=== PATIENT | male | born 1945 | race American Indian/Alaskan Native ===

== ENCOUNTER 2018-12-23 10:00 | Emergency (ER) | payer MEDICARE, OTHER ==
[2018-12-23] MEDS ORDERED: ATROVENT IH ONE (10:09)
[2018-12-23] MEDS ORDERED: PROVENTIL IH ONE (10:10)
[2018-12-23 10:31] LABS: Hemoglobin 12.3 gm/dl (11.8-15.2); Mean Corpuscular HGB Conc 33 % (32-34); Mean Corpuscular Volume 91 fl (84-94); Platelet Count 115 K/mm3 (140-440); Red Blood Count 4.08 M/mm3 (3.65-5.03); Red Cell Distribution Width 21.9 % (13.2-15.2)
--- NOTE | 2018-12-23 10:45 | XRay Report ---
AP CHEST: HISTORY: Shortness of breath Mild cardiomegaly and pulmonary venous congestion are identified. No obvious infiltrate, pleural fluid or pneumothorax. The bony thorax is grossly intact. IMPRESSION: Cardiomegaly and pulmonary venous congestion.
[2018-12-23 10:59] LABS: Alanine Aminotransferase 11 units/L (7-56); Albumin 3.7 g/dL (3.9-5); BUN/Creatinine Ratio 15; Blood Urea Nitrogen 17 mg/dL (9-20); Hemolysis Index 4
--- NOTE | 2018-12-23 12:50 | Emergency Department Report ---
ED General Adult HPI - General Chief complaint: Dyspnea/Respdistress Stated complaint: OMAR Time Seen by Provider: 12/23/18 10:08 Source: patient, family, EMS Mode of arrival: Stretcher Limitations: No Limitations - History of Present Illness Initial comments: Patient arrives to the ED via EMS for a chief complaint of shortness of breath. The patient arrives on CPAP and has a history of interstitial lung disease. Per EMS the patient's O2 sats were in the low 70s upon their arrival. Prior to patient's states he wears 2-3 L of O2 nasal cannula at home. Patient denies any chest pain, or abdominal pain. Patient received 125 mg of Solu-Medrol, albuterol breathing treatment, and 2 g of magnesium prior to arrival by EMS -: Sudden Severity scale (0 -10): 0 Consistency: constant Improves with: other (CPAP) Worsens with: movement Associated Symptoms: denies other symptoms Treatments Prior to Arrival: none - Related Data Allergies Allergy/AdvReac Type Severity Reaction Status Date / Time No Known Allergies Allergy Verified 12/23/18 10:17 ED Review of Systems ROS: Stated complaint: OMAR Other details as noted in HPI Constitutional: denies: chills, fever Eyes: denies: eye pain, eye discharge, vision change ENT: denies: ear pain, throat pain Respiratory: shortness of breath. denies: cough, wheezing Cardiovascular: denies: chest pain, palpitations Endocrine: no symptoms reported Gastrointestinal: denies: abdominal pain, nausea, diarrhea Genitourinary: denies: urgency, dysuria Musculoskeletal: denies: back pain, joint swelling, arthralgia Skin: denies: rash, lesions Neurological: denies: headache, weakness, paresthesias Psychiatric: denies: anxiety, depression Hematological/Lymphatic: denies: easy bleeding, easy bruising ED Past Medical Hx - Past Medical History Previous Medical History?: Yes Hx Hypertension: Yes Hx Diabetes: Yes Hx of Cancer: Yes (prostate) Additional medical history: interstitial lung disease - Surgical History Past Surgical History?: Yes Hx Coronary Stent: Yes Additional Surgical History: neck surgery - Social History Smoking Status: Unknown if ever smoked Substance Use Type: None ED Physical Exam - General Limitations: No Limitations General appearance: alert, in no apparent distress - Head Head exam: Present: atraumatic, normocephalic - Eye Eye exam: Present: normal appearance, PERRL, EOMI - ENT ENT exam: Present: mucous membranes moist - Neck Neck exam: Present: normal inspection - Respiratory Respiratory exam: Present: respiratory distress, wheezes, accessory muscle use, other (patient using accessory muscles for respiration) - Cardiovascular Cardiovascular Exam: Present: regular rate, normal rhythm. Absent: systolic murmur, diastolic murmur, rubs, gallop - GI/Abdominal GI/Abdominal exam: Present: soft, distended, normal bowel sounds. Absent: tenderness - Rectal Rectal exam: Present: deferred - Extremities Exam Extremities exam: Present: normal inspection - Back Exam Back exam: Present: normal inspection - Neurological Exam Neurological exam: Present: alert, oriented X3, CN II-XII intact. Absent: motor sensory deficit - Psychiatric Psychiatric exam: Present: normal affect, normal mood - Skin Skin exam: Present: warm, dry, intact, normal color. Absent: rash ED Course Vital Signs 12/23/18 12/23/18 12/23/18 10:00 10:04 10:23 Temperature 97.9 F Pulse Rate 86 103 H Pulse Rate [ Posterior Bilateral Throughout] Respiratory 34 H 30 H Rate Respiratory Rate [Posterior Bilateral Throughout] Blood Pressure Blood Pressure 151/77 [Right] O2 Sat by Pulse 92 93 93 Oximetry 12/23/18 12/23/18 12/23/18 10:30 10:39 10:46 Temperature Pulse Rate 99 H Pulse Rate [ Posterior Bilateral Throughout] Respiratory 23 24 Rate Respiratory Rate [Posterior Bilateral Throughout] Blood Pressure 138/65 151/77 Blood Pressure [Right] O2 Sat by Pulse 93 92 Oximetry 12/23/18 12/23/18 12/23/18 10:58 11:00 11:16 Temperature Pulse Rate Pulse Rate [ 94 H Posterior Bilateral Throughout] Respiratory Rate Respiratory 22 Rate [Posterior Bilateral Throughout] Blood Pressure 138/65 135/73 Blood Pressure [Right] O2 Sat by Pulse 92 93 Oximetry 12/23/18 12/23/18 12/23/18 11:30 11:46 12:00 Temperature Pulse Rate Pulse Rate [ Posterior Bilateral Throughout] Respiratory Rate Respiratory Rate [Posterior Bilateral Throughout] Blood Pressure 132/77 132/77 145/76 Blood Pressure [Right] O2 Sat by Pulse 93 94 92 Oximetry 12/23/18 12/23/18 12/23/18 12:16 12:30 12:46 Temperature Pulse Rate Pulse Rate [ Posterior Bilateral Throughout] Respiratory Rate Respiratory Rate [Posterior Bilateral Throughout] Blood Pressure 145/76 145/76 137/62 Blood Pressure [Right] O2 Sat by Pulse 92 94 94 Oximetry ED Medical Decision Making - Lab Data Result diagrams: 12/23/18 10:22 12/23/18 10:22 Lab Results 12/23/18 12/23/18 12/23/18 Range/Units 10:22 10:22 10:22 WBC 10.7 (4.5-11.0) K/mm3 RBC 4.08 (3.65-5.03) M/mm3 Hgb 12.3 (11.8-15.2) gm/dl Hct 37.0 (35.5-45.6) % MCV 91 (84-94) fl MCH 30 (28-32) pg MCHC 33 (32-34) % RDW 21.9 H (13.2-15.2) % Plt Count 115 L (140-440) K/mm3 Add Manual Diff Complete Total Counted 100 Seg Neuts % (Manual) 92.0 H (40.0-70.0) % Band Neutrophils % 0 % Lymphocytes % (Manual) 5.0 L (13.4-35.0) % Reactive Lymphs % (Man) 0 % Monocytes % (Manual) 3.0 (0.0-7.3) % Eosinophils % (Manual) 0 (0.0-4.3) % Basophils % (Manual) 0 (0.0-1.8) % Metamyelocytes % 0 % Myelocytes % 0 % Promyelocytes % 0 % Blast Cells % 0 % Nucleated RBC % Not Reportable Seg Neutrophils # Man 9.8 H (1.8-7.7) K/mm3 Band Neutrophils # 0.0 K/mm3 Lymphocytes # (Manual) 0.5 L (1.2-5.4) K/mm3 Abs React Lymphs (Man) 0.0 K/mm3 Monocytes # (Manual) 0.3 (0.0-0.8) K/mm3 Eosinophils # (Manual) 0.0 (0.0-0.4) K/mm3 Basophils # (Manual) 0.0 (0.0-0.1) K/mm3 Metamyelocytes # 0.0 K/mm3 Myelocytes # 0.0 K/mm3 Promyelocytes # 0.0 K/mm3 Blast Cells # 0.0 K/mm3 WBC Morphology Not Reportable Hypersegmented Neuts Not Reportable Hyposegmented Neuts Not Reportable Hypogranular Neuts Not Reportable Smudge Cells Not Reportable Toxic Granulation Not Reportable Toxic Vacuolation Not Reportable Dohle Bodies Not Reportable Pelger-Huet Anomaly Not Reportable Kimberly Rods Not Reportable Platelet Estimate Consistent w auto Clumped Platelets Not Reportable Plt Clumps, EDTA Not Reportable Large Platelets Not Reportable Giant Platelets Not Reportable Platelet Satelliting Not Reportable Plt Morphology Comment Not Reportable RBC Morphology Not Reportable Dimorphic RBCs Not Reportable Polychromasia Not Reportable Hypochromasia Not Reportable Poikilocytosis 1+ Anisocytosis 1+ Microcytosis Not Reportable Macrocytosis Not Reportable Spherocytes Not Reportable Pappenheimer Bodies Not Reportable Sickle Cells Not Reportable Target Cells Not Reportable Tear Drop Cells Few Ovalocytes Few Helmet Cells Not Reportable [place] Bodies Not Reportable [place] Rings Not Reportable [place] Cells Not Reportable Bite Cells Not Reportable Crenated Cell Not Reportable Elliptocytes Not Reportable Acanthocytes (Spur) Not Reportable Rouleaux Not Reportable Hemoglobin C Crystals Not Reportable Schistocytes Not Reportable Malaria parasites Not Reportable Carlin Bodies Not Reportable Hem Pathologist Commnt No Sodium 139 (137-145) mmol/L Potassium 4.8 (3.6-5.0) mmol/L Chloride 105.1 (98-107) mmol/L Carbon Dioxide 20 L (22-30) mmol/L Anion Gap 19 mmol/L BUN 17 (9-20) mg/dL Creatinine 1.1 (0.8-1.5) mg/dL Estimated GFR > 60 ml/min BUN/Creatinine Ratio 15 % Glucose 142 H (75-100) mg/dL Calcium 9.0 (8.4-10.2) mg/dL Total Bilirubin 2.00 H (0.1-1.2) mg/dL AST 18 (5-40) units/L ALT 11 (7-56) units/L Alkaline Phosphatase 72 (35-129) units/L Troponin T < 0.010 (0.00-0.029) ng/mL NT-Pro-B Natriuret Pep 604.4 (0-900) pg/mL Total Protein 7.6 (6.3-8.2) g/dL Albumin 3.7 L (3.9-5) g/dL Albumin/Globulin Ratio 0.9 % 12/23/18 Range/Units 12:03 WBC (4.5-11.0) K/mm3 RBC (3.65-5.03) M/mm3 Hgb (11.8-15.2) gm/dl Hct (35.5-45.6) % MCV (84-94) fl MCH (28-32) pg MCHC (32-34) % RDW (13.2-15.2) % Plt Count (140-440) K/mm3 Add Manual Diff Total Counted Seg Neuts % (Manual) (40.0-70.0) % Band Neutrophils % % Lymphocytes % (Manual) (13.4-35.0) % Reactive Lymphs % (Man) % Monocytes % (Manual) (0.0-7.3) % Eosinophils % (Manual) (0.0-4.3) % Basophils % (Manual) (0.0-1.8) % Metamyelocytes % % Myelocytes % % Promyelocytes % % Blast Cells % % Nucleated RBC % Seg Neutrophils # Man (1.8-7.7) K/mm3 Band Neutrophils # K/mm3 Lymphocytes # (Manual) (1.2-5.4) K/mm3 Abs React Lymphs (Man) K/mm3 Monocytes # (Manual) (0.0-0.8) K/mm3 Eosinophils # (Manual) (0.0-0.4) K/mm3 Basophils # (Manual) (0.0-0.1) K/mm3 Metamyelocytes # K/mm3 Myelocytes # K/mm3 Promyelocytes # K/mm3 Blast Cells # K/mm3 WBC Morphology Hypersegmented Neuts Hyposegmented Neuts Hypogranular Neuts Smudge Cells Toxic Granulation Toxic Vacuolation Dohle Bodies Pelger-Huet Anomaly Kimberly Rods Platelet Estimate Clumped Platelets Plt Clumps, EDTA Large Platelets Giant Platelets Platelet Satelliting Plt Morphology Comment RBC Morphology Dimorphic RBCs Polychromasia Hypochromasia Poikilocytosis Anisocytosis Microcytosis Macrocytosis Spherocytes Pappenheimer Bodies Sickle Cells Target Cells Tear Drop Cells Ovalocytes Helmet Cells [place] Bodies [place] Rings [place] Cells Bite Cells Crenated Cell Elliptocytes Acanthocytes (Spur) Rouleaux Hemoglobin C Crystals Schistocytes Malaria parasites Carlin Bodies Hem Pathologist Commnt Sodium (137-145) mmol/L Potassium (3.6-5.0) mmol/L Chloride (98-107) mmol/L Carbon Dioxide (22-30) mmol/L Anion Gap mmol/L BUN (9-20) mg/dL Creatinine (0.8-1.5) mg/dL Estimated GFR ml/min BUN/Creatinine Ratio % Glucose (75-100) mg/dL Calcium (8.4-10.2) mg/dL Total Bilirubin (0.1-1.2) mg/dL AST (5-40) units/L ALT (7-56) units/L Alkaline Phosphatase (35-129) units/L Troponin T < 0.010 (0.00-0.029) ng/mL NT-Pro-B Natriuret Pep (0-900) pg/mL Total Protein (6.3-8.2) g/dL Albumin (3.9-5) g/dL Albumin/Globulin Ratio % - EKG Data -: EKG Interpreted by [facility] EKG shows normal: sinus rhythm Rate: normal - EKG Data Interpretation: other (RBBB) - Radiology Data Radiology results: report reviewed - Medical Decision Making Patient improved after receiving 3 L nasal cannula and 1 hour continuous breathing treatment Discussed patient with Dr. Taylor at [facility] and the patient will be transferred to him at [facility] for further evaluation and treatment Critical care time in (mins) excluding proc time.: 35 Critical care attestation.: If time is entered above; I have spent that time in minutes in the direct care of this critically ill patient, excluding procedure time. ED Disposition Clinical Impression: Respiratory distress Disposition: [id number]/TX-70 ANOTHER TYPE HLTHCARE Is pt being admited?: No Does the pt Need Aspirin: No Condition: Stable Referrals: HELEN CRUZ [Other] - 3-5 Days
[2018-12-23 12:54] LABS: Anisocytosis 1+; Basophils % (Manual) 0 % (0.0-1.8); Eosinophils % (Manual) 0 % (0.0-4.3); Poikilocytosis 1+; Total Cells Counted 100
[2018-12-23 12:55] LABS: Ovalocytes Few; Platelet Estimate Consistent w Auto; Tear Drop Cells Few
[2018-12-23 13:13] VITALS: BP 118/71
== END 2018-12-23 14:26 | disposition other institution (70) ==
LOC: ED 10:00
DX: R06.03 Acute respiratory distress (principal)
CPT/HCPCS: 36415; 71045; 80053; 82803; 83880; 84484; 85007; 85025; 93005; 93010; 94640

== ENCOUNTER 2019-01-09 06:19 | Inpatient (IN) | payer MEDICARE, OTHER ==
[2019-01-09] MEDS ORDERED: MAGNESIUM SULFATE 2GM/50ML 2 GM/50 ML BAG IV ONE (06:26)
[2019-01-09] MEDS ORDERED: PROVENTIL IH ONE (06:26)
[2019-01-09] MEDS ORDERED: SOLU-Medrol IV ONE (06:26)
[2019-01-09] MEDS ORDERED: ATROVENT IH ONE (06:26)
--- NOTE | 2019-01-09 06:30 | Emergency Department Report ---
ED Shortness of Breath HPI - General Stated Complaint: OMAR Time Seen by Provider: 01/09/19 06:24 Source: patient, old records reviewed (patient was seen here on December 23 and was subsequently transferred to a [facility] hospital for admission) Mode of arrival: Stretcher Limitations: No Limitations - History of Present Illness Initial Comments: 73-year-old male with a past medical history interstitial lung disease, hypertension, diabetes, and prostate cancer presents with possible complaints of shortness of breath worsening this a.m. EMS reports a saturation of 60% on oxygen. Patient does use 2L nasal cannula oxygen at home and has chronic hypoxia secondary to interstitial lung disease. Patient denies pain. No reports of fever. Patient presents with respiratory distress on nonrebreather. PMD: [place] Medical records received from [place] admission as d/c summary before (see records for more details) He was admitted December 30 of December 27 for acute on chronic respiratory failure and interstitial lung disease. Patient was started sildenafil during this adm ission along with prednisone taper. pt had a vq scan done that was neg for PE. cardiac cath done 07/2017 shows a stable PDA lesion. EF 55-60% (see echo from 12/24 on chart). hx of stroke in 12/2017 with slight weak left upper and lower extremities and left homonymous hemianopsia. KELLY on CPAP - Related Data Allergies Allergy/AdvReac Type Severity Reaction Status Date / Time No Known Allergies Allergy Verified 12/23/18 10:17 ED Review of Systems ROS: Stated complaint: OMAR Other details as noted in HPI Comment: All other systems reviewed and negative ED Past Medical Hx - Past Medical History Hx Hypertension: Yes Hx Diabetes: Yes Additional medical history: interstitial lung disease, severe pulmonary hypertension, Obstructive sleep apnea - Surgical History Hx Coronary Stent: Yes Additional Surgical History: neck surgery - Social History Smoking Status: Unknown if ever smoked Substance Use Type: None ED Physical Exam - Other Other exam information: General: Respiratory distress Head exam: Atraumatic, normocephalic Eyes exam: Normal appearance ENT: Moist mucous membrane, normal oropharynx Neck exam: Normal inspection, full range of motion, no meningismus nontender Respiratory exam: Tachypnea, accessory muscle use, bilateral wheezes and crackles Cardiovascular: Tachycardic regular rhythm Abdomen: Soft, nondistended, and nontender, with normal bowel sounds, no rebound, or guarding Extremity: Full range of motion normal inspection no deformity, no calf tender ness or edema Back: Normal Inspection, full range of motion, no tenderness Neurologic: Alert, oriented x3, cranial nerves intact, 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 Psychiatric: normal affect, normal mood Skin: Warm, dry, intact ED Course Vital Signs 01/09/19 01/09/19 01/09/19 06:26 06:38 06:42 Pulse Rate 114 H 88 Pulse Rate [ 88 Anterior Bilateral Throughout] Respiratory 18 38 H Rate Respiratory 38 H Rate [Anterior Bilateral Throughout] Blood Pressure 183/55 183/85 O2 Sat by Pulse 77 L 90 Oximetry 01/09/19 01/09/19 01/09/19 07:55 07:57 09:25 Pulse Rate 98 H Pulse Rate [ 98 H Anterior Bilateral Throughout] Respiratory 36 H 32 H Rate Respiratory 32 H Rate [Anterior Bilateral Throughout] Blood Pressure 105/60 O2 Sat by Pulse 100 98 Oximetry - Consultations Consultation #1: 01/09/19 09:06 case d/w Dr Loomis with [facility] admission here due to bipap dependence. She will fax over most recent d/c summary. 01/09/19 09:21 recent d/c summary placed on chart ED Medical Decision Making - Lab Data Result diagrams: 01/09/19 06:33 01/09/19 06:33 Lab Results 01/09/19 01/09/19 01/09/19 Range/Units 06:33 06:33 07:57 WBC 14.0 H (4.5-11.0) K/mm3 RBC 4.01 (3.65-5.03) M/mm3 Hgb 11.9 (11.8-15.2) gm/dl Hct 36.7 (35.5-45.6) % MCV 92 (84-94) fl MCH 30 (28-32) pg MCHC 32 (32-34) % RDW 21.7 H (13.2-15.2) % Plt Count 129 L (140-440) K/mm3 POC ABG pH 7.401 (7.35-7.45) POC ABG pCO2 32.4 L (35-45) POC ABG pO2 125 H (80-105) POC ABG HCO3 20.1 (22-26 mml/L) POC ABG Total CO2 21 (23-27mmol/L) POC ABG O2 Sat 99 POC ABG Base Excess -5 ((-2) - (+3)mmol/L) FiO2 100 % Sodium 138 (137-145) mmol/L Potassium 4.9 (3.6-5.0) mmol/L Chloride 102.4 (98-107) mmol/L Carbon Dioxide 19 L (22-30) mmol/L Anion Gap 22 mmol/L BUN 17 (9-20) mg/dL Creatinine 1.2 (0.8-1.5) mg/dL Estimated GFR > 60 ml/min BUN/Creatinine Ratio 14 % Glucose 248 H (75-100) mg/dL Calcium 8.6 (8.4-10.2) mg/dL Total Bilirubin 1.30 H (0.1-1.2) mg/dL AST 15 (5-40) units/L ALT 10 (7-56) units/L Alkaline Phosphatase 72 (35-129) units/L Troponin T 0.015 (0.00-0.029) ng/mL Total Protein 7.3 (6.3-8.2) g/dL Albumin 3.5 L (3.9-5) g/dL Albumin/Globulin Ratio 0.9 % - EKG Data -: EKG Interpreted by Me (RBBB) EKG shows normal: sinus rhythm, axis (qrs 47), QRS complexes (qrsd 152), ST-T waves (no stemi) Rate: tachycardia - EKG Data When compared to previous EKG there are: no significant change - Radiology Data Radiology results: report reviewed PORTABLE CHEST INDICATION: Shortness of breath. COMPARISON: 12/23/2018 CXR and February 2016 CT findings. FINDINGS: Portable, frontal chest radiograph again demonstrates exaggerated cardiomediastinal silhouette and increased bilateral interstitial markings/densities, more so centrally and towards the bases, in keeping with interstitial lung disease/IPF described on prior CT, though progressed since 01/18/2013 CXR available at this institution. No pleural effusions or CHF. Mild aortic knob calcifications. Stable bones, including multilevel cervical fusion hardware. CONCLUSION: Interstitial lung disease again noted without definite acute radiographic abnormality, as described. Please correlate. - Medical Decision Making abg on bipap with 100%, fio2 decreased after abg result no infiltrate or c02 retention pt will be admitted here as per [place] approval awaiting fax of recent d/c summary from [place] - Differential Diagnosis pneumonia, pulmonary embolus, COPD, interstitial lung disease Critical Care Time: No Critical care attestation.: If time is entered above; I have spent that time in minutes in the direct care of this critically ill patient, excluding procedure time. ED Disposition Clinical Impression: Interstitial lung disease, Respiratory distress, Oxygen dependent, Thrombocytopenia Disposition: OP ADMIT IP TO THIS HOSP Is pt being admited?: Yes Does the pt Need Aspirin: No Condition: Stable Time of Disposition: 09:13 (DR Fair/Malina/hosp)
[2019-01-09 06:44] LABS: Hematocrit 36.7 % (35.5-45.6); Hemoglobin 11.9 gm/dl (11.8-15.2); Mean Corpuscular HGB Conc 32 % (32-34); Mean Corpuscular Volume 92 fl (84-94); Platelet Count 129 K/mm3 (140-440); Red Blood Count 4.01 M/mm3 (3.65-5.03)
[2019-01-09 07:00] LABS: Alanine Aminotransferase 10 units/L (7-56); Albumin 3.5 g/dL (3.9-5); BUN/Creatinine Ratio 14; Blood Urea Nitrogen 17 mg/dL (9-20); Calcium 8.6 mg/dL (8.4-10.2); Hemolysis Index 4
[2019-01-09 07:15] LABS: Red Cell Distribution Width 21.7 % (13.2-15.2)
--- NOTE | 2019-01-09 07:49 | XRay Report ---
PORTABLE CHEST INDICATION: Shortness of breath. COMPARISON: 12/23/2018 CXR and February 2016 CT findings. FINDINGS: Portable, frontal chest radiograph again demonstrates exaggerated cardiomediastinal silhouette and increased bilateral interstitial markings/densities, more so centrally and towards the bases, in keeping with interstitial lung disease/IPF described on prior CT, though progressed since 01/18/2013 CXR available at this institution. No pleural effusions or CHF. Mild aortic knob calcifications. Stable bones, including multilevel cervical fusion hardware. CONCLUSION: Interstitial lung disease again noted without definite acute radiographic abnormality, as described. Please correlate. Thank you for the opportunity to participate in this patient's care.
[2019-01-09] MEDS ORDERED: TYLENOL PO PRN ×2 (10:57→11:00)
[2019-01-09] MEDS ORDERED: ALUM-MAG HYDROX-SIMETH 200-200-20MG/5ML PO PRN (11:00)
[2019-01-09] MEDS ORDERED: D50W (25GM) Syringe IV PRN (11:00)
[2019-01-09] MEDS ORDERED: SODIUM CHLORIDE FLUSH SYRINGE 10 ML IV PRN (11:00)
[2019-01-09] MEDS ORDERED: ZOFRAN IV PRN (11:00)
[2019-01-09] MEDS ORDERED: PROVENTIL IH PRN (12:00)
[2019-01-09] MEDS ORDERED: DUONEB *Not for PRN Use IH ONE (13:38)
[2019-01-09] MEDS: DUONEB *Not for PRN Use IH SCH ×2 (13:38→19:59)
--- NOTE | 2019-01-09 14:24 | History and Physical Report ---
History of Present Illness Date of examination: 01/09/19 Date of admission: 01/09/19 09:14 Chief complaint: I couldn't breath since this morning History of present illness: 73-year-old male with past medical history significant for interstitial disease, hypertension, prostate cancer presented to the emergency department with complaints of I couldn't breath. Shortness appears started earlier this morning. Patient subsequently didn't cough which is productive of greenish sputum but denied fever, loss of appetite. She and admitted for chills and nausea but denied vomiting. Patient was admitted to some problems 2 weeks ago in discharged with sildenafil and steroid joseph. Patient is on home oxygen despite that his oxygen saturation was 60%. In the ED patient was put on BiPAP aand admitted to the floor. patient had ischemic work up in the previous admis sions and was negative. REVIEW OF SYSTEMS: GENERAL: no weight change, no fatigue, no fever HEAD: no head ache EYES: no blurry vision, no acute visual loss EARS: no hearing loss, no discharge, no earache NOSE: no stuffiness, no sneezing, no discharge MOUTH, THROAT AND NECK: no bleeding gums, no sore throat, no swollen neck CARDIAC: no palpitations, no orthopnea, no PND, no edema, no chest pain RESPIRATORY: As stated in HPI. GI: no decreased appetite, no nausea, no vomiting, no dysphagia, no diarrhea, no constipation, no abdominal pain URINARY: no change in frequency, no urgency, no polyuria, no hematuria, no incontinence MUSCULOSKELETAL: no muscle weakness, no pain, no joint stiffness NEUROLOGIC: no loss of sensation/numbness, no tingling, no tremors, no weakness/paralysis HEMATOLOGIC: no anemia, no easy bruising SKIN: no rashes ENDOCRINE: no heat/cold intolerance, no polyuria, no polydipsia, no thyroid problems, no diabetes PSYCHIATRIC: no anxiety, no depression, no suicidal ideations Past History Past Medical History: cancer (prostate cancer), hypertension Past Surgical History: Other (neck surgery) Social history: full code. denies: smoking, alcohol abuse, prescription drug abuse, IV drug use Family history: no significant family history Medications and Allergies Allergies Allergy/AdvReac Type Severity Reaction Status Date / Time No Known Allergies Allergy Verified 12/23/18 10:17 Home Medications Medication Instructions Recorded Confirmed Last Taken Type Acetaminophen [Tylenol] 500 mg PO Q6HR PRN 01/09/19 01/09/19 Unknown History AtorvaSTATin [Lipitor] 40 mg PO DAILY 01/09/19 01/09/19 Unknown History Carvedilol [Coreg] 12.5 mg PO BID 01/09/19 01/09/19 Unknown History Cetirizine HCl [Allergy Relief] 10 mg PO DAILY 01/09/19 01/09/19 Unknown History Cholecalciferol (Vitamin D3) 1,000 unit PO QDAY 01/09/19 01/09/19 Unknown Hi story [Children's Vitamin D3 1,000 unit CHEW] Clopidogrel [Plavix] 75 mg PO QDAY 01/09/19 01/09/19 Unknown History Fluticasone [Flonase] 1 spray NS QDAY 01/09/19 01/09/19 Unknown History Glimepiride [Amaryl] 2 mg PO QDAY 01/09/19 01/09/19 Unknown History Insulin Glargine,Hum.rec.anlog 40 units SUB-Q HS 01/09/19 01/09/19 Unknown History [Lantus] Losartan [Cozaar] 100 mg PO QDAY 01/09/19 01/09/19 Unknown History Sertraline [Zoloft] 150 mg PO QDAY 01/09/19 01/09/19 Unknown History Sildenafil [Revatio] 20 mg PO TID 01/09/19 01/09/19 Unknown History amLODIPine [Norvasc] 10 mg PO DAILY 01/09/19 01/09/19 Unknown History Active Meds: Active Medications Acetaminophen (Tylenol) 650 mg PO Q4H PRN PRN Reason: Pain MILD(1-3)/Fever >100.5/QUILES Al Hydrox/Mg Hydrox/Simethicone (Alum-Mag Hydrox-Simeth 193-370-71lu/5ml) 30 ml PO Q4H PRN PRN Reason: Indigestion Albuterol (Proventil) 2.5 mg IH Q4HRT PRN PRN Reason: Shortness Of Breath Albuterol/Ipratropium (Duoneb *Not For Prn Use*) 1 ampul IH Q6HRT [facility] Last Admin: 01/09/19 13:38 Dose: 1 ampul Documented by: Amlodipine Besylate (Norvasc) 10 mg PO DAILY [facility] Atorvastatin Calcium (Lipitor) 40 mg PO DAILY [facility] Budesonide (Pulmicort) 0.5 mg IH Q12HRT [facility] Carvedilol (Coreg) 12.5 mg PO BID [facility] Clopidogrel Bisulfate (Plavix) 75 mg PO QDAY [facility] Dextrose (D50w (25gm) Syringe) 50 ml IV PRN PRN PRN Reason: Hypoglycemia Docusate Sodium (Colace) 100 mg PO BID [facility] Famotidine (Pepcid) 10 mg PO BID [facility] Fluticasone Propionate (Flonase) 50 mcg NS QDAY [facility] Glimepiride (Amaryl) 2 mg PO QAMDIAB [facility] Insulin Glargine (Lantus) 40 units SUB-Q HS [facility] Loratadine (Claritin) 10 mg PO DAILY [facility] Losartan Potassium (Cozaar) 100 mg PO QDAY [facility] Methylprednisolone Sodium Succinate (Solu-Medrol) 80 mg IV Q8HR [facility] Ondansetron HCl (Zofran) 4 mg IV Q8H PRN PRN Reason: Nausea And Vomiting Sertraline HCl (Zoloft) 150 mg PO QDAY [facility] Sildenafil Citrate (Revatio) 20 mg PO TID [facility] Sodium Chloride (Sodium Chloride Flush Syringe 10 Ml) 10 ml IV BID [facility] Sodium Chloride (Sodium Chloride Flush Syringe 10 Ml) 10 ml IV PRN PRN PRN Reason: LINE FLUSH Exam - Physical Exam Narrative exam: Not in cardiopulmonary distress. The patient appeared well nourished and normally developed. Vital signs as documented. Head exam is unremarkable. No scleral icterus . Neck is without jugular venous distension, thyromegaly, or carotid bruits. Lungs decrease air entry. Cardiac exam reveals regular rate and Rhythm. Abdominal exam reveals normal bowel sounds. Extremities are nonedematous. 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 No focal weakness. - Constitutional Vitals: Temp Pulse Resp BP Pulse Ox 79 24 123/70 95 01/09/19 13:46 01/09/19 13:46 01/09/19 13:24 01/09/19 13:24 Results - Labs CBC & Chem 7: 01/09/19 06:33 01/09/19 06:33 Labs: Laboratory Last Values WBC 14.0 K/mm3 (4.5-11.0) H 01/09/19 06:33 RBC 4.01 M/mm3 (3.65-5.03) 01/09/19 06:33 Hgb 11.9 gm/dl (11.8-15.2) 01/09/19 06:33 Hct 36.7 % (35.5-45.6) 01/09/19 06:33 MCV 92 fl (84-94) 01/09/19 06:33 MCH 30 pg (28-32) 01/09/19 06:33 MCHC 32 % (32-34) 01/09/19 06:33 RDW 21.7 % (13.2-15.2) H 01/09/19 06:33 Plt Count 129 K/mm3 (140-440) L 01/09/19 06:33 POC ABG pH 7.401 (7.35-7.45) 01/09/19 07:57 POC ABG pCO2 32.4 (35-45) L 01/09/19 07:57 POC ABG pO2 125 (80-105) H 01/09/19 07:57 POC ABG HCO3 20.1 (22-26 mml/L) 01/09/19 07:57 POC ABG Total CO2 21 (23-27mmol/L) 01/09/19 07:57 POC ABG O2 Sat 99 01/09/19 07:57 POC ABG Base Excess -5 ((-2) - (+3)mmol/L) 01/09/19 07:57 100 % 01/09/19 07:57 Sodium 138 mmol/L (137-145) 01/09/19 06:33 Potassium 4.9 mmol/L (3.6-5.0) 01/09/19 06:33 Chloride 102.4 mmol/L (98-107) 01/09/19 06:33 Carbon Dioxide 19 mmol/L (22-30) L 01/09/19 06:33 22 mmol/L 01/09/19 06:33 BUN 17 mg/dL (9-20) 01/09/19 06:33 1.2 mg/dL (0.8-1.5) 01/09/19 06:33 Estimated GFR > 60 ml/min 01/09/19 06:33 14 % 01/09/19 06:33 Glucose 248 mg/dL (75-100) H 01/09/19 06:33 10.8 % (4-6) H 01/09/19 06:33 Calcium 8.6 mg/dL (8.4-10.2) 01/09/19 06:33 1.30 mg/dL (0.1-1.2) H 01/09/19 06:33 AST 15 units/L (5-40) 01/09/19 06:33 ALT 10 units/L (7-56) 01/09/19 06:33 72 units/L (35-129) 01/09/19 06:33 0.015 ng/mL (0.00-0.029) 01/09/19 06:33 7.3 g/dL (6.3-8.2) 01/09/19 06:33 3.5 g/dL (3.9-5) L 01/09/19 06:33 0.9 % 01/09/19 06:33 Assessment and Plan Assessment and plan: Acute on chronic hypoxic respiratory failure Interstitial lung disease - Patient started on Solu-Medrol, continue sildenafil, breathing treatment - Home BiPAP, pulmonary consult requested Hypertension - Continue home medications DVT prophylaxis - Heparin Disposition - Admit to [facility] Advance Directives: Yes VTE prophylaxis?: Chemical Plan of care discussed with patient/family: Yes
[2019-01-09] MEDS ORDERED: SOLU-Medrol ONE (14:31)
[2019-01-09 14:34] LABS: Band Neutrophils # (Manual) 0.3 K/mm3; Basophils % (Manual) 0 % (0.0-1.8); Total Cells Counted 100
[2019-01-09 14:35] LABS: Anisocytosis 1+; Macrocytosis Few; Platelet Estimate Consistent w Auto
[2019-01-09] MEDS: SOLU-Medrol IV SCH ×2 (14:42→23:21)
[2019-01-09] MEDS: ZOLOFT PO SCH (14:42)
[2019-01-09] MEDS: FLONASE NS SCH (14:42)
[2019-01-09] MEDS: PULMICORT IH SCH (19:59)
[2019-01-09] MEDS: PEPCID PO SCH (23:21)
[2019-01-09] MEDS: REVATIO PO SCH (23:21)
[2019-01-09] MEDS: LANTUS SUB-Q SCH (23:22)
[2019-01-09] MEDS: COLACE PO SCH (23:22)
[2019-01-09] MEDS: HEPARIN SUB-Q SCH (23:22)
[2019-01-09] MEDS: SODIUM CHLORIDE FLUSH SYRINGE 10 ML IV SCH (23:23)
[2019-01-09] MEDS: COREG PO SCH (23:32)
[2019-01-10 05:46] LABS: Hematocrit 34.6 % (35.5-45.6); Hemoglobin 11.2 gm/dl (11.8-15.2); Mean Corpuscular HGB Conc 32 % (32-34); Mean Corpuscular Volume 91 fl (84-94); Platelet Count 110 K/mm3 (140-440); Red Blood Count 3.82 M/mm3 (3.65-5.03)
[2019-01-10] MEDS: DUONEB *Not for PRN Use IH SCH ×4 (05:51→19:51)
[2019-01-10 05:55] LABS: Red Cell Distribution Width 21.6 % (13.2-15.2)
[2019-01-10 06:03] LABS: BUN/Creatinine Ratio 23; Blood Urea Nitrogen 27 mg/dL (9-20); Hemolysis Index 5
[2019-01-10] MEDS: SOLU-Medrol IV SCH ×3 (06:41→22:04)
[2019-01-10] MEDS: HEPARIN SUB-Q SCH ×3 (06:41→22:05)
[2019-01-10 06:58] LABS: Band Neutrophils # (Manual) 0.5 K/mm3; Basophils % (Manual) 0 % (0.0-1.8); Eosinophils % (Manual) 0 % (0.0-4.3); Total Cells Counted 100
[2019-01-10 06:59] LABS: Anisocytosis 1+; Macrocytosis Few; Platelet Estimate Consistent w Auto
[2019-01-10] MEDS: PULMICORT IH SCH ×2 (08:48→19:51)
[2019-01-10] MEDS ORDERED: LANTUS SUB-Q ONE (09:00)
[2019-01-10] MEDS ORDERED: NON-FORMULARY (Cetirizine Hcl [Allergy Relief] 10 MG) PO SCH (10:00)
--- NOTE | 2019-01-10 10:29 | Consultation ---
History of Present Illness Consult date: 01/10/19 Requesting physician: FELY COX Reason for consult: other (Acute on Chronic Hypoxemic Resp Failure; Diffuse Proliferative Lung Disease) [facility] (Full dictation # [id number]) Please see dictated notes for full details Past History Past Medical History: cancer (prostate cancer), hypertension Past Surgical History: Other (neck surgery) Social history: full code. denies: smoking, alcohol abuse, prescription drug abuse, IV drug use Family history: no significant family history Medications and Allergies Allergies Allergy/AdvReac Type Severity Reaction Status Date / Time No Known Allergies Allergy Verified 12/23/18 10:17 Home Medications Medication Instructions Recorded Confirmed Last Taken Type Acetaminophen [Tylenol] 500 mg PO Q6HR PRN 01/09/19 01/09/19 Unknown History AtorvaSTATin [Lipitor] 40 mg PO DAILY 01/09/19 01/09/19 Unknown History Carvedilol [Coreg] 12.5 mg PO BID 01/09/19 01/09/19 Unknown History Cetirizine HCl [Allergy Relief] 10 mg PO DAILY 01/09/19 01/09/19 Unknown History Cholecalciferol (Vitamin D3) 1,000 unit PO QDAY 01/09/19 01/09/19 Unknown History [Children's Vitamin D3 1,000 unit CHEW] Clopidogrel [Plavix] 75 mg PO QDAY 01/09/19 01/09/19 Unknown History Fluticasone [Flonase] 1 spray NS QDAY 01/09/19 01/09/19 Unknown History Glimepiride [Amaryl] 2 mg PO QDAY 01/09/19 01/09/19 Unknown History Insulin Glargine,Hum.rec.anlog 40 units SUB-Q HS 01/09/19 01/09/19 Unknown History [Lantus] Losartan [Cozaar] 100 mg PO QDAY 01/09/19 01/09/19 Unknown History Sertraline [Zoloft] 150 mg PO QDAY 01/09/19 01/09/19 Unknown History Sildenafil [Revatio] 20 mg PO TID 01/09/19 01/09/19 Unknown History amLODIPine [Norvasc] 10 mg PO DAILY 01/09/19 01/09/19 Unknown History Active Meds: Active Medications Acetaminophen (Tylenol) 650 mg PO Q4H PRN PRN Reason: Pain MILD(1-3)/Fever >100.5/QUILES Al Hydrox/Mg Hydrox/Simethicone (Alum-Mag Hydrox-Simeth 155-331-56ys/5ml) 30 ml PO Q4H PRN PRN Reason: Indigestion Albuterol (Proventil) 2.5 mg IH Q4HRT PRN PRN Reason: Shortness Of Breath Albuterol/Ipratropium (Duoneb *Not For Prn Use*) 1 ampul IH Q6HRT [facility] Last Admin: 01/10/19 08:48 Dose: 1 ampul Documented by: Amlodipine Besylate (Norvasc) 10 mg PO DAILY [facility] Atorvastatin Calcium (Lipitor) 40 mg PO DAILY [facility] Budesonide (Pulmicort) 0.5 mg IH Q12HRT [facility] Last Admin: 01/10/19 08:48 Dose: 0.5 mg Documented by: Carvedilol (Coreg) 12.5 mg PO BID [facility] Last Admin: 01/09/19 23:32 Dose: Not Given Documented by: Clopidogrel Bisulfate (Plavix) 75 mg PO QDAY [facility] Dextrose (D50w (25gm) Syringe) 50 ml IV PRN PRN PRN Reason: Hypoglycemia Docusate Sodium (Colace) 100 mg PO BID [facility] Last Admin: 01/09/19 23:22 Dose: Not Given Documented by: Famotidine (Pepcid) 10 mg PO BID [facility] Last Admin: 01/09/19 23:21 Dose: 10 mg Documented by: Fluticasone Propionate (Flonase) 50 mcg NS QDAY [facility] Last Admin: 01/09/19 14:42 Dose: 50 mcg Documented by: Glimepiride (Amaryl) 2 mg PO QAMDIAB [facility] Heparin Sodium (Porcine) (Heparin) 5,000 unit SUB-Q Q8HR [facility] Last Admin: 01/10/19 06:41 Dose: 5,000 unit Documented by: Insulin Glargine (Lantus) 40 units SUB-Q HS [facility] Last Admin: 01/09/19 23:22 Dose: 40 units Documented by: Loratadine (Claritin) 10 mg PO DAILY [facility] Losartan Potassium (Cozaar) 100 mg PO QDAY [facility] Methylprednisolone Sodium Succinate (Solu-Medrol) 80 mg IV Q8HR [facility] Last Admin: 01/10/19 06:41 Dose: 80 mg Documented by: Ondansetron HCl (Zofran) 4 mg IV Q8H PRN PRN Reason: Nausea And Vomiting Sertraline HCl (Zoloft) 150 mg PO QDAY [facility] Last Admin: 01/09/19 14:42 Dose: 150 mg Documented by: Sildenafil Citrate (Revatio) 20 mg PO TID [facility] Last Admin: 01/09/19 23:21 Dose: 20 mg Documented by: Sodium Chloride (Sodium Chloride Flush Syringe 10 Ml) 10 ml IV BID [facility] Last Admin: 01/09/19 23:23 Dose: 10 ml Documented by: Sodium Chloride (Sodium Chloride Flush Syringe 10 Ml) 10 ml IV PRN PRN PRN Reason: LINE FLUSH Physical Examination Vital signs: Vital Signs Pulse Resp BP Pulse Ox 114 H 18 183/55 77 L 01/09/19 06:26 01/09/19 06:26 01/09/19 06:26 01/09/19 06:26 Results - Laboratory Findings CBC and BMP: 01/11/19 04:49 01/11/19 04:49 ABG POC ABG pH 7.401 (7.35-7.45) 01/09/19 07:57 POC ABG pCO2 32.4 (35-45) L 01/09/19 07:57 POC ABG pO2 125 (80-105) H 01/09/19 07:57 POC ABG HCO3 20.1 (22-26 mml/L) 01/09/19 07:57 POC ABG Total CO2 21 (23-27mmol/L) 01/09/19 07:57 POC ABG O2 Sat 99 01/09/19 07:57 Abnormal lab findings: Abnormal Labs 01/09/19 01/09/19 01/09/19 06:33 06:33 06:33 WBC 14.0 H Hgb Hct RDW 21.7 H Plt Count 129 L Seg Neuts % (Manual) 82.0 H Lymphocytes % (Manual) Nucleated RBC % 1.0 H Seg Neutrophils # Man 11.5 H Lymphocytes # (Manual) POC ABG pCO2 POC ABG pO2 Sodium Potassium Carbon Dioxide 19 L BUN Glucose 248 H POC Glucose Hemoglobin A1c 10.8 H Total Bilirubin 1.30 H Albumin 3.5 L 01/09/19 01/09/1919 07:57 14:37 22:07 WBC Hgb Hct RDW Plt Count Seg Neuts % (Manual) Lymphocytes % (Manual) Nucleated RBC % Seg Neutrophils # Man Lymphocytes # (Manual) POC ABG pCO2 32.4 L POC ABG pO2 125 H Sodium Potassium Carbon Dioxide BUN Glucose POC Glucose 248 H 355 H Hemoglobin A1c Total Bilirubin Albumin 01/10/19 01/10/19 01/10/19 05:02 05:02 08:34 WBC Hgb 11.2 L Hct 34.6 L RDW 21.6 H Plt Count 110 L Seg Neuts % (Manual) 83.0 H Lymphocytes % (Manual) 4.0 L Nucleated RBC % Seg Neutrophils # Man Lymphocytes # (Manual) 0.2 L POC ABG pCO2 POC ABG pO2 Sodium 136 L Potassium 5.4 H Carbon Dioxide BUN 27 H Glucose 376 H POC Glucose 378 H Hemoglobin A1c Total Bilirubin Albumin
[2019-01-10] MEDS: AMARYL PO SCH (10:37)
[2019-01-10] MEDS: REVATIO PO SCH ×3 (10:38→22:06)
[2019-01-10] MEDS: CLARITIN PO SCH (10:39)
[2019-01-10] MEDS: COLACE PO SCH ×2 (10:39→22:06)
[2019-01-10] MEDS: COREG PO SCH ×2 (10:39→22:06)
[2019-01-10] MEDS: COZAAR PO SCH (10:40)
[2019-01-10] MEDS: FLONASE NS SCH (10:40)
[2019-01-10] MEDS: NORVASC PO SCH (10:41)
[2019-01-10] MEDS: PLAVIX PO SCH (10:41)
[2019-01-10] MEDS: PEPCID PO SCH ×2 (10:41→22:08)
[2019-01-10] MEDS: ZOLOFT PO SCH (10:42)
[2019-01-10] MEDS: SODIUM CHLORIDE FLUSH SYRINGE 10 ML IV SCH ×2 (10:45→22:07)
--- NOTE | 2019-01-10 12:30 | Progress Note ---
Assessment and Plan Assessment and plan: Acute on chronic hypoxic respiratory failure Interstitial lung disease - Patient started on Solu-Medrol, continue sildenafil, breathing treatment - Patient is currently on 50% Ventimask - Continue inpatient care, follow pulmonary consult - Patient to be discharged once his oxygen saturation is going down. Diabetes mellitus his hyperglycemia - Continue home insulin coverage and sliding scale insulin Hypertension - Continue home medications DVT prophylaxis - Heparin Disposition -Continue IMCU Discussed management with patient and his and both in agreement with the plan. Plan discussed with [place] physician and agreed to keep the patient here. History Interval history: Patient was seen and evaluated this morning, patient didn't have any complaints. No nursing issues overnight. Hospitalist Physical - Physical exam Narrative exam: Condition tests on 50% Ventimask The patient appeared well nourished and normally developed. Vital signs as documented. Head exam is unremarkable. No scleral icterus . Neck is without jugular venous distension, thyromegaly, or carotid bruits. Lungs decrease air entry on bibasilar area. Cardiac exam reveals regular rate and Rhythm. Abdominal exam reveals normal bowel sounds. Extremities are nonedematous. 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 - Constitutional Vitals: Temp Pulse Resp BP Pulse Ox 97.4 F L 80 20 110/56 90 01/10/19 12:00 01/10/19 10:41 01/10/19 08:48 01/10/19 10:41 01/10/19 08:50 Results - Labs CBC & Chem 7: 01/10/19 05:02 01/10/19 05:02 Labs: Laboratory Last Values WBC 6.1 K/mm3 (4.5-11.0) 01/10/19 05:02 RBC 3.82 M/mm3 (3.65-5.03) 01/10/19 05:02 Hgb 11.2 gm/dl (11.8-15.2) L 01/10/19 05:02 Hct 34.6 % (35.5-45.6) L 01/10/19 05:02 MCV 91 fl (84-94) 01/10/19 05:02 MCH 29 pg (28-32) 01/10/19 05:02 MCHC 32 % (32-34) 01/10/19 05:02 RDW 21.6 % (13.2-15.2) H 01/10/19 05:02 Plt Count 110 K/mm3 (140-440) L 01/10/19 05:02 Add Manual Diff Complete 01/10/19 05:02 Total Counted 100 01/10/19 05:02 Seg Neutrophils % Unit Controller 01/10/19 05:02 Seg Neuts % (Manual) 83.0 % (40.0-70.0) H 01/10/19 05:02 8.0 % 01/10/19 05:02 4.0 % (13.4-35.0) L 01/10/19 05:02 Reactive Lymphs % (Man) 0 % 01/10/19 05:02 2.0 % (0.0-7.3) 01/10/19 05:02 0 % (0.0-4.3) 01/10/19 05:02 0 % (0.0-1.8) 01/10/19 05:02 3.0 % 01/10/19 05:02 0 % 01/10/19 05:02 0 % 01/10/19 05:02 0 % 01/10/19 05:02 Nucleated RBC % Not Reportable 01/10/19 05:02 Seg Neutrophils # Man 5.1 K/mm3 (1.8-7.7) 01/10/19 05:02 Band Neutrophils # 0.5 K/mm3 01/10/19 05:02 0.2 K/mm3 (1.2-5.4) L 01/10/19 05:02 Abs React Lymphs (Man) 0.0 K/mm3 01/10/19 05:02 0.1 K/mm3 (0.0-0.8) 01/10/19 05:02 0.0 K/mm3 (0.0-0.4) 01/10/19 05:02 0.0 K/mm3 (0.0-0.1) 01/10/19 05:02 0.2 K/mm3 01/10/19 05:02 0.0 K/mm3 01/10/19 05:02 0.0 K/mm3 01/10/19 05:02 Blast Cells # 0.0 K/mm3 01/10/19 05:02 WBC Morphology Not Reportable 01/10/19 05:02 Hypersegmented Neuts Not Reportable 01/10/19 05:02 Hyposegmented Neuts Not Reportable 01/10/19 05:02 Hypogranular Neuts Not Reportable 01/10/19 05:02 Not Reportable 01/10/19 05:02 Not Reportable 01/10/19 05:02 Not Reportable 01/10/19 05:02 Not Reportable 01/10/19 05:02 Not Reportable 01/10/19 05:02 Not Reportable 01/10/19 05:02 Consistent w auto 01/10/19 05:02 Not Reportable 01/10/19 05:02 Plt Clumps, EDTA Not Reportable 01/10/19 05:02 Not Reportable 01/10/19 05:02 Not Reportable 01/10/19 05:02 Not Reportable 01/10/19 05:02 Plt Morphology Comment Not Reportable 01/10/19 05:02 RBC Morphology Not Reportable 01/10/19 05:02 Dimorphic RBCs Not Reportable 01/10/19 05:02 Not Reportable 01/10/19 05:02 Not Reportable 01/10/19 05:02 Not Reportable 01/10/19 05:02 1+ 01/10/19 05:02 Not Reportable 01/10/19 05:02 Few 01/10/19 05:02 Not Reportable 01/10/19 05:02 Not Reportable 01/10/19 05:02 Not Reportable 01/10/19 05:02 Not Reportable 01/10/19 05:02 Not Reportable 01/10/19 05:02 Not Reportable 01/10/19 05:02 Not Reportable 01/10/19 05:02 Not Reportable 01/10/19 05:02 Not Reportable 01/10/19 05:02 Not Reportable 01/10/19 05:02 Not Reportable 01/10/19 05:02 Not Reportable 01/10/19 05:02 Not Reportable 01/10/19 05:02 Acanthocytes (Spur) Not Reportable 01/10/19 05:02 Rouleaux Not Reportable 01/10/19 05:02 Not Reportable 01/10/19 05:02 Not Reportable 01/10/19 05:02 Not Reportable 01/10/19 05:02 Not Reportable 01/10/19 05:02 Hem Pathologist Commnt No 01/10/19 05:02 POC ABG pH 7.401 (7.35-7.45) 01/09/19 07:57 POC ABG pCO2 32.4 (35-45) L 01/09/19 07:57 POC ABG pO2 125 (80-105) H 01/09/19 07:57 POC ABG HCO3 20.1 (22-26 mml/L) 01/09/19 07:57 POC ABG Total CO2 21 (23-27mmol/L) 01/09/19 07:57 POC ABG O2 Sat 99 01/09/19 07:57 POC ABG Base Excess -5 ((-2) - (+3)mmol/L) 01/09/19 07:57 100 % 01/09/19 07:57 Sodium 136 mmol/L (137-145) L 01/10/19 05:02 Potassium 5.4 mmol/L (3.6-5.0) H 01/10/19 05:02 Chloride 102.5 mmol/L (98-107) 01/10/19 05:02 Carbon Dioxide 23 mmol/L (22-30) 01/10/19 05:02 16 mmol/L 01/10/19 05:02 BUN 27 mg/dL (9-20) H 01/10/19 05:02 1.2 mg/dL (0.8-1.5) 01/10/19 05:02 Estimated GFR > 60 ml/min 01/10/19 05:02 23 % 01/10/19 05:02 Glucose 376 mg/dL (75-100) H 01/10/19 05:02 POC Glucose 450 (70-105) H 01/10/19 12:08 10.8 % (4-6) H 01/09/19 06:33 Calcium 9.0 mg/dL (8.4-10.2) 01/10/19 05:02 1.30 mg/dL (0.1-1.2) H 01/09/19 06:33 AST 15 units/L (5-40) 01/09/19 06:33 ALT 10 units/L (7-56) 01/09/19 06:33 72 units/L (35-129) 01/09/19 06:33 0.015 ng/mL (0.00-0.029) 01/09/19 06:33 7.3 g/dL (6.3-8.2) 01/09/19 06:33 3.5 g/dL (3.9-5) L 01/09/19 06:33 0.9 % 01/09/19 06:33 Active Medications - Current Medications Current Medications: Generic Name Dose Route Start Last Admin Trade Name Freq PRN Reason Stop Dose Admin Acetaminophen 650 mg 01/09/19 11:00 Tylenol PO Q4H PRN Pain MILD(1-3)/Fever >100.5/QUILES Al Hydrox/Mg Hydrox/Simethicone 30 ml 01/09/19 11:00 Alum-Mag Hydrox-Simeth 194-505-25cd/5ml PO Q4H PRN Indigestion Albuterol 2.5 mg 01/09/19 12:00 Proventil IH Q4HRT PRN Shortness Of Breath Albuterol/Ipratropium 1 ampul 01/09/19 14:00 01/10/19 08:48 Duoneb *Not For Prn Use* IH 1 ampul Q6HRT [facility] Administration Amlodipine Besylate 10 mg 01/10/19 10:00 01/10/19 10:41 Norvasc PO 10 mg DAILY [facility] Administration Atorvastatin Calcium 40 mg 01/10/19 10:00 01/10/19 10:41 Lipitor PO 40 mg DAILY [facility] Administration Budesonide 0.5 mg 01/09/19 20:00 01/10/19 08:48 Pulmicort IH 0.5 mg Q12HRT [facility] Administration Carvedilol 12.5 mg 01/09/19 22:00 01/10/19 10:39 Coreg PO 12.5 mg BID [facility] Administration Clopidogrel Bisulfate 75 mg 01/10/19 10:00 01/10/19 10:41 Plavix PO 75 mg QDAY [facility] Administration Dextrose 50 ml 01/09/19 11:00 D50w (25gm) Syringe IV PRN PRN Hypoglycemia Docusate Sodium 100 mg 01/09/19 22:00 01/10/19 10:39 Colace PO Not Given BID [facility] Famotidine 10 mg 01/09/19 22:00 01/10/19 10:41 Pepcid PO 10 mg BID [facility] Administration Fluticasone Propionate 50 mcg 01/09/19 11:00 01/10/19 10:40 Flonase NS 50 mcg QDAY [facility] Administration Glimepiride 2 mg 01/10/19 08:00 01/10/19 10:37 Amaryl PO 2 mg QAMDIAB [facility] Administration Heparin Sodium (Porcine) 5,000 unit 01/09/19 22:00 01/10/19 06:41 Heparin SUB-Q 5,000 unit Q8HR [facility] Administration Insulin Glargine 40 units 01/09/19 22:00 01/09/19 23:22 Lantus SUB-Q 40 units HS [facility] Administration Loratadine 10 mg 01/10/19 10:00 01/10/19 10:39 Claritin PO 10 mg DAILY [facility] Administration Losartan Potassium 100 mg 01/10/19 10:00 01/10/19 10:40 Cozaar PO 100 mg QDAY [facility] Administration Methylprednisolone Sodium Succinate 80 mg 01/09/19 14:00 01/10/19 06:41 Solu-Medrol IV 80 mg Q8HR [facility] Administration Ondansetron HCl 4 mg 01/09/19 11:00 Zofran IV Q8H PRN Nausea And Vomiting Sertraline HCl 150 mg 01/09/19 11:00 01/10/19 10:42 Zoloft PO 150 mg QDAY [facility] Administration Sildenafil Citrate 20 mg 01/09/19 14:00 01/10/19 10:38 Revatio PO 20 mg TID [facility] Administration Sodium Chloride 10 ml 01/09/19 22:00 01/10/19 10:45 Sodium Chloride Flush Syringe 10 Ml IV 10 ml BID [facility] Administration Sodium Chloride 10 ml 01/09/19 11:00 Sodium Chloride Flush Syringe 10 Ml IV PRN PRN LINE FLUSH
[2019-01-10] MEDS: HumaLOG SUB-Q SCH ×3 (13:15→22:03)
[2019-01-10] MEDS: LANTUS SUB-Q SCH (22:01)
[2019-01-11] MEDS: DUONEB *Not for PRN Use IH SCH ×4 (01:22→20:08)
[2019-01-11 05:28] LABS: Hematocrit 32.4 % (35.5-45.6); Hemoglobin 10.7 gm/dl (11.8-15.2); Mean Corpuscular HGB Conc 33 % (32-34); Mean Corpuscular Volume 91 fl (84-94); Platelet Count 124 K/mm3 (140-440); Red Blood Count 3.58 M/mm3 (3.65-5.03); Red Cell Distribution Width 21.4 % (13.2-15.2)
[2019-01-11 05:51] LABS: BUN/Creatinine Ratio 30; Blood Urea Nitrogen 30 mg/dL (9-20); Calcium 8.7 mg/dL (8.4-10.2); Hemolysis Index 6
[2019-01-11 06:23] LABS: Anisocytosis 1+; Basophils % (Manual) 0 % (0.0-1.8); Eosinophils % (Manual) 0 % (0.0-4.3); Large Platelets 1+; Total Cells Counted 100
[2019-01-11 06:24] LABS: Ovalocytes 1+; Platelet Estimate Consistent w Auto
[2019-01-11] MEDS: SOLU-Medrol IV SCH ×3 (06:34→22:28)
[2019-01-11] MEDS: HEPARIN SUB-Q SCH ×3 (06:34→22:23)
[2019-01-11] MEDS: REVATIO PO SCH ×3 (07:35→22:21)
[2019-01-11] MEDS: AMARYL PO SCH (07:35)
[2019-01-11] MEDS: HumaLOG SUB-Q SCH ×4 (07:35→22:25)
[2019-01-11] MEDS: PULMICORT IH SCH ×2 (08:34→20:08)
--- NOTE | 2019-01-11 09:15 | Progress Note ---
Assessment and Plan Assessment and plan: 73m who pw sob, and productive cough Acute on chronic hypoxic respiratory failure Interstitial lung disease - Patient started on Solu-Medrol, continue sildenafil, breathing treatment - Patient is currently on 50% Ventimask - Continue inpatient care, follow pulmonary consult Diabetes mellitus with persistent hyperglycemia - Continue home insulin coverage and sliding scale insulin Hypertension - Continue home medications DVT prophylaxis - Heparin Disposition -Continue IMCU Discussed management with patient and his and both in agreement with the plan. History Interval history: Review of systems Constitutional: No fevers, no malaise, no joint pains CVS: No chest pain, no orthopnea, no pedal edema GI: No abdominal pain, no diarrhea, no vomiting, no constipation Respiratory: sob is improved , still having ALVAREZ even with eating or sitting up Hospitalist Physical - Physical exam Narrative exam: General.: Appears well, no distress, nontoxic HEENT: Moist mucous membranes, extraocular muscles intact, no lymphadenopathy Neck: supple Cardiac: S1-S2 heard Lungs: Decreased air entry, wheezing Abdomen: soft , nontender, nondistended, bowel sounds positive Extremities: no edema clubbing or cyanosis Skin: no rash or lesions Neurologic: no gross focal deficits Psych: calm, and cooperative - Constitutional Vitals: Temp Pulse Resp BP Pulse Ox 97.6 F 64 21 113/50 93 01/11/19 08:21 01/11/19 08:51 01/11/19 08:51 01/11/19 08:51 01/11/19 08:51 Results - Labs CBC & Chem 7: 01/11/19 04:49 01/11/19 04:49 Labs: Laboratory Last Values WBC 7.3 K/mm3 (4.5-11.0) 01/11/19 04:49 RBC 3.58 M/mm3 (3.65-5.03) L 01/11/19 04:49 Hgb 10.7 gm/dl (11.8-15.2) L 01/11/19 04:49 Hct 32.4 % (35.5-45.6) L 01/11/19 04:49 MCV 91 fl (84-94) 01/11/19 04:49 MCH 30 pg (28-32) 01/11/19 04:49 MCHC 33 % (32-34) 01/11/19 04:49 RDW 21.4 % (13.2-15.2) H 01/11/19 04:49 Plt Count 124 K/mm3 (140-440) L 01/11/19 04:49 Add Manual Diff Complete 01/11/19 04:49 Total Counted 100 01/11/19 04:49 Seg Neutrophils % Photovoltaic Technician 01/11/19 04:49 Seg Neuts % (Manual) 92.0 % (40.0-70.0) H 01/11/19 04:49 0 % 01/11/19 04:49 5.0 % (13.4-35.0) L 01/11/19 04:49 Reactive Lymphs % (Man) 0 % 01/11/19 04:49 3.0 % (0.0-7.3) 01/11/19 04:49 0 % (0.0-4.3) 01/11/19 04:49 0 % (0.0-1.8) 01/11/19 04:49 0 % 01/11/19 04:49 0 % 01/11/19 04:49 0 % 01/11/19 04:49 0 % 01/11/19 04:49 Nucleated RBC % Not Reportable 01/11/19 04:49 Seg Neutrophils # Man 6.7 K/mm3 (1.8-7.7) 01/11/19 04:49 Band Neutrophils # 0.0 K/mm3 01/11/19 04:49 0.4 K/mm3 (1.2-5.4) L 01/11/19 04:49 Abs React Lymphs (Man) 0.0 K/mm3 01/11/19 04:49 0.2 K/mm3 (0.0-0.8) 01/11/19 04:49 0.0 K/mm3 (0.0-0.4) 01/11/19 04:49 0.0 K/mm3 (0.0-0.1) 01/11/19 04:49 0.0 K/mm3 01/11/19 04:49 0.0 K/mm3 01/11/19 04:49 0.0 K/mm3 01/11/19 04:49 Blast Cells # 0.0 K/mm3 01/11/19 04:49 WBC Morphology Not Reportable 01/11/19 04:49 WBC Morphology TNR 01/11/19 04:49 Hypersegmented Neuts Not Reportable 01/11/19 04:49 Hyposegmented Neuts Not Reportable 01/11/19 04:49 Hypogranular Neuts Not Reportable 01/11/19 04:49 Not Reportable 01/11/19 04:49 Not Reportable 01/11/19 04:49 Not Reportable 01/11/19 04:49 Not Reportable 01/11/19 04:49 Not Reportable 01/11/19 04:49 Not Reportable 01/11/19 04:49 Consistent w auto 01/11/19 04:49 Not Reportable 01/11/19 04:49 Plt Clumps, EDTA Not Reportable 01/11/19 04:49 1+ 01/11/19 04:49 Not Reportable 01/11/19 04:49 Not Reportable 01/11/19 04:49 Plt Morphology Comment Not Reportable 01/11/19 04:49 RBC Morphology Not Reportable 01/11/19 04:49 Dimorphic RBCs Not Reportable 01/11/19 04:49 Not Reportable 01/11/19 04:49 Not Reportable 01/11/19 04:49 Not Reportable 01/11/19 04:49 1+ 01/11/19 04:49 Not Reportable 01/11/19 04:49 Not Reportable 01/11/19 04:49 Not Reportable 01/11/19 04:49 Not Reportable 01/11/19 04:49 Not Reportable 01/11/19 04:49 Not Reportable 01/11/19 04:49 Not Reportable 01/11/19 04:49 1+ 01/11/19 04:49 Not Reportable 01/11/19 04:49 Not Reportable 01/11/19 04:49 Not Reportable 01/11/19 04:49 Not Reportable 01/11/19 04:49 Not Reportable 01/11/19 04:49 Not Reportable 01/11/19 04:49 1+ 01/11/19 04:49 Acanthocytes (Spur) Not Reportable 01/11/19 04:49 Rouleaux Not Reportable 01/11/19 04:49 Not Reportable 01/11/19 04:49 Not Reportable 01/11/19 04:49 Not Reportable 01/11/19 04:49 Not Reportable 01/11/19 04:49 Hem Pathologist Commnt No 01/11/19 04:49 POC ABG pH 7.401 (7.35-7.45) 01/09/19 07:57 POC ABG pCO2 32.4 (35-45) L 01/09/19 07:57 POC ABG pO2 125 (80-105) H 01/09/19 07:57 POC ABG HCO3 20.1 (22-26 mml/L) 01/09/19 07:57 POC ABG Total CO2 21 (23-27mmol/L) 01/09/19 07:57 POC ABG O2 Sat 99 01/09/19 07:57 POC ABG Base Excess -5 ((-2) - (+3)mmol/L) 01/09/19 07:57 100 % 01/09/19 07:57 Sodium 137 mmol/L (137-145) 01/11/19 04:49 Potassium 4.9 mmol/L (3.6-5.0) 01/11/19 04:49 Chloride 104.8 mmol/L (98-107) 01/11/19 04:49 Carbon Dioxide 18 mmol/L (22-30) L 01/11/19 04:49 19 mmol/L 01/11/19 04:49 BUN 30 mg/dL (9-20) H 01/11/19 04:49 1.0 mg/dL (0.8-1.5) 01/11/19 04:49 Estimated GFR > 60 ml/min 01/11/19 04:49 30 % 01/11/19 04:49 Glucose 174 mg/dL (75-100) H 01/11/19 04:49 POC Glucose 199 (70-105) H 01/11/19 07:30 10.8 % (4-6) H 01/09/19 06:33 Calcium 8.7 mg/dL (8.4-10.2) 01/11/19 04:49 1.30 mg/dL (0.1-1.2) H 01/09/19 06:33 AST 15 units/L (5-40) 01/09/19 06:33 ALT 10 units/L (7-56) 01/09/19 06:33 72 units/L (35-129) 01/09/19 06:33 0.015 ng/mL (0.00-0.029) 01/09/19 06:33 7.3 g/dL (6.3-8.2) 01/09/19 06:33 3.5 g/dL (3.9-5) L 01/09/19 06:33 0.9 % 01/09/19 06:33 Active Medications - Current Medications Current Medications: Generic Name Dose Route Start Last Admin Trade Name Freq PRN Reason Stop Dose Admin Acetaminophen 650 mg 01/09/19 11:00 Tylenol PO Q4H PRN Pain MILD(1-3)/Fever >100.5/QUILES Al Hydrox/Mg Hydrox/Simethicone 30 ml 01/09/19 11:00 Alum-Mag Hydrox-Simeth 135-699-10kx/5ml PO Q4H PRN Indigestion Albuterol 2.5 mg 01/09/19 12:00 Proventil IH Q4HRT PRN Shortness Of Breath Albuterol/Ipratropium 1 ampul 01/09/19 14:00 01/11/19 08:34 Duoneb *Not For Prn Use* IH 1 ampul Q6HRT LAM Administration Amlodipine Besylate 10 mg 01/10/19 10:00 01/10/19 10:41 Norvasc PO 10 mg DAILY LAM Administration Atorvastatin Calcium 40 mg 01/10/19 10:00 01/10/19 10:41 Lipitor PO 40 mg DAILY LAM Administration Budesonide 0.5 mg 01/09/19 20:00 01/11/19 08:34 Pulmicort IH 0.5 mg Q12HRT LAM Administration Carvedilol 12.5 mg 01/09/19 22:00 01/10/19 22:06 Coreg PO 12.5 mg BID LAM Administration Clopidogrel Bisulfate 75 mg 01/10/19 10:00 01/10/19 10:41 Plavix PO 75 mg QDAY LAM Administration Dextrose 50 ml 01/09/19 11:00 D50w (25gm) Syringe IV PRN PRN Hypoglycemia Docusate Sodium 100 mg 01/09/19 22:00 01/10/19 22:06 Colace PO 100 mg BID LAM Administration Famotidine 10 mg 01/09/19 22:00 01/10/19 22:08 Pepcid PO 10 mg BID LAM Administration Fluticasone Propionate 50 mcg 01/09/19 11:00 01/10/19 10:40 Flonase NS 50 mcg QDAY LAM Administration Glimepiride 2 mg 01/10/19 08:00 01/11/19 07:35 Amaryl PO 2 mg QAMDIAB LAM Administration Heparin Sodium (Porcine) 5,000 unit 01/09/19 22:00 01/11/19 06:34 Heparin SUB-Q 5,000 unit Q8HR LAM Administration Insulin Glargine 40 units 01/09/19 22:00 01/10/19 22:01 Lantus SUB-Q 40 units HS LAM Administration Insulin Human Lispro 0 unit 01/10/19 12:40 01/11/19 07:35 Humalog SUB-Q 3 unit ACHS LAM Administration Protocol Loratadine 10 mg 01/10/19 10:00 01/10/19 10:39 Claritin PO 10 mg DAILY LAM Administration Losartan Potassium 100 mg 01/10/19 10:00 01/10/19 10:40 Cozaar PO 100 mg QDAY LAM Administration Methylprednisolone Sodium Succinate 80 mg 01/09/19 14:00 01/11/19 06:34 Solu-Medrol IV 80 mg Q8HR LAM Administration Ondansetron HCl 4 mg 01/09/19 11:00 Zofran IV Q8H PRN Nausea And Vomiting Sertraline HCl 150 mg 01/09/19 11:00 01/10/19 10:42 Zoloft PO 150 mg QDAY LAM Administration Sildenafil Citrate 20 mg 01/09/19 14:00 01/11/19 07:35 Revatio PO 20 mg TID LAM Administration Sodium Chloride 10 ml 01/09/19 22:00 01/10/19 22:07 Sodium Chloride Flush Syringe 10 Ml IV 10 ml BID LAM Administration Sodium Chloride 10 ml 01/09/19 11:00 01/11/19 06:35 Sodium Chloride Flush Syringe 10 Ml IV 10 ml PRN PRN Administration LINE FLUSH
[2019-01-11] MEDS: FLONASE NS SCH (09:22)
[2019-01-11] MEDS: PEPCID PO SCH ×2 (09:25→22:19)
[2019-01-11] MEDS: COREG PO SCH ×2 (09:26→22:22)
[2019-01-11] MEDS: ZOLOFT PO SCH (09:26)
[2019-01-11] MEDS: NORVASC PO SCH (09:27)
[2019-01-11] MEDS: SODIUM CHLORIDE FLUSH SYRINGE 10 ML IV SCH ×2 (09:28→22:27)
[2019-01-11] MEDS: COLACE PO SCH ×2 (09:30→22:18)
[2019-01-11] MEDS: CLARITIN PO SCH (09:30)
[2019-01-11] MEDS: PLAVIX PO SCH (09:31)
[2019-01-11] MEDS: COZAAR PO SCH (09:32)
[2019-01-11] MEDS ORDERED: LASIX IV NR (12:31)
--- NOTE | 2019-01-11 12:35 | Progress Note ---
Assessment and Plan Acute on chronic hypoxemic respiratory failure with increased oxygen requirements. Acute exacerbation of his interstitial lung disease. Possible occult pneumonia. Possible pulmonary edema. Diabetes type 2, poorly controlled. Obesity. Likely obstructive sleep apnea. History of hypertension. History of severe pulmonary hypertension. - continue supplemental oxygen and wean to keep O2 sats >/= 90% - continue bronchodilators (GUILLERMINA & LABA) with pulmonary hygiene per RT - continue systemic steroids with slow taper - continue empiric Levaquin monotherapy - CRP level equivocal; will de-escalate AB's quickly based on clinical and microbiologic data - continue bilevel positive airway pressure ventilation therapy scheduled at bedtime with p.r.n. daytime use. I - continue GI & DVT prophylaxis - continue Glycemic with SSI targeted to blood sugars less than 180 mg/dL - continue other care per attenind ... re-evaluate in am & prn Subjective Date of service: 01/11/19 Principal diagnosis: Ac on ch hypoxemic Resp failure; ILDx; Possible PNA; DM II; Obesity; HTN Interval history: Patient seen today for: Acute on chronic hypoxemic respiratory failure; Acute exacerbation of his interstitial lung disease; Possible occult pneumonia; Possible pulmonary edema; Diabetes type 2, poorly controlled; Obesity; HTN Seen and examined at bedside; 24 hour events reviewed; nursing and respiratory care staff consulted; no adverse overnight events reported to me; resting pea cefully in bed; remains on supplemental oxygen therapy; denies acute chest pains or palpitations; still SOB; No N/V/F/C Objective Vital Signs - 12hr 01/11/19 01/11/19 01/11/19 00:41 00:51 01:01 Temperature Pulse Rate 59 L 62 66 Pulse Rate [ Anterior Bilateral Throughout] Respiratory 18 19 18 Rate Respiratory Rate [Anterior Bilateral Throughout] Blood Pressure 100/60 100/60 101/65 O2 Sat by Pulse 96 97 89 Oximetry 01/11/19 01/11/19 01/11/19 01:11 01:21 01:24 Temperature Pulse Rate 60 63 Pulse Rate [ 71 Anterior Bilateral Throughout] Respiratory 18 18 Rate Respiratory 18 Rate [Anterior Bilateral Throughout] Blood Pressure 100/60 100/60 O2 Sat by Pulse 96 94 Oximetry 01/11/19 01/11/19 01/11/19 01:31 01:41 01:51 Temperature Pulse Rate 61 67 60 Pulse Rate [ Anterior Bilateral Throughout] Respiratory 20 19 18 Rate Respiratory Rate [Anterior Bilateral Throughout] Blood Pressure 100/60 101/65 101/65 O2 Sat by Pulse 93 96 94 Oximetry 01/11/19 01/11/19 01/11/19 02:00 02:11 02:21 Temperature Pulse Rate 61 63 59 L Pulse Rate [ Anterior Bilateral Throughout] Respiratory 18 19 18 Rate Respiratory Rate [Anterior Bilateral Throughout] Blood Pressure 97/57 97/57 97/57 O2 Sat by Pulse 92 94 95 Oximetry 01/11/19 01/11/19 01/11/19 02:31 02:41 02:51 Temperature Pulse Rate 58 L 61 59 L Pulse Rate [ Anterior Bilateral Throughout] Respiratory 19 18 19 Rate Respiratory Rate [Anterior Bilateral Throughout] Blood Pressure 97/57 97/57 97/57 O2 Sat by Pulse 95 96 95 Oximetry 01/11/19 01/11/19 01/11/19 03:01 03:11 03:21 Temperature Pulse Rate 62 60 60 Pulse Rate [ Anterior Bilateral Throughout] Respiratory 13 12 16 Rate Respiratory Rate [Anterior Bilateral Throughout] Blood Pressure 103/59 103/59 103/59 O2 Sat by Pulse 95 98 98 Oximetry 01/11/19 01/11/19 01/11/19 03:28 03:31 03:41 Temperature 98.4 F Pulse Rate 61 59 L Pulse Rate [ Anterior Bilateral Throughout] Respiratory 19 17 Rate Respiratory Rate [Anterior Bilateral Throughout] Blood Pressure 103/59 103/59 O2 Sat by Pulse 97 97 Oximetry 01/11/19 01/11/19 01/11/19 03:51 04:00 04:11 Temperature Pulse Rate 61 58 L 58 L Pulse Rate [ Anterior Bilateral Throughout] Respiratory 19 17 21 Rate Respiratory Rate [Anterior Bilateral Throughout] Blood Pressure 103/59 111/67 111/67 O2 Sat by Pulse 97 93 95 Oximetry 01/11/19 01/11/19 01/11/19 04:21 04:31 04:41 Temperature Pulse Rate 58 L 58 L 57 L Pulse Rate [ Anterior Bilateral Throughout] Respiratory 18 19 19 Rate Respiratory Rate [Anterior Bilateral Throughout] Blood Pressure 111/67 111/67 111/67 O2 Sat by Pulse 94 95 94 Oximetry 01/11/19 01/11/19 01/11/19 04:51 05:01 05:11 Temperature Pulse Rate 63 72 66 Pulse Rate [ Anterior Bilateral Throughout] Respiratory 22 26 H 19 Rate Respiratory Rate [Anterior Bilateral Throughout] Blood Pressure 111/67 123/60 123/60 O2 Sat by Pulse 94 93 94 Oximetry 01/11/19 01/11/19 01/11/19 05:21 05:31 05:41 Temperature Pulse Rate 65 64 63 Pulse Rate [ Anterior Bilateral Throughout] Respiratory 14 22 20 Rate Respiratory Rate [Anterior Bilateral Throughout] Blood Pressure 123/60 123/60 123/60 O2 Sat by Pulse 95 96 94 Oximetry 01/11/19 01/11/19 01/11/19 05:51 06:01 06:11 Temperature Pulse Rate 63 62 63 Pulse Rate [ Anterior Bilateral Throughout] Respiratory 24 22 17 Rate Respiratory Rate [Anterior Bilateral Throughout] Blood Pressure 123/60 114/69 114/69 O2 Sat by Pulse 95 94 97 Oximetry 01/11/19 01/11/19 01/11/19 06:21 06:30 06:41 Temperature Pulse Rate 68 61 64 Pulse Rate [ Anterior Bilateral Throughout] Respiratory 28 H 17 14 Rate Respiratory Rate [Anterior Bilateral Throughout] Blood Pressure 114/69 123/60 114/69 O2 Sat by Pulse 95 99 96 Oximetry 01/11/19 01/11/19 01/11/19 06:51 07:01 07:11 Temperature Pulse Rate 62 66 63 Pulse Rate [ Anterior Bilateral Throughout] Respiratory 15 19 21 Rate Respiratory Rate [Anterior Bilateral Throughout] Blood Pressure 114/69 117/46 117/46 O2 Sat by Pulse 97 97 97 Oximetry 01/11/19 01/11/19 01/11/19 07:21 07:31 07:41 Temperature Pulse Rate 61 60 60 Pulse Rate [ Anterior Bilateral Throughout] Respiratory 19 18 18 Rate Respiratory Rate [Anterior Bilateral Throughout] Blood Pressure 117/46 117/46 117/46 O2 Sat by Pulse 93 94 98 Oximetry 01/11/19 01/11/19 01/11/19 07:51 08:00 08:11 Temperature Pulse Rate 60 62 62 Pulse Rate [ Anterior Bilateral Throughout] Respiratory 20 22 21 Rate Respiratory Rate [Anterior Bilateral Throughout] Blood Pressure 117/46 113/50 113/50 O2 Sat by Pulse 94 93 95 Oximetry 01/11/19 01/11/19 01/11/19 08:21 08:31 08:36 Temperature 97.6 F Pulse Rate 60 59 L Pulse Rate [ 56 L Anterior Bilateral Throughout] Respiratory 19 18 Rate Respiratory 17 Rate [Anterior Bilateral Throughout] Blood Pressure 113/50 113/50 O2 Sat by Pulse 96 95 96 Oximetry 01/11/19 01/11/19 01/11/19 08:41 08:50 08:51 Temperature Pulse Rate 61 64 Pulse Rate [ 70 Anterior Bilateral Throughout] Respiratory 21 21 Rate Respiratory 27 H Rate [Anterior Bilateral Throughout] Blood Pressure 113/50 113/50 O2 Sat by Pulse 92 93 Oximetry 01/11/19 01/11/19 01/11/19 09:01 09:11 09:21 Temperature Pulse Rate 69 75 72 Pulse Rate [ Anterior Bilateral Throughout] Respiratory 23 25 H 23 Rate Respiratory Rate [Anterior Bilateral Throughout] Blood Pressure 118/49 118/49 118/49 O2 Sat by Pulse 93 74 L 80 L Oximetry 01/11/19 01/11/19 01/11/19 09:26 09:27 09:31 Temperature Pulse Rate 76 76 81 Pulse Rate [ Anterior Bilateral Throughout] Respiratory 26 H Rate Respiratory Rate [Anterior Bilateral Throughout] Blood Pressure 118/49 118/49 118/49 O2 Sat by Pulse 83 L Oximetry 01/11/19 01/11/19 01/11/19 09:32 09:41 09:51 Temperature Pulse Rate 76 83 86 Pulse Rate [ Anterior Bilateral Throughout] Respiratory 24 27 H Rate Respiratory Rate [Anterior Bilateral Throughout] Blood Pressure 118/49 118/49 118/49 O2 Sat by Pulse 86 89 Oximetry 01/11/19 01/11/19 01/11/19 10:00 10:01 10:11 Temperature Pulse Rate 76 82 Pulse Rate [ Anterior Bilateral Throughout] Respiratory 17 Rate Respiratory Rate [Anterior Bilateral Throughout] Blood Pressure 118/49 148/45 O2 Sat by Pulse 72 L 95 Oximetry 01/11/19 01/11/19 01/11/19 10:21 10:31 10:41 Temperature Pulse Rate 81 79 Pulse Rate [ Anterior Bilateral Throughout] Respiratory 21 23 Rate Respiratory Rate [Anterior Bilateral Throughout] Blood Pressure 148/45 118/49 118/49 O2 Sat by Pulse 88 90 91 Oximetry 01/11/19 01/11/19 01/11/19 10:51 11:01 11:11 Temperature Pulse Rate 76 77 78 Pulse Rate [ Anterior Bilateral Throughout] Respiratory 20 20 20 Rate Respiratory Rate [Anterior Bilateral Throughout] Blood Pressure 118/49 105/48 105/48 O2 Sat by Pulse 95 91 92 Oximetry 01/11/19 01/11/19 01/11/19 11:21 11:31 11:41 Temperature Pulse Rate 76 76 77 Pulse Rate [ Anterior Bilateral Throughout] Respiratory 19 21 24 Rate Respiratory Rate [Anterior Bilateral Throughout] Blood Pressure 105/48 105/48 105/48 O2 Sat by Pulse 96 95 96 Oximetry 01/11/19 01/11/19 01/11/19 11:51 12:00 12:01 Temperature 97.7 F Pulse Rate 75 Pulse Rate [ Anterior Bilateral Throughout] Respiratory 19 22 Rate Respiratory Rate [Anterior Bilateral Throughout] Blood Pressure 105/48 105/50 O2 Sat by Pulse 93 96 95 Oximetry 01/11/19 01/11/19 12:11 12:21 Temperature Pulse Rate Pulse Rate [ Anterior Bilateral Throughout] Respiratory Rate Respiratory Rate [Anterior Bilateral Throughout] Blood Pressure 105/50 105/50 O2 Sat by Pulse 95 95 Oximetry Constitutional: appears uncomfortable, other (elderly CM with mildly increased resp efort at rest) Eyes: non-icteric ENT: oropharynx moist Neck: supple, no lymphadenopathy, no JVD Ascultation: Bilateral: diminished breath sounds, rhonchi Percussion: Bilateral: not dull Cardiovascular: regular rate and rhythm Gastrointestinal: normoactive bowel sounds, soft, non-tender, non-distended Integumentary: normal Extremities: no cyanosis, no edema, pink and warm, pulses normal, no ischemia or petechiae Neurologic: normal mental status, pupils equal and round, CN II-XII normal Psychiatric: mood appropriate, affect normal CBC and BMP: 01/11/19 04:49 01/11/19 04:49 ABG, PT/INR, D-dimer: ABG POC ABG pH 7.401 (7.35-7.45) 01/09/19 07:57 POC ABG pCO2 32.4 (35-45) L 01/09/19 07:57 POC ABG pO2 125 (80-105) H 01/09/19 07:57 POC ABG HCO3 20.1 (22-26 mml/L) 01/09/19 07:57 POC ABG Total CO2 21 (23-27mmol/L) 01/09/19 07:57 POC ABG O2 Sat 99 01/09/19 07:57 Abnormal lab findings: Abnormal Labs 01/09/19 01/09/19 01/09/19 06:33 06:33 06:33 WBC 14.0 H RBC Hgb Hct RDW 21.7 H Plt Count 129 L Seg Neuts % (Manual) 82.0 H Lymphocytes % (Manual) Nucleated RBC % 1.0 H Seg Neutrophils # Man 11.5 H Lymphocytes # (Manual) POC ABG pCO2 POC ABG pO2 Sodium Potassium Carbon Dioxide 19 L BUN Glucose 248 H POC Glucose Hemoglobin A1c 10.8 H Total Bilirubin 1.30 H Albumin 3.5 L 01/09/19 01/09/19 01/09/19 07:57 14:37 22:07 WBC RBC Hgb Hct RDW Plt Count Seg Neuts % (Manual) Lymphocytes % (Manual) Nucleated RBC % Seg Neutrophils # Man Lymphocytes # (Manual) POC ABG pCO2 32.4 L POC ABG pO2 125 H Sodium Potassium Carbon Dioxide BUN Glucose POC Glucose 248 H 355 H Hemoglobin A1c Total Bilirubin Albumin 01/10/19 01/10/19 01/10/19 05:02 05:02 08:34 WBC RBC Hgb 11.2 L Hct 34.6 L RDW 21.6 H Plt Count 110 L Seg Neuts % (Manual) 83.0 H Lymphocytes % (Manual) 4.0 L Nucleated RBC % Seg Neutrophils # Man Lymphocytes # (Manual) 0.2 L POC ABG pCO2 POC ABG pO2 Sodium 136 L Potassium 5.4 H Carbon Dioxide BUN 27 H Glucose 376 H POC Glucose 378 H Hemoglobin A1c Total Bilirubin Albumin 01/10/19 01/10/19 01/10/19 12:08 16:54 21:21 WBC RBC Hgb Hct RDW Plt Count Seg Neuts % (Manual) Lymphocytes % (Manual) Nucleated RBC % Seg Neutrophils # Man Lymphocytes # (Manual) POC ABG pCO2 POC ABG pO2 Sodium Potassium Carbon Dioxide BUN Glucose POC Glucose 450 H 414 H 227 H Hemoglobin A1c Total Bilirubin Albumin 01/11/19 01/11/19 01/11/19 04:49 04:49 07:30 WBC RBC 3.58 L Hgb 10.7 L Hct 32.4 L RDW 21.4 H Plt Count 124 L Seg Neuts % (Manual) 92.0 H Lymphocytes % (Manual) 5.0 L Nucleated RBC % Seg Neutrophils # Man Lymphocytes # (Manual) 0.4 L POC ABG pCO2 POC ABG pO2 Sodium Potassium Carbon Dioxide 18 L BUN 30 H Glucose 174 H POC Glucose 199 H Hemoglobin A1c Total Bilirubin Albumin 01/11/19 11:01 WBC RBC Hgb Hct RDW Plt Count Seg Neuts % (Manual) Lymphocytes % (Manual) Nucleated RBC % Seg Neutrophils # Man Lymphocytes # (Manual) POC ABG pCO2 POC ABG pO2 Sodium Potassium Carbon Dioxide BUN Glucose POC Glucose 257 H Hemoglobin A1c Total Bilirubin Albumin Chest x-ray: image reviewed Allied health notes reviewed: nursing
[2019-01-11] MEDS: LEVAQUIN PO SCH (13:59)
[2019-01-11] MEDS: BROVANA NEBU IH SCH ×2 (14:30→20:12)
--- NOTE | 2019-01-11 15:40 | Cat Scan Report ---
PROCEDURE: CT CHEST WO CON TECHNIQUE: Axial images obtained of the chest without intravenous contrast. Sagittal and coronal rec onstructions also obtained. HISTORY: ILDx; Pneumonia va Pulm Edema; emphysema COMPARISONS: February 2016 FINDINGS: Prominent increase in interstitial coarsening in the lungs bilaterally. Emphysematous changes with sc attered bulla and scattered groundglass airspace disease in the upper lobes, lower lobes bilaterally. Subpleural reticular interstitial changes in the left upper lobe, more prominent than before. Bronchi ectasis in the lower lobes bilaterally right greater than left, also present on the prior examination . No lobar consolidation or pleural effusions. Partially visualized cervical fusion. Nonspecific mediastinal nodes, which may be reactive, essentially unchanged. Coronary atherosclerotic calcifications. Mild aneurysmal dilatation of the ascending segment of the thoracic aorta which measures approximatel y 4.4 cm in AP dimension, unchanged. No evidence of pericardial effusion. Mild cardiomegaly. Degenerative changes of the thoracic spine with no compression deformity.. IMPRESSION: More extensive interstitial lung disease with scattered areas of groundglass airspace disease bilater ally which may reflect underlying pneumonitis. Bronchiectasis in the lower lobes bilaterally right greater than left, essentially unchanged. 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 Mild cardiomegaly. . This document is electronically signed by Rodríguez Tejada MD., Jan 11 2019 03:38:44 PM ET
[2019-01-11] MEDS ORDERED: LANTUS SUB-Q SCH (22:00)
--- NOTE | 2019-01-12 00:15 | Consultation ---
PULMONARY CONSULTATION CONSULTING PHYSICIAN: Dr. Radford. REASON FOR CONSULTATION: [id number] hypoxemic respiratory failure. CHIEF COMPLAINT AND HISTORY OF PRESENT ILLNESS: The patient is a 73-year-old -[place] male with past medical history apparently significant for a diagnosis of interstitial lung disease as well as prostate cancer, who came into the Emergency Room complaining of shortness of breath that had decompensated on the morning of presentation. EMS reports his O2 sats was 60% at presentation. He mentions that he is on home oxygen and there is a history of interstitial lung disease. He denied pain. He denied fevers. He denied chills. He was placed initially on a nonrebreather mask. When I stopped by to see him, he was resting in bed. He remained on supplemental oxygen. I believe he was on a 50% Ventimask. He was feeling better. He denied any cough or expectoration. He denied any new onset leg pain or swelling either unilaterally or bilaterally. He denied any history of tobacco abuse at this time and apparently I think denied prior tobacco use history to me. We are asked to assist with management. As far as he knows, he does not have a diagnosis of obstructive sleep apnea and is not on any noninvasive ventilation machine at home. He denied any sick contacts. He stated he had been compliant with his medications. He denied running out of his home oxygen therapy. This really is as much of the history of presentation as I have. PAST MEDICAL HISTORY: History of interstitial lung disease, history of hypertension, history of prostate cancer, history of pulmonary hypertension and in the Emergency Room, he mentioned a history of obstructive sleep apnea, although he denied back to me, PAST SURGICAL HISTORY: He has had surgery to his neck and has had a coronary stent in place. MEDICATIONS: He was on at the time I stopped by to see him were reviewed. Pertinent medications included the following: He was on Tylenol 650 mg p.o. q. 4 hours p.r.n. mild pain or fevers, p.r.n. simethicone. Albuterol and Atrovent treatments nebulized q.6 hours. Amlodipine 10 mg p.o. daily, Lipitor 40 mg p.o. daily, Pulmicort 0.5 mg nebulized q.12 hours, carvedilol 12.5 mg p.o. b.i.d., Plavix 75 mg p.o. daily. Colace 100 mg p.o. b.i.d., Pepcid 10 mg p.o. b.i.d., Flonase 50 mcg each nostril once daily, Amaryl 2 mg p.o. q.a.m., heparin 5000 units subQ q.8 hours, Lantus insulin 40 units subQ at bedtime, Claritin 10 mg p.o. daily, Cozaar 100 mg p.o. daily, Solu-Medrol 80 mg IV q.8 hours, Zofran 4 mg IV q.8 hours p.r.n. nausea and vomiting, Zoloft 160 mg p.o. daily, Revatio 20 mg p.o. t.i.d. ALLERGIES: No known drug allergies. DIET: Obese gentleman. Denied acute weight loss or gain in the preceding few weeks to months. FAMILY AND SOCIAL HISTORY: Lives in the community. Denies alcohol, tobacco, or illicit drug use or abuse. Family history is otherwise noncontributory. REVIEW OF SYSTEMS: Denies any loss of consciousness. No new onset seizures. No new onset focal weakness. He denies any headaches. He denies any blurred vision or visual loss. He denies any tinnitus. He denies any neck pain, stiffness, or swelling. He denies palpitations. He denies orthopnea. He denies paroxysmal nocturnal dyspnea. He denies gross hematochezia or melena. He denies heat or cold intolerance. He denies polydipsia or polyuria to me. Denied dysuria or hematuria. Denied any easy bruising. Complete 13-system review of systems is obtained. Pertinent positives and/or negatives as in the body of history above, otherwise they are noncontributory. PHYSICAL EXAMINATION: VITAL SIGNS: At presentation in the Emergency Room, temperature was 98.4 degrees Fahrenheit, pulse was 114, respiratory rate was 38 at rest, blood pressure was 183/55, O2 sats initially 77%, inspired oxygen concentration at that time was not recorded. When I stopped by to see him, his O2 sats were about 90% and that was on 50% Venturi mask. GENERAL: He is an elderly looking -[place] male. Normocephalic, atraumatic, talking to me in occasionally interrupted sentences with mildly increased respiratory effort at rest. HEAD, EYES, EARS, NOSE, AND THROAT: He is anicteric. No conjunctival erythema. Oropharynx was moist. There was Mallampati 3 oropharynx. He had mild whitish exudate over his tongue, but denied odynophagia. NECK: No gross jugular venous distention, no thyromegaly. Grossly, there were no palpable lymph nodes in the supraclavicular or submandibular lymph node chains. LUNGS: Auscultation of both lung narvaez revealed inspiratory crackles and rales in the bases. No wheezing. CARDIOVASCULAR: Heart sounds 1 and 2 were heard at the time of my evaluation, regular in rate and rhythm without rubs or murmurs. ABDOMEN: Soft, protuberant, but bowel sounds are positive, nontender. No palpable hepatosplenomegaly. EXTREMITIES: Without overt digital clubbing or cyanosis. No pedal edema. Pedal pulses were palpable and strong bilaterally. NEUROLOGIC: Pupils were equal, round, about 4 mm, reactive to light. Extraocular muscle movements were intact. He was alert and oriented x 3. Moved all 4 extremities spontaneously. The skin was of normal turgor without overt cellulitis or rash. His mood was normal and his affect was appropriate. LABORATORY DATA: From my review are as follows: Admission white cell count 14,000, hemoglobin 11.9, hematocrit 36.7, platelet count was 129. No significant band forms were reported. Arterial blood gas showed a pH of 7.40, pCO2 of 32 and a pO2 of 125 that was on 100% nonrebreather mask at that time apparently. Serum sodium was 138, potassium 4.9, chloride 102, bicarbonate 19, BUN was 17, creatinine 1.2, glucose 248. Total bilirubin slightly elevated at 1.3. Hemoglobin A1c was elevated at 10.8. Liver function tests essentially otherwise within normal limits. No blood cultures were drawn. A chest x-ray was done. I have reviewed the chest x-ray as well as the radiologist's interpretation. It shows borderline cardiomegaly, it is slightly rotated to the right, increased alveolar and interstitial type markings predominantly in the bases, left lower lobe in particular, do appear chronic, but perhaps mild element of interstitial edema, actually better than the last x-ray that I see from 12/23/2018. No gross pneumothorax. No gross bony fracture. He had a CT of his chest done in 2016. No significant mediastinal adenopathy. Lung windows do show interstitial lung disease predominantly affecting the bases, but also some upper lobe bullous emphysematous changes, the beginnings of honeycombing predominantly in the right lower lobe. ASSESSMENT: 1. Acute on chronic hypoxemic respiratory failure with increased oxygen requirements. 2. Acute exacerbation of his interstitial lung disease. 3. Possible occult pneumonia. 4. Possible pulmonary edema. 5. Diabetes type 2, poorly controlled. 6. Obesity. 7. Likely obstructive sleep apnea. 8. History of hypertension. 9. History of severe pulmonary hypertension. PLAN: The plan will be to continue supplemental oxygen and wean to keep O2 sats greater than or equal to about 90%. Bronchodilators will be continued as ordered. I will add long acting bronchodilators in light of the radiographic appearance of a significant element of chronic obstructive lung disease also. We will continue systemic steroids at the current dose, especially in light of the leukocytosis. I will go ahead and start him on empiric Levaquin monotherapy by which I mean the leukocytosis at presentation. I will get a CRP level to help guide clinical decision making. We will continue bilevel positive airway pressure ventilation therapy scheduled at bedtime with p.r.n. daytime use. I will give a single dose of Lasix 20 mg IV x 1 and making further decisions thereafter depending on his response both clinically and depending on his BUN and creatinine level. He is appropriately on GI prophylaxis as well as DVT prophylaxis. Glycemic control will be targeted to blood sugars less than 180 mg/dL. Flu and pneumonia vaccination will be addressed per protocol. Thank you very much for the consult Dr. Radford. We will follow along. We will make further recommendations as picture progresses/becomes clearer. We will continue to observe him in the step-down unit for now. JOB# [id number] JESSICA/RAÚL MEDRANO
[2019-01-12] MEDS: DUONEB *Not for PRN Use IH SCH ×4 (02:20→21:24)
[2019-01-12] MEDS: SOLU-Medrol IV SCH ×2 (05:54→14:46)
[2019-01-12] MEDS: HEPARIN SUB-Q SCH ×2 (05:56→14:47)
[2019-01-12] MEDS ORDERED: HumaLOG SUB-Q SCH ×2 (07:30→12:41)
[2019-01-12] MEDS: HumaLOG SUB-Q SCH ×3 (08:30→17:10)
[2019-01-12] MEDS: PULMICORT IH SCH ×2 (09:12→21:24)
[2019-01-12] MEDS: BROVANA NEBU IH SCH ×2 (09:12→21:24)
--- NOTE | 2019-01-12 09:35 | Vascular Lab Report ---
PROCEDURE: VL VENOUS DUPLEX LE BILAT TECHNIQUE: Grayscale, color flow and spectral waveform images were obtained of bilateral lower extre mities. HISTORY: LE edema COMPARISON: None FINDINGS: There is no deep venous thrombosis seen in the left or right lower extremity. Flow is demonstrated by color flow and spectral waveform imaging. There is appropriate wall compression and augmentation. There is also no superficial venous thrombus seen. IMPRESSION: There is no evidence for DVT in either right or left lower extremity. This document is electronically signed by Ama Smyth MD., Jan 12 2019 09:32:39 AM ET
[2019-01-12] MEDS ORDERED: LANTUS SUB-Q SCH (10:00)
[2019-01-12] MEDS: REVATIO PO SCH ×3 (10:40→20:17)
[2019-01-12] MEDS: AMARYL PO SCH (10:41)
[2019-01-12] MEDS: CLARITIN PO SCH (10:41)
[2019-01-12] MEDS: COREG PO SCH (10:42)
[2019-01-12] MEDS: COLACE PO SCH (10:42)
[2019-01-12] MEDS: COZAAR PO SCH (10:46)
[2019-01-12] MEDS: FLONASE NS SCH (10:46)
[2019-01-12] MEDS: LEVAQUIN PO SCH (10:47)
[2019-01-12] MEDS: PEPCID PO SCH (10:48)
[2019-01-12] MEDS: PLAVIX PO SCH (10:48)
[2019-01-12] MEDS: NORVASC PO SCH (10:48)
[2019-01-12] MEDS: SODIUM CHLORIDE FLUSH SYRINGE 10 ML IV SCH (10:49)
[2019-01-12] MEDS: ZOLOFT PO SCH (10:49)
--- NOTE | 2019-01-12 12:29 | XRay Report ---
AP CHEST: HISTORY: Short of breath Borderline heart size. Mild chronic interstitial changes in both lungs appear stable since 01/09/19. No large consolidation, pleural effusion or pneumothorax is developed. IMPRESSION: No acute process.
--- NOTE | 2019-01-12 12:41 | Progress Note ---
Assessment and Plan Assessment and plan: 73m who pw sob, and productive cough Acute on chronic hypoxic respiratory failure Interstitial lung disease - Patient started on Solu-Medrol, continue sildenafil, breathing treatment - Patient is currently on 50% Ventimask - Continue inpatient care, follow pulmonary consult Diabetes mellitus with persistent hyperglycemia - Continue home insulin coverage and sliding scale insulin Hypertension - Continue home medications DVT prophylaxis - Heparin Disposition -Continue IMCU Discussed management with patient and his and both in agreement with the plan. History Interval history: General.: Appears well, no distress, nontoxic HEENT: Moist mucous membranes, extraocular muscles intact, no lymphadenopathy Neck: supple Cardiac: S1-S2 heard Lungs: clear to auscultation bilaterally Abdomen: soft , nontender, nondistended, bowel sounds positive Extremities: no edema clubbing or cyanosis Skin: no rash or lesions Neurologic: no gross focal deficits Psych: calm, and cooperative Hospitalist Physical - Physical exam Narrative exam: General.: Appears well, no distress, nontoxic HEENT: Moist mucous membranes, extraocular muscles intact, no lymphadenopathy Neck: supple Cardiac: S1-S2 heard Lungs: Decreased air entry, wheezing Abdomen: soft , nontender, nondistended, bowel sounds positive Extremities: no edema clubbing or cyanosis Skin: no rash or lesions Neurologic: no gross focal deficits Psych: calm, and cooperative - Constitutional Vitals: Temp Pulse Resp BP Pulse Ox 98.1 F 80 20 110/51 95 01/12/19 08:00 01/12/19 10:48 01/12/19 09:33 01/12/19 10:48 01/12/19 09:34 Results - Labs CBC & Chem 7: 01/11/19 04:49 01/11/19 04:49 Labs: Laboratory Last Values WBC 7.3 K/mm3 (4.5-11.0) 01/11/19 04:49 RBC 3.58 M/mm3 (3.65-5.03) L 01/11/19 04:49 Hgb 10.7 gm/dl (11.8-15.2) L 01/11/19 04:49 Hct 32.4 % (35.5-45.6) L 01/11/19 04:49 MCV 91 fl (84-94) 01/11/19 04:49 MCH 30 pg (28-32) 01/11/19 04:49 MCHC 33 % (32-34) 01/11/19 04:49 RDW 21.4 % (13.2-15.2) H 01/11/19 04:49 Plt Count 124 K/mm3 (140-440) L 01/11/19 04:49 Add Manual Diff Complete 01/11/19 04:49 Total Counted 100 01/11/19 04:49 Seg Neutrophils % Tissue Technician 01/11/19 04:49 Seg Neuts % (Manual) 92.0 % (40.0-70.0) H 01/11/19 04:49 0 % 01/11/19 04:49 5.0 % (13.4-35.0) L 01/11/19 04:49 Reactive Lymphs % (Man) 0 % 01/11/19 04:49 3.0 % (0.0-7.3) 01/11/19 04:49 0 % (0.0-4.3) 01/11/19 04:49 0 % (0.0-1.8) 01/11/19 04:49 0 % 01/11/19 04:49 0 % 01/11/19 04:49 0 % 01/11/19 04:49 0 % 01/11/19 04:49 Nucleated RBC % Not Reportable 01/11/19 04:49 Seg Neutrophils # Man 6.7 K/mm3 (1.8-7.7) 01/11/19 04:49 Band Neutrophils # 0.0 K/mm3 01/11/19 04:49 0.4 K/mm3 (1.2-5.4) L 01/11/19 04:49 Abs React Lymphs (Man) 0.0 K/mm3 01/11/19 04:49 0.2 K/mm3 (0.0-0.8) 01/11/19 04:49 0.0 K/mm3 (0.0-0.4) 01/11/19 04:49 0.0 K/mm3 (0.0-0.1) 01/11/19 04:49 0.0 K/mm3 01/11/19 04:49 0.0 K/mm3 01/11/19 04:49 0.0 K/mm3 01/11/19 04:49 Blast Cells # 0.0 K/mm3 01/11/19 04:49 WBC Morphology Not Reportable 01/11/19 04:49 WBC Morphology TNR 01/11/19 04:49 Hypersegmented Neuts Not Reportable 01/11/19 04:49 Hyposegmented Neuts Not Reportable 01/11/19 04:49 Hypogranular Neuts Not Reportable 01/11/19 04:49 Not Reportable 01/11/19 04:49 Not Reportable 01/11/19 04:49 Not Reportable 01/11/19 04:49 Not Reportable 01/11/19 04:49 Not Reportable 01/11/19 04:49 Not Reportable 01/11/19 04:49 Consistent w auto 01/11/19 04:49 Not Reportable 01/11/19 04:49 Plt Clumps, EDTA Not Reportable 01/11/19 04:49 1+ 01/11/19 04:49 Not Reportable 01/11/19 04:49 Not Reportable 01/11/19 04:49 Plt Morphology Comment Not Reportable 01/11/19 04:49 RBC Morphology Not Reportable 01/11/19 04:49 Dimorphic RBCs Not Reportable 01/11/19 04:49 Not Reportable 01/11/19 04:49 Not Reportable 01/11/19 04:49 Not Reportable 01/11/19 04:49 1+ 01/11/19 04:49 Not Reportable 01/11/19 04:49 Not Reportable 01/11/19 04:49 Not Reportable 01/11/19 04:49 Not Reportable 01/11/19 04:49 Not Reportable 01/11/19 04:49 Not Reportable 01/11/19 04:49 Not Reportable 01/11/19 04:49 1+ 01/11/19 04:49 Not Reportable 01/11/19 04:49 Not Reportable 01/11/19 04:49 Not Reportable 01/11/19 04:49 Not Reportable 01/11/19 04:49 Not Reportable 01/11/19 04:49 Not Reportable 01/11/19 04:49 1+ 01/11/19 04:49 Acanthocytes (Spur) Not Reportable 01/11/19 04:49 Rouleaux Not Reportable 01/11/19 04:49 Not Reportable 01/11/19 04:49 Not Reportable 01/11/19 04:49 Not Reportable 01/11/19 04:49 Not Reportable 01/11/19 04:49 Hem Pathologist Commnt No 01/11/19 04:49 423.49 ng/mlDDU (0-234) H 01/11/19 12:49 POC ABG pH 7.401 (7.35-7.45) 01/09/19 07:57 POC ABG pCO2 32.4 (35-45) L 01/09/19 07:57 POC ABG pO2 125 (80-105) H 01/09/19 07:57 POC ABG HCO3 20.1 (22-26 mml/L) 01/09/19 07:57 POC ABG Total CO2 21 (23-27mmol/L) 01/09/19 07:57 POC ABG O2 Sat 99 01/09/19 07:57 POC ABG Base Excess -5 ((-2) - (+3)mmol/L) 01/09/19 07:57 100 % 01/09/19 07:57 Sodium 137 mmol/L (137-145) 01/11/19 04:49 Potassium 4.9 mmol/L (3.6-5.0) 01/11/19 04:49 Chloride 104.8 mmol/L (98-107) 01/11/19 04:49 Carbon Dioxide 18 mmol/L (22-30) L 01/11/19 04:49 19 mmol/L 01/11/19 04:49 BUN 30 mg/dL (9-20) H 01/11/19 04:49 1.0 mg/dL (0.8-1.5) 01/11/19 04:49 Estimated GFR > 60 ml/min 01/11/19 04:49 30 % 01/11/19 04:49 Glucose 174 mg/dL (75-100) H 01/11/19 04:49 POC Glucose 323 (70-105) H 01/12/19 12:28 10.8 % (4-6) H 01/09/19 06:33 Calcium 8.7 mg/dL (8.4-10.2) 01/11/19 04:49 1.30 mg/dL (0.1-1.2) H 01/09/19 06:33 AST 15 units/L (5-40) 01/09/19 06:33 ALT 10 units/L (7-56) 01/09/19 06:33 72 units/L (35-129) 01/09/19 06:33 0.015 ng/mL (0.00-0.029) 01/09/19 06:33 4.50 mg/dL (0.00-1.30) H 01/11/19 12:49 7.3 g/dL (6.3-8.2) 01/09/19 06:33 3.5 g/dL (3.9-5) L 01/09/19 06:33 0.9 % 01/09/19 06:33 Active Medications - Current Medications Current Medications: Generic Name Dose Route Start Last Admin Trade Name Freq PRN Reason Stop Dose Admin Acetaminophen 650 mg 01/09/19 11:00 Tylenol PO Q4H PRN Pain MILD(1-3)/Fever >100.5/QUILES Al Hydrox/Mg Hydrox/Simethicone 30 ml 01/09/19 11:00 Alum-Mag Hydrox-Simeth 373-002-04ps/5ml PO Q4H PRN Indigestion Albuterol 2.5 mg 01/09/19 12:00 Proventil IH Q4HRT PRN Shortness Of Breath Albuterol/Ipratropium 1 ampul 01/09/19 14:00 01/12/19 09:12 Duoneb *Not For Prn Use* IH 1 ampul Q6HRT LAM Administration Amlodipine Besylate 10 mg 01/10/19 10:00 01/12/19 10:48 Norvasc PO 10 mg DAILY LAM Administration Arformoterol Tartrate 15 mcg 01/11/19 12:45 01/12/19 09:12 Brovana Nebu IH 15 mcg Q12HRT LAM Administration Atorvastatin Calcium 40 mg 01/10/19 10:00 01/12/19 10:47 Lipitor PO 40 mg DAILY LAM Administration Budesonide 0.5 mg 01/09/19 20:00 01/12/19 09:12 Pulmicort IH 0.5 mg Q12HRT LAM Administration Carvedilol 12.5 mg 01/09/19 22:00 01/12/19 10:42 Coreg PO 12.5 mg BID LAM Administration Clopidogrel Bisulfate 75 mg 01/10/19 10:00 01/12/19 10:48 Plavix PO 75 mg QDAY LAM Administration Dextrose 50 ml 01/09/19 11:00 D50w (25gm) Syringe IV PRN PRN Hypoglycemia Docusate Sodium 100 mg 01/09/19 22:00 01/12/19 10:42 Colace PO 100 mg BID LAM Administration Famotidine 10 mg 01/09/19 22:00 01/12/19 10:48 Pepcid PO 10 mg BID LAM Administration Fluticasone Propionate 50 mcg 01/09/19 11:00 01/12/19 10:46 Flonase NS 50 mcg QDAY LAM Administration Glimepiride 2 mg 01/10/19 08:00 01/12/19 10:41 Amaryl PO 2 mg QAMDIAB LAM Administration Heparin Sodium (Porcine) 5,000 unit 01/09/19 22:00 01/12/19 05:56 Heparin SUB-Q 5,000 unit Q8HR LAM Administration Insulin Glargine 25 units 01/12/19 10:00 01/12/19 10:38 Lantus SUB-Q 25 units BID LAM Administration Insulin Human Lispro 0 unit 01/10/19 12:40 01/12/19 08:30 Humalog SUB-Q 4 unit ACHS LAM Administration Protocol Insulin Human Lispro 5 unit 01/12/19 12:41 Humalog SUB-Q AC [facility] Levofloxacin 500 mg 01/11/19 13:00 01/12/19 10:47 Levaquin PO 01/15/19 10:01 500 mg Q24HR LAM Administration Loratadine 10 mg 01/10/19 10:00 01/12/19 10:41 Claritin PO 10 mg DAILY LAM Administration Losartan Potassium 100 mg 01/10/19 10:00 01/12/19 10:46 Cozaar PO 100 mg QDAY LAM Administration Methylprednisolone Sodium Succinate 80 mg 01/09/19 14:00 01/12/19 05:54 Solu-Medrol IV 80 mg Q8HR LAM Administration Ondansetron HCl 4 mg 01/09/19 11:00 Zofran IV Q8H PRN Nausea And Vomiting Sertraline HCl 150 mg 01/09/19 11:00 01/12/19 10:49 Zoloft PO 150 mg QDAY LAM Administration Sildenafil Citrate 20 mg 01/09/19 14:00 01/12/19 10:40 Revatio PO 20 mg TID LAM Administration Sodium Chloride 10 ml 01/09/19 22:00 01/12/19 10:49 Sodium Chloride Flush Syringe 10 Ml IV 10 ml BID LAM Administration Sodium Chloride 10 ml 01/09/19 11:00 01/11/19 06:35 Sodium Chloride Flush Syringe 10 Ml IV 10 ml PRN PRN Administration LINE FLUSH
--- NOTE | 2019-01-12 13:52 | Progress Note ---
Assessment and Plan Patient awake. Resting on Venturi mask, FIO2 50%. O2 saturation 98%. No acute respiratory distress at rest. V/Q scan reported No PE.Venous doppler studies reported no DVT. - Patient Problems (1) Interstitial lung disease Current Visit: Yes Status: Acute Plan to address problem: O2 supplementation Venturi mask 50% FIO2. Albuterol/atrovent aerosol treatments q 6 hours. Continue solumedrol Continue Levaquin. Continue S/C Heparin Continue famotidine. SHERIF,rheumatoid factor, ANDREW level, CANCA. (2) Acute respiratory failure with hypoxia Current Visit: Yes Status: Acute Plan to address problem: Oxygen supplementation, Venturi mask FIO2 50%. ABGs on room air (3) Thrombocytopenia Current Visit: Yes Status: Acute Plan to address problem: To days platelet level 129. Continue Monitor platelets. Subjective Date of service: 01/12/19 Interval history: Patient awake. Resting on Venturi mask, FIO2 50%. O2 saturation 98%. No acute respiratory distress at rest. V/Q scan reported No PE.Venous doppler studies reported no DVT. Objective Vital Signs - 12hr 01/12/19 01/12/19 01/12/19 01:51 02:00 02:01 Temperature Pulse Rate 66 62 Pulse Rate [ 71 Anterior Bilateral Throughout] Pulse Rate [ Right Radial] Respiratory 17 16 Rate Respiratory 20 Rate [Anterior Bilateral Throughout] Blood Pressure 109/56 100/50 O2 Sat by Pulse 98 100 Oximetry 01/12/19 01/12/19 01/12/19 02:11 02:25 02:31 Temperature Pulse Rate 60 61 59 L Pulse Rate [ Anterior Bilateral Throughout] Pulse Rate [ Right Radial] Respiratory 18 18 18 Rate Respiratory Rate [Anterior Bilateral Throughout] Blood Pressure 100/50 O2 Sat by Pulse 100 98 94 Oximetry 01/12/19 01/12/19 01/12/19 02:35 02:41 02:50 Temperature Pulse Rate 60 62 Pulse Rate [ 75 Anterior Bilateral Throughout] Pulse Rate [ Right Radial] Respiratory 17 15 Rate Respiratory 20 Rate [Anterior Bilateral Throughout] Blood Pressure 100/50 100/50 O2 Sat by Pulse 97 98 Oximetry 01/12/19 01/12/19 01/12/19 03:01 03:11 03:21 Temperature Pulse Rate 71 65 61 Pulse Rate [ Anterior Bilateral Throughout] Pulse Rate [ Right Radial] Respiratory 15 17 20 Rate Respiratory Rate [Anterior Bilateral Throughout] Blood Pressure 100/50 100/50 100/50 O2 Sat by Pulse 90 99 100 Oximetry 01/12/19 01/12/19 01/12/19 03:31 03:41 03:51 Temperature Pulse Rate 59 L 63 60 Pulse Rate [ Anterior Bilateral Throughout] Pulse Rate [ Right Radial] Respiratory 17 18 19 Rate Respiratory Rate [Anterior Bilateral Throughout] Blood Pressure 100/50 100/50 100/50 O2 Sat by Pulse 98 99 98 Oximetry 01/12/19 01/12/19 01/12/19 04:00 04:01 04:11 Temperature 98.4 F Pulse Rate 57 L 57 L Pulse Rate [ Anterior Bilateral Throughout] Pulse Rate [ 57 L Right Radial] Respiratory 18 17 17 Rate Respiratory Rate [Anterior Bilateral Throughout] Blood Pressure 100/50 100/50 O2 Sat by Pulse 97 95 95 Oximetry 01/12/19 01/12/19 01/12/19 04:21 04:30 04:40 Temperature Pulse Rate 57 L 58 L 59 L Pulse Rate [ Anterior Bilateral Throughout] Pulse Rate [ Right Radial] Respiratory 17 18 17 Rate Respiratory Rate [Anterior Bilateral Throughout] Blood Pressure 100/50 100/50 100/50 O2 Sat by Pulse 95 96 96 Oximetry 01/12/19 01/12/19 01/12/19 04:50 05:01 05:11 Temperature Pulse Rate 60 63 62 Pulse Rate [ Anterior Bilateral Throughout] Pulse Rate [ Right Radial] Respiratory 14 19 16 Rate Respiratory Rate [Anterior Bilateral Throughout] Blood Pressure 100/50 100/50 100/50 O2 Sat by Pulse 97 96 99 Oximetry 01/12/19 01/12/19 01/12/19 05:21 05:31 05:41 Temperature Pulse Rate 60 59 L 58 L Pulse Rate [ Anterior Bilateral Throughout] Pulse Rate [ Right Radial] Respiratory 18 17 20 Rate Respiratory Rate [Anterior Bilateral Throughout] Blood Pressure 100/50 100/50 100/50 O2 Sat by Pulse 99 100 100 Oximetry 01/12/19 01/12/19 01/12/19 05:51 06:01 06:11 Temperature Pulse Rate 76 64 63 Pulse Rate [ Anterior Bilateral Throughout] Pulse Rate [ Right Radial] Respiratory 22 24 13 Rate Respiratory Rate [Anterior Bilateral Throughout] Blood Pressure 100/50 100/50 100/50 O2 Sat by Pulse 92 96 100 Oximetry 01/12/19 01/12/19 01/12/19 08:00 09:12 09:33 Temperature 98.1 F Pulse Rate Pulse Rate [ 62 63 Anterior Bilateral Throughout] Pulse Rate [ 74 Right Radial] Respiratory 20 Rate Respiratory 20 20 Rate [Anterior Bilateral Throughout] Blood Pressure O2 Sat by Pulse 98 Oximetry 01/12/19 01/12/19 01/12/19 09:34 10:00 10:42 Temperature Pulse Rate 77 81 Pulse Rate [ Anterior Bilateral Throughout] Pulse Rate [ Right Radial] Respiratory Rate Respiratory Rate [Anterior Bilateral Throughout] Blood Pressure 110/51 O2 Sat by Pulse 95 Oximetry 01/12/19 01/12/19 10:46 10:48 Temperature Pulse Rate 83 80 Pulse Rate [ Anterior Bilateral Throughout] Pulse Rate [ Right Radial] Respiratory Rate Respiratory Rate [Anterior Bilateral Throughout] Blood Pressure 110/51 110/51 O2 Sat by Pulse Oximetry Constitutional: no acute distress, alert Eyes: non-icteric Neck: supple, no lymphadenopathy Ascultation: Bilateral: rales Cardiovascular: regular rate and rhythm Gastrointestinal: normoactive bowel sounds, soft, non-tender Integumentary: normal Extremities: no cyanosis, no edema Neurologic: normal mental status, non-focal exam, pupils equal and round, CN II- XII normal Psychiatric: mood appropriate CBC and BMP: 01/11/19 04:49 01/11/19 04:49 ABG, PT/INR, D-dimer: ABG POC ABG pH 7.401 (7.35-7.45) 01/09/19 07:57 POC ABG pCO2 32.4 (35-45) L 01/09/19 07:57 POC ABG pO2 125 (80-105) H 01/09/19 07:57 POC ABG HCO3 20.1 (22-26 mml/L) 01/09/19 07:57 POC ABG Total CO2 21 (23-27mmol/L) 01/09/19 07:57 POC ABG O2 Sat 99 01/09/19 07:57 PT/INR, D-dimer 423.49 ng/mlDDU (0-234) H 01/11/19 12:49 Abnormal lab findings: Abnormal Labs 01/09/19 01/09/19 01/09/19 06:33 06:33 06:33 WBC 14.0 H RBC Hgb Hct RDW 21.7 H Plt Count 129 L Seg Neuts % (Manual) 82.0 H Lymphocytes % (Manual) Nucleated RBC % 1.0 H Seg Neutrophils # Man 11.5 H Lymphocytes # (Manual) D-Dimer POC ABG pCO2 POC ABG pO2 Sodium Potassium Carbon Dioxide 19 L BUN Glucose 248 H POC Glucose Hemoglobin A1c 10.8 H Total Bilirubin 1.30 H C-Reactive Protein Albumin 3.5 L 01/09/19 01/09/19 01/09/19 07:57 14:37 22:07 WBC RBC Hgb Hct RDW Plt Count Seg Neuts % (Manual) Lymphocytes % (Manual) Nucleated RBC % Seg Neutrophils # Man Lymphocytes # (Manual) D-Dimer POC ABG pCO2 32.4 L POC ABG pO2 125 H Sodium Potassium Carbon Dioxide BUN Glucose POC Glucose 248 H 355 H Hemoglobin A1c Total Bilirubin C-Reactive Protein Albumin 01/10/19 01/10/19 01/10/19 05:02 05:02 08:34 WBC RBC Hgb 11.2 L Hct 34.6 L RDW 21.6 H Plt Count 110 L Seg Neuts % (Manual) 83.0 H Lymphocytes % (Manual) 4.0 L Nucleated RBC % Seg Neutrophils # Man Lymphocytes # (Manual) 0.2 L D-Dimer POC ABG pCO2 POC ABG pO2 Sodium 136 L Potassium 5.4 H Carbon Dioxide BUN 27 H Glucose 376 H POC Glucose 378 H Hemoglobin A1c Total Bilirubin C-Reactive Protein Albumin 01/10/19 01/10/19 01/10/19 12:08 16:54 21:21 WBC RBC Hgb Hct RDW Plt Count Seg Neuts % (Manual) Lymphocytes % (Manual) Nucleated RBC % Seg Neutrophils # Man Lymphocytes # (Manual) D-Dimer POC ABG pCO2 POC ABG pO2 Sodium Potassium Carbon Dioxide BUN Glucose POC Glucose 450 H 414 H 227 H Hemoglobin A1c Total Bilirubin C-Reactive Protein Albumin 01/11/19 01/11/19 01/11/19 04:49 04:49 07:30 WBC RBC 3.58 L Hgb 10.7 L Hct 32.4 L RDW 21.4 H Plt Count 124 L Seg Neuts % (Manual) 92.0 H Lymphocytes % (Manual) 5.0 L Nucleated RBC % Seg Neutrophils # Man Lymphocytes # (Manual) 0.4 L D-Dimer POC ABG pCO2 POC ABG pO2 Sodium Potassium Carbon Dioxide 18 L BUN 30 H Glucose 174 H POC Glucose 199 H Hemoglobin A1c Total Bilirubin C-Reactive Protein Albumin 01/11/19 01/11/19 01/11/19 11:01 12:49 12:49 WBC RBC Hgb Hct RDW Plt Count Seg Neuts % (Manual) Lymphocytes % (Manual) Nucleated RBC % Seg Neutrophils # Man Lymphocytes # (Manual) D-Dimer 423.49 H POC ABG pCO2 POC ABG pO2 Sodium Potassium Carbon Dioxide BUN Glucose POC Glucose 257 H Hemoglobin A1c Total Bilirubin C-Reactive Protein 4.50 H Albumin 01/11/19 01/11/19 01/12/19 16:14 21:19 08:00 WBC RBC Hgb Hct RDW Plt Count Seg Neuts % (Manual) Lymphocytes % (Manual) Nucleated RBC % Seg Neutrophils # Man Lymphocytes # (Manual) D-Dimer POC ABG pCO2 POC ABG pO2 Sodium Potassium Carbon Dioxide BUN Glucose POC Glucose 247 H 325 H 248 H Hemoglobin A1c Total Bilirubin C-Reactive Protein Albumin 01/12/19 12:28 WBC RBC Hgb Hct RDW Plt Count Seg Neuts % (Manual) Lymphocytes % (Manual) Nucleated RBC % Seg Neutrophils # Man Lymphocytes # (Manual) D-Dimer POC ABG pCO2 POC ABG pO2 Sodium Potassium Carbon Dioxide BUN Glucose POC Glucose 323 H Hemoglobin A1c Total Bilirubin C-Reactive Protein Albumin Chest x-ray: report reviewed (Reported interstitial lung disease.), image reviewed CT scan - chest: report reviewed, image reviewed Additional Studies: CAT scan of chest 01/11/19 IMPRESSION: More extensive interstitial lung disease with scattered areas of groundglass airspace disease bilaterally which may reflect underlying pneumonitis. Bronchiectasis in the lower lobes bilaterally right greater than left, essentially unchanged. 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 Mild cardiomegaly. V/Q scan done 01/12/19 reported No PE. Venous doppler studies done on 01/11/19 reported no DVT
--- NOTE | 2019-01-12 14:01 | Nuclear Medicine Report ---
PERFUSION LUNG SCAN: History: Elevated D. dimer, shortness of breath. Comparison: AP chest performed 01/12/19 at 1213 hrs. Comment: This exam is just presented for dictation due to technical factors at the hospital. After injection of Technetium 99m macroaggregated albumin gamma camera imaging of the lungs in multiple projections demonstrates normal pulmonary contours with a relatively homogeneous distribution of activity. No focal areas of perfusion deficiency are identified. IMPRESSION: No evidence for pulmonary embolus.
[2019-01-12 21:47] VITALS: BP 108/58
--- NOTE | 2019-01-13 00:23 | Discharge Summary ---
Providers - Providers Date of Admission: 01/09/19 09:14 Attending physician: NERI COREY MD 01/09/19 10:56 Consult to Physician [CONS] Routine Comment: Consulting Provider: BRENT RIZZO Physician Instructions: Reason For Exam: acute on chronic respiratory failure Primary care physician: RAYNE REDDY MD Hospitalization Condition: Stable Hospital course: 73m who pw sob, and productive cough Acute on chronic hypoxic respiratory failure Interstitial lung disease - Patient rx with Solu-Medrol, continue sildenafil, and nebs - Patient is currently on 50% Ventimask when eating and 35% when at rest aida joshua MD, who then transfered him to [facility] for continuity of care with [facility] team Diabetes mellitus with persistent hyperglycemia - Continued home insulin coverage and sliding scale insulin Hypertension - Continued home medications DVT prophylaxis - Heparin Disposition: [id number]-TRM GEN HOSP IP Time spent for discharge: 33 mins Core Measure Documentation - Palliative Care Palliative Care/ Comfort Measures: Not Applicable - Core Measures Any of the following diagnoses?: none Exam - Physical Exam Narrative exam: General.: Appears well, no distress, nontoxic HEENT: Moist mucous membranes, extraocular muscles intact, no lymphadenopathy Neck: supple Cardiac: S1-S2 heard Lungs: Decreased air entry, wheezing Abdomen: soft , nontender, nondistended, bowel sounds positive Extremities: no edema clubbing or cyanosis Skin: no rash or lesions Neurologic: no gross focal deficits Psych: calm, and cooperative - Constitutional Vitals: Temp Pulse Resp BP Pulse Ox 97.7 F 58 L 16 108/58 98 01/12/19 20:00 01/12/19 21:00 01/12/19 21:00 01/12/19 21:00 01/12/19 21:00 Plan Follow up with: RAYNE REDDY MD [Primary Care Provider] - 3-5 Days
== END 2019-01-12 21:30 | disposition short-term general hospital (02) | DRG 196 ==
LOC: ED 06:19 → IMCU 09:14
PROVIDERS: ADMIT Internal Medicine; ATTEND Internal Medicine
PROC: 4A033R1 Measurement of Arterial Saturation, Peripheral, Percutaneous Approach (ICD-10-PCS; principal; 2019-01-09)
PROC: 5A09357 Assistance with Respiratory Ventilation, Less than 24 Consecutive Hours, Continuous Positive Airway Pressure (ICD-10-PCS; 2019-01-09)
DX: J84.9 Interstitial pulmonary disease, unspecified (principal); J96.21 Acute and chronic respiratory failure with hypoxia; Z99.81 Dependence on supplemental oxygen; E11.65 Type 2 diabetes mellitus with hyperglycemia; I10 Essential (primary) hypertension; I27.20 Pulmonary hypertension, unspecified; G47.33 Obstructive sleep apnea (adult) (pediatric); E66.9 Obesity, unspecified; D69.6 Thrombocytopenia, unspecified; Z79.4 Long term (current) use of insulin; Z85.46 Personal history of malignant neoplasm of prostate; Z68.34 Body mass index [BMI] 34.0-34.9, adult
CPT/HCPCS: 36415; 71045; 71250; 78580; 80048; 80053; 82803; 82962; 83036; 84484; 85007; 85025; 85379; 86140; 93005; 93010; 93970; 94640; 94644; 94760; G0378; A9270-GY; A9540; J1644; J1815; J1940; J2920; J2930; J3475

== ENCOUNTER 2019-01-29 06:36 | Inpatient (IN) | payer MEDICARE ==
--- NOTE | 2019-01-29 06:50 | Emergency Department Report ---
ED Shortness of Breath HPI - General Stated Complaint: RESPIRATORY DISTRESS Time Seen by Provider: 01/29/19 06:36 Source: patient, EMS Mode of arrival: Stretcher Limitations: No Limitations - History of Present Illness Initial Comments: Patient is a 73-year-old male that presents to emergency room for shortness of breath and cough. Patient states she is having difficulty breathing as well. Patient has a history of interstitial lung disease and right-sided heart failure secondary to his lung condition. Patient was brought in by EMS. The patient's sat low at home. Patient states his symptoms started last night and have worsened. Patient denies chest pain. Patient denies fever chills. Patient denies anypatient states his symptoms are better with rest and worse with exertion. Report received from EMS. Patient transported via EMS with a nonrebreather. Patient's initial set 50s on initial check by EMS. EMS gave same Medrol, magnesium 2 g and albuterol 5 mg. MD Complaint: shortness of breath -: Sudden Consistency: constant Improves With: oxygen, rest Worsens With: exertion, coughing Known History Of: other (interstitial lung disease) - Related Data Home Medications Medication Instructions Recorded Confirmed Last Taken Acetaminophen [Tylenol] 500 mg PO Q6HR PRN 01/09/19 01/09/19 Unknown AtorvaSTATin [Lipitor] 40 mg PO DAILY 01/09/19 01/09/19 Unknown Carvedilol [Coreg] 12.5 mg PO BID 01/09/19 01/09/19 Unknown Cetirizine HCl [Allergy Relief] 10 mg PO DAILY 01/09/19 01/09/19 Unknown Cholecalciferol (Vitamin D3) 1,000 unit PO QDAY 01/09/19 01/09/19 Unknown [Children's Vitamin D3 1,000 unit CHEW] Clopidogrel [Plavix] 75 mg PO QDAY 01/09/19 01/09/19 Unknown Fluticasone [Flonase] 1 spray NS QDAY 01/09/19 01/09/19 Unknown Glimepiride [Amaryl] 2 mg PO QDAY 01/09/19 01/09/19 Unknown Insulin Glargine,Hum.rec.anlog 40 units SUB-Q HS 01/09/19 01/09/19 Unknown [Lantus] Losartan [Cozaar] 100 mg PO QDAY 01/09/19 01/09/19 Unknown Sertraline [Zoloft] 150 mg PO QDAY 01/09/19 01/09/19 Unknown Sildenafil [Revatio] 20 mg PO TID 01/09/19 01/09/19 Unknown amLODIPine [Norvasc] 10 mg PO DAILY 01/09/19 01/09/19 Unknown Allergies Allergy/AdvReac Type Severity Reaction Status Date / Time No Known Allergies Allergy Verified 12/23/18 10:17 ED Review of Systems ROS: Stated complaint: RESPIRATORY DISTRESS Other details as noted in HPI Constitutional: denies: chills, fever Eyes: denies: eye pain, eye discharge, vision change ENT: denies: ear pain, throat pain Respiratory: cough, shortness of breath. denies: wheezing Cardiovascular: denies: chest pain, palpitations Endocrine: no symptoms reported Gastrointestinal: denies: abdominal pain, nausea, diarrhea Genitourinary: denies: urgency, dysuria Musculoskeletal: denies: back pain, joint swelling, arthralgia Skin: denies: rash, lesions Neurological: denies: headache, weakness, paresthesias Psychiatric: denies: anxiety, depression Hematological/Lymphatic: denies: easy bleeding, easy bruising ED Past Medical Hx - Past Medical History Previous Medical History?: Yes Hx Hypertension: Yes Hx Congestive Heart Failure: Yes Hx Diabetes: Yes Hx of Cancer: Yes (prostate cancer s/p chemoradiation) Additional medical history: interstitial lung disease, severe pulmonary hypertension, Obstructive sleep apnea - Surgical History Past Surgical History?: Yes Hx Coronary Stent: Yes Additional Surgical History: neck surgery - Family History Family history: no significant - Social History Smoking Status: Never Smoker Substance Use Type: None - Medications Home Medications: Home Medications Medication Instructions Recorded Confirmed Last Taken Type Acetaminophen [Tylenol] 500 mg PO Q6HR PRN 01/09/19 01/09/19 Unknown History AtorvaSTATin [Lipitor] 40 mg PO DAILY 01/09/19 01/09/19 Unknown History Carvedilol [Coreg] 12.5 mg PO BID 01/09/19 01/09/19 Unknown History Cetirizine HCl [Allergy Relief] 10 mg PO DAILY 01/09/19 01/09/19 Unknown History Cholecalciferol (Vitamin D3) 1,000 unit PO QDAY 01/09/19 01/09/19 Unknown History [Children's Vitamin D3 1,000 unit CHEW] Clopidogrel [Plavix] 75 mg PO QDAY 01/09/19 01/09/19 Unknown History Fluticasone [Flonase] 1 spray NS QDAY 01/09/19 01/09/19 Unknown History Glimepiride [Amaryl] 2 mg PO QDAY 01/09/19 01/09/19 Unknown History Insulin Glargine,Hum.rec.anlog 40 units SUB-Q HS 01/09/19 01/09/19 Unknown History [Lantus] Losartan [Cozaar] 100 mg PO QDAY 01/09/19 01/09/19 Unknown History Sertraline [Zoloft] 150 mg PO QDAY 01/09/19 01/09/19 Unknown History Sildenafil [Revatio] 20 mg PO TID 01/09/19 01/09/19 Unknown History amLODIPine [Norvasc] 10 mg PO DAILY 01/09/19 01/09/19 Unknown History ED Physical Exam - General Limitations: No Limitations General appearance: alert, in distress - Head Head exam: Present: atraumatic, normocephalic - Eye Eye exam: Present: normal appearance, PERRL Pupils: Present: normal accommodation - ENT ENT exam: Present: mucous membranes moist - Neck Neck exam: Present: normal inspection - Respiratory Respiratory exam: Present: normal lung sounds bilaterally, respiratory distress, accessory muscle use, decreased breath sounds. Absent: wheezes, rales, rhonchi - Cardiovascular Cardiovascular Exam: Present: regular rate, normal rhythm. Absent: systolic murmur, diastolic murmur, rubs, gallop - GI/Abdominal GI/Abdominal exam: Present: soft, normal bowel sounds. Absent: distended, tenderness, guarding - Rectal Rectal exam: Present: deferred - Extremities Exam Extremities exam: Present: normal inspection - Back Exam Back exam: Present: normal inspection - Neurological Exam Neurological exam: Present: alert, oriented X3 - Psychiatric Psychiatric exam: Present: normal affect, normal mood - Skin Skin exam: Present: warm, dry, intact, normal color. Absent: rash ED Course Vital Signs 01/29/19 01/29/19 01/29/19 06:42 06:46 06:48 Temperature 98.2 F Pulse Rate 93 H 99 H Respiratory 26 H 27 H 29 H Rate Blood Pressure 120/73 Blood Pressure 120/73 [Right] O2 Sat by Pulse 56 L 66 L 61 L Oximetry 01/29/19 01/29/19 01/29/19 06:55 07:01 07:15 Temperature Pulse Rate 90 92 H 91 H Respiratory 26 H 37 H 35 H Rate Blood Pressure 157/99 107/74 Blood Pressure [Right] O2 Sat by Pulse 98 86 97 Oximetry 01/29/19 01/29/19 01/29/19 07:30 07:45 08:01 Temperature Pulse Rate 93 H 95 H 91 H Respiratory 33 H 31 H 28 H Rate Blood Pressure 116/77 124/76 126/77 Blood Pressure [Right] O2 Sat by Pulse 95 98 96 Oximetry 01/29/19 01/29/19 01/29/19 08:15 08:30 08:45 Temperature Pulse Rate 91 H 91 H 89 Respiratory 30 H 31 H 33 H Rate Blood Pressure 127/79 118/79 123/72 Blood Pressure [Right] O2 Sat by Pulse 95 96 95 Oximetry 01/29/19 01/29/19 09:00 09:15 Temperature Pulse Rate 92 H Respiratory 30 H 20 Rate Blood Pressure 133/76 Blood Pressure [Right] O2 Sat by Pulse 96 100 Oximetry - Reevaluation(s) Reevaluation #1: Evaluation done. Patient significantly hypoxic. ABG was done and patient placed on BiPAP. 01/29/19 06:36 Patient's work of breathing is improved with BiPAP. Patient's oxygen saturation is improved. 01/29/19 06:55 Patient resting comfortably. Patient's vital signs and oxygenation improved. 01/29/19 07:14 Discussed all results with patient. Patient will be admitted to the hospitalist service. Patient agrees to plan of care. 01/29/19 08:15 - Consultations Consultation #1: [place] physician millinery salesperson paged 01/29/19 08:14 Discussed case with at [place]. Dr. Alcaraz recommends admission here. 01/29/19 08:27 Consultation #2: Hospitalist consulted for admission. Hospitalist to admit patient. Hospitalist to assume care patient. Bridge orders placed 01/29/19 08:28 ED Medical Decision Making - Lab Data Result diagrams: 01/29/19 07:01 01/29/19 07:01 - EKG Data -: EKG Interpreted by Nd EKG shows normal: sinus rhythm, axis, intervals, ST-T waves Rate: normal - EKG Data Interpretation: other (right bundle-branch block) - Radiology Data Radiology results: report reviewed, image reviewed PROCEDURE: XR CHEST 1V AP TECHNIQUE: Chest radiograph single view. HISTORY: Dyspnea COMPARISONS: None . FINDINGS: Heart: The heart is enlarged.. Mediastinum/Vessels: Normal. Lungs/Pleural space: There is suboptimal inspiration. There are bilateral perihilar pulmonary infiltrates versus pulmonary edema. There is no pleural effusion or pneumothorax.. Bony thorax: No acute osseous abnormality. Life support devices: None. IMPRESSION: The heart is enlarged.. There is suboptimal inspiration. There are bilateral perihilar pulmonary infiltrates versus pulmonary edema. There is no pleural effusion or pneumothorax... - Medical Decision Making Condition is a 73-year-old male presents to [facility] with difficulties breathing, respiratory distress and shortness of breath and cough. Patient placed on BiPAP immediately upon arrival. Patient's clinical situation and saturation a work to breathe all improved. Patient's labs unremarkable except for lactic acidosis and elevated BNP. - Differential Diagnosis CHF exacerbation. Shortness of breath. Difficulty breathing. Hypoxia. Critical Care Time: Yes Critical care attestation.: If time is entered above; I have spent that time in minutes in the direct care of this critically ill patient, excluding procedure time. Critical Care Time: 45 minutes ED Disposition Clinical Impression: Respiratory distress, Acute respiratory failure with hypoxia, SOB (shortness of breath), Lactic acid acidosis CHF exacerbation Qualifiers: Heart failure type: unspecified Qualified Code(s): I50.9 - Heart failure, unspecified Disposition: OP ADMIT IP TO THIS HOSP Is pt being admited?: Yes Does the pt Need Aspirin: No Condition: Critical Time of Disposition: 08:28
--- NOTE | 2019-01-29 07:21 | XRay Report ---
PROCEDURE: XR CHEST 1V AP TECHNIQUE: Chest radiograph single view. HISTORY: Dyspnea COMPARISONS: None . FINDINGS: Heart: The heart is enlarged.. Mediastinum/Vessels: Normal. Lungs/Pleural space: There is suboptimal inspiration. There are bilateral perihilar pulmonary infilt rates versus pulmonary edema. There is no pleural effusion or pneumothorax.. Bony thorax: No acute osseous abnormality. Life support devices: None. IMPRESSION: The heart is enlarged.. There is suboptimal inspiration. There are bilateral perihilar pulmonary infiltrates versus pulmonary edema. There is no pleural effusion or pneumothorax... This document is electronically signed by Ben Hernandez MD., Jan 29 2019 07:19:41 AM ET
[2019-01-29 07:34] LABS: Creatine Kinase MB 3.4 ng/mL (0.0-4.0)
[2019-01-29 07:36] LABS: Alanine Aminotransferase 11 units/L (7-56); Albumin 3.3 g/dL (3.9-5); BUN/Creatinine Ratio 13; Blood Urea Nitrogen 16 mg/dL (9-20); Calcium 8.8 mg/dL (8.4-10.2); Hemolysis Index 4
[2019-01-29 07:43] LABS: Basophils % (Auto) 0.3 % (0.0-1.8); Eosinophils # (Auto) 0.1 K/mm3 (0.0-0.4); Eosinophils % (Auto) 1.3 % (0.0-4.3); Hematocrit 37.6 % (35.5-45.6); Hemoglobin 12.1 gm/dl (11.8-15.2); Lymphocytes % (Auto) 11.5 % (13.4-35.0); Mean Corpuscular HGB Conc 32 % (32-34); Mean Corpuscular Volume 92 fl (84-94); Monocytes # (Auto) 0.3 K/mm3 (0.0-0.8); Monocytes % (Auto) 3.8 % (0.0-7.3); Red Blood Count 4.11 M/mm3 (3.65-5.03)
[2019-01-29 07:48] LABS: Platelet Count 97 K/mm3 (140-440); Red Cell Distribution Width 21.4 % (13.2-15.2)
[2019-01-29] MEDS ORDERED: LASIX IV ONE (08:11)
--- NOTE | 2019-01-29 10:03 | History and Physical Report ---
History of Present Illness Date of examination: 01/29/19 Date of admission: 01/29/19 08:28 Chief complaint: Increase in shortness of breath for 1 day History of present illness: A 73-year-old -[place] male with history of COPD, hypertension, insulin-dependent diabetes and interstitial lung disease comes by EMS with increasing shortness of breath and wheezing. Cough for 2 of mucoid sputum. Patient's oxygen saturations were in the mid 50s. EMS gave Solu-Medrol magnesium and albuterol treatments. No improvement. Patient continued to be very short of breath and was put on BiPAP in the emergency room. No fever or chills. No recent travel. Patient has similar episodes in the past Past Medical History Previous Medical History?: Yes Hypertension: Yes Congestive Heart Failure: Yes Diabetes: Yes prostate cancer s/p chemoradiation) Additional medical history: interstitial lung disease, severe pulmonary hype rtension, Obstructive sleep apnea Surgical History Past Surgical History?: Yes Hx Coronary Stent: Yes Additional Surgical History: neck surgery Family History Family history: no significant Social History Smoking Status: Never Smoker Substance Use Type: None Medications Home Medications: Home Medications Medication Instructions Recorded Confirmed Last Taken Type Acetaminophen [Tylenol] 500 mg PO Q6HR PRN 01/09/19 01/09/19 Unknown History AtorvaSTATin [Lipitor] 40 mg PO DAILY 01/09/19 01/09/19 Unknown History Carvedilol [Coreg] 12.5 mg PO BID 01/09/19 01/09/19 Unknown History Cetirizine HCl [Allergy Relief] 10 mg PO DAILY 01/09/19 01/09/19 Unknown History Cholecalciferol (Vitamin D3) 1,000 unit PO QDAY 01/09/19 01/09/19 Unknown History [Children's Vitamin D3 1,000 unit CHEW] Clopidogrel [Plavix] 75 mg PO QDAY 01/09/19 01/09/19 Unknown History Fluticasone [Flonase] 1 spray NS QDAY 01/09/19 01/09/19 Unknown History Glimepiride [Amaryl] 2 mg PO QDAY 01/09/19 01/09/19 Unknown History Insulin Glargine,Hum.rec.anlog 40 units SUB-Q HS 01/09/19 01/09/19 Unknown History [Lantus] Losartan [Cozaar] 100 mg PO QDAY 01/09/19 01/09/19 Unknown History Sertraline [Zoloft] 150 mg PO QDAY 01/09/19 01/09/19 Unknown History Sildenafil [Revatio] 20 mg PO TID 01/09/19 01/09/19 Unknown History amLODIPine [Norvasc] 10 mg PO DAILY 01/09/19 01/09/19 Unknown History Review of Systems ROS: Stated complaint: RESPIRATORY DISTRESS Other details as noted in HPI Constitutional: denies: chills, fever Eyes: denies: eye pain, eye discharge, vision change ENT: denies: ear pain, throat pain Respiratory: cough, shortness of breath. denies: wheezing Cardiovascular: denies: chest pain, palpitations Endocrine: no symptoms reported Gastrointestinal: denies: abdominal pain, nausea, diarrhea Genitourinary: denies: urgency, dysuria Musculoskeletal: denies: back pain, joint swelling, arthralgia Skin: denies: rash, lesions Neurological: denies: headache, weakness, paresthesias Psychiatric: denies: anxiety, depression Hematological/Lymphatic: denies: easy bleeding, easy bruising Medications and Allergies Allergies Allergy/AdvReac Type Severity Reaction Status Date / Time No Known Allergies Allergy Verified 12/23/18 10:17 Home Medications Medication Instructions Recorded Confirmed Last Taken Type Acetaminophen [Tylenol] 500 mg PO Q6HR PRN 01/09/19 01/29/19 Unknown History AtorvaSTATin [Lipitor] 40 mg PO DAILY 01/09/19 01/29/19 Unknown History Carvedilol [Coreg] 12.5 mg PO BID 01/09/19 01/29/19 Unknown History Cetirizine HCl [Allergy Relief] 10 mg PO DAILY 01/09/19 01/29/19 Unknown History Cholecalciferol (Vitamin D3) 1,000 unit PO QDAY 01/09/19 01/29/19 Unknown History [Children's Vitamin D3 1,000 unit CHEW] Clopidogrel [Plavix] 75 mg PO QDAY 01/09/19 01/29/19 Unknown History Fluticasone [Flonase] 1 spray NS QDAY 01/09/19 01/29/19 Unknown History Glimepiride [Amaryl] 2 mg PO QDAY 01/09/19 01/29/19 Unknown History Insulin Glargine,Hum.rec.anlog 40 units SUB-Q HS 01/09/19 01/29/19 Unknown History [Lantus] Losartan [Cozaar] 100 mg PO QDAY 01/09/19 01/29/19 Unknown History Sertraline [Zoloft] 150 mg PO QDAY 01/09/19 01/29/19 Unknown History Sildenafil [Revatio] 20 mg PO TID 01/09/19 01/29/19 Unknown History amLODIPine [Norvasc] 10 mg PO DAILY 01/09/19 01/29/19 Unknown History Exam - Physical Exam Narrative exam: Lying in bed in some distress - Constitutional Vitals: Temp Pulse Resp BP Pulse Ox 98.2 F 92 H 20 133/76 100 01/29/19 06:48 01/29/19 09:00 01/29/19 09:15 01/29/19 09:00 01/29/19 09:15 General appearance: Present: severe distress, well-nourished - EENT Eyes: Present: PERRL ENT: hearing intact, clear oral mucosa - Neck Neck: Present: supple, normal ROM - Respiratory Respiratory effort: normal Respiratory: bilateral: diminished, rhonchi (extensive wheezing and rhonchi), wheezing - Cardiovascular Heart rate: 98 Rhythm: regular Heart Sounds: Present: S1 & S2. Absent: rub, click - Extremities Extremities: no ischemia, pulses intact, pulses symmetrical, No edema Peripheral Pulses: within normal limits - Abdominal General gastrointestinal: Present: soft, non-tender, non-distended, normal bowel sounds Male genitourinary: Present: normal - Rectal Rectal Exam: deferred - Integumentary Integumentary: Present: clear, warm, dry - Musculoskeletal Musculoskeletal: gait normal, strength equal bilaterally - Psychiatric Psychiatric: appropriate mood/affect, intact judgment & insight - Neurologic Neurologic: CNII-XII intact, moves all extremities - Allied Health Allied health notes reviewed: nursing, case management Results - Labs CBC & Chem 7: 01/30/19 04:35 01/30/19 04:35 Labs: Laboratory Last Values WBC 8.5 K/mm3 (4.5-11.0) 01/29/19 07:01 RBC 4.11 M/mm3 (3.65-5.03) 01/29/19 07:01 Hgb 12.1 gm/dl (11.8-15.2) 01/29/19 07:01 Hct 37.6 % (35.5-45.6) 01/29/19 07:01 MCV 92 fl (84-94) 01/29/19 07:01 MCH 29 pg (28-32) 01/29/19 07:01 MCHC 32 % (32-34) 01/29/19 07:01 RDW 21.4 % (13.2-15.2) H 01/29/19 07:01 Plt Count 97 K/mm3 (140-440) L 01/29/19 07:01 Lymph % (Auto) 11.5 % (13.4-35.0) L 01/29/19 07:01 [place] % (Auto) 3.8 % (0.0-7.3) 01/29/19 07:01 Eos % (Auto) 1.3 % (0.0-4.3) 01/29/19 07:01 Baso % (Auto) 0.3 % (0.0-1.8) 01/29/19 07:01 Lymph # 1.0 K/mm3 (1.2-5.4) L 01/29/19 07:01 [place] # 0.3 K/mm3 (0.0-0.8) 01/29/19 07:01 Eos # 0.1 K/mm3 (0.0-0.4) 01/29/19 07:01 Baso # 0.0 K/mm3 (0.0-0.1) 01/29/19 07:01 Seg Neutrophils % 83.1 % (40.0-70.0) H 01/29/19 07:01 Seg Neutrophils # 7.1 K/mm3 (1.8-7.7) 01/29/19 07:01 Sodium 136 mmol/L (137-145) L 01/29/19 07:01 Potassium 4.8 mmol/L (3.6-5.0) 01/29/19 07:01 Chloride 100.5 mmol/L (98-107) 01/29/19 07:01 Carbon Dioxide 21 mmol/L (22-30) L 01/29/19 07:01 19 mmol/L 01/29/19 07:01 BUN 16 mg/dL (9-20) 01/29/19 07:01 1.2 mg/dL (0.8-1.5) 01/29/19 07:01 Estimated GFR > 60 ml/min 01/29/19 07:01 13 % 01/29/19 07:01 Glucose 322 mg/dL (75-100) H 01/29/19 07:01 Lactic Acid 1.40 mmol/L (0.7-2.0) 01/29/19 08:12 Calcium 8.8 mg/dL (8.4-10.2) 01/29/19 07:01 1.40 mg/dL (0.1-1.2) H 01/29/19 07:01 AST 13 units/L (5-40) 01/29/19 07:01 ALT 11 units/L (7-56) 01/29/19 07:01 79 units/L (35-129) 01/29/19 07:01 32 units/L (55-170) L 01/29/19 07:01 CK-MB (CK-2) 3.4 ng/mL (0.0-4.0) 01/29/19 07:01 CK-MB (CK-2) Rel Index 10.6 (0-4) H 01/29/19 07:01 < 0.010 ng/mL (0.00-0.029) 01/29/19 07:01 NT-Pro-B Natriuret Pep 1364 pg/mL (0-900) H 01/29/19 07:01 7.1 g/dL (6.3-8.2) 01/29/19 07:01 3.3 g/dL (3.9-5) L 01/29/19 07:01 0.9 % 01/29/19 07:01 - Imaging and Cardiology EKG: report reviewed (right bundle branch block, heart rate of 91/m) Imaging and Cardiology: Chest x-ray IMPRESSION: The heart is enlarged.. There is suboptimal inspiration. There are bilateral perihilar pulmonary infiltrates versus pulmonary edema. There is no pleural effusion or pneumothorax... This document is electronically signed by Ben Hernandez MD., Jan 29 2019 07:19:41 AM ET Assessment and Plan Advance Directives: Yes (full code ) VTE prophylaxis?: Chemical Plan of care discussed with patient/family: Yes - Patient Problems (1) Acute respiratory failure with hypoxia Current Visit: Yes Status: Acute Plan to address problem: Patient's oxygen saturations were in mid 50s Even with 50% FiO2--oxygen was 79 Patient is on BiPAP We will intubate if necessary IV Solu-Medrol at 125 mg every 6 hours IV Levaquin and nebulizer treatments every 3 when necessary every 6 hours [id number] started Pulmonary was consulted (2) COPD with acute exacerbation Current Visit: Yes Status: Acute Plan to address problem: Patient's oxygen saturations were in mid 50s Even with 50% FiO2--oxygen was 79 Patient is on BiPAP We will intubate if necessary IV Solu-Medrol at 125 mg every 6 hours IV Levaquin and nebulizer treatments every 3 when necessary every 6 hours [id number] started Pulmonary was consulted (3) Hypertension Current Visit: Yes Status: Chronic Qualifiers: Hypertension type: essential hypertension Qualified Code(s): I10 - Ljcherelle gavirial (primary) hypertension Plan to address problem: Continue antihypertensive (4) Insulin dependent diabetes mellitus Current Visit: Yes Status: Chronic Plan to address problem: Continue home insulin and coverage (5) Hyperlipidemia Current Visit: Yes Status: Chronic Qualifiers: Hyperlipidemia type: mixed hyperlipidemia Qualified Code(s): E78.2 - Mixed hyperlipidemia Plan to address problem: Continue statins (6) Pulmonary hypertension Current Visit: Yes Status: Chronic Plan to address problem: Patient on sildenafil 20 mg 3 times a day. Continue the same (7) Coronary artery disease Current Visit: Yes Status: Chronic Qualifiers: Coronary Disease-Associated Artery/Lesion type: [place] artery Associated a ngina: without angina Plan to address problem: Continue Plavix (8) Lactic acid acidosis Current Visit: Yes Status: Acute Plan to address problem: Probably nonspecific. We will trend the lactic acid (9) Prostate cancer Current Visit: Yes Status: Chronic Plan to address problem: Supportive care (10) DVT prophylaxis Current Visit: Yes Status: Acute Plan to address problem: On Lovenox and GI prophylaxis
[2019-01-29] MEDS ORDERED: TYLENOL PO PRN ×2 (14:23→14:26)
[2019-01-29] MEDS ORDERED: DILAUDID IV PRN (14:26)
[2019-01-29] MEDS ORDERED: PERCOCET 5/325 PO PRN (14:26)
[2019-01-29] MEDS ORDERED: ZOFRAN IV PRN (14:26)
[2019-01-29] MEDS ORDERED: SODIUM CHLORIDE FLUSH SYRINGE 10 ML IV PRN (14:26)
[2019-01-29] MEDS ORDERED: NON-FORMULARY (Cetirizine Hcl [Allergy Relief] 10 MG) PO SCH (14:30)
[2019-01-29] MEDS ORDERED: NON-FORMULARY (Losartan [Cozaar] 100 MG) PO SCH (14:30)
[2019-01-29] MEDS ORDERED: PROVENTIL IH PRN (14:30)
[2019-01-29] MEDS: COREG PO SCH ×2 (15:30→21:03)
[2019-01-29] MEDS: SODIUM CHLORIDE FLUSH SYRINGE 10 ML IV SCH ×2 (15:30→21:04)
[2019-01-29] MEDS: NORVASC PO SCH (15:32)
[2019-01-29] MEDS: SOLU-Medrol IV SCH (15:32)
[2019-01-29] MEDS: ZOLOFT PO SCH (15:32)
[2019-01-29] MEDS: LEVAQUIN 750MG/150ML 750 MG/150 ML BAG IV SCH (15:32)
[2019-01-29] MEDS: PLAVIX PO SCH (15:32)
[2019-01-29] MEDS: PEPCID PO SCH ×2 (15:32→21:03)
[2019-01-29] MEDS: DUONEB *Not for PRN Use IH SCH ×2 (17:18→21:05)
[2019-01-29] MEDS: AMARYL PO SCH (19:30)
[2019-01-29] MEDS: FLONASE NS SCH (19:31)
[2019-01-29] MEDS: HumaLOG SUB-Q SCH ×2 (19:31→21:30)
[2019-01-29] MEDS: REVATIO PO SCH (21:03)
[2019-01-29] MEDS: PULMICORT IH SCH (21:06)
[2019-01-29] MEDS: LANTUS SUB-Q SCH (21:31)
[2019-01-29] MEDS ORDERED: D50W (25GM) Syringe IV PRN (23:17)
[2019-01-30] MEDS: SOLU-Medrol IV SCH ×3 (01:19→16:31)
[2019-01-30 05:27] LABS: Basophils % (Auto) 0.3 % (0.0-1.8); Hematocrit 34.1 % (35.5-45.6); Hemoglobin 11.3 gm/dl (11.8-15.2); Lymphocytes # (Auto) 0.4 K/mm3 (1.2-5.4); Lymphocytes % (Auto) 9.3 % (13.4-35.0); Mean Corpuscular HGB Conc 33 % (32-34); Mean Corpuscular Volume 90 fl (84-94); Monocytes # (Auto) 0.2 K/mm3 (0.0-0.8); Monocytes % (Auto) 3.8 % (0.0-7.3); Red Blood Count 3.81 M/mm3 (3.65-5.03)
[2019-01-30 05:49] LABS: Platelet Count 98 K/mm3 (140-440); Red Cell Distribution Width 21.1 % (13.2-15.2)
[2019-01-30 05:57] LABS: Alanine Aminotransferase 10 units/L (7-56); Albumin 3.4 g/dL (3.9-5); BUN/Creatinine Ratio 22; Blood Urea Nitrogen 28 mg/dL (9-20); Calcium 8.5 mg/dL (8.4-10.2); Hemolysis Index 0
[2019-01-30] MEDS: REVATIO PO SCH ×3 (08:40→21:40)
[2019-01-30] MEDS: DUONEB *Not for PRN Use IH SCH ×4 (08:41→21:20)
[2019-01-30] MEDS: PULMICORT IH SCH ×2 (08:41→21:20)
[2019-01-30] MEDS: HumaLOG SUB-Q SCH ×4 (08:42→21:34)
[2019-01-30] MEDS: AMARYL PO SCH (10:37)
[2019-01-30] MEDS: COREG PO SCH ×2 (10:38→21:37)
[2019-01-30] MEDS: SODIUM CHLORIDE FLUSH SYRINGE 10 ML IV SCH ×2 (10:38→21:36)
[2019-01-30] MEDS: FLONASE NS SCH (10:39)
[2019-01-30] MEDS: COZAAR PO SCH (10:39)
[2019-01-30] MEDS: PLAVIX PO SCH (10:40)
[2019-01-30] MEDS: ZOLOFT PO SCH (10:40)
[2019-01-30] MEDS: VITAMIN D3 PO SCH (10:40)
[2019-01-30] MEDS: NORVASC PO SCH (10:40)
[2019-01-30] MEDS: PEPCID PO SCH ×2 (10:40→21:36)
--- NOTE | 2019-01-30 13:13 | Consultation ---
History of Present Illness Consult date: 01/30/19 Requesting physician: ROSETTE MCKEON Reason for consult: COPD, other (Acute Hypoxemic Respiratory Failure) History of present illness: PCCM CONSULT NOTE (Full dictation # [id number]) Please see dictated notes for full details Medications and Allergies Allergies Allergy/AdvReac Type Severity Reaction Status Date / Time No Known Allergies Allergy Verified 12/23/18 10:17 Home Medications Medication Instructions Recorded Confirmed Last Taken Type Acetaminophen [Tylenol] 500 mg PO Q6HR PRN 01/09/19 01/29/19 Unknown History AtorvaSTATin [Lipitor] 40 mg PO DAILY 01/09/19 01/29/19 Unknown History Carvedilol [Coreg] 12.5 mg PO BID 01/09/19 01/29/19 Unknown History Cetirizine HCl [Allergy Relief] 10 mg PO DAILY 01/09/19 01/29/19 Unknown History Cholecalciferol (Vitamin D3) 1,000 unit PO QDAY 01/09/19 01/29/19 Unknown History [Children's Vitamin D3 1,000 unit CHEW] Clopidogrel [Plavix] 75 mg PO QDAY 01/09/19 01/29/19 Unknown History Fluticasone [Flonase] 1 spray NS QDAY 01/09/19 01/29/19 Unknown History Glimepiride [Amaryl] 2 mg PO QDAY 01/09/19 01/29/19 Unknown History Insulin Glargine,Hum.rec.anlog 40 units SUB-Q HS 01/09/19 01/29/19 Unknown History [Lantus] Losartan [Cozaar] 100 mg PO QDAY 01/09/19 01/29/19 Unknown History Sertraline [Zoloft] 150 mg PO QDAY 01/09/19 01/29/19 Unknown History Sildenafil [Revatio] 20 mg PO TID 01/09/19 01/29/19 Unknown History amLODIPine [Norvasc] 10 mg PO DAILY 01/09/19 01/29/19 Unknown History Active Meds: Active Medications Acetaminophen (Tylenol) 650 mg PO Q4H PRN PRN Reason: Pain MILD(1-3)/Fever >100.5/QUILES Last Admin: 01/29/19 21:03 Dose: 650 mg Documented by: Albuterol (Proventil) 2.5 mg IH Q4HRT PRN PRN Reason: Shortness Of Breath Albuterol/Ipratropium (Duoneb *Not For Prn Use*) 1 ampul IH QIDRT [facility] Last Admin: 01/30/19 11:49 Dose: 1 ampul Documented by: Amlodipine Besylate (Norvasc) 10 mg PO DAILY [facility] Last Admin: 01/30/19 10:40 Dose: 10 mg Documented by: Atorvastatin Calcium (Lipitor) 40 mg PO HS [facility] Last Admin: 01/29/19 21:02 Dose: 40 mg Documented by: Budesonide (Pulmicort) 0.5 mg IH Q12HRT [facility] Last Admin: 01/30/19 08:41 Dose: 0.5 mg Documented by: Carvedilol (Coreg) 12.5 mg PO BID [facility] Last Admin: 01/30/19 10:38 Dose: 12.5 mg Documented by: Cholecalciferol (Vitamin D3) 1,000 unit PO QDAY [facility] Last Admin: 01/30/19 10:40 Dose: 1,000 unit Documented by: Clopidogrel Bisulfate (Plavix) 75 mg PO QDAY [facility] Last Admin: 01/30/19 10:40 Dose: 75 mg Documented by: Dextrose (D50w (25gm) Syringe) 50 ml IV PRN PRN PRN Reason: Hypoglycemia Famotidine (Pepcid) 20 mg PO BID [facility] Last Admin: 01/30/19 10:40 Dose: 20 mg Documented by: Fluticasone Propionate (Flonase) 50 mcg NS QDAY [facility] Last Admin: 01/30/19 10:39 Dose: 50 mcg Documented by: Glimepiride (Amaryl) 2 mg PO QDAY [facility] Last Admin: 01/30/19 10:37 Dose: 2 mg Documented by: Hydromorphone HCl (Dilaudid) 0.25 mg IV Q3H PRN PRN Reason: Pain, Moderate (4-6) Levofloxacin/Dextrose (Levaquin 750mg/150ml) 750 mg in 150 mls @ 100 mls/hr IV Q24H [facility]; Protocol Last Admin: 01/29/19 15:32 Dose: 100 mls/hr Documented by: Insulin Glargine (Lantus) 40 units SUB-Q [facility] Last Admin: 01/29/19 21:31 Dose: 40 units Documented by: Insulin Human Lispro (Humalog) 0 unit SUB-Q ACHS [facility]; Protocol Last Admin: 01/30/19 08:42 Dose: 8 unit Documented by: Loratadine (Claritin) 10 mg PO DAILY [facility] Losartan Potassium (Cozaar) 100 mg PO QDAY [facility] Last Admin: 01/30/19 10:39 Dose: 100 mg Documented by: Methylprednisolone Sodium Succinate (Solu-Medrol) 125 mg IV Q8H [facility] Last Admin: 01/30/19 08:40 Dose: 125 mg Documented by: Ondansetron HCl (Zofran) 4 mg IV Q8H PRN PRN Reason: Nausea And Vomiting Oxycodone/Acetaminophen (Percocet 5/325) 1 tab PO Q6H PRN PRN Reason: Pain, Moderate (4-6) Sertraline HCl (Zoloft) 150 mg PO QDAY [facility] Last Admin: 01/30/19 10:40 Dose: 150 mg Documented by: Sildenafil Citrate (Revatio) 20 mg PO TID [facility] Last Admin: 01/30/19 08:40 Dose: 20 mg Documented by: Sodium Chloride (Sodium Chloride Flush Syringe 10 Ml) 10 ml IV BID [facility] Last Admin: 01/30/19 10:38 Dose: 10 ml Documented by: Sodium Chloride (Sodium Chloride Flush Syringe 10 Ml) 10 ml IV PRN PRN PRN Reason: LINE FLUSH Physical Examination Vital signs: Vital Signs Resp Pulse Ox 26 H 56 L 01/29/19 06:42 01/29/19 06:42 Results - Laboratory Findings CBC and BMP: 01/30/19 04:35 01/30/19 04:35 ABG POC ABG pH 7.390 (7.35-7.45) 01/29/19 09:56 POC ABG pCO2 37.5 (35-45) 01/29/19 09:56 POC ABG pO2 79 (80-105) L 01/29/19 09:56 POC ABG HCO3 22.7 (22-26 mml/L) 01/29/19 09:56 POC ABG Total CO2 24 (23-27mmol/L) 01/29/19 09:56 POC ABG O2 Sat 96 01/29/19 09:56 Abnormal lab findings: Abnormal Labs 01/29/19 01/29/19 01/29/19 07:01 07:01 07:01 WBC Hgb Hct RDW 21.4 H Plt Count 97 L Lymph % (Auto) 11.5 L Lymph # 1.0 L Seg Neutrophils % 83.1 H POC ABG pO2 Sodium 136 L Carbon Dioxide 21 L BUN Glucose 322 H POC Glucose Hemoglobin A1c Lactic Acid 2.40 H* Total Bilirubin 1.40 H Total Creatine Kinase 32 L CK-MB (CK-2) Rel Index 10.6 H NT-Pro-B Natriuret Pep Albumin 3.3 L 01/29/19 01/29/19 01/29/19 07:01 09:56 10:23 WBC Hgb Hct RDW Plt Count Lymph % (Auto) Lymph # Seg Neutrophils % POC ABG pO2 79 L Sodium Carbon Dioxide BUN Glucose POC Glucose 321 H Hemoglobin A1c Lactic Acid Total Bilirubin Total Creatine Kinase CK-MB (CK-2) Rel Index NT-Pro-B Natriuret Pep 1364 H Albumin 01/29/19 01/29/19 01/29/19 16:36 16:59 21:10 WBC Hgb Hct RDW Plt Count Lymph % (Auto) Lymph # Seg Neutrophils % POC ABG pO2 Sodium Carbon Dioxide BUN Glucose POC Glucose 386 H 402 H Hemoglobin A1c 10.7 H Lactic Acid Total Bilirubin Total Creatine Kinase CK-MB (CK-2) Rel Index NT-Pro-B Natriuret Pep Albumin 01/29/19 01/30/19 01/30/19 22:32 02:11 04:35 WBC 4.3 L Hgb 11.3 L Hct 34.1 L RDW 21.1 H Plt Count 98 L Lymph % (Auto) 9.3 L Lymph # 0.4 L Seg Neutrophils % 86.6 H POC ABG pO2 Sodium Carbon Dioxide BUN Glucose POC Glucose 369 H 279 H Hemoglobin A1c Lactic Acid Total Bilirubin Total Creatine Kinase CK-MB (CK-2) Rel Index NT-Pro-B Natriuret Pep Albumin 01/30/19 01/30/19 01/30/19 04:35 08:25 11:47 WBC Hgb Hct RDW Plt Count Lymph % (Auto) Lymph # Seg Neutrophils % POC ABG pO2 Sodium Carbon Dioxide BUN 28 H Glucose 277 H POC Glucose 333 H 380 H Hemoglobin A1c Lactic Acid Total Bilirubin Total Creatine Kinase CK-MB (CK-2) Rel Index NT-Pro-B Natriuret Pep Albumin 3.4 L
[2019-01-30] MEDS: CLARITIN PO SCH (13:55)
[2019-01-30] MEDS: LEVAQUIN 750MG/150ML 750 MG/150 ML BAG IV SCH (16:31)
[2019-01-30] MEDS: LANTUS SUB-Q SCH (21:35)
[2019-01-31] MEDS: SOLU-Medrol IV SCH ×3 (00:02→19:09)
--- NOTE | 2019-01-31 05:51 | Consultation ---
PULMONARY CONSULTATION NOTE CONSULTING PHYSICIAN: Kristin Gustafson MD REASON FOR CONSULTATION: Acute hypoxemic respiratory failure. CHIEF COMPLAINT AND HISTORY OF PRESENT ILLNESS: As follows: The patient is a pleasant 73-year-old -[place] male known to me from prior admissions with past medical history significant amongst other things for a diagnosis of congestive heart failure, but also interstitial lung disease with severe pulmonary hypertension and obstructive sleep apnea, came into the Emergency Room complaining of shortness of breath and cough. According to his caregiver in the room, he does well at rest, but when he started walking around and moving around, he went into a coughing fit that he could not get over. His oxygen sats when EMS got to the house were reported as being low and he was evaluated in the Emergency Room, admitted to the Intermediate Care Unit where I stopped by to see him. When I stopped by to see him, he was on a 50% Ventimask. He was feeling better, still a little bit labored breathing. He denied chest pains. He denied palpitations. He denied any sick contacts. He denied medication noncompliance. He denies being on any diuretics at home. He; however, admits to not using his continuous positive air pressure ventilation machine are as directed; according to his caregiver, he rarely uses it. This really is as much of the history of presentation as I have. PAST MEDICAL HISTORY: Again, significant for history of interstitial lung disease, chronic hypoxemic respiratory failure, on home oxygen, hypertension, prostate cancer, obstructive sleep apnea, history of pulmonary hypertension also. PAST SURGICAL HISTORY: He has had neck surgery and has coronary artery stent in place. MEDICATIONS: He was on at the time I stopped by to see him, according to the medication administration record included the following: Tylenol 650 mg p.o. q. 4 hours p.r.n. mild pain or fevers, Albuterol nebulizer treatments nebulized q. 4 hours p.r.n. shortness of breath 2.5 mg. He is also on scheduled DuoNeb 1 ampule nebulized q.i.d., he is on Norvasc 10 mg p.o. daily, Lipitor 40 mg p.o. at bedtime, Pulmicort 0.5 mg nebulized q. 12 hours, Coreg 12.5 mg p.o. b.i.d., vitamin D3 1000 units p.o. daily, Plavix 75 mg p.o. daily, Pepcid 20 mg p.o. b.i.d., Flonase 50 mcg each nostril daily, Amaryl 2 mg p.o. daily, Dilaudid 0.25 mg IV q. 3 hours p.r.n. moderate pain, Lantus insulin 40 units subcutaneous at bedtime as well as insulin via sliding scale. He is also on Levaquin 750 mg IV daily, Claritin 10 mg p.o. daily, losartan 100 mg p.o. daily, Solu-Medrol 125 mg IV q. 8 hours, Percocet 1 tablet p.o. q. 6 hours p.r.n. moderate pain, Zofran 4 mg IV q. 8 hours p.r.n. nausea and vomiting, Zoloft 150 mg p.o. daily, Revatio to 20 mg p.o. t.i.d. ALLERGIES: No known drug allergies. DIET: Obese gentleman, no significant weight loss or gain since I have last seen him. FAMILY AND SOCIAL HISTORY: Lives in the community. Denies alcohol, tobacco, or illicit drug use or abuse. Family history, otherwise noncontributory. REVIEW OF SYSTEMS: No loss of consciousness. No new onset seizures. No new onset focal weakness. He denies any headaches. He denies any blurry vision or visual loss. He denies any tinnitus. He denies any new neck pain, stiffness or swelling. He denies chest pains or palpitations. He denies any orthopnea. He denies paroxysmal nocturnal dyspnea. He denied gross hematochezia or melena. Denies heat or cold intolerance. Denies polydipsia or polyuria. Complete 13-system review of systems is obtained. Pertinent positives and/or negatives as in body of history above, otherwise they are noncontributory. PHYSICAL EXAMINATION: VITAL SIGNS: At presentation in the Emergency Room, he was afebrile, temperature was 98.2 degrees Fahrenheit with a pulse of 93, respiratory rate of 26, blood pressure 120/73, O2 sats were initially 61%, inspired oxygen concentration was not recorded. When I stopped by to see him, his O2 sats were 97% and that was on 50% Venturi mask. GENERAL: He is an elderly looking -[place] male. Normocephalic, atraumatic, talking to me in slightly interrupted sentences with mildly increased respiratory effort at rest. HEAD, EYES, EARS, NOSE AND THROAT: He is anicteric. No conjunctival erythema. Oropharynx is moist, is a Mallampati #3 oropharynx. No exudates in his oropharynx, otherwise. NECK: No gross jugular venous distention, no thyromegaly. He does have a large left neck circumference. There were no palpable lymph nodes in the supraclavicular or submandibular lymph node chains. LUNGS: Auscultation of both lung narvaez revealed inspiratory bibasilar rales, no wheezing. HEART: Heart sounds 1 and 2 were heard. They were regular in rate and rhythm at time of my evaluation without rubs or murmurs. ABDOMEN: Soft, protuberant. Bowel sounds are positive, is nontender, no palpable hepatosplenomegaly. EXTREMITIES: Without overt digital clubbing or cyanosis. Trace pedal edema. Pedal pulses are strong bilaterally. NEUROLOGIC: Pupils are equal, round, about 3 mm, reactive to light. Extraocular muscle movements are intact. He appeared alert and oriented x 3. He moved all 4 extremities spontaneously. No fasciculations. No spasticity. His skin was of normal turgor without overt cellulitis or rash. PSYCHIATRIC: Mood was normal, affect was appropriate. LABORATORY DATA: From my review are as follows: Admission white cell count 8500 with a hemoglobin of 12.1, hematocrit of 37.6, platelet count of 97. No manual differential. ABG showed a pH of 7.39, pCO2 of 38, pO2 of 79 that was on 50% FiO2. Serum sodium was 136, potassium 4.8, chloride 101, bicarbonate 21, BUN 16, creatinine 1.2, glucose 322. Lactic acid level was 2.4, total bilirubin 1.4. Troponin within normal limits. Albumin low at 3.3. Otherwise, liver function tests within normal limits. Lactic acid level is now within normal limits. No microbiology studies. A chest x-ray was done. I have reviewed the chest x-ray. I have also reviewed the radiologist's interpretation and I have been able to compare it to a chest x-ray from his last admission. I do agree it was a suboptimal inspiration compared to the x-ray from about 2 weeks ago, slightly increase in interstitial markings over the prior baseline as well as with hypoventilation. I do think there is an element of interstitial edema, also at play here or superimposed over his chronic interstitial lung disease. ASSESSMENT: 1. Acute on chronic hypoxemic respiratory failure, increased oxygen requirements at presentation. 2. Acute exacerbation of his interstitial lung disease. 3. Possible occult pneumonia. 4. Acute pulmonary edema. 5. Diabetes type 2, poorly controlled. 6. Obstructive sleep apnea, noncompliant with therapy. 7. Hypertension. 8. Severe pulmonary hypertension. 9. Lactic acidosis. 10. Mild metabolic acidosis at presentation. 11. Hyperbilirubinemia. 12. History of coronary artery disease. 13. Obesity. PLAN: The plan will be obviously to optimize his various medical morbidities, optimize the management. From a respiratory standpoint, we will keep him on supplemental oxygen, targeting O2 sats greater than or equal to over 90%. We will continue bronchodilators, short and long-acting bronchodilators as well as inhaled corticosteroids. Pulmonary hygiene will be the respiratory therapies, systemic steroids will be continued. I will; however, taper the dose of the Solu-Medrol to 60 mg IV q. 8 hours. Sputum will be sent for Gram stain, cultures and sensitivity. We will continue empiric Levaquin monotherapy at this point. I will order a CRP level to help guide clinical decision making, especially in light of the lactic acidosis at presentation. I have counseled him strongly about the importance of wearing his CPAP machine at night is pointing out the fact that we will use a similar machine when he comes into the hospital to get his symptoms under control. Consideration will be given for diuresis in fact with his good blood pressures, so to say at this time, I will do a quick round of Lasix. I will do Lasix 20 mg IV q. 12 hours x 2 doses and keep a look at his urine output as well as his electrolytes in the morning and keep an eye on his vascular status. He may end up needing to be on low dose diuretic therapy. Glycemic control will be via sliding scale insulin. He will also be continued on his Lantus insulin. Mobility protocol will be deployed for pressure ulcer prophylaxis. His chronic home disease medications will be continued. He is appropriately on GI prophylaxis with Pepcid. He will be placed on DVT prophylaxis with SCDs in light of his thrombocytopenia. We will hold on heparin at this point. Flu and pneumonia vaccination will be addressed per protocol. Thank you very much for the consult. We will follow along. We will make further recommendations as the picture progresses/becomes clearer. JOB# [id number] JESSICA/RAÚL MEDRANO
[2019-01-31] MEDS: HumaLOG SUB-Q SCH ×4 (08:00→21:33)
[2019-01-31] MEDS: PULMICORT IH SCH ×2 (09:03→20:18)
[2019-01-31] MEDS: DUONEB *Not for PRN Use IH SCH ×4 (09:03→20:18)
[2019-01-31] MEDS: REVATIO PO SCH ×3 (09:29→21:31)
[2019-01-31] MEDS: FLONASE NS SCH (09:29)
[2019-01-31] MEDS: PLAVIX PO SCH (09:29)
[2019-01-31] MEDS: VITAMIN D3 PO SCH (09:30)
[2019-01-31] MEDS: ZOLOFT PO SCH (09:30)
[2019-01-31] MEDS: COZAAR PO SCH (09:30)
[2019-01-31] MEDS: CLARITIN PO SCH (09:31)
[2019-01-31] MEDS: PEPCID PO SCH ×2 (09:31→21:32)
[2019-01-31] MEDS: AMARYL PO SCH (09:31)
[2019-01-31] MEDS: LASIX IV SCH (09:31)
[2019-01-31] MEDS: COREG PO SCH ×2 (09:31→21:32)
[2019-01-31] MEDS: NORVASC PO SCH (09:31)
[2019-01-31] MEDS: SODIUM CHLORIDE FLUSH SYRINGE 10 ML IV SCH ×2 (09:32→21:33)
--- NOTE | 2019-01-31 11:32 | Progress Note ---
Assessment and Plan - Patient Problems (1) Acute respiratory failure with hypoxia Current Visit: Yes Status: Acute Plan to address problem: Patient's oxygen saturations were in mid 50s Even with 50% FiO2--oxygen was 79 Patient is on BiPAP We will intubate if necessary IV Solu-Medrol at 125 mg every 6 hours IV Levaquin and nebulizer treatments every 3 when necessary every 6 hours [id number] started Pulmonary was consulted Improving (2) COPD with acute exacerbation Current Visit: Yes Status: Acute Plan to address problem: Patient's oxygen saturations were in mid 50s Even with 50% FiO2--oxygen was 79 Patient is on BiPAP We will intubate if necessary IV Solu-Medrol at 125 mg every 6 hours IV Levaquin and nebulizer treatments every 3 when necessary every 6 hours [id number] started Pulmonary was consulted (3) Hypertension Current Visit: Yes Status: Chronic Qualifiers: Hypertension type: essential hypertension Qualified Code(s): I10 - Essential (primary) hypertension Plan to address problem: Continue antihypertensive (4) Insulin dependent diabetes mellitus Current Visit: Yes Status: Chronic Plan to address problem: Continue home insulin and coverage (5) Hyperlipidemia Current Visit: Yes Status: Chronic Qualifiers: Hyperlipidemia type: mixed hyperlipidemia Qualified Code(s): E78.2 - Mixed hyperlipidemia Plan to address problem: Continue statins (6) Pulmonary hypertension Current Visit: Yes Status: Chronic Plan to address problem: Patient on sildenafil 20 mg 3 times a day. Continue the same (7) Coronary artery disease Current Visit: Yes Status: Chronic Qualifiers: Coronary Disease-Associated Artery/Lesion type: [place] artery Associated angina: without angina Plan to address problem: Continue Plavix (8) Lactic acid acidosis Current Visit: Yes Status: Acute Plan to address problem: Probably nonspecific. We will trend the lactic acid (9) Prostate cancer Current Visit: Yes Status: Chronic Plan to address problem: Supportive care (10) DVT prophylaxis Current Visit: Yes Status: Acute Plan to address problem: On Lovenox and GI prophylaxis Subjective Date of service: 01/30/19 Principal diagnosis: acute respiratory failure and COPD exacerbation Interval history: Patient is off BiPAP and on 35% Ventimask. Good improvement. Patient is very cheerful. No overnight events. Objective - Exam Narrative Exam: Lying in bed in some distress - Constitutional Vitals: Vital Signs - 12hr 0601/31/19 01/31/19 00:00 01:00 02:00 Temperature Pulse Rate 70 66 69 Pulse Rate [ Anterior Bilateral Throughout] Pulse Rate [ From Monitor] Respiratory 20 21 11 L Rate Respiratory Rate [Anterior Bilateral Throughout] Blood Pressure 92/58 97/57 81/54 O2 Sat by Pulse 93 96 96 Oximetry 01/31/19 01/31/19 01/31/19 03:00 03:22 04:00 Temperature 98.9 F Pulse Rate 64 64 Pulse Rate [ Anterior Bilateral Throughout] Pulse Rate [ 73 From Monitor] Respiratory 19 18 Rate Respiratory Rate [Anterior Bilateral Throughout] Blood Pressure 88/55 97/61 O2 Sat by Pulse 97 98 Oximetry 01/31/19 01/31/19 01/31/19 05:00 06:00 07:00 Temperature Pulse Rate 66 62 64 Pulse Rate [ Anterior Bilateral Throughout] Pulse Rate [ From Monitor] Respiratory 16 16 9 L Rate Respiratory Rate [Anterior Bilateral Throughout] Blood Pressure 105/55 104/53 105/61 O2 Sat by Pulse 99 97 99 Oximetry 01/31/19 01/31/19 01/31/19 08:00 09:00 09:03 Temperature 97.6 F Pulse Rate 68 63 Pulse Rate [ 62 Anterior Bilateral Throughout] Pulse Rate [ 73 From Monitor] Respiratory 24 20 Rate Respiratory 22 Rate [Anterior Bilateral Throughout] Blood Pressure 105/66 108/61 O2 Sat by Pulse 97 99 Oximetry 01/31/19 01/31/19 01/31/19 09:19 09:47 10:00 Temperature Pulse Rate 71 Pulse Rate [ 65 Anterior Bilateral Throughout] Pulse Rate [ From Monitor] Respiratory 16 Rate Respiratory 22 Rate [Anterior Bilateral Throughout] Blood Pressure 109/59 O2 Sat by Pulse 94 93 Oximetry General appearance: Present: no acute distress, well-nourished - EENT Eyes: PERRL, EOM intact ENT: hearing intact, clear oral mucosa Ears: bilateral: normal - Neck Neck: supple, normal ROM - Respiratory Respiratory effort: normal Respiratory: bilateral: diminished, rhonchi, wheezing - Breasts Breasts: normal - Cardiovascular Heart rate: 84 Rhythm: regular Heart Sounds: Present: S1 & S2. Absent: gallop, rub Extremities: no ischemia, pulses intact, pulses symmetrical, No edema, normal color, Full ROM - Gastrointestinal General gastrointestinal: Present: soft, non-tender, non-distended, normal bowel sounds - Genitourinary Male genitourinary: deferred, normal - Integumentary Integumentary: clear, warm, dry - Musculoskeletal Musculoskeletal: 1, strength equal bilaterally - Neurologic Neurologic: moves all extremities - Psychiatric Psychiatric: memory intact, appropriate mood/affect, intact judgment & insight - Allied health notes Allied health notes reviewed: nursing, case management - Labs CBC & Chem 7: 01/30/19 04:35 01/30/19 04:35 Labs: Abnormal lab results 01/30/19 01/30/19 01/30/19 Range/Units 11:47 16:13 17:37 POC Glucose 380 H 375 H (70-105) C-Reactive Protein 4.90 H (0.00-1.30) mg/dL 01/30/19 01/31/19 Range/Units 21:28 08:31 POC Glucose 318 H 312 H (70-105) C-Reactive Protein (0.00-1.30) mg/dL
--- NOTE | 2019-01-31 11:35 | Progress Note ---
Assessment and Plan - Patient Problems (1) Acute respiratory failure with hypoxia Current Visit: Yes Status: Acute Plan to address problem: Patient's oxygen saturations were in mid 50s Even with 50% FiO2--oxygen was 79 Patient is on BiPAP We will intubate if necessary IV Solu-Medrol at 125 mg every 6 hours IV Levaquin and nebulizer treatments every 3 when necessary every 6 hours [id number] started Pulmonary consult appreciated Improving (2) COPD with acute exacerbation Current Visit: Yes Status: Acute Plan to address problem: Patient's oxygen saturations were in mid 50s Even with 50% FiO2--oxygen was 79 Patient is on BiPAP We will intubate if necessary IV Solu-Medrol at 125 mg every 6 hours IV Levaquin and nebulizer treatments every 3 when necessary every 6 hours [id number] started Pulmonary was consulted (3) Hypertension Current Visit: Yes Status: Chronic Qualifiers: Hypertension type: essential hypertension Qualified Code(s): I10 - Essential (primary) hypertension Plan to address problem: Continue antihypertensive (4) Insulin dependent diabetes mellitus Current Visit: Yes Status: Chronic Plan to address problem: Continue home insulin and coverage Lantus increased from 40 units to 60 units at nighttime. Blood glucose levels are running high (5) Hyperlipidemia Current Visit: Yes Status: Chronic Qualifiers: Hyperlipidemia type: mixed hyperlipidemia Qualified Code(s): E78.2 - Mixed hyperlipidemia Plan to address problem: Continue statins (6) Pulmonary hypertension Current Visit: Yes Status: Chronic Plan to address problem: Patient on sildenafil 20 mg 3 times a day. Continue the same (7) Coronary artery disease Current Visit: Yes Status: Chronic Qualifiers: Coronary Disease-Associated Artery/Lesion type: [place] artery Associated angina: without angina Plan to address problem: Continue Plavix (8) Lactic acid acidosis Current Visit: Yes Status: Acute Plan to address problem: Probably nonspecific. We will trend the lactic acid (9) Prostate cancer Current Visit: Yes Status: Chronic Plan to address problem: Supportive care (10) DVT prophylaxis Current Visit: Yes Status: Acute Plan to address problem: On Lovenox and GI prophylaxis Subjective Date of service: 01/31/19 Principal diagnosis: acute respiratory failure and COPD exacerbation Interval history: Patient is off BiPAP and on 35% Ventimask. Good improvement. Patient is very cheerful. No overnight events. Objective - Exam Narrative Exam: Lying in bed in some distress - Constitutional Vitals: Vital Signs - 12hr 01/31/19 01/31/19 01/31/19 00:00 01:00 02:00 Temperature Pulse Rate 70 66 69 Pulse Rate [ Anterior Bilateral Throughout] Pulse Rate [ From Monitor] Respiratory 20 21 11 L Rate Respiratory Rate [Anterior Bilateral Throughout] Blood Pressure 92/58 97/57 81/54 O2 Sat by Pulse 93 96 96 Oximetry 01/31/19 01/31/19 01/31/19 03:00 03:22 04:00 Temperature 98.9 F Pulse Rate 64 64 Pulse Rate [ Anterior Bilateral Throughout] Pulse Rate [ 73 From Monitor] Respiratory 19 18 Rate Respiratory Rate [Anterior Bilateral Throughout] Blood Pressure 88/55 97/61 O2 Sat by Pulse 97 98 Oximetry 01/31/19 01/31/19 01/31/19 05:00 06:00 07:00 Temperature Pulse Rate 66 62 64 Pulse Rate [ Anterior Bilateral Throughout] Pulse Rate [ From Monitor] Respiratory 16 16 9 L Rate Respiratory Rate [Anterior Bilateral Throughout] Blood Pressure 105/55 104/53 105/61 O2 Sat by Pulse 99 97 99 Oximetry 01/31/19 01/31/19 01/31/19 08:00 09:00 09:03 Temperature 97.6 F Pulse Rate 68 63 Pulse Rate [ 62 Anterior Bilateral Throughout] Pulse Rate [ 73 From Monitor] Respiratory 24 20 Rate Respiratory 22 Rate [Anterior Bilateral Throughout] Blood Pressure 105/66 108/61 O2 Sat by Pulse 97 99 Oximetry 01/31/19 01/31/19 01/31/19 09:19 09:47 10:00 Temperature Pulse Rate 71 Pulse Rate [ 65 Anterior Bilateral Throughout] Pulse Rate [ From Monitor] Respiratory 16 Rate Respiratory 22 Rate [Anterior Bilateral Throughout] Blood Pressure 109/59 O2 Sat by Pulse 94 93 Oximetry General appearance: Present: no acute distress, well-nourished - EENT Eyes: PERRL, EOM intact ENT: hearing intact, clear oral mucosa Ears: bilateral: normal - Neck Neck: supple, normal ROM - Respiratory Respiratory effort: normal Respiratory: bilateral: CTA, rhonchi, wheezing - Breasts Breasts: normal - Cardiovascular Heart rate: 88 Rhythm: regular Heart Sounds: Present: S1 & S2. Absent: gallop, rub Extremities: pulses intact, No edema, normal color, Full ROM - Gastrointestinal General gastrointestinal: Present: soft, non-tender, non-distended, normal bowel sounds - Genitourinary Male genitourinary: normal - Integumentary Integumentary: clear, warm, dry - Musculoskeletal Musculoskeletal: 1, strength equal bilaterally - Neurologic Neurologic: moves all extremities - Psychiatric Psychiatric: memory intact, appropriate mood/affect, intact judgment & insight - Allied health notes Allied health notes reviewed: nursing, case management - Labs CBC & Chem 7: 01/30/19 04:35 01/30/19 04:35 Labs: Abnormal lab results 01/30/19 01/30/19 01/30/19 Range/Units 11:47 16:13 17:37 POC Glucose 380 H 375 H (70-105) C-Reactive Protein 4.90 H (0.00-1.30) mg/dL 01/30/19 01/31/19 Range/Units 21:28 08:31 POC Glucose 318 H 312 H (70-105) C-Reactive Protein (0.00-1.30) mg/dL
--- NOTE | 2019-01-31 14:49 | Progress Note ---
Assessment and Plan Acute on chronic hypoxemic respiratory failure, increased oxygen requirements at presentation. Acute exacerbation of his interstitial lung disease. Possible occult pneumonia. Acute pulmonary edema. Diabetes type 2, poorly controlled. Obstructive sleep apnea, noncompliant with therapy. Hypertension. Severe pulmonary hypertension. Lactic acidosis. Mild metabolic acidosis at presentation. Hyperbilirubinemia. coronary artery disease. Obesity. - continue supplemental oxygen and wean to keep O2 sats >/= 90% - continue bronchodilators (GUILLERMINA & LABA) with pulmonary hygiene per RT - continue systemic steroids with slow taper - continue empiric Levaquin monotherapy - CRP level equivocal; will de-escalate AB's quickly based on clinical and microbiologic data - continue bilevel positive airway pressure ventilation therapy scheduled at bedtime with p.r.n. daytime use. I - continue GI & DVT prophylaxis - continue Glycemic with SSI targeted to blood sugars less than 180 mg/dL - continue other care per attending ... re-evaluate in am & prn Subjective Date of service: 01/31/19 Principal diagnosis: Ac on ch hypoxemic resp failure; Acute exacerbation of ILDx; Possible PNA Interval history: Patient seen today for: Acute on chronic hypoxemic respiratory failure; Acute exacerbation of his interstitial lung disease; Possible occult pneumonia; Possible pulmonary edema; Diabetes type 2, poorly controlled; Obesity; HTN Seen and examined at bedside; 24 hour events reviewed; nursing and respiratory care staff consulted; no adverse overnight events reported to me; resting peacefully in bed; denies acute chest pains or palpitations; remains on supplemental oxygen; no emesis or overt aspiration Objective Vital Signs - 12hr 01/31/19 01/31/19 01/31/19 03:00 03:22 04:00 Temperature 98.9 F Pulse Rate 64 64 Pulse Rate [ Anterior Bilateral Throughout] Pulse Rate [ 73 From Monitor] Respiratory 19 18 Rate Respiratory Rate [Anterior Bilateral Throughout] Blood Pressure 88/55 97/61 O2 Sat by Pulse 97 98 Oximetry 01/31/19 01/31/19 01/31/19 05:00 06:00 07:00 Temperature Pulse Rate 66 62 64 Pulse Rate [ Anterior Bilateral Throughout] Pulse Rate [ From Monitor] Respiratory 16 16 9 L Rate Respiratory Rate [Anterior Bilateral Throughout] Blood Pressure 105/55 104/53 105/61 O2 Sat by Pulse 99 97 99 Oximetry 01/31/19 01/31/19 01/31/19 08:00 09:00 09:03 Temperature 97.6 F Pulse Rate 68 63 Pulse Rate [ 62 Anterior Bilateral Throughout] Pulse Rate [ 73 From Monitor] Respiratory 24 20 Rate Respiratory 22 Rate [Anterior Bilateral Throughout] Blood Pressure 105/66 108/61 O2 Sat by Pulse 97 99 Oximetry 01/31/19 01/31/19 01/31/19 09:19 09:47 10:00 Temperature Pulse Rate 71 Pulse Rate [ 65 Anterior Bilateral Throughout] Pulse Rate [ From Monitor] Respiratory 16 Rate Respiratory 22 Rate [Anterior Bilateral Throughout] Blood Pressure 109/59 O2 Sat by Pulse 94 93 Oximetry 01/31/19 01/31/19 01/31/19 11:00 12:00 13:00 Temperature 97.2 F L Pulse Rate 71 62 67 Pulse Rate [ Anterior Bilateral Throughout] Pulse Rate [ 73 From Monitor] Respiratory 21 20 21 Rate Respiratory Rate [Anterior Bilateral Throughout] Blood Pressure 102/55 94/59 94/53 O2 Sat by Pulse 89 93 94 Oximetry 01/31/19 01/31/19 13:20 13:23 Temperature Pulse Rate Pulse Rate [ 66 68 Anterior Bilateral Throughout] Pulse Rate [ From Monitor] Respiratory Rate Respiratory 20 20 Rate [Anterior Bilateral Throughout] Blood Pressure O2 Sat by Pulse Oximetry Constitutional: alert, appears uncomfortable, other (elderly looking AAM, normocephalic and atraumatic but with mildly increased resp effort) Eyes: non-icteric ENT: oropharynx moist, other (Mallampati 3) Neck: supple, no lymphadenopathy, no JVD, other (large neck circumference) Effort: mildly labored Ascultation: Bilateral: diminished breath sounds, rales (inspiratory) Percussion: Bilateral: not dull Cardiovascular: regular rate and rhythm, murmur noted (systolic) Gastrointestinal: normoactive bowel sounds, soft, non-tender, non-distended, other (protuberant) Integumentary: normal Extremities: no cyanosis, pink and warm, pulses normal, no ischemia or petechiae, edema (trace) Neurologic: normal mental status, pupils equal and round, CN II-XII normal Psychiatric: mood appropriate, affect normal CBC and BMP: 02/01/19 05:05 02/01/19 05:05 ABG, PT/INR, D-dimer: ABG POC ABG pH 7.390 (7.35-7.45) 01/29/19 09:56 POC ABG pCO2 37.5 (35-45) 01/29/19 09:56 POC ABG pO2 79 (80-105) L 01/29/19 09:56 POC ABG HCO3 22.7 (22-26 mml/L) 01/29/19 09:56 POC ABG Total CO2 24 (23-27mmol/L) 01/29/19 09:56 POC ABG O2 Sat 96 01/29/19 09:56 Abnormal lab findings: Abnormal Labs 01/29/19 01/29/19 01/29/19 07:01 07:01 07:01 WBC Hgb Hct RDW 21.4 H Plt Count 97 L Lymph % (Auto) 11.5 L Lymph # 1.0 L Seg Neutrophils % 83.1 H POC ABG pO2 Sodium 136 L Carbon Dioxide 21 L BUN Glucose 322 H POC Glucose Hemoglobin A1c Lactic Acid 2.40 H* Total Bilirubin 1.40 H Total Creatine Kinase 32 L CK-MB (CK-2) Rel Index 10.6 H C-Reactive Protein NT-Pro-B Natriuret Pep Albumin 3.3 L 01/29/19 01/29/19 01/29/19 07:01 09:56 10:23 WBC Hgb Hct RDW Plt Count Lymph % (Auto) Lymph # Seg Neutrophils % POC ABG pO2 79 L Sodium Carbon Dioxide BUN Glucose POC Glucose 321 H Hemoglobin A1c Lactic Acid Total Bilirubin Total Creatine Kinase CK-MB (CK-2) Rel Index C-Reactive Protein NT-Pro-B Natriuret Pep 1364 H Albumin 01/29/19 01/29/19 01/29/19 16:36 16:59 21:10 WBC Hgb Hct RDW Plt Count Lymph % (Auto) Lymph # Seg Neutrophils % POC ABG pO2 Sodium Carbon Dioxide BUN Glucose POC Glucose 386 H 402 H Hemoglobin A1c 10.7 H Lactic Acid Total Bilirubin Total Creatine Kinase CK-MB (CK-2) Rel Index C-Reactive Protein NT-Pro-B Natriuret Pep Albumin 01/29/19 01/30/19 01/30/19 22:32 02:11 04:35 WBC 4.3 L Hgb 11.3 L Hct 34.1 L RDW 21.1 H Plt Count 98 L Lymph % (Auto) 9.3 L Lymph # 0.4 L Seg Neutrophils % 86.6 H POC ABG pO2 Sodium Carbon Dioxide BUN Glucose POC Glucose 369 H 279 H Hemoglobin A1c Lactic Acid Total Bilirubin Total Creatine Kinase CK-MB (CK-2) Rel Index C-Reactive Protein NT-Pro-B Natriuret Pep Albumin 01/30/19 01/30/19 01/30/19 04:35 08:25 11:47 WBC Hgb Hct RDW Plt Count Lymph % (Auto) Lymph # Seg Neutrophils % POC ABG pO2 Sodium Carbon Dioxide BUN 28 H Glucose 277 H POC Glucose 333 H 380 H Hemoglobin A1c Lactic Acid Total Bilirubin Total Creatine Kinase CK-MB (CK-2) Rel Index C-Reactive Protein NT-Pro-B Natriuret Pep Albumin 3.4 L 01/30/19 01/30/19 01/30/19 16:13 17:37 21:28 WBC Hgb Hct RDW Plt Count Lymph % (Auto) Lymph # Seg Neutrophils % POC ABG pO2 Sodium Carbon Dioxide BUN Glucose POC Glucose 375 H 318 H Hemoglobin A1c Lactic Acid Total Bilirubin Total Creatine Kinase CK-MB (CK-2) Rel Index C-Reactive Protein 4.90 H NT-Pro-B Natriuret Pep Albumin 01/31/19 01/31/19 08:31 11:41 WBC Hgb Hct RDW Plt Count Lymph % (Auto) Lymph # Seg Neutrophils % POC ABG pO2 Sodium Carbon Dioxide BUN Glucose POC Glucose 312 H 352 H Hemoglobin A1c Lactic Acid Total Bilirubin Total Creatine Kinase CK-MB (CK-2) Rel Index C-Reactive Protein NT-Pro-B Natriuret Pep Albumin Chest x-ray: image reviewed
[2019-01-31 15:59] LABS: BUN/Creatinine Ratio 28; Blood Urea Nitrogen 37 mg/dL (9-20); Calcium 8.5 mg/dL (8.4-10.2); Hemolysis Index 2
[2019-01-31] MEDS: LEVAQUIN 750MG/150ML 750 MG/150 ML BAG IV SCH (16:47)
[2019-01-31] MEDS: LANTUS SUB-Q SCH (21:32)
[2019-02-01] MEDS: SOLU-Medrol IV SCH ×4 (02:24→18:09)
[2019-02-01 05:34] LABS: Hematocrit 32.6 % (35.5-45.6); Hemoglobin 10.8 gm/dl (11.8-15.2); Mean Corpuscular HGB Conc 33 % (32-34); Mean Corpuscular Volume 89 fl (84-94); Platelet Count 108 K/mm3 (140-440); Red Blood Count 3.64 M/mm3 (3.65-5.03)
[2019-02-01 06:09] LABS: Alanine Aminotransferase 10 units/L (7-56); Albumin 3.1 g/dL (3.9-5); BUN/Creatinine Ratio 35; Blood Urea Nitrogen 38 mg/dL (9-20); Calcium 8.6 mg/dL (8.4-10.2); Hemolysis Index 35
[2019-02-01] MEDS: HumaLOG SUB-Q SCH ×4 (08:00→21:32)
[2019-02-01 08:16] LABS: Band Neutrophils # (Manual) 0.8 K/mm3; Basophils % (Manual) 0 % (0.0-1.8); Eosinophils % (Manual) 0 % (0.0-4.3); Total Cells Counted 100
[2019-02-01 08:17] LABS: Anisocytosis 1+; Platelet Estimate Consistent w Auto
[2019-02-01] MEDS: DUONEB *Not for PRN Use IH SCH ×4 (08:38→19:21)
[2019-02-01] MEDS: PULMICORT IH SCH ×2 (08:38→19:21)
[2019-02-01] MEDS: VITAMIN D3 PO SCH (09:38)
[2019-02-01] MEDS: ZOLOFT PO SCH (09:38)
[2019-02-01] MEDS: CLARITIN PO SCH (09:38)
[2019-02-01] MEDS: LASIX IV SCH (09:38)
[2019-02-01] MEDS: PLAVIX PO SCH (09:39)
[2019-02-01] MEDS: FLONASE NS SCH (09:39)
[2019-02-01] MEDS: PEPCID PO SCH ×2 (09:39→21:31)
[2019-02-01] MEDS: SODIUM CHLORIDE FLUSH SYRINGE 10 ML IV SCH ×2 (09:49→21:31)
[2019-02-01] MEDS: NORVASC PO SCH (09:54)
[2019-02-01] MEDS: COZAAR PO SCH (09:54)
[2019-02-01] MEDS: AMARYL PO SCH (09:55)
[2019-02-01] MEDS: COREG PO SCH ×2 (09:55→21:38)
[2019-02-01] MEDS: REVATIO PO SCH ×3 (09:55→21:32)
[2019-02-01] MEDS: LEVAQUIN 750MG/150ML 750 MG/150 ML BAG IV SCH (16:00)
--- NOTE | 2019-02-01 16:53 | Progress Note ---
Assessment and Plan Acute on chronic hypoxemic respiratory failure, increased oxygen requirements at presentation. Acute exacerbation of his interstitial lung disease. Possible occult pneumonia. Acute pulmonary edema. Diabetes type 2, poorly controlled. Obstructive sleep apnea, noncompliant with therapy. Hypertension. Severe pulmonary hypertension. Lactic acidosis. Mild metabolic acidosis at presentation. Hyperbilirubinemia. coronary artery disease. Obesity. - continue supplemental oxygen and wean to keep O2 sats >/= 90% - continue bronchodilators (GUILLERMINA & LABA) with pulmonary hygiene per RT - continue systemic steroids with slow taper - continue empiric Levaquin monotherapy - CRP level equivocal; will de-escalate AB's quickly based on clinical and microbiologic data - continue bilevel positive airway pressure ventilation therapy scheduled at bedtime with p.r.n. daytime use. I - continue GI & DVT prophylaxis - continue Glycemic with SSI targeted to blood sugars less than 180 mg/dL - continue other care per attending ... re-evaluate in am & prn Subjective Date of service: 02/01/19 Principal diagnosis: Ac on ch hypoxemic resp failure; Acute exacerbation of ILDx; Possible PNA Interval history: Patient seen today for: Acute on chronic hypoxemic respiratory failure; Acute exacerbation of his interstitial lung disease; Possible occult pneumonia; Possible pulmonary edema; Diabetes type 2, poorly controlled; Obesity; HTN Seen and examined at bedside; 24 hour events reviewed; nursing and respiratory care staff consulted; no adverse overnight events reported to me; resting peacef ully in bed; remains on supplemental oxygen therapy Objective Vital Signs - 12hr 02/01/19 02/01/19 02/01/19 05:00 05:30 06:00 Temperature Pulse Rate 55 L 56 L 63 Pulse Rate [ Anterior Bilateral Throughout] Respiratory 16 17 16 Rate Respiratory Rate [Anterior Bilateral Throughout] Blood Pressure 97/54 90/53 85/52 O2 Sat by Pulse 95 99 97 Oximetry 02/01/19 02/01/19 02/01/19 06:30 07:00 07:30 Temperature Pulse Rate 55 L 58 L 63 Pulse Rate [ Anterior Bilateral Throughout] Respiratory 15 18 17 Rate Respiratory Rate [Anterior Bilateral Throughout] Blood Pressure 92/53 102/55 103/56 O2 Sat by Pulse 97 97 97 Oximetry 02/01/19 02/01/19 02/01/19 08:00 08:31 08:38 Temperature 98.2 F Pulse Rate 60 75 Pulse Rate [ 62 Anterior Bilateral Throughout] Respiratory 17 30 H Rate Respiratory 20 Rate [Anterior Bilateral Throughout] Blood Pressure 90/53 123/69 O2 Sat by Pulse 95 84 Oximetry 02/01/19 02/01/19 02/01/19 08:54 09:00 09:30 Temperature Pulse Rate 78 70 Pulse Rate [ 72 Anterior Bilateral Throughout] Respiratory 22 21 Rate Respiratory 24 Rate [Anterior Bilateral Throughout] Blood Pressure 124/73 96/50 O2 Sat by Pulse 96 91 99 Oximetry 02/01/19 02/01/19 02/01/19 09:54 09:55 10:00 Temperature Pulse Rate 69 Pulse Rate [ Anterior Bilateral Throughout] Respiratory 16 Rate Respiratory Rate [Anterior Bilateral Throughout] Blood Pressure 96/50 96/50 91/53 O2 Sat by Pulse 86 Oximetry 02/01/19 02/01/19 02/01/19 10:30 11:00 11:30 Temperature Pulse Rate 64 65 67 Pulse Rate [ Anterior Bilateral Throughout] Respiratory 19 18 17 Rate Respiratory Rate [Anterior Bilateral Throughout] Blood Pressure 96/50 88/51 101/57 O2 Sat by Pulse 97 96 97 Oximetry 02/01/19 02/01/19 02/01/19 12:00 12:30 13:00 Temperature 98.2 F Pulse Rate 66 71 66 Pulse Rate [ Anterior Bilateral Throughout] Respiratory 18 15 17 Rate Respiratory Rate [Anterior Bilateral Throughout] Blood Pressure 104/58 112/56 92/52 O2 Sat by Pulse 100 87 97 Oximetry 02/01/19 02/01/19 02/01/19 13:30 13:40 14:00 Temperature Pulse Rate 67 63 Pulse Rate [ 70 Anterior Bilateral Throughout] Respiratory 18 18 Rate Respiratory 18 Rate [Anterior Bilateral Throughout] Blood Pressure 98/56 98/56 O2 Sat by Pulse 95 98 Oximetry 02/01/19 02/01/19 02/01/19 14:30 15:00 15:30 Temperature Pulse Rate 65 69 74 Pulse Rate [ Anterior Bilateral Throughout] Respiratory 16 20 18 Rate Respiratory Rate [Anterior Bilateral Throughout] Blood Pressure 108/54 100/59 100/53 O2 Sat by Pulse 100 97 95 Oximetry Constitutional: alert, appears uncomfortable, other (elderly looking AAM, normocephalic and atraumatic but with mildly increased resp effort) Eyes: non-icteric ENT: oropharynx moist, other (Mallampati 3) Neck: supple, no lymphadenopathy, no JVD, other (large neck circumference) Effort: mildly labored Ascultation: Bilateral: diminished breath sounds, rales (inspiratory) Percussion: Bilateral: not dull Cardiovascular: regular rate and rhythm, murmur noted (systolic) Gastrointestinal: normoactive bowel sounds, soft, non-tender, non-distended, other (protuberant) Integumentary: normal Extremities: no cyanosis, pink and warm, pulses normal, no ischemia or petechiae, edema (trace) Neurologic: normal mental status, pupils equal and round, CN II-XII normal Psychiatric: mood appropriate, affect normal CBC and BMP: 02/03/19 07:18 02/03/19 07:18 ABG, PT/INR, D-dimer: ABG POC ABG pH 7.390 (7.35-7.45) 01/29/19 09:56 POC ABG pCO2 37.5 (35-45) 01/29/19 09:56 POC ABG pO2 79 (80-105) L 01/29/19 09:56 POC ABG HCO3 22.7 (22-26 mml/L) 01/29/19 09:56 POC ABG Total CO2 24 (23-27mmol/L) 01/29/19 09:56 POC ABG O2 Sat 96 01/29/19 09:56 Abnormal lab findings: Abnormal Labs 01/29/19 01/29/19 01/29/19 07:01 07:01 07:01 WBC RBC Hgb Hct RDW 21.4 H Plt Count 97 L Lymph % (Auto) 11.5 L Lymph # 1.0 L Seg Neutrophils % 83.1 H Seg Neuts % (Manual) Lymphocytes % (Manual) Lymphocytes # (Manual) POC ABG pO2 Sodium 136 L Carbon Dioxide 21 L BUN Glucose 322 H POC Glucose Hemoglobin A1c Lactic Acid 2.40 H* Total Bilirubin 1.40 H Total Creatine Kinase 32 L CK-MB (CK-2) Rel Index 10.6 H C-Reactive Protein NT-Pro-B Natriuret Pep Albumin 3.3 L 01/29/19 01/29/19 01/29/19 07:01 09:56 10:23 WBC RBC Hgb Hct RDW Plt Count Lymph % (Auto) Lymph # Seg Neutrophils % Seg Neuts % (Manual) Lymphocytes % (Manual) Lymphocytes # (Manual) POC ABG pO2 79 L Sodium Carbon Dioxide BUN Glucose POC Glucose 321 H Hemoglobin A1c Lactic Acid Total Bilirubin Total Creatine Kinase CK-MB (CK-2) Rel Index C-Reactive Protein NT-Pro-B Natriuret Pep 1364 H Albumin 01/29/19 01/29/19 01/29/19 16:36 16:59 21:10 WBC RBC Hgb Hct RDW Plt Count Lymph % (Auto) Lymph # Seg Neutrophils % Seg Neuts % (Manual) Lymphocytes % (Manual) Lymphocytes # (Manual) POC ABG pO2 Sodium Carbon Dioxide BUN Glucose POC Glucose 386 H 402 H Hemoglobin A1c 10.7 H Lactic Acid Total Bilirubin Total Creatine Kinase CK-MB (CK-2) Rel Index C-Reactive Protein NT-Pro-B Natriuret Pep Albumin 01/29/19 01/30/19 01/30/19 22:32 02:11 04:35 WBC 4.3 L RBC Hgb 11.3 L Hct 34.1 L RDW 21.1 H Plt Count 98 L Lymph % (Auto) 9.3 L Lymph # 0.4 L Seg Neutrophils % 86.6 H Seg Neuts % (Manual) Lymphocytes % (Manual) Lymphocytes # (Manual) POC ABG pO2 Sodium Carbon Dioxide BUN Glucose POC Glucose 369 H 279 H Hemoglobin A1c Lactic Acid Total Bilirubin Total Creatine Kinase CK-MB (CK-2) Rel Index C-Reactive Protein NT-Pro-B Natriuret Pep Albumin 01/30/19 01/30/19 01/30/19 04:35 08:25 11:47 WBC RBC Hgb Hct RDW Plt Count Lymph % (Auto) Lymph # Seg Neutrophils % Seg Neuts % (Manual) Lymphocytes % (Manual) Lymphocytes # (Manual) POC ABG pO2 Sodium Carbon Dioxide BUN 28 H Glucose 277 H POC Glucose 333 H 380 H Hemoglobin A1c Lactic Acid Total Bilirubin Total Creatine Kinase CK-MB (CK-2) Rel Index C-Reactive Protein NT-Pro-B Natriuret Pep Albumin 3.4 L 01/30/19 01/30/19 01/30/19 16:13 17:37 21:28 WBC RBC Hgb Hct RDW Plt Count Lymph % (Auto) Lymph # Seg Neutrophils % Seg Neuts % (Manual) Lymphocytes % (Manual) Lymphocytes # (Manual) POC ABG pO2 Sodium Carbon Dioxide BUN Glucose POC Glucose 375 H 318 H Hemoglobin A1c Lactic Acid Total Bilirubin Total Creatine Kinase CK-MB (CK-2) Rel Index C-Reactive Protein 4.90 H NT-Pro-B Natriuret Pep Albumin 01/31/19 01/31/19 01/31/19 08:31 11:41 15:11 WBC RBC Hgb Hct RDW Plt Count Lymph % (Auto) Lymph # Seg Neutrophils % Seg Neuts % (Manual) Lymphocytes % (Manual) Lymphocytes # (Manual) POC ABG pO2 Sodium Carbon Dioxide BUN 37 H Glucose 303 H POC Glucose 312 H 352 H Hemoglobin A1c Lactic Acid Total Bilirubin Total Creatine Kinase CK-MB (CK-2) Rel Index C-Reactive Protein NT-Pro-B Natriuret Pep Albumin 01/31/19 01/31/19 02/01/19 16:19 21:28 05:05 WBC RBC 3.64 L Hgb 10.8 L Hct 32.6 L RDW 21.0 H Plt Count 108 L Lymph % (Auto) Lymph # Seg Neutrophils % Seg Neuts % (Manual) 86.0 H Lymphocytes % (Manual) 4.0 L Lymphocytes # (Manual) 0.3 L POC ABG pO2 Sodium Carbon Dioxide BUN Glucose POC Glucose 308 H 298 H Hemoglobin A1c Lactic Acid Total Bilirubin Total Creatine Kinase CK-MB (CK-2) Rel Index C-Reactive Protein NT-Pro-B Natriuret Pep Albumin 02/01/19 02/01/19 02/01/19 05:05 08:18 11:35 WBC RBC Hgb Hct RDW Plt Count Lymph % (Auto) Lymph # Seg Neutrophils % Seg Neuts % (Manual) Lymphocytes % (Manual) Lymphocytes # (Manual) POC ABG pO2 Sodium Carbon Dioxide 21 L BUN 38 H Glucose 218 H POC Glucose 211 H 284 H Hemoglobin A1c Lactic Acid Total Bilirubin Total Creatine Kinase CK-MB (CK-2) Rel Index C-Reactive Protein NT-Pro-B Natriuret Pep Albumin 3.1 L
[2019-02-01] MEDS: LANTUS SUB-Q SCH (21:32)
[2019-02-02] MEDS: SOLU-Medrol IV SCH ×3 (00:09→16:31)
[2019-02-02] MEDS: PULMICORT IH SCH ×2 (07:52→19:48)
[2019-02-02] MEDS: DUONEB *Not for PRN Use IH SCH ×4 (07:52→19:48)
[2019-02-02] MEDS: REVATIO PO SCH ×2 (08:50→15:57)
[2019-02-02] MEDS: HumaLOG SUB-Q SCH ×4 (08:50→22:56)
[2019-02-02] MEDS: LASIX IV SCH (10:16)
[2019-02-02] MEDS: AMARYL PO SCH (10:16)
[2019-02-02] MEDS: COREG PO SCH ×2 (10:17→22:47)
[2019-02-02] MEDS: CLARITIN PO SCH (10:17)
[2019-02-02] MEDS: COZAAR PO SCH (10:20)
[2019-02-02] MEDS: PLAVIX PO SCH (10:21)
[2019-02-02] MEDS: PEPCID PO SCH ×2 (10:21→22:48)
[2019-02-02] MEDS: NORVASC PO SCH (10:21)
[2019-02-02] MEDS: FLONASE NS SCH (10:21)
[2019-02-02] MEDS: SODIUM CHLORIDE FLUSH SYRINGE 10 ML IV SCH ×2 (10:21→22:50)
[2019-02-02] MEDS: VITAMIN D3 PO SCH (10:22)
[2019-02-02] MEDS: ZOLOFT PO SCH (10:22)
--- NOTE | 2019-02-02 14:21 | Progress Note ---
Assessment and Plan Patient awake. Resting on nasal canula. O2 saturation 93% on 4 litres O2. No acute respiratory distress. - Patient Problems (1) Acute respiratory failure with hypoxia Current Visit: Yes Status: Acute Plan to address problem: O2 4 litres via nasal canula. Albuterol/atrovent aerosol treatments q 6 hours, Continue I/V solumedrol. Continue famotidine. SCDs. (2) COPD with acute exacerbation Current Visit: Yes Status: Acute Plan to address problem: O2 4 litres via nasal canula. Albuterol/atrovent aerosol treatments q 6 hours, Continue I/V solumedrol. Continue famotidine. SCDs. (3) CHF exacerbation Current Visit: Yes Status: Acute Qualifiers: Heart failure type: unspecified Qualified Code(s): I50.9 - Heart failure, unspecified Plan to address problem: Management as per cardiology. (4) Interstitial lung disease Current Visit: No Status: Acute Plan to address problem: Continue i/V solumedrol. Get SHERIF, Rheumatoid factor, CANCA, ANDREW level. (5) Pulmonary hypertension Current Visit: Yes Status: Chronic Plan to address problem: Contine O2 4 litres via nasal canula. (6) Oxygen dependent Current Visit: No Status: Acute Plan to address problem: O2 4 litres via nasal canula. (7) Thrombocytopenia Current Visit: No Status: Acute Plan to address problem: Yesterdays platelet count 108,000. Improving. Subjective Date of service: 02/02/19 Principal diagnosis: Ac on ch hypoxemic resp failure; Acute exacerbation of ILDx; Possible PNA Interval history: Patient awake. Resting on nasal canula. O2 saturation 93% on 4 litres O2. No acute respiratory distress. Objective Vital Signs - 12hr 02/02/19 02/02/19 02/02/19 02:30 03:00 03:30 Temperature Pulse Rate 77 74 71 Pulse Rate [ Anterior Bilateral Throughout] Pulse Rate [ From Monitor] Respiratory 18 16 18 Rate Respiratory Rate [Anterior Bilateral Throughout] Blood Pressure 104/68 96/54 103/60 O2 Sat by Pulse 99 99 98 Oximetry 02/02/19 02/02/19 02/02/19 04:00 04:01 04:30 Temperature 99.1 F Pulse Rate 71 71 69 Pulse Rate [ Anterior Bilateral Throughout] Pulse Rate [ From Monitor] Respiratory 14 16 Rate Respiratory Rate [Anterior Bilateral Throughout] Blood Pressure 103/58 102/58 O2 Sat by Pulse 99 98 Oximetry 02/02/19 02/02/19 02/02/19 05:00 05:30 06:00 Temperature Pulse Rate 72 67 65 Pulse Rate [ Anterior Bilateral Throughout] Pulse Rate [ From Monitor] Respiratory 16 18 16 Rate Respiratory Rate [Anterior Bilateral Throughout] Blood Pressure 117/67 116/66 111/63 O2 Sat by Pulse 100 100 100 Oximetry 02/02/19 02/02/19 02/02/19 07:00 07:53 07:54 Temperature Pulse Rate 82 Pulse Rate [ 67 Anterior Bilateral Throughout] Pulse Rate [ From Monitor] Respiratory 18 Rate Respiratory 19 Rate [Anterior Bilateral Throughout] Blood Pressure 114/73 O2 Sat by Pulse 100 97 Oximetry 02/02/19 02/02/19 02/02/19 08:00 09:00 10:01 Temperature 97.7 F Pulse Rate 69 84 76 Pulse Rate [ Anterior Bilateral Throughout] Pulse Rate [ 77 From Monitor] Respiratory 20 29 H 17 Rate Respiratory Rate [Anterior Bilateral Throughout] Blood Pressure 116/62 114/65 114/65 O2 Sat by Pulse 97 96 95 Oximetry 02/02/19 02/02/19 02/02/19 10:17 10:20 10:21 Temperature Pulse Rate 76 73 77 Pulse Rate [ Anterior Bilateral Throughout] Pulse Rate [ From Monitor] Respiratory Rate Respiratory Rate [Anterior Bilateral Throughout] Blood Pressure 117/60 117/60 117/60 O2 Sat by Pulse Oximetry 02/02/19 02/02/19 11:00 11:54 Temperature 97.9 F Pulse Rate 74 Pulse Rate [ Anterior Bilateral Throughout] Pulse Rate [ From Monitor] Respiratory 20 Rate Respiratory Rate [Anterior Bilateral Throughout] Blood Pressure 124/72 O2 Sat by Pulse 97 Oximetry Constitutional: no acute distress, alert, other (elderly looking AAM, normocephalic and atraumatic but with mildly increased resp effort) Eyes: non-icteric ENT: oropharynx moist, other (Mallampati 3) Neck: supple, no lymphadenopathy, no JVD, other (large neck circumference) Effort: mildly labored Ascultation: Bilateral: diminished breath sounds, rales (inspiratory) Percussion: Bilateral: not dull Cardiovascular: regular rate and rhythm, murmur noted (systolic) Gastrointestinal: normoactive bowel sounds, soft, non-tender, non-distended, other (protuberant) Integumentary: normal Extremities: no cyanosis, pink and warm, pulses normal, no ischemia or petechiae, edema (trace) Neurologic: normal mental status, pupils equal and round, CN II-XII normal Psychiatric: mood appropriate, affect normal CBC and BMP: 02/01/19 05:05 02/01/19 05:05 ABG, PT/INR, D-dimer: ABG POC ABG pH 7.390 (7.35-7.45) 01/29/19 09:56 POC ABG pCO2 37.5 (35-45) 01/29/19 09:56 POC ABG pO2 79 (80-105) L 01/29/19 09:56 POC ABG HCO3 22.7 (22-26 mml/L) 01/29/19 09:56 POC ABG Total CO2 24 (23-27mmol/L) 01/29/19 09:56 POC ABG O2 Sat 96 01/29/19 09:56 Abnormal lab findings: Abnormal Labs 01/29/19 01/29/19 01/29/19 07:01 07:01 07:01 WBC RBC Hgb Hct RDW 21.4 H Plt Count 97 L Lymph % (Auto) 11.5 L Lymph # 1.0 L Seg Neutrophils % 83.1 H Seg Neuts % (Manual) Lymphocytes % (Manual) Lymphocytes # (Manual) POC ABG pO2 Sodium 136 L Carbon Dioxide 21 L BUN Glucose 322 H POC Glucose Hemoglobin A1c Lactic Acid 2.40 H* Total Bilirubin 1.40 H Total Creatine Kinase 32 L CK-MB (CK-2) Rel Index 10.6 H C-Reactive Protein NT-Pro-B Natriuret Pep Albumin 3.3 L 01/29/19 01/29/19 01/29/19 07:01 09:56 10:23 WBC RBC Hgb Hct RDW Plt Count Lymph % (Auto) Lymph # Seg Neutrophils % Seg Neuts % (Manual) Lymphocytes % (Manual) Lymphocytes # (Manual) POC ABG pO2 79 L Sodium Carbon Dioxide BUN Glucose POC Glucose 321 H Hemoglobin A1c Lactic Acid Total Bilirubin Total Creatine Kinase CK-MB (CK-2) Rel Index C-Reactive Protein NT-Pro-B Natriuret Pep 1364 H Albumin 01/29/19 01/29/19 01/29/19 16:36 16:59 21:10 WBC RBC Hgb Hct RDW Plt Count Lymph % (Auto) Lymph # Seg Neutrophils % Seg Neuts % (Manual) Lymphocytes % (Manual) Lymphocytes # (Manual) POC ABG pO2 Sodium Carbon Dioxide BUN Glucose POC Glucose 386 H 402 H Hemoglobin A1c 10.7 H Lactic Acid Total Bilirubin Total Creatine Kinase CK-MB (CK-2) Rel Index C-Reactive Protein NT-Pro-B Natriuret Pep Albumin 01/29/19 01/30/19 01/30/19 22:32 02:11 04:35 WBC 4.3 L RBC Hgb 11.3 L Hct 34.1 L RDW 21.1 H Plt Count 98 L Lymph % (Auto) 9.3 L Lymph # 0.4 L Seg Neutrophils % 86.6 H Seg Neuts % (Manual) Lymphocytes % (Manual) Lymphocytes # (Manual) POC ABG pO2 Sodium Carbon Dioxide BUN Glucose POC Glucose 369 H 279 H Hemoglobin A1c Lactic Acid Total Bilirubin Total Creatine Kinase CK-MB (CK-2) Rel Index C-Reactive Protein NT-Pro-B Natriuret Pep Albumin 01/30/19 01/30/19 01/30/19 04:35 08:25 11:47 WBC RBC Hgb Hct RDW Plt Count Lymph % (Auto) Lymph # Seg Neutrophils % Seg Neuts % (Manual) Lymphocytes % (Manual) Lymphocytes # (Manual) POC ABG pO2 Sodium Carbon Dioxide BUN 28 H Glucose 277 H POC Glucose 333 H 380 H Hemoglobin A1c Lactic Acid Total Bilirubin Total Creatine Kinase CK-MB (CK-2) Rel Index C-Reactive Protein NT-Pro-B Natriuret Pep Albumin 3.4 L 01/30/19 01/30/19 01/30/19 16:13 17:37 21:28 WBC RBC Hgb Hct RDW Plt Count Lymph % (Auto) Lymph # Seg Neutrophils % Seg Neuts % (Manual) Lymphocytes % (Manual) Lymphocytes # (Manual) POC ABG pO2 Sodium Carbon Dioxide BUN Glucose POC Glucose 375 H 318 H Hemoglobin A1c Lactic Acid Total Bilirubin Total Creatine Kinase CK-MB (CK-2) Rel Index C-Reactive Protein 4.90 H NT-Pro-B Natriuret Pep Albumin 01/31/19 01/31/19 01/31/19 08:31 11:41 15:11 WBC RBC Hgb Hct RDW Plt Count Lymph % (Auto) Lymph # Seg Neutrophils % Seg Neuts % (Manual) Lymphocytes % (Manual) Lymphocytes # (Manual) POC ABG pO2 Sodium Carbon Dioxide BUN 37 H Glucose 303 H POC Glucose 312 H 352 H Hemoglobin A1c Lactic Acid Total Bilirubin Total Creatine Kinase CK-MB (CK-2) Rel Index C-Reactive Protein NT-Pro-B Natriuret Pep Albumin 01/31/19 01/31/19 02/01/19 16:19 21:28 05:05 WBC RBC 3.64 L Hgb 10.8 L Hct 32.6 L RDW 21.0 H Plt Count 108 L Lymph % (Auto) Lymph # Seg Neutrophils % Seg Neuts % (Manual) 86.0 H Lymphocytes % (Manual) 4.0 L Lymphocytes # (Manual) 0.3 L POC ABG pO2 Sodium Carbon Dioxide BUN Glucose POC Glucose 308 H 298 H Hemoglobin A1c Lactic Acid Total Bilirubin Total Creatine Kinase CK-MB (CK-2) Rel Index C-Reactive Protein NT-Pro-B Natriuret Pep Albumin 02/01/19 02/01/19 02/01/19 05:05 08:18 11:35 WBC RBC Hgb Hct RDW Plt Count Lymph % (Auto) Lymph # Seg Neutrophils % Seg Neuts % (Manual) Lymphocytes % (Manual) Lymphocytes # (Manual) POC ABG pO2 Sodium Carbon Dioxide 21 L BUN 38 H Glucose 218 H POC Glucose 211 H 284 H Hemoglobin A1c Lactic Acid Total Bilirubin Total Creatine Kinase CK-MB (CK-2) Rel Index C-Reactive Protein NT-Pro-B Natriuret Pep Albumin 3.1 L 02/01/19 02/01/19 02/02/19 16:16 21:31 08:01 WBC RBC Hgb Hct RDW Plt Count Lymph % (Auto) Lymph # Seg Neutrophils % Seg Neuts % (Manual) Lymphocytes % (Manual) Lymphocytes # (Manual) POC ABG pO2 Sodium Carbon Dioxide BUN Glucose POC Glucose 292 H 445 H 270 H Hemoglobin A1c Lactic Acid Total Bilirubin Total Creatine Kinase CK-MB (CK-2) Rel Index C-Reactive Protein NT-Pro-B Natriuret Pep Albumin 02/02/19 11:46 WBC RBC Hgb Hct RDW Plt Count Lymph % (Auto) Lymph # Seg Neutrophils % Seg Neuts % (Manual) Lymphocytes % (Manual) Lymphocytes # (Manual) POC ABG pO2 Sodium Carbon Dioxide BUN Glucose POC Glucose 241 H Hemoglobin A1c Lactic Acid Total Bilirubin Total Creatine Kinase CK-MB (CK-2) Rel Index C-Reactive Protein NT-Pro-B Natriuret Pep Albumin Chest x-ray: report reviewed (Cardiomegaly, bilateral perihilar infiltrates pneumonia vs pulmonary edema.), image reviewed
[2019-02-02] MEDS ORDERED: NACL 0.9% 500 ML 500 ML IV ONE (15:54)
[2019-02-02] MEDS: LEVAQUIN 750MG/150ML 750 MG/150 ML BAG IV SCH (16:30)
--- NOTE | 2019-02-02 17:16 | Progress Note ---
Assessment and Plan - Patient Problems (1) Acute respiratory failure with hypoxia Current Visit: Yes Status: Acute Plan to address problem: Patient's oxygen saturations were in mid 50s Even with 50% FiO2--oxygen was 79 Patient is on BiPAP We will intubate if necessary IV Solu-Medrol at 125 mg every 6 hours IV Levaquin and nebulizer treatments every 3 when necessary every 6 hours [id number] started Pulmonary consult appreciated Improving (2) COPD with acute exacerbation Current Visit: Yes Status: Acute Plan to address problem: Patient's oxygen saturations were in mid 50s Even with 50% FiO2--oxygen was 79 Patient is on BiPAP We will intubate if necessary IV Solu-Medrol at 125 mg every 6 hours IV Levaquin and nebulizer treatments every 3 when necessary every 6 hours [id number] started Pulmonary was consulted (3) Hypertension Current Visit: Yes Status: Chronic Qualifiers: Hypertension type: essential hypertension Qualified Code(s): I10 - Essential (primary) hypertension Plan to address problem: Continue antihypertensive (4) Insulin dependent diabetes mellitus Current Visit: Yes Status: Chronic Plan to address problem: Continue home insulin and coverage Lantus increased from 40 units to 60 units at nighttime. Blood glucose levels are running high (5) Hyperlipidemia Current Visit: Yes Status: Chronic Qualifiers: Hyperlipidemia type: mixed hyperlipidemia Qualified Code(s): E78.2 - Mixed hyperlipidemia Plan to address problem: Continue statins (6) Pulmonary hypertension Current Visit: Yes Status: Chronic Plan to address problem: Patient on sildenafil 20 mg 3 times a day. Continue the same (7) Coronary artery disease Current Visit: Yes Status: Chronic Qualifiers: Coronary Disease-Associated Artery/Lesion type: [place] artery Associated angina: without angina Plan to address problem: Continue Plavix (8) Lactic acid acidosis Current Visit: Yes Status: Acute Plan to address problem: Probably nonspecific. We will trend the lactic acid (9) Prostate cancer Current Visit: Yes Status: Chronic Plan to address problem: Supportive care (10) DVT prophylaxis Current Visit: Yes Status: Acute Plan to address problem: On Lovenox and GI prophylaxis Subjective Date of service: 02/01/19 Principal diagnosis: Ac on ch hypoxemic resp failure; Acute exacerbation of ILDx; Possible PNA Interval history: Patient is off BiPAP and on 35% Ventimask. Good improvement. Patient is very cheerful. No overnight events. Objective - Exam Narrative Exam: Lying in bed in some distress - Constitutional Vitals: Vital Signs - 12hr 02/02/19 02/02/19 02/02/19 05:30 06:00 07:00 Temperature Pulse Rate 67 65 82 Pulse Rate [ Anterior Bilateral Throughout] Pulse Rate [ From Monitor] Respiratory 18 16 18 Rate Respiratory Rate [Anterior Bilateral Throughout] Blood Pressure 116/66 111/63 114/73 O2 Sat by Pulse 100 100 100 Oximetry 02/02/19 02/02/19 02/02/19 07:53 07:54 08:00 Temperature 97.7 F Pulse Rate 69 Pulse Rate [ 67 Anterior Bilateral Throughout] Pulse Rate [ 77 From Monitor] Respiratory 20 Rate Respiratory 19 Rate [Anterior Bilateral Throughout] Blood Pressure 116/62 O2 Sat by Pulse 97 97 Oximetry 02/02/19 02/02/19 02/02/19 09:00 10:01 10:17 Temperature Pulse Rate 84 76 76 Pulse Rate [ Anterior Bilateral Throughout] Pulse Rate [ From Monitor] Respiratory 29 H 17 Rate Respiratory Rate [Anterior Bilateral Throughout] Blood Pressure 114/65 114/65 117/60 O2 Sat by Pulse 96 95 Oximetry 02/02/19 02/02/19 02/02/19 10:20 10:21 11:00 Temperature Pulse Rate 73 77 74 Pulse Rate [ Anterior Bilateral Throughout] Pulse Rate [ From Monitor] Respiratory 20 Rate Respiratory Rate [Anterior Bilateral Throughout] Blood Pressure 117/60 117/60 124/72 O2 Sat by Pulse 97 Oximetry 02/02/19 02/02/19 02/02/19 11:54 12:32 14:42 Temperature 97.9 F 98.4 F 97.7 F Pulse Rate 64 70 Pulse Rate [ Anterior Bilateral Throughout] Pulse Rate [ From Monitor] Respiratory 20 20 Rate Respiratory Rate [Anterior Bilateral Throughout] Blood Pressure 107/58 88/51 O2 Sat by Pulse 95 94 Oximetry 02/02/19 02/02/19 02/02/19 15:12 15:40 15:53 Temperature Pulse Rate 69 Pulse Rate [ 68 70 Anterior Bilateral Throughout] Pulse Rate [ From Monitor] Respiratory Rate Respiratory 20 20 Rate [Anterior Bilateral Throughout] Blood Pressure 84/43 O2 Sat by Pulse 96 Oximetry General appearance: Present: no acute distress, well-nourished - EENT Eyes: PERRL, EOM intact ENT: hearing intact, clear oral mucosa Ears: bilateral: normal - Neck Neck: supple, normal ROM - Respiratory Respiratory effort: normal Respiratory: bilateral: CTA, rhonchi - Breasts Breasts: normal - Cardiovascular Rhythm: regular Heart Sounds: Present: S1 & S2. Absent: gallop, rub Extremities: no ischemia, pulses intact, No edema, normal color, Full ROM - Gastrointestinal General gastrointestinal: Present: soft, non-tender, non-distended, normal bowel sounds - Genitourinary Male genitourinary: normal - Integumentary Integumentary: clear, warm, dry - Musculoskeletal Musculoskeletal: 1, strength equal bilaterally - Neurologic Neurologic: moves all extremities - Psychiatric Psychiatric: memory intact, appropriate mood/affect, intact judgment & insight - Labs CBC & Chem 7: 02/01/19 05:05 02/01/19 05:05 Labs: Abnormal lab results 02/01/19 02/01/19 02/02/19 Range/Units 16:16 21:31 08:01 POC Glucose 292 H 445 H 270 H (70-105) 02/02/19 02/02/19 Range/Units 11:46 16:28 POC Glucose 241 H 272 H (70-105)
--- NOTE | 2019-02-02 17:20 | Progress Note ---
Assessment and Plan - Patient Problems (1) Acute respiratory failure with hypoxia Current Visit: Yes Status: Acute Plan to address problem: Patient's oxygen saturations were in mid 50s Even with 50% FiO2--oxygen was 79 Patient is on BiPAP We will intubate if necessary IV Solu-Medrol at 125 mg every 6 hours IV Levaquin and nebulizer treatments every 3 when necessary every 6 hours [id number] started Pulmonary consult appreciated Improving Will decrease IV SOlumedrol (2) COPD with acute exacerbation Current Visit: Yes Status: Acute Plan to address problem: Patient's oxygen saturations were in mid 50s Even with 50% FiO2--oxygen was 79 Patient is on BiPAP We will intubate if necessary IV Solu-Medrol at 125 mg every 6 hours IV Levaquin and nebulizer treatments every 3 when necessary every 6 hours [id number] started Pulmonary was consulted (3) Hypertension Current Visit: Yes Status: Chronic Qualifiers: Hypertension type: essential hypertension Qualified Code(s): I10 - Essential (primary) hypertension Plan to address problem: Continue antihypertensive (4) Insulin dependent diabetes mellitus Current Visit: Yes Status: Chronic Plan to address problem: Continue home insulin and coverage Lantus increased from 40 units to 60 units at nighttime. Blood glucose levels are running high (5) Hyperlipidemia Current Visit: Yes Status: Chronic Qualifiers: Hyperlipidemia type: mixed hyperlipidemia Qualified Code(s): E78.2 - Mixed hyperlipidemia Plan to address problem: Continue statins (6) Pulmonary hypertension Current Visit: Yes Status: Chronic Plan to address problem: Patient on sildenafil 20 mg 3 times a day. Continue the same (7) Coronary artery disease Current Visit: Yes Status: Chronic Qualifiers: Coronary Disease-Associated Artery/Lesion type: [place] artery Associated angina: without angina Plan to address problem: Continue Plavix (8) Lactic acid acidosis Current Visit: Yes Status: Acute Plan to address problem: Probably nonspecific. We will trend the lactic acid (9) Prostate cancer Current Visit: Yes Status: Chronic Plan to address problem: Supportive care (10) DVT prophylaxis Current Visit: Yes Status: Acute Plan to address problem: On Lovenox and GI prophylaxis (11) Discharge planning issues Current Visit: Yes Status: Acute Plan to address problem: patient being weaned off Solumedrol and O2 Near baseline Probable discharge in 24 to 48 hours [place] patient [facility] Date of service: 02/02/19 Principal diagnosis: Ac on ch hypoxemic resp failure; Acute exacerbation of ILDx; Possible PNA Interval history: Patient is off BiPAP and 4l NC O2. Good improvement. Patient is very cheerful. No overnight events. Objective - Exam Narrative Exam: Lying in bed comfortably - Constitutional Vitals: Vital Signs - 12hr 02/02/19 02/02/19 02/02/19 05:30 06:00 07:00 Temperature Pulse Rate 67 65 82 Pulse Rate [ Anterior Bilateral Throughout] Pulse Rate [ From Monitor] Respiratory 18 16 18 Rate Respiratory Rate [Anterior Bilateral Throughout] Blood Pressure 116/66 111/63 114/73 O2 Sat by Pulse 100 100 100 Oximetry 02/02/19 02/02/19 02/02/19 07:53 07:54 08:00 Temperature 97.7 F Pulse Rate 69 Pulse Rate [ 67 Anterior Bilateral Throughout] Pulse Rate [ 77 From Monitor] Respiratory 20 Rate Respiratory 19 Rate [Anterior Bilateral Throughout] Blood Pressure 116/62 O2 Sat by Pulse 97 97 Oximetry 02/02/19 02/02/19 02/02/19 09:00 10:01 10:17 Temperature Pulse Rate 84 76 76 Pulse Rate [ Anterior Bilateral Throughout] Pulse Rate [ From Monitor] Respiratory 29 H 17 Rate Respiratory Rate [Anterior Bilateral Throughout] Blood Pressure 114/65 114/65 117/60 O2 Sat by Pulse 96 95 Oximetry 02/02/19 02/02/19 02/02/19 10:20 10:21 11:00 Temperature Pulse Rate 73 77 74 Pulse Rate [ Anterior Bilateral Throughout] Pulse Rate [ From Monitor] Respiratory 20 Rate Respiratory Rate [Anterior Bilateral Throughout] Blood Pressure 117/60 117/60 124/72 O2 Sat by Pulse 97 Oximetry 02/02/19 02/02/19 02/02/19 11:54 12:32 14:42 Temperature 97.9 F 98.4 F 97.7 F Pulse Rate 64 70 Pulse Rate [ Anterior Bilateral Throughout] Pulse Rate [ From Monitor] Respiratory 20 20 Rate Respiratory Rate [Anterior Bilateral Throughout] Blood Pressure 107/58 88/51 O2 Sat by Pulse 95 94 Oximetry 02/02/19 02/02/19 02/02/19 15:12 15:40 15:53 Temperature Pulse Rate 69 Pulse Rate [ 68 70 Anterior Bilateral Throughout] Pulse Rate [ From Monitor] Respiratory Rate Respiratory 20 20 Rate [Anterior Bilateral Throughout] Blood Pressure 84/43 O2 Sat by Pulse 96 Oximetry General appearance: Present: no acute distress, well-nourished - EENT Eyes: PERRL, EOM intact ENT: hearing intact, clear oral mucosa Ears: bilateral: normal - Neck Neck: supple, normal ROM - Respiratory Respiratory effort: normal Respiratory: bilateral: CTA - Breasts Breasts: normal - Cardiovascular Heart rate: 78 Rhythm: regular Heart Sounds: Present: S1 & S2. Absent: gallop, rub Extremities: no ischemia, pulses intact, No edema, normal color, Full ROM - Gastrointestinal General gastrointestinal: Present: soft, non-tender, non-distended, normal bowel sounds - Genitourinary Male genitourinary: normal - Integumentary Integumentary: clear, warm, dry - Musculoskeletal Musculoskeletal: 1, strength equal bilaterally - Neurologic Neurologic: moves all extremities - Psychiatric Psychiatric: memory intact, appropriate mood/affect, intact judgment & insight - Labs CBC & Chem 7: 02/01/19 05:05 02/01/19 05:05 Labs: Abnormal lab results 02/01/19 02/01/19 02/02/19 Range/Units 16:16 21:31 08:01 POC Glucose 292 H 445 H 270 H (70-105) 02/02/19 02/02/19 Range/Units 11:46 16:28 POC Glucose 241 H 272 H (70-105)
[2019-02-02] MEDS: LANTUS SUB-Q SCH (22:48)
[2019-02-03] MEDS: SOLU-Medrol IV SCH ×3 (00:19→17:41)
[2019-02-03] MEDS: DUONEB *Not for PRN Use IH SCH ×3 (08:09→19:36)
[2019-02-03] MEDS: PULMICORT IH SCH ×2 (08:10→19:37)
[2019-02-03 08:17] LABS: Alanine Aminotransferase 11 units/L (7-56); Albumin 3.5 g/dL (3.9-5); BUN/Creatinine Ratio 28; Blood Urea Nitrogen 31 mg/dL (9-20); Calcium 8.8 mg/dL (8.4-10.2); Hemolysis Index 1
[2019-02-03] MEDS: HumaLOG SUB-Q SCH ×4 (08:21→22:53)
[2019-02-03 08:32] LABS: Hematocrit 33.6 % (35.5-45.6); Hemoglobin 11.3 gm/dl (11.8-15.2); Mean Corpuscular HGB Conc 33 % (32-34); Mean Corpuscular Volume 89 fl (84-94); Platelet Count 125 K/mm3 (140-440); Red Blood Count 3.78 M/mm3 (3.65-5.03); Red Cell Distribution Width 20.2 % (13.2-15.2)
[2019-02-03] MEDS: SODIUM CHLORIDE FLUSH SYRINGE 10 ML IV SCH ×2 (09:40→22:52)
[2019-02-03] MEDS: PEPCID PO SCH ×2 (09:42→22:51)
[2019-02-03] MEDS: ZOLOFT PO SCH (09:42)
[2019-02-03] MEDS: AMARYL PO SCH (09:42)
[2019-02-03] MEDS: VITAMIN D3 PO SCH (09:42)
[2019-02-03] MEDS: NORVASC PO SCH (09:43)
[2019-02-03] MEDS: FLONASE NS SCH (09:44)
[2019-02-03] MEDS: COZAAR PO SCH (09:49)
[2019-02-03] MEDS: PLAVIX PO SCH (09:49)
[2019-02-03] MEDS: CLARITIN PO SCH (09:50)
[2019-02-03] MEDS: COREG PO SCH ×2 (09:50→22:51)
[2019-02-03 10:42] LABS: Anisocytosis 1+; Basophils % (Manual) 0 % (0.0-1.8); Eosinophils % (Manual) 0 % (0.0-4.3); Total Cells Counted 100
[2019-02-03 10:43] LABS: Platelet Estimate Consistent w Auto
[2019-02-03] MEDS ORDERED: PROVENTIL IH PRN (13:41)
--- NOTE | 2019-02-03 14:20 | Progress Note ---
Assessment and Plan Patient awake. Resting on nasal canula 4 litres O2. O2 saturation 96% on 4 litres O2. No acute respiratory distress. - Patient Problems (1) Acute respiratory failure with hypoxia Current Visit: Yes Status: Acute Plan to address problem: O2 4 litres via nasal canula. Albuterol/atrovent aerosol treatments q 6 hours, Continue I/V solumedrol. Continue famotidine. SCDs. (2) COPD with acute exacerbation Current Visit: Yes Status: Acute Plan to address problem: O2 4 litres via nasal canula. Albuterol/atrovent aerosol treatments q 6 hours, Continue I/V solumedrol. Continue famotidine. SCDs. (3) CHF exacerbation Current Visit: Yes Status: Acute Qualifiers: Heart failure type: unspecified Qualified Code(s): I50.9 - Heart failure, unspecified Plan to address problem: Management as per cardiology. (4) Interstitial lung disease Current Visit: No Status: Acute Plan to address problem: Continue i/V solumedrol. Get SHERIF, Rheumatoid factor, CANCA, ANDREW level. (5) Pulmonary hypertension Current Visit: Yes Status: Chronic Plan to address problem: Contine O2 4 litres via nasal canula. (6) Oxygen dependent Current Visit: No Status: Acute Plan to address problem: O2 4 litres via nasal canula. (7) Thrombocytopenia Current Visit: No Status: Acute Plan to address problem: Yesterdays platelet count 108,000. Improving. Subjective Date of service: 02/03/19 Principal diagnosis: Ac on ch hypoxemic resp failure; Acute exacerbation of ILDx; Possible PNA Interval history: Patient awake. Resting on nasal canula 4 litres O2. O2 saturation 96% on 4 litres O2. No acute respiratory distress. Objective Vital Signs - 12hr 02/03/19 02/03/19 02/03/19 07:34 08:09 08:10 Temperature 97.8 F Pulse Rate 73 Pulse Rate [ 71 Anterior Bilateral Throughout] Respiratory 20 Rate Respiratory 20 Rate [Anterior Bilateral Throughout] Blood Pressure 131/77 O2 Sat by Pulse 96 97 Oximetry 02/03/19 02/03/19 02/03/19 08:22 09:19 13:35 Temperature Pulse Rate Pulse Rate [ 76 78 Anterior Bilateral Throughout] Respiratory 20 Rate Respiratory 18 20 Rate [Anterior Bilateral Throughout] Blood Pressure O2 Sat by Pulse 96 Oximetry 02/03/19 02/03/19 02/03/19 13:37 13:45 13:47 Temperature 98.7 F Pulse Rate 77 Pulse Rate [ 78 Anterior Bilateral Throughout] Respiratory 20 Rate Respiratory 20 Rate [Anterior Bilateral Throughout] Blood Pressure 111/57 O2 Sat by Pulse 96 89 Oximetry Constitutional: no acute distress, alert, other (elderly looking AAM, normoce phalic and atraumatic but with mildly increased resp effort) Eyes: non-icteric ENT: oropharynx moist, other (Mallampati 3) Neck: supple, no lymphadenopathy, no JVD, other (large neck circumference) Effort: mildly labored Ascultation: Bilateral: diminished breath sounds, rales (inspiratory) Percussion: Bilateral: not dull Cardiovascular: regular rate and rhythm, murmur noted (systolic) Gastrointestinal: normoactive bowel sounds, soft, non-tender, non-distended, other (protuberant) Integumentary: normal Extremities: no cyanosis, pink and warm, pulses normal, no ischemia or petechiae, edema (trace) Neurologic: normal mental status, pupils equal and round, CN II-XII normal Psychiatric: mood appropriate, affect normal CBC and BMP: 02/03/19 07:18 02/03/19 07:18 ABG, PT/INR, D-dimer: ABG POC ABG pH 7.390 (7.35-7.45) 01/29/19 09:56 POC ABG pCO2 37.5 (35-45) 01/29/19 09:56 POC ABG pO2 79 (80-105) L 01/29/19 09:56 POC ABG HCO3 22.7 (22-26 mml/L) 01/29/19 09:56 POC ABG Total CO2 24 (23-27mmol/L) 01/29/19 09:56 POC ABG O2 Sat 96 01/29/19 09:56 Abnormal lab findings: Abnormal Labs 01/29/19 01/29/19 01/29/19 07:01 07:01 07:01 WBC RBC Hgb Hct RDW 21.4 H Plt Count 97 L Lymph % (Auto) 11.5 L Lymph # 1.0 L Seg Neutrophils % 83.1 H Seg Neuts % (Manual) Lymphocytes % (Manual) Lymphocytes # (Manual) POC ABG pO2 Sodium 136 L Potassium Carbon Dioxide 21 L BUN Glucose 322 H POC Glucose Hemoglobin A1c Lactic Acid 2.40 H* Total Bilirubin 1.40 H Total Creatine Kinase 32 L CK-MB (CK-2) Rel Index 10.6 H C-Reactive Protein NT-Pro-B Natriuret Pep Albumin 3.3 L 01/29/19 01/29/19 01/29/19 07:01 09:56 10:23 WBC RBC Hgb Hct RDW Plt Count Lymph % (Auto) Lymph # Seg Neutrophils % Seg Neuts % (Manual) Lymphocytes % (Manual) Lymphocytes # (Manual) POC ABG pO2 79 L Sodium Potassium Carbon Dioxide BUN Glucose POC Glucose 321 H Hemoglobin A1c Lactic Acid Total Bilirubin Total Creatine Kinase CK-MB (CK-2) Rel Index C-Reactive Protein NT-Pro-B Natriuret Pep 1364 H Albumin 01/29/19 01/29/19 01/29/19 16:36 16:59 21:10 WBC RBC Hgb Hct RDW Plt Count Lymph % (Auto) Lymph # Seg Neutrophils % Seg Neuts % (Manual) Lymphocytes % (Manual) Lymphocytes # (Manual) POC ABG pO2 Sodium Potassium Carbon Dioxide BUN Glucose POC Glucose 386 H 402 H Hemoglobin A1c 10.7 H Lactic Acid Total Bilirubin Total Creatine Kinase CK-MB (CK-2) Rel Index C-Reactive Protein NT-Pro-B Natriuret Pep Albumin 01/29/19 01/30/19 01/30/19 22:32 02:11 04:35 WBC 4.3 L RBC Hgb 11.3 L Hct 34.1 L RDW 21.1 H Plt Count 98 L Lymph % (Auto) 9.3 L Lymph # 0.4 L Seg Neutrophils % 86.6 H Seg Neuts % (Manual) Lymphocytes % (Manual) Lymphocytes # (Manual) POC ABG pO2 Sodium Potassium Carbon Dioxide BUN Glucose POC Glucose 369 H 279 H Hemoglobin A1c Lactic Acid Total Bilirubin Total Creatine Kinase CK-MB (CK-2) Rel Index C-Reactive Protein NT-Pro-B Natriuret Pep Albumin 01/30/19 01/30/19 01/30/19 04:35 08:25 11:47 WBC RBC Hgb Hct RDW Plt Count Lymph % (Auto) Lymph # Seg Neutrophils % Seg Neuts % (Manual) Lymphocytes % (Manual) Lymphocytes # (Manual) POC ABG pO2 Sodium Potassium Carbon Dioxide BUN 28 H Glucose 277 H POC Glucose 333 H 380 H Hemoglobin A1c Lactic Acid Total Bilirubin Total Creatine Kinase CK-MB (CK-2) Rel Index C-Reactive Protein NT-Pro-B Natriuret Pep Albumin 3.4 L 01/30/19 01/30/19 01/30/19 16:13 17:37 21:28 WBC RBC Hgb Hct RDW Plt Count Lymph % (Auto) Lymph # Seg Neutrophils % Seg Neuts % (Manual) Lymphocytes % (Manual) Lymphocytes # (Manual) POC ABG pO2 Sodium Potassium Carbon Dioxide BUN Glucose POC Glucose 375 H 318 H Hemoglobin A1c Lactic Acid Total Bilirubin Total Creatine Kinase CK-MB (CK-2) Rel Index C-Reactive Protein 4.90 H NT-Pro-B Natriuret Pep Albumin 01/31/19 01/31/19 01/31/19 08:31 11:41 15:11 WBC RBC Hgb Hct RDW Plt Count Lymph % (Auto) Lymph # Seg Neutrophils % Seg Neuts % (Manual) Lymphocytes % (Manual) Lymphocytes # (Manual) POC ABG pO2 Sodium Potassium Carbon Dioxide BUN 37 H Glucose 303 H POC Glucose 312 H 352 H Hemoglobin A1c Lactic Acid Total Bilirubin Total Creatine Kinase CK-MB (CK-2) Rel Index C-Reactive Protein NT-Pro-B Natriuret Pep Albumin 01/31/19 01/31/19 02/01/19 16:19 21:28 05:05 WBC RBC 3.64 L Hgb 10.8 L Hct 32.6 L RDW 21.0 H Plt Count 108 L Lymph % (Auto) Lymph # Seg Neutrophils % Seg Neuts % (Manual) 86.0 H Lymphocytes % (Manual) 4.0 L Lymphocytes # (Manual) 0.3 L POC ABG pO2 Sodium Potassium Carbon Dioxide BUN Glucose POC Glucose 308 H 298 H Hemoglobin A1c Lactic Acid Total Bilirubin Total Creatine Kinase CK-MB (CK-2) Rel Index C-Reactive Protein NT-Pro-B Natriuret Pep Albumin 02/01/19 02/01/19 02/01/19 05:05 08:18 11:35 WBC RBC Hgb Hct RDW Plt Count Lymph % (Auto) Lymph # Seg Neutrophils % Seg Neuts % (Manual) Lymphocytes % (Manual) Lymphocytes # (Manual) POC ABG pO2 Sodium Potassium Carbon Dioxide 21 L BUN 38 H Glucose 218 H POC Glucose 211 H 284 H Hemoglobin A1c Lactic Acid Total Bilirubin Total Creatine Kinase CK-MB (CK-2) Rel Index C-Reactive Protein NT-Pro-B Natriuret Pep Albumin 3.1 L 02/01/19 02/01/19 02/02/19 16:16 21:31 08:01 WBC RBC Hgb Hct RDW Plt Count Lymph % (Auto) Lymph # Seg Neutrophils % Seg Neuts % (Manual) Lymphocytes % (Manual) Lymphocytes # (Manual) POC ABG pO2 Sodium Potassium Carbon Dioxide BUN Glucose POC Glucose 292 H 445 H 270 H Hemoglobin A1c Lactic Acid Total Bilirubin Total Creatine Kinase CK-MB (CK-2) Rel Index C-Reactive Protein NT-Pro-B Natriuret Pep Albumin 02/02/19 02/02/19 02/02/19 11:46 16:28 21:47 WBC RBC Hgb Hct RDW Plt Count Lymph % (Auto) Lymph # Seg Neutrophils % Seg Neuts % (Manual) Lymphocytes % (Manual) Lymphocytes # (Manual) POC ABG pO2 Sodium Potassium Carbon Dioxide BUN Glucose POC Glucose 241 H 272 H 339 H Hemoglobin A1c Lactic Acid Total Bilirubin Total Creatine Kinase CK-MB (CK-2) Rel Index C-Reactive Protein NT-Pro-B Natriuret Pep Albumin 02/03/19 02/03/19 02/03/19 07:18 07:18 07:40 WBC RBC Hgb 11.3 L Hct 33.6 L RDW 20.2 H Plt Count 125 L Lymph % (Auto) Lymph # Seg Neutrophils % Seg Neuts % (Manual) 96.0 H Lymphocytes % (Manual) 3.0 L Lymphocytes # (Manual) 0.2 L POC ABG pO2 Sodium Potassium 5.2 H Carbon Dioxide BUN 31 H Glucose 253 H POC Glucose 246 H Hemoglobin A1c Lactic Acid Total Bilirubin Total Creatine Kinase CK-MB (CK-2) Rel Index C-Reactive Protein NT-Pro-B Natriuret Pep Albumin 3.5 L 02/03/19 13:00 WBC RBC Hgb Hct RDW Plt Count Lymph % (Auto) Lymph # Seg Neutrophils % Seg Neuts % (Manual) Lymphocytes % (Manual) Lymphocytes # (Manual) POC ABG pO2 Sodium Potassium Carbon Dioxide BUN Glucose POC Glucose 226 H Hemoglobin A1c Lactic Acid Total Bilirubin Total Creatine Kinase CK-MB (CK-2) Rel Index C-Reactive Protein NT-Pro-B Natriuret Pep Albumin
--- NOTE | 2019-02-03 16:01 | Progress Note ---
Assessment and Plan Assessment and plan: Patient is a 73-year-old -[place] man who is a [facility] patient with a history of chronic hypoxic respiratory failure on home O2 due to end stage COPD, hypertension, insulin-dependent diabetes, interstitial lung disease and prostate cancer s/p radiation causing bladder and bowel stress incontinence with coughing, who presented to [facility] ED with increasing shortness of breath and wheezing. * pCXR Impression: The heart is enlarged, there is suboptimal inspiration, there are bilateral perihilar pulmonary infiltrates versus pulmonary edema. There is no pleural effusion or pneumonthorax (1) Acute on chronic respiratory failure with hypoxia, poa Current Visit: Yes Status: Acute Plan to address problem: Patient's oxygen saturations were in mid 50s Even with 50% FiO2--oxygen was 79, placed on bipap, now weaned off off BiPAP We will intubate if necessary IV Solu-Medrol at 125 mg every 6 hours IV Levaquin and nebulizer treatments every 3 when necessary every 6 hours [id number] started Pulmonary was consulted (2) COPD with acute exacerbation Current Visit: Yes Status: Acute Plan to address problem: Patient's oxygen saturations were in mid 50s Even with 50% FiO2--oxygen was 79 Patient is on BiPAP We will intubate if necessary IV Solu-Medrol at 125 mg every 6 hours IV Levaquin and nebulizer treatments every 3 when necessary every 6 hours [id number] started Pulmonary was consulted (3) Hypertension Current Visit: Yes Status: Chronic Qualifiers: Hypertension type: essential hypertension Qualified Code(s): I10 - Essential (primary) hypertension Plan to address problem: Continue antihypertensive (4) Insulin dependent diabetes mellitus Current Visit: Yes Status: Chronic Plan to address problem: Continue home insulin and coverage (5) Hyperlipidemia Current Visit: Yes Status: Chronic Qualifiers: Hyperlipidemia type: mixed hyperlipidemia Qualified Code(s): E78.2 - Mixed hyperlipidemia Plan to address problem: Continue statins (6) Pulmonary hypertension Current Visit: Yes Status: Chronic Plan to address problem: Patient on sildenafil 20 mg 3 times a day. Continue the same (7) Coronary artery disease Current Visit: Yes Status: Chronic Qualifiers: Coronary Disease-Associated Artery/Lesion type: [place] artery Associated angina: without angina Plan to address problem: Continue Plavix (8) Lactic acid acidosis Current Visit: Yes Status: Acute Plan to address problem: Probably nonspecific. We will trend the lactic acid (9) Prostate cancer Current Visit: Yes Status: Chronic Plan to address problem: Supportive care (10) DVT prophylaxis Current Visit: Yes Status: Acute Plan to address problem: On Lovenox and GI prophylaxis He was 88% on 4 liters during my exam, he says he is not at baseline, d/w [facility] physician, Dr. Joe, , ok to keep added Tesmason araujo Anticipate d/c tomorrow History Interval history: Patient was seen and examined. Follow-up on current diagnosis. No overnight events reported to me. Patient denies any chest pain, shortness breath, nausea/vomiting or severe headaches. Imaging, nursing note, chart, labs and old chart reviewed. Discussed with patient. Gen: WDWN, NAD, Awake, Alert, Orientated HEENT: NCAT, EOMI, PERRL, OP Clear Neck: supple, no adenopathy, no thyromegaly, no JVD CVS/Heart: RRR, normal S1S2, pulses present bilaterally Chest/Lungs: CTA B, Symmetrical chest exddfpansion, good air entry bilaterally GI/Abdomen: soft, NTND, good bowel sounds, no guarding or rebound /Bladder: no suprapubic tenderness, no CVA or paraspinal tenderness Extermity/Skin: no c/c/e, no obvious rash MSK: FROM x 4 Neuro: CN 2-12 grossly intact, no new focal deficits Psych: calm Hospitalist Physical - Constitutional Vitals: Temp Pulse Resp BP Pulse Ox 98.7 F 77 20 111/57 89 02/03/19 13:47 02/03/19 13:47 02/03/19 13:47 02/03/19 13:47 02/03/19 13:47 General appearance: Present: no acute distress, well-nourished Results - Labs CBC & Chem 7: 02/03/19 07:18 02/03/19 07:18 Labs: Laboratory Last Values WBC 7.5 K/mm3 (4.5-11.0) 02/03/19 07:18 RBC 3.78 M/mm3 (3.65-5.03) 02/03/19 07:18 Hgb 11.3 gm/dl (11.8-15.2) L 02/03/19 07:18 Hct 33.6 % (35.5-45.6) L 02/03/19 07:18 MCV 89 fl (84-94) 02/03/19 07:18 MCH 30 pg (28-32) 02/03/19 07:18 MCHC 33 % (32-34) 02/03/19 07:18 RDW 20.2 % (13.2-15.2) H 02/03/19 07:18 Plt Count 125 K/mm3 (140-440) L 02/03/19 07:18 Lymph % (Auto) 9.3 % (13.4-35.0) L 01/30/19 04:35 Wilkes % (Auto) 3.8 % (0.0-7.3) 01/30/19 04:35 Eos % (Auto) 0.0 % (0.0-4.3) 01/30/19 04:35 Baso % (Auto) 0.3 % (0.0-1.8) 01/30/19 04:35 Lymph # 0.4 K/mm3 (1.2-5.4) L 01/30/19 04:35 Wilkes # 0.2 K/mm3 (0.0-0.8) 01/30/19 04:35 Eos # 0.0 K/mm3 (0.0-0.4) 01/30/19 04:35 Baso # 0.0 K/mm3 (0.0-0.1) 01/30/19 04:35 Add Manual Diff Complete 02/03/19 07:18 Total Counted 100 02/03/19 07:18 Seg Neutrophils % [employer] 02/03/19 07:18 Seg Neuts % (Manual) 96.0 % (40.0-70.0) H 02/03/19 07:18 0 % 02/03/19 07:18 3.0 % (13.4-35.0) L 02/03/19 07:18 Reactive Lymphs % (Man) 0 % 02/03/19 07:18 1.0 % (0.0-7.3) 02/03/19 07:18 0 % (0.0-4.3) 02/03/19 07:18 0 % (0.0-1.8) 02/03/19 07:18 0 % 02/03/19 07:18 0 % 02/03/19 07:18 0 % 02/03/19 07:18 0 % 02/03/19 07:18 Nucleated RBC % Not Reportable 02/03/19 07:18 Seg Neutrophils # 3.8 K/mm3 (1.8-7.7) 01/30/19 04:35 Seg Neutrophils # Man 7.2 K/mm3 (1.8-7.7) 02/03/19 07:18 Band Neutrophils # 0.0 K/mm3 02/03/19 07:18 0.2 K/mm3 (1.2-5.4) L 02/03/19 07:18 Abs React Lymphs (Man) 0.0 K/mm3 02/03/19 07:18 0.1 K/mm3 (0.0-0.8) 02/03/19 07:18 0.0 K/mm3 (0.0-0.4) 02/03/19 07:18 0.0 K/mm3 (0.0-0.1) 02/03/19 07:18 0.0 K/mm3 02/03/19 07:18 0.0 K/mm3 02/03/19 07:18 0.0 K/mm3 02/03/19 07:18 Blast Cells # 0.0 K/mm3 02/03/19 07:18 WBC Morphology Not Reportable 02/03/19 07:18 Hypersegmented Neuts Not Reportable 02/03/19 07:18 Hyposegmented Neuts Not Reportable 02/03/19 07:18 Hypogranular Neuts Not Reportable 02/03/19 07:18 Not Reportable 02/03/19 07:18 Not Reportable 02/03/19 07:18 Not Reportable 02/03/19 07:18 Not Reportable 02/03/19 07:18 Not Reportable 02/03/19 07:18 Not Reportable 02/03/19 07:18 Consistent w auto 02/03/19 07:18 Not Reportable 02/03/19 07:18 Plt Clumps, EDTA Not Reportable 02/03/19 07:18 Not Reportable 02/03/19 07:18 Not Reportable 02/03/19 07:18 Not Reportable 02/03/19 07:18 Plt Morphology Comment Not Reportable 02/03/19 07:18 RBC Morphology Not Reportable 02/03/19 07:18 Dimorphic RBCs Not Reportable 02/03/19 07:18 Not Reportable 02/03/19 07:18 Not Reportable 02/03/19 07:18 Not Reportable 02/03/19 07:18 1+ 02/03/19 07:18 Not Reportable 02/03/19 07:18 Not Reportable 02/03/19 07:18 Not Reportable 02/03/19 07:18 Not Reportable 02/03/19 07:18 Not Reportable 02/03/19 07:18 Not Reportable 02/03/19 07:18 Not Reportable 02/03/19 07:18 Not Reportable 02/03/19 07:18 Not Reportable 02/03/19 07:18 Not Reportable 02/03/19 07:18 Not Reportable 02/03/19 07:18 Not Reportable 02/03/19 07:18 Not Reportable 02/03/19 07:18 Not Reportable 02/03/19 07:18 Few 02/03/19 07:18 Acanthocytes (Spur) Not Reportable 02/03/19 07:18 Rouleaux Not Reportable 02/03/19 07:18 Not Reportable 02/03/19 07:18 Not Reportable 02/03/19 07:18 Not Reportable 02/03/19 07:18 Not Reportable 02/03/19 07:18 Hem Pathologist Commnt No 02/03/19 07:18 POC ABG pH 7.390 (7.35-7.45) 01/29/19 09:56 POC ABG pCO2 37.5 (35-45) 01/29/19 09:56 POC ABG pO2 79 (80-105) L 01/29/19 09:56 POC ABG HCO3 22.7 (22-26 mml/L) 01/29/19 09:56 POC ABG Total CO2 24 (23-27mmol/L) 01/29/19 09:56 POC ABG O2 Sat 96 01/29/19 09:56 POC ABG Base Excess -2 ((-2) - (+3)mmol/L) 01/29/19 09:56 50 % 01/29/19 09:56 Sodium 139 mmol/L (137-145) 02/03/19 07:18 Potassium 5.2 mmol/L (3.6-5.0) H 02/03/19 07:18 Chloride 103.3 mmol/L (98-107) 02/03/19 07:18 Carbon Dioxide 26 mmol/L (22-30) 02/03/19 07:18 15 mmol/L 02/03/19 07:18 BUN 31 mg/dL (9-20) H 02/03/19 07:18 1.1 mg/dL (0.8-1.5) 02/03/19 07:18 Estimated GFR > 60 ml/min 02/03/19 07:18 28 % 02/03/19 07:18 Glucose 253 mg/dL (75-100) H 02/03/19 07:18 POC Glucose 226 (70-105) H 02/03/19 13:00 10.7 % (4-6) H 01/29/19 16:59 Lactic Acid 1.40 mmol/L (0.7-2.0) 01/29/19 08:12 Calcium 8.8 mg/dL (8.4-10.2) 02/03/19 07:18 0.80 mg/dL (0.1-1.2) 02/03/19 07:18 AST 7 units/L (5-40) 02/03/19 07:18 ALT 11 units/L (7-56) 02/03/19 07:18 75 units/L (35-129) 02/03/19 07:18 32 units/L (55-170) L 01/29/19 07:01 CK-MB (CK-2) 3.4 ng/mL (0.0-4.0) 01/29/19 07:01 CK-MB (CK-2) Rel Index 10.6 (0-4) H 01/29/19 07:01 < 0.010 ng/mL (0.00-0.029) 01/29/19 07:01 4.90 mg/dL (0.00-1.30) H 01/30/19 17:37 NT-Pro-B Natriuret Pep 1364 pg/mL (0-900) H 01/29/19 07:01 6.7 g/dL (6.3-8.2) 02/03/19 07:18 3.5 g/dL (3.9-5) L 02/03/19 07:18 1.1 % 02/03/19 07:18 13 IU/ml (0-13) 02/03/19 07:18 Active Medications - Current Medications Current Medications: Generic Name Dose Route Start Last Admin Trade Name Freq PRN Reason Stop Dose Admin Acetaminophen 650 mg 01/29/19 14:26 01/29/19 21:03 Tylenol PO 650 mg Q4H PRN Administration Pain MILD(1-3)/Fever >100.5/QUILES Albuterol 2.5 mg 02/03/19 13:41 Proventil IH Q4HRT PRN Shortness Of Breath Albuterol/Ipratropium 1 ampul 02/03/19 20:00 Duoneb *Not For Prn Use* IH Q6HRT LAM Amlodipine Besylate 10 mg 01/29/19 16:00 02/03/19 09:43 Norvasc PO 10 mg DAILY LAM Administration Arformoterol Tartrate 15 mcg 02/03/19 20:00 Brovana Nebu IH Q12HRT LAM Atorvastatin Calcium 40 mg 01/29/19 22:00 02/02/19 22:48 Lipitor PO 40 mg HS LAM Administration Benzonatate 100 mg 02/03/19 16:00 Tessalon Perles PO Q8HR LAM Budesonide 0.5 mg 02/03/19 20:00 Pulmicort IH Q12HRT LAM Carvedilol 12.5 mg 01/29/19 16:00 02/03/19 09:50 Coreg PO 12.5 mg BID LAM Administration Cholecalciferol 1,000 unit 01/30/19 10:00 02/03/19 09:42 Vitamin D3 PO 1,000 unit QDAY LAM Administration Clopidogrel Bisulfate 75 mg 01/29/19 16:00 02/03/19 09:49 Plavix PO 75 mg QDAY LAM Administration Dextrose 50 ml 01/29/19 23:17 D50w (25gm) Syringe IV PRN PRN Hypoglycemia Famotidine 20 mg 01/29/19 16:00 02/03/19 09:42 Pepcid PO 20 mg BID LAM Administration Fluticasone Propionate 50 mcg 01/29/19 16:00 02/03/19 09:44 Flonase NS 50 mcg QDAY LAM Administration Glimepiride 2 mg 01/29/19 16:00 02/03/19 09:42 Amaryl PO 2 mg QDAY LAM Administration Hydromorphone HCl 0.25 mg 01/29/19 14:26 Dilaudid IV Q3H PRN Pain, Moderate (4-6) Insulin Glargine 60 units 01/31/19 11:33 02/02/19 22:48 Lantus SUB-Q 60 units HS LAM Administration Insulin Human Lispro 0 unit 01/29/19 16:30 02/03/19 13:40 Humalog SUB-Q 4 unit ACHS LAM Administration Protocol Loratadine 10 mg 01/30/19 10:00 02/03/19 09:50 Claritin PO 10 mg DAILY LAM Administration Losartan Potassium 100 mg 01/30/19 10:00 02/03/19 09:49 Cozaar PO 100 mg QDAY LAM Administration Methylprednisolone Sodium Succinate 60 mg 01/30/19 16:35 02/03/19 09:39 Solu-Medrol IV 60 mg Q8H LAM Administration Ondansetron HCl 4 mg 01/29/19 14:26 Zofran IV Q8H PRN Nausea And Vomiting Oxycodone/Acetaminophen 1 tab 01/29/19 14:26 Percocet 5/325 PO Q6H PRN Pain, Moderate (4-6) Sertraline HCl 150 mg 01/29/19 16:00 02/03/19 09:42 Zoloft PO 150 mg QDAY LAM Administration Sildenafil Citrate 20 mg 01/29/19 20:00 02/02/19 15:57 Revatio PO Not Given TID LAM Sodium Chloride 10 ml 01/29/19 15:00 02/03/19 09:40 Sodium Chloride Flush Syringe 10 Ml IV 10 ml BID LAM Administration Sodium Chloride 10 ml 01/29/19 14:26 Sodium Chloride Flush Syringe 10 Ml IV PRN PRN LINE FLUSH Nutrition/Malnutrition Assess - Dietary Evaluation Nutrition/Malnutrition Findings: Nutrition Notes Start: 01/30/19 16: 26 Freq: Status: Active Protocol: Document 01/30/19 16:26 RM (Rec: 01/30/19 16:29 RM [id number]) Nutrition Notes Need for Assessment generated from: MD Order Initial or Follow up Brief Note Current Diet Consistent CHO Labs/Tests A1c 10.7 Pertinent Medications Solu-Medrol Height 6 ft 1 in Weight 102.6 kg [place] Body Weight (kg) 83.63 BMI 29.8 Subjective/Other Information Consulted for DM diet education. Screened for skin risk. Noel 17 points. Pt stated that his appetite is good and that he eats all of his meals. Stated that he is already familiar w/DM diet education and that his A1c is high d/t being on steroids. Burn Absent Trauma Absent Nutrition Intervention Revisit per MD consult or patient Sign Off request:
[2019-02-03] MEDS: TESSALON PERLES PO SCH ×2 (17:42→22:51)
[2019-02-03] MEDS: BROVANA NEBU IH SCH (19:36)
[2019-02-03] MEDS: LANTUS SUB-Q SCH (22:52)
[2019-02-04] MEDS: SOLU-Medrol IV SCH ×3 (00:32→17:05)
[2019-02-04] MEDS: DUONEB *Not for PRN Use IH SCH ×4 (03:25→14:53)
[2019-02-04] MEDS: TESSALON PERLES PO SCH ×2 (06:28→14:27)
[2019-02-04] MEDS: BROVANA NEBU IH SCH ×2 (06:49→08:46)
[2019-02-04] MEDS: PULMICORT IH SCH ×2 (06:49→08:47)
[2019-02-04] MEDS: HumaLOG SUB-Q SCH ×3 (08:16→17:05)
[2019-02-04] MEDS: ZOLOFT PO SCH (09:41)
[2019-02-04] MEDS: COZAAR PO SCH (09:41)
[2019-02-04] MEDS: PEPCID PO SCH (09:42)
[2019-02-04] MEDS: PLAVIX PO SCH (09:42)
[2019-02-04] MEDS: AMARYL PO SCH (09:42)
[2019-02-04] MEDS: VITAMIN D3 PO SCH (09:42)
[2019-02-04] MEDS: CLARITIN PO SCH (09:42)
[2019-02-04] MEDS: COREG PO SCH (09:42)
[2019-02-04] MEDS: NORVASC PO SCH (09:43)
[2019-02-04] MEDS: FLONASE NS SCH (09:43)
[2019-02-04 09:44] VITALS: BP 110/53
[2019-02-04] MEDS: SODIUM CHLORIDE FLUSH SYRINGE 10 ML IV SCH (09:44)
--- NOTE | 2019-02-04 11:34 | Progress Note ---
Assessment and Plan Patient awake. Resting on nasal canula 4 litres O2. O2 saturation 93% on 4 litres O2. No acute respiratory distress. - Patient Problems (1) Acute respiratory failure with hypoxia Status: Acute Plan to address problem: O2 4 litres via nasal canula. Albuterol/atrovent aerosol treatments q 6 hours, Continue I/V solumedrol. Continue famotidine. SCDs. (2) COPD with acute exacerbation Status: Acute Plan to address problem: O2 4 litres via nasal canula. Albuterol/atrovent aerosol treatments q 6 hours, Continue I/V solumedrol. Continue famotidine. SCDs. (3) CHF exacerbation Status: Acute Qualifiers: Heart failure type: unspecified Qualified Code(s): I50.9 - Heart failure, unspecified Plan to address problem: Management as per cardiology. (4) Interstitial lung disease Status: Acute Plan to address problem: Continue i/V solumedrol. Get SHERIF, Rheumatoid factor, CANCA, ANDREW level. (5) Pulmonary hypertension Status: Chronic Plan to address problem: Contine O2 4 litres via nasal canula. (6) Oxygen dependent Status: Acute Plan to address problem: O2 4 litres via nasal canula. (7) Thrombocytopenia Status: Acute Plan to address problem: Yesterdays platelet count 125,000. Improving. Subjective Date of service: 02/04/19 Principal diagnosis: Ac on ch hypoxemic resp failure; Acute exacerbation of ILDx; Possible PNA Interval history: Patient awake. Resting on nasal canula 4 litres O2. O2 saturation 93% on 4 litres O2. No acute respiratory distress. Objective Vital Signs - 12hr 02/04/19 02/04/19 02/04/19 02:00 06:45 07:16 Temperature 97.4 F L 97.7 F Pulse Rate 59 L 63 Pulse Rate [ 60 Anterior Bilateral Throughout] Respiratory 20 20 Rate Respiratory 20 Rate [Anterior Bilateral Throughout] Blood Pressure 108/60 Blood Pressure 125/60 [Right] O2 Sat by Pulse 93 97 Oximetry 02/04/19 02/04/19 02/04/19 09:40 09:41 09:42 Temperature Pulse Rate 67 67 Pulse Rate [ Anterior Bilateral Throughout] Respiratory Rate Respiratory Rate [Anterior Bilateral Throughout] Blood Pressure 110/53 110/53 110/53 Blood Pressure [Right] O2 Sat by Pulse Oximetry 02/04/19 02/04/19 09:43 10:00 Temperature Pulse Rate 67 Pulse Rate [ Anterior Bilateral Throughout] Respiratory 20 Rate Respiratory Rate [Anterior Bilateral Throughout] Blood Pressure 110/53 Blood Pressure [Right] O2 Sat by Pulse 97 Oximetry Constitutional: no acute distress, alert, other (elderly looking AAM, normocephalic and atraumatic but with mildly increased resp effort) Eyes: non-icteric ENT: oropharynx moist, other (Mallampati 3) Neck: supple, no lymphadenopathy, no JVD, other (large neck circumference) Effort: mildly labored Ascultation: Bilateral: diminished breath sounds, rales (inspiratory) Percussion: Bilateral: not dull Cardiovascular: regular rate and rhythm, murmur noted (systolic) Gastrointestinal: normoactive bowel sounds, soft, non-tender, non-distended, other (protuberant) Integumentary: normal Extremities: no cyanosis, pink and warm, pulses normal, no ischemia or petechiae , edema (trace) Neurologic: normal mental status, pupils equal and round, CN II-XII normal Psychiatric: mood appropriate, affect normal CBC and BMP: 02/03/19 07:18 02/03/19 07:18 ABG, PT/INR, D-dimer: ABG POC ABG pH 7.390 (7.35-7.45) 01/29/19 09:56 POC ABG pCO2 37.5 (35-45) 01/29/19 09:56 POC ABG pO2 79 (80-105) L 01/29/19 09:56 POC ABG HCO3 22.7 (22-26 mml/L) 01/29/19 09:56 POC ABG Total CO2 24 (23-27mmol/L) 01/29/19 09:56 POC ABG O2 Sat 96 01/29/19 09:56 Abnormal lab findings: Abnormal Labs 01/29/19 01/29/19 01/29/19 07:01 07:01 07:01 WBC RBC Hgb Hct RDW 21.4 H Plt Count 97 L Lymph % (Auto) 11.5 L Lymph # 1.0 L Seg Neutrophils % 83.1 H Seg Neuts % (Manual) Lymphocytes % (Manual) Lymphocytes # (Manual) POC ABG pO2 Sodium 136 L Potassium Carbon Dioxide 21 L BUN Glucose 322 H POC Glucose Hemoglobin A1c Lactic Acid 2.40 H* Total Bilirubin 1.40 H Total Creatine Kinase 32 L CK-MB (CK-2) Rel Index 10.6 H C-Reactive Protein NT-Pro-B Natriuret Pep Albumin 3.3 L 01/29/19 01/29/19 01/29/19 07:01 09:56 10:23 WBC RBC Hgb Hct RDW Plt Count Lymph % (Auto) Lymph # Seg Neutrophils % Seg Neuts % (Manual) Lymphocytes % (Manual) Lymphocytes # (Manual) POC ABG pO2 79 L Sodium Potassium Carbon Dioxide BUN Glucose POC Glucose 321 H Hemoglobin A1c Lactic Acid Total Bilirubin Total Creatine Kinase CK-MB (CK-2) Rel Index C-Reactive Protein NT-Pro-B Natriuret Pep 1364 H Albumin 01/29/19 01/29/19 01/29/19 16:36 16:59 21:10 WBC RBC Hgb Hct RDW Plt Count Lymph % (Auto) Lymph # Seg Neutrophils % Seg Neuts % (Manual) Lymphocytes % (Manual) Lymphocytes # (Manual) POC ABG pO2 Sodium Potassium Carbon Dioxide BUN Glucose POC Glucose 386 H 402 H Hemoglobin A1c 10.7 H Lactic Acid Total Bilirubin Total Creatine Kinase CK-MB (CK-2) Rel Index C-Reactive Protein NT-Pro-B Natriuret Pep Albumin 01/29/19 01/30/19 01/30/19 22:32 02:11 04:35 WBC 4.3 L RBC Hgb 11.3 L Hct 34.1 L RDW 21.1 H Plt Count 98 L Lymph % (Auto) 9.3 L Lymph # 0.4 L Seg Neutrophils % 86.6 H Seg Neuts % (Manual) Lymphocytes % (Manual) Lymphocytes # (Manual) POC ABG pO2 Sodium Potassium Carbon Dioxide BUN Glucose POC Glucose 369 H 279 H Hemoglobin A1c Lactic Acid Total Bilirubin Total Creatine Kinase CK-MB (CK-2) Rel Index C-Reactive Protein NT-Pro-B Natriuret Pep Albumin 01/30/19 01/30/19 01/30/19 04:35 08:25 11:47 WBC RBC Hgb Hct RDW Plt Count Lymph % (Auto) Lymph # Seg Neutrophils % Seg Neuts % (Manual) Lymphocytes % (Manual) Lymphocytes # (Manual) POC ABG pO2 Sodium Potassium Carbon Dioxide BUN 28 H Glucose 277 H POC Glucose 333 H 380 H Hemoglobin A1c Lactic Acid Total Bilirubin Total Creatine Kinase CK-MB (CK-2) Rel Index C-Reactive Protein NT-Pro-B Natriuret Pep Albumin 3.4 L 01/30/19 01/30/19 01/30/19 16:13 17:37 21:28 WBC RBC Hgb Hct RDW Plt Count Lymph % (Auto) Lymph # Seg Neutrophils % Seg Neuts % (Manual) Lymphocytes % (Manual) Lymphocytes # (Manual) POC ABG pO2 Sodium Potassium Carbon Dioxide BUN Glucose POC Glucose 375 H 318 H Hemoglobin A1c Lactic Acid Total Bilirubin Total Creatine Kinase CK-MB (CK-2) Rel Index C-Reactive Protein 4.90 H NT-Pro-B Natriuret Pep Albumin 01/31/19 01/31/19 01/31/19 08:31 11:41 15:11 WBC RBC Hgb Hct RDW Plt Count Lymph % (Auto) Lymph # Seg Neutrophils % Seg Neuts % (Manual) Lymphocytes % (Manual) Lymphocytes # (Manual) POC ABG pO2 Sodium Potassium Carbon Dioxide BUN 37 H Glucose 303 H POC Glucose 312 H 352 H Hemoglobin A1c Lactic Acid Total Bilirubin Total Creatine Kinase CK-MB (CK-2) Rel Index C-Reactive Protein NT-Pro-B Natriuret Pep Albumin 01/31/19 01/31/19 02/01/19 16:19 21:28 05:05 WBC RBC 3.64 L Hgb 10.8 L Hct 32.6 L RDW 21.0 H Plt Count 108 L Lymph % (Auto) Lymph # Seg Neutrophils % Seg Neuts % (Manual) 86.0 H Lymphocytes % (Manual) 4.0 L Lymphocytes # (Manual) 0.3 L POC ABG pO2 Sodium Potassium Carbon Dioxide BUN Glucose POC Glucose 308 H 298 H Hemoglobin A1c Lactic Acid Total Bilirubin Total Creatine Kinase CK-MB (CK-2) Rel Index C-Reactive Protein NT-Pro-B Natriuret Pep Albumin 02/01/19 02/01/19 02/01/19 05:05 08:18 11:35 WBC RBC Hgb Hct RDW Plt Count Lymph % (Auto) Lymph # Seg Neutrophils % Seg Neuts % (Manual) Lymphocytes % (Manual) Lymphocytes # (Manual) POC ABG pO2 Sodium Potassium Carbon Dioxide 21 L BUN 38 H Glucose 218 H POC Glucose 211 H 284 H Hemoglobin A1c Lactic Acid Total Bilirubin Total Creatine Kinase CK-MB (CK-2) Rel Index C-Reactive Protein NT-Pro-B Natriuret Pep Albumin 3.1 L 02/01/19 02/01/19 02/02/19 16:16 21:31 08:01 WBC RBC Hgb Hct RDW Plt Count Lymph % (Auto) Lymph # Seg Neutrophils % Seg Neuts % (Manual) Lymphocytes % (Manual) Lymphocytes # (Manual) POC ABG pO2 Sodium Potassium Carbon Dioxide BUN Glucose POC Glucose 292 H 445 H 270 H Hemoglobin A1c Lactic Acid Total Bilirubin Total Creatine Kinase CK-MB (CK-2) Rel Index C-Reactive Protein NT-Pro-B Natriuret Pep Albumin 02/02/19 02/02/19 02/02/19 11:46 16:28 21:47 WBC RBC Hgb Hct RDW Plt Count Lymph % (Auto) Lymph # Seg Neutrophils % Seg Neuts % (Manual) Lymphocytes % (Manual) Lymphocytes # (Manual) POC ABG pO2 Sodium Potassium Carbon Dioxide BUN Glucose POC Glucose 241 H 272 H 339 H Hemoglobin A1c Lactic Acid Total Bilirubin Total Creatine Kinase CK-MB (CK-2) Rel Index C-Reactive Protein NT-Pro-B Natriuret Pep Albumin 02/03/19 02/03/19 02/03/19 07:18 07:18 07:40 WBC RBC Hgb 11.3 L Hct 33.6 L RDW 20.2 H Plt Count 125 L Lymph % (Auto) Lymph # Seg Neutrophils % Seg Neuts % (Manual) 96.0 H Lymphocytes % (Manual) 3.0 L Lymphocytes # (Manual) 0.2 L POC ABG pO2 Sodium Potassium 5.2 H Carbon Dioxide BUN 31 H Glucose 253 H POC Glucose 246 H Hemoglobin A1c Lactic Acid Total Bilirubin Total Creatine Kinase CK-MB (CK-2) Rel Index C-Reactive Protein NT-Pro-B Natriuret Pep Albumin 3.5 L 02/03/19 02/03/19 02/03/19 13:00 16:50 21:44 WBC RBC Hgb Hct RDW Plt Count Lymph % (Auto) Lymph # Seg Neutrophils % Seg Neuts % (Manual) Lymphocytes % (Manual) Lymphocytes # (Manual) POC ABG pO2 Sodium Potassium Carbon Dioxide BUN Glucose POC Glucose 226 H 287 H 282 H Hemoglobin A1c Lactic Acid Total Bilirubin Total Creatine Kinase CK-MB (CK-2) Rel Index C-Reactive Protein NT-Pro-B Natriuret Pep Albumin 02/04/19 07:21 WBC RBC Hgb Hct RDW Plt Count Lymph % (Auto) Lymph # Seg Neutrophils % Seg Neuts % (Manual) Lymphocytes % (Manual) Lymphocytes # (Manual) POC ABG pO2 Sodium Potassium Carbon Dioxide BUN Glucose POC Glucose 196 H Hemoglobin A1c Lactic Acid Total Bilirubin Total Creatine Kinase CK-MB (CK-2) Rel Index C-Reactive Protein NT-Pro-B Natriuret Pep Albumin
--- NOTE | 2019-02-04 13:48 | Discharge Summary ---
Providers - Providers Date of Admission: 01/29/19 08:28 Date of discharge: 02/04/19 Attending physician: ADAN CUEVAS 01/29/19 14:26 Consult to Physician [CONS] Routine Comment: Consulting Provider: BRENT RIZZO Physician Instructions: Reason For Exam: acute resp failure 01/29/19 23:18 Consult to Dietitian/Nutrition [CONS] Routine Physician Instructions: Reason For Exam: Reason for Consult: Diet education Hospitalization Condition: Stable Hospital course: Patient is a 73-year-old -[place] man who is a [facility] patient with a history of chronic hypoxic respiratory failure on home O2 due to end stage COPD, hypertension, functional quadreplegic bed bound mostly, insulin-dependent diabetes, interstitial lung disease and prostate cancer s/p radiation causing bladder and bowel stress incontinence with coughing, who presented to [facility] ED with increasing shortness of breath and wheezing. * pCXR Impression: The heart is enlarged, there is suboptimal inspiration, there are bilateral perihilar pulmonary infiltrates versus pulmonary edema. There is no pleural effusion or pneumonthorax Discharge Diagnoses: Acute on chronic respiratory failure with hypoxia, poa, due to COPD with Cor pulmonale End stage COPD and ILD: patient has elected to go home with [facility], no more work up for heart failure Suspected Cor pulmonale with acute Diastolic heart failure from pulmonary hypertension, poa: treat with Diuretics, Cardiology referral Functional quadriplegia, poa, he doesn't walk per at bedside, so we spoke about Hospice and they thought about it and elected to go into hospice Hypertension Insulin dependent diabetes mellitus Hyperlipidemia Pulmonary hypertension Coronary artery disease Lactic acid acidosis, non infectious Prostate cancer by history DVT prophylaxis Added Monalisa araujo, which helped Disposition: Home with [facility] hospice Disposition: DC-50 TO HOSPICE (HOME) Time spent for discharge: 35 minutes Core Measure Documentation - Palliative Care Palliative Care/ Comfort Measures: Hospice Care - Core Measures Any of the following diagnoses?: heart failure - VTE Discharge Requirements Deep Vein Thrombosis/Pulmonary Embolism Present on Admission: No Has pt received <5 days of overlap therapy or INR<2.0: No Anticoagulant overlap therapy prescribed at discharge: No Contraindication No Overlap Therapy order at DC: Not Indicated - Heart Failure Discharge Requirements ANDREW/ARB for LVSD if EF <40%: No Reason for no ANDREW/ARB: Hypotension (borderline low bp) Beta francie at discharge: Yes Exam - Physical Exam Narrative exam: Gen: chronic ill appearing, disable, obese, NAD, Awake, Alert, Orientated HEENT: NCAT, EOMI, PERRL, OP Clear Neck: supple, no adenopathy, no thyromegaly, no JVD CVS/Heart: RRR, normal S1S2, pulses present bilaterally Chest/Lungs: inspiratory crackles and diminished bs bilateral, Symmetrical chest exddfpansion, good air entry bilaterally GI/Abdomen: soft, NTND, good bowel sounds, no guarding or rebound /Bladder: no suprapubic tenderness, no CVA or paraspinal tenderness Extermity/Skin: no c/c/e, no obvious rash MSK: FROM x 4 Neuro: CN 2-12 grossly intact, no new focal deficits Psych: calm - Constitutional Vitals: Temp Pulse Resp BP Pulse Ox 97.7 F 67 20 110/53 93 02/04/19 07:16 02/04/19 09:43 02/04/19 10:00 02/04/19 09:43 02/04/19 10:00 Plan Activity: other (no strenous activity) Diet: low salt, diabetic Special Instructions: record daily BP diary, record blood sugar diary Follow up with: TARAS MACEDO [Other] - 7 Days BRENT RIZZO MD [Staff Physician] - 7 Days KAITLIN SHEPHERD MD [Staff Physician] - 7 Days Prescriptions: Arformoterol Nebu [Brovana Nebu] 15 mcg IH Q12HRT #30 ml cefUROXime [Ceftin] 500 mg PO Q12H #8 tablet Losartan [Cozaar] 50 mg PO QDAY #30 tablet Ipratropium/Albuterol Sulfate [DUONEB *Not for PRN Use*] 1 ampul IH Q6HRT #30 ampul.neb Lispro Insulin [HumaLOG] 1 dose SUB-Q ACHS PRN #100 units PRN Reason: Hyperglycemia Furosemide [Lasix] 20 mg PO QDAY #30 tablet methylPREDNISolone [Medrol 4MG DOSEPAK (21 tabs)] 1 dose PO QDAY #1 tab.ds.pk oxyCODONE /ACETAMINOPHEN [Percocet 5/325 mg] 1 tab PO Q6H PRN #15 tablet PRN Reason: Pain , Severe (7-10) Budesonide [Pulmicort Respules] 0.5 mg IH Q12HRT #30 nebu Benzonatate [Tessalon Perles] 100 mg PO Q8HR PRN #15 capsule PRN Reason: Cough
[2019-02-09 20:52] LABS: ANA Screen, IFA Negative (Negative); Myeloperoxidase Antibody <1.0 AI (<1.0)
== END 2019-02-04 18:14 | disposition hospice, home (50) | DRG 291 ==
LOC: ED 06:36 → IMCU 08:28 → 2B-ACE 02-02 12:14
PROVIDERS: ADMIT Internal Medicine; ATTEND Internal Medicine
PROC: 5A09357 Assistance with Respiratory Ventilation, Less than 24 Consecutive Hours, Continuous Positive Airway Pressure (ICD-10-PCS; principal; 2019-01-29)
PROC: 4A033R1 Measurement of Arterial Saturation, Peripheral, Percutaneous Approach (ICD-10-PCS; 2019-01-29)
PROC: 5A09357 Assistance with Respiratory Ventilation, Less than 24 Consecutive Hours, Continuous Positive Airway Pressure (ICD-10-PCS; 2019-01-30)
PROC: 5A09357 Assistance with Respiratory Ventilation, Less than 24 Consecutive Hours, Continuous Positive Airway Pressure (ICD-10-PCS; 2019-01-31)
PROC: 5A09357 Assistance with Respiratory Ventilation, Less than 24 Consecutive Hours, Continuous Positive Airway Pressure (ICD-10-PCS; 2019-02-01)
PROC: 5A09357 Assistance with Respiratory Ventilation, Less than 24 Consecutive Hours, Continuous Positive Airway Pressure (ICD-10-PCS; 2019-02-02)
PROC: 5A09357 Assistance with Respiratory Ventilation, Less than 24 Consecutive Hours, Continuous Positive Airway Pressure (ICD-10-PCS; 2019-02-03)
DX: I11.0 Hypertensive heart disease with heart failure (principal); R53.2 Functional quadriplegia; J96.21 Acute and chronic respiratory failure with hypoxia; J44.1 Chronic obstructive pulmonary disease with (acute) exacerbation; E87.2 Acidosis; J84.9 Interstitial pulmonary disease, unspecified; I50.33 Acute on chronic diastolic (congestive) heart failure; E78.2 Mixed hyperlipidemia; I27.20 Pulmonary hypertension, unspecified; I25.10 Atherosclerotic heart disease of native coronary artery without angina pectoris; C61 Malignant neoplasm of prostate; E11.9 Type 2 diabetes mellitus without complications; Z51.5 Encounter for palliative care; D69.6 Thrombocytopenia, unspecified; G47.33 Obstructive sleep apnea (adult) (pediatric); Z92.21 Personal history of antineoplastic chemotherapy; Z79.4 Long term (current) use of insulin; Z99.81 Dependence on supplemental oxygen; Z68.29 Body mass index [BMI] 29.0-29.9, adult
CPT/HCPCS: 36415; 36600; 71045; 80048; 80053; 82140; 82164; 82550; 82553; 82803; 82962; 83036; 83880; 84484; 85007; 85025; 86021; 86038; 86140; 86618; 93005; 93010; 94640; 94660; 94760; 96372; 96374; 96375; G0378; A9270-GY; J1815; J1940; J1956; J2930; J7040

== ENCOUNTER 2019-02-05 17:53 | Inpatient (IN) | payer MEDICARE ==
[2019-02-05] MEDS ORDERED: ATROVENT IH ONE ×2 (18:00→18:26)
[2019-02-05] MEDS ORDERED: PROVENTIL IH ONE ×2 (18:00→18:26)
[2019-02-05] MEDS ORDERED: ATIVAN IV ONE (18:43)
[2019-02-05 18:52] LABS: Hematocrit 37.2 % (35.5-45.6); Hemoglobin 12.3 gm/dl (11.8-15.2); Mean Corpuscular HGB Conc 33 % (32-34); Mean Corpuscular Volume 89 fl (84-94); Platelet Count 171 K/mm3 (140-440)
[2019-02-05 18:53] LABS: Red Cell Distribution Width 20.9 % (13.2-15.2)
[2019-02-05 19:24] LABS: Total Cells Counted 100
[2019-02-05 19:25] LABS: BUN/Creatinine Ratio 34; Basophils % (Manual) 0 % (0.0-1.8); Blood Urea Nitrogen 37 mg/dL (9-20); Eosinophils % (Manual) 0 % (0.0-4.3); Hemolysis Index 123; Myelocytes # (Manual) 0.4 K/mm3
[2019-02-05 19:26] LABS: Anisocytosis 1+; Platelet Estimate Consistent w Auto
--- NOTE | 2019-02-05 19:54 | XRay Report ---
PROCEDURE: XR CHEST 1V AP TECHNIQUE: Chest radiograph single view. HISTORY: OMAR COMPARISONS: CXR 01/02/2019 . FINDINGS: Heart: Heart has a left ventricular configuration which is unchanged. Mediastinum/Vessels: The aorta is unfolded, stable. Lungs/Pleural space: Hazy infiltrates in the right hilum and in the left base are noted. Differentia l includes pneumonia versus congestion. Bony thorax: No acute osseous abnormality. Life support devices: None. IMPRESSION: Infiltrates in the right hilum and left base consistent with pneumonia versus congestion This document is electronically signed by Laura Vazquez MD., February 05 2019 07:53:00 PM ET
[2019-02-05] MEDS ORDERED: LASIX IV ONE (19:56)
[2019-02-05] MEDS ORDERED: KIONEX PO ONE (19:57)
--- NOTE | 2019-02-05 19:58 | Emergency Department Report ---
ED Shortness of Breath HPI - General Chief Complaint: Dyspnea/Respdistress Stated Complaint: OMAR Time Seen by Provider: 02/05/19 17:58 Source: family, EMS Mode of arrival: Stretcher Limitations: No Limitations - History of Present Illness Initial Comments: 73-year-old male with end-stage COPD presents to ED and respiratory distress. Patient was discharged from this hospital on yesterday following an admission for acute on chronic respiratory failure. Decision was made for patient to enter hospice. Today patient had first visit with hospice nurse, states he began having mild shortness of breath while she was there. The breathing treatment was administered, patient improved and the hospice nurse left. states shortly after the hospice nurse left, the patient again became short of breath, however much worse this time. EMS was called, patient was placed on CPAP and transported to the ED. Patient given magnesium, Solu-Medrol, albuterol nebs as well. Patient denies chest pain. MD Complaint: shortness of breath -: This afternoon Severity: severe Consistency: constant Improves With: nothing Worsens With: nothing Known History Of: COPD Context: recent illness Treatments Prior to Arrival: NIPPV - Related Data Home Oxygen Therapy: Yes Home Medications Medication Instructions Recorded Confirmed Last Taken Cetirizine HCl [Allergy Relief] 10 mg PO DAILY 01/09/19 02/05/19 02/05/19 Previous Rx's Medication Instructions Recorded Last Taken Type ALBUTEROL NEB's [Proventil 0.083% 2.5 mg IH Q4HRT PRN #15 nebu 02/04/19 02/05/19 Rx NEBS] Acetaminophen [Acetaminophen TAB] 500 mg PO Q6HR PRN #30 02/04/19 02/05/19 Rx Arformoterol Nebu [Brovana Nebu] 15 mcg IH Q12HRT #30 ml 02/04/19 02/05/19 Rx AtorvaSTATin [Lipitor] 40 mg PO QHS #30 02/04/19 02/05/19 Rx Benzonatate [Tessalon Perles] 100 mg PO Q8HR PRN #15 capsule 02/04/19 02/05/19 Rx Budesonide [Pulmicort Respules] 0.5 mg IH Q12HRT #30 nebu 02/04/19 02/05/19 Rx Carvedilol [Coreg] 12.5 mg PO BID #60 02/04/19 02/05/19 Rx Cholecalciferol (Vitamin D3) 1,000 unit PO QDAY #30 02/04/19 02/05/19 Rx [Children's Vitamin D3 1,000 unit CHEW] Clopidogrel [Plavix] 75 mg PO QDAY #30 02/04/19 02/05/19 Rx Famotidine [Pepcid] 20 mg PO BID #30 tablet 02/04/19 02/05/19 Rx Fluticasone [Flonase] 1 spray NS QDAY 5 Days #1 02/04/19 02/05/19 Rx Furosemide [Lasix] 20 mg PO QDAY #30 tablet 02/04/19 02/05/19 Rx Insulin Glargine [Lantus VIAL] 60 units SUB-Q HS #100 units 02/04/19 02/05/19 Rx Ipratropium/Albuterol Sulfate 1 ampul IH Q6HRT #30 ampul.neb 02/04/19 02/05/19 Rx [DUONEB *Not for PRN Use*] Lispro Insulin [HumaLOG] 1 dose SUB-Q ACHS PRN #100 units 02/04/19 02/05/19 Rx Losartan [Cozaar] 50 mg PO QDAY #30 tablet 02/04/19 02/05/19 Rx Sertraline [Zoloft] 150 mg PO QDAY #30 02/04/19 02/05/19 Rx Sildenafil [Revatio] 20 mg PO TID #90 02/04/19 02/05/19 Rx amLODIPine [Norvasc] 10 mg PO DAILY #30 02/04/19 02/05/19 Rx cefUROXime [Ceftin] 500 mg PO Q12H #8 tablet 02/04/19 02/05/19 Rx methylPREDNISolone [Medrol 4MG 1 dose PO QDAY #1 tab.ds.pk 02/04/19 02/05/19 Rx DOSEPAK (21 tabs)] oxyCODONE /ACETAMINOPHEN [Percocet 1 tab PO Q6H PRN #15 tablet 02/04/19 02/05/19 Rx 5/325 mg] Allergies Allergy/AdvReac Type Severity Reaction Status Date / Time No Known Allergies Allergy Verified 12/23/18 10:17 ED Review of Systems ROS: Stated complaint: OMAR Other details as noted in HPI Comment: All other systems reviewed and negative Constitutional: denies: chills, fever Respiratory: shortness of breath Cardiovascular: denies: chest pain ED Past Medical Hx - Past Medical History Hx Hypertension: Yes Hx Congestive Heart Failure: Yes Hx Diabetes: Yes Additional medical history: interstitial lung disease, severe pulmonary hypertension, Obstructive sleep apnea - Surgical History Hx Coronary Stent: Yes Additional Surgical History: neck surgery - Social History Smoking Status: Former Smoker Substance Use Type: None - Medications Home Medications: Home Medications Medication Instructions Recorded Confirmed Last Taken Type Cetirizine HCl [Allergy Relief] 10 mg PO DAILY 01/09/19 02/05/19 02/05/19 History ALBUTEROL NEB's [Proventil 0.083% 2.5 mg IH Q4HRT PRN #15 nebu 02/04/19 02/05/19 02/05/19 Rx NEBS] Acetaminophen [Acetaminophen TAB] 500 mg PO Q6HR PRN #30 02/04/19 02/05/19 02/05/19 Rx Arformoterol Nebu [Brovana Nebu] 15 mcg IH Q12HRT #30 ml 02/04/19 02/05/19 02/05/19 Rx AtorvaSTATin [Lipitor] 40 mg PO QHS #30 02/04/19 02/05/19 02/05/19 Rx Benzonatate [Tessalon Perles] 100 mg PO Q8HR PRN #15 capsule 02/04/19 02/05/19 02/05/19 Rx Budesonide [Pulmicort Respules] 0.5 mg IH Q12HRT #30 nebu 02/04/19 02/05/19 02/05/19 Rx Carvedilol [Coreg] 12.5 mg PO BID #60 02/04/19 02/05/19 02/05/19 Rx Cholecalciferol (Vitamin D3) 1,000 unit PO QDAY #30 02/04/19 02/05/19 02/05/19 Rx [Children's Vitamin D3 1,000 unit CHEW] Clopidogrel [Plavix] 75 mg PO QDAY #30 02/04/19 02/05/19 02/05/19 Rx Famotidine [Pepcid] 20 mg PO BID #30 tablet 02/04/19 02/05/19 02/05/19 Rx Fluticasone [Flonase] 1 spray NS QDAY 5 Days #1 02/04/19 02/05/19 02/05/19 Rx Furosemide [Lasix] 20 mg PO QDAY #30 tablet 02/04/19 02/05/19 02/05/19 Rx Insulin Glargine [Lantus VIAL] 60 units SUB-Q HS #100 units 02/04/19 02/05/19 02/05/19 Rx Ipratropium/Albuterol Sulfate 1 ampul IH Q6HRT #30 ampul.neb 02/04/19 02/05/19 02/05/19 Rx [DUONEB *Not for PRN Use*] Lispro Insulin [HumaLOG] 1 dose SUB-Q ACHS PRN #100 units 02/04/19 02/05/19 02/05/19 Rx Losartan [Cozaar] 50 mg PO QDAY #30 tablet 02/04/19 02/05/19 02/05/19 Rx Sertraline [Zoloft] 150 mg PO QDAY #30 02/04/19 02/05/19 02/05/19 Rx Sildenafil [Revatio] 20 mg PO TID #90 02/04/19 02/05/19 02/05/19 Rx amLODIPine [Norvasc] 10 mg PO DAILY #30 02/04/19 02/05/19 02/05/19 Rx cefUROXime [Ceftin] 500 mg PO Q12H #8 tablet 02/04/19 02/05/19 02/05/19 Rx methylPREDNISolone [Medrol 4MG 1 dose PO QDAY #1 tab.ds.pk 02/04/19 02/05/19 02/05/19 Rx DOSEPAK (21 tabs)] oxyCODONE /ACETAMINOPHEN [Percocet 1 tab PO Q6H PRN #15 tablet 02/04/19 02/05/19 02/05/19 Rx 5/325 mg] ED Physical Exam - General Limitations: No Limitations General appearance: alert, in distress - Head Head exam: Present: atraumatic, normocephalic - Eye Eye exam: Present: normal appearance - ENT ENT exam: Present: mucous membranes moist - Neck Neck exam: Present: normal inspection - Respiratory Respiratory exam: Present: respiratory distress, decreased breath sounds, other (tachypneic) - Cardiovascular Cardiovascular Exam: Present: normal rhythm, tachycardia - GI/Abdominal GI/Abdominal exam: Present: soft. Absent: distended, tenderness - Extremities Exam Extremities exam: Absent: pedal edema, calf tenderness - Neurological Exam Neurological exam: Present: alert, oriented X3 - Psychiatric Psychiatric exam: Present: normal affect, normal mood - Skin Skin exam: Present: warm, dry, intact, normal color ED Course Vital Signs 02/05/19 02/05/19 02/05/19 17:57 17:58 17:59 Pulse Rate 113 H 109 H Pulse Rate [ 118 H Bilateral] Respiratory 40 H 30 H Rate Respiratory 38 H Rate [Bilateral ] Blood Pressure 95/59 O2 Sat by Pulse 86 90 Oximetry 02/05/19 02/05/19 02/05/19 18:00 18:04 18:05 Pulse Rate 109 H 110 H 115 H Pulse Rate [ Bilateral] Respiratory 41 H 30 H 37 H Rate Respiratory Rate [Bilateral ] Blood Pressure 95/59 95/59 O2 Sat by Pulse 90 91 90 Oximetry 02/05/19 02/05/19 02/05/19 18:15 18:31 18:45 Pulse Rate 112 H 117 H 117 H Pulse Rate [ Bilateral] Respiratory 38 H 39 H 35 H Rate Respiratory Rate [Bilateral ] Blood Pressure 86/59 118/69 118/69 O2 Sat by Pulse 92 92 94 Oximetry 02/05/19 02/05/19 02/05/19 19:01 19:15 19:31 Pulse Rate 116 H 120 H 118 H Pulse Rate [ Bilateral] Respiratory 32 H 34 H 35 H Rate Respiratory Rate [Bilateral ] Blood Pressure 118/69 118/69 118/69 O2 Sat by Pulse 92 91 91 Oximetry 02/05/19 02/05/19 02/05/19 19:45 20:01 20:15 Pulse Rate 120 H 114 H 114 H Pulse Rate [ Bilateral] Respiratory 37 H 32 H 38 H Rate Respiratory Rate [Bilateral ] Blood Pressure 118/69 118/69 103/63 O2 Sat by Pulse 88 86 92 Oximetry 02/05/19 02/05/19 02/05/19 20:31 20:45 21:00 Pulse Rate 107 H 109 H 105 H Pulse Rate [ Bilateral] Respiratory 38 H 34 H 36 H Rate Respiratory Rate [Bilateral ] Blood Pressure 102/71 107/70 92/63 O2 Sat by Pulse 93 92 93 Oximetry 02/05/19 02/05/19 02/05/19 21:15 21:31 21:33 Pulse Rate 106 H 102 H 102 H Pulse Rate [ Bilateral] Respiratory 35 H 32 H 36 H Rate Respiratory Rate [Bilateral ] Blood Pressure 107/70 104/59 104/59 O2 Sat by Pulse 95 93 94 Oximetry 02/05/19 02/05/19 02/05/19 21:45 22:00 22:15 Pulse Rate 102 H 105 H 100 H Pulse Rate [ Bilateral] Respiratory 35 H 39 H 33 H Rate Respiratory Rate [Bilateral ] Blood Pressure 102/66 101/64 101/64 O2 Sat by Pulse 94 94 96 Oximetry 02/05/19 02/05/19 02/05/19 22:31 23:15 23:31 Pulse Rate 99 H 96 H 92 H Pulse Rate [ Bilateral] Respiratory 34 H 32 H 33 H Rate Respiratory Rate [Bilateral ] Blood Pressure 92/66 82/56 90/61 O2 Sat by Pulse 93 96 94 Oximetry 02/05/19 02/06/19 02/06/19 23:45 00:00 00:15 Pulse Rate 90 87 86 Pulse Rate [ Bilateral] Respiratory 30 H 28 H 30 H Rate Respiratory Rate [Bilateral ] Blood Pressure 90/61 93/64 93/64 O2 Sat by Pulse 95 95 97 Oximetry 02/06/19 02/06/19 00:31 00:45 Pulse Rate 85 85 Pulse Rate [ Bilateral] Respiratory 27 H 26 H Rate Respiratory Rate [Bilateral ] Blood Pressure 87/54 86/58 O2 Sat by Pulse 98 99 Oximetry - Consultations Consultation #1: 02/05/19 20:33 Spoke w/ [facility] physician, Dr Rivera. Ok for pt to remain here at [facility] for admission. ED Medical Decision Making - Lab Data Result diagrams: 02/05/19 18:33 02/05/19 18:33 - EKG Data -: EKG Interpreted by Me EKG shows normal: sinus rhythm Rate: tachycardia (rate 116) - EKG Data When compared to previous EKG there are: no significant change Interpretation: other (RBBB) - Radiology Data Radiology results: report reviewed, image reviewed - Medical Decision Making 73-year-old male with end-stage COPD with acute on chronic respiratory failure. Patient currently on BiPAP and symptoms have improved significantly. Chest x- ray shows pneumonia versus congestion. IV Lasix given. Creatinine normal, however her potassium mildly elevated at 5.5, so Kayexalate was given. EKG showed no ST changes, troponin slightly elevated at 0.05. Patient was discharged from this facility 2 days ago, however will be re-admitted to hospitalist, Dr. Gustafson for further management. - Differential Diagnosis COPD, CHF, pneumonia Critical Care Time: Yes Critical care time in (mins) excluding proc time.: 35 Critical care attestation.: If time is entered above; I have spent that time in minutes in the direct care of this critically ill patient, excluding procedure time. Critical Care Time: 35 minutes ED Disposition Clinical Impression: Respiratory distress, Acute respiratory failure with hypoxia, CHF exacerbation, Pneumonia, Hyperkalemia Disposition: OP ADMIT IP TO THIS HOSP Is pt being admited?: Yes Condition: Stable Time of Disposition: 19:58
[2019-02-05 20:22] LABS: Chol/HDL Ratio 3.66 %
[2019-02-05] MEDS ORDERED: TYLENOL PO PRN ×2 (21:12→21:22)
[2019-02-05] MEDS ORDERED: DILAUDID IV PRN (21:12)
[2019-02-05] MEDS ORDERED: PERCOCET 5/325 PO PRN (21:12)
[2019-02-05] MEDS ORDERED: ZOFRAN IV PRN (21:12)
[2019-02-05] MEDS ORDERED: PROVENTIL IH PRN (21:19)
--- NOTE | 2019-02-05 21:29 | History and Physical Report ---
History of Present Illness Date of examination: 02/05/19 Date of admission: 02/05/19 Chief complaint: Increasing SOB for one day History of present illness: 73-year-old male with end-stage COPD presents to ED and respiratory distress. Patient was discharged from this hospital yesterday following an admission for acute on chronic respiratory failure. Decision was made for patient to enter hospice. Today patient had first visit with hospice nurse, states he began having mild shortness of breath while she was there. The breathing treatment was administered, patient improved and the hospice nurse left. states shortly after the hospice nurse left, the patient again became short of breath, however much worse this time. EMS was called, patient was placed on CPAP and transported to the ED. Patient given magnesium, Solu-Medrol, albuterol nebs as well. Patient denies chest pain. Past Medical History Hypertension: Yes Congestive Heart Failure: Yes Diabetes: Yes Additional medical history: interstitial lung disease, severe pulmonary hypertension, Obstructive sleep apnea Surgical History Coronary Stent: Yes Additional Surgical History: neck surgery Social History Smoking Status: Former Smoker Substance Use Type: None Family History Htn Review of Systems ROS: Stated complaint: OMAR Other details as noted in HPI Comment: All other systems reviewed and negative Constitutional: denies: chills, fever Respiratory: shortness of breath Cardiovascular: denies: chest pain Medications and Allergies Allergies Allergy/AdvReac Type Severity Reaction Status Date / Time No Known Allergies Allergy Verified 12/23/18 10:17 Home Medications Medication Instructions Recorded Confirmed Last Taken Type Cetirizine HCl [Allergy Relief] 10 mg PO DAILY 01/09/19 02/05/19 02/05/19 History ALBUTEROL NEB's [Proventil 0.083% 2.5 mg IH Q4HRT PRN #15 nebu 02/04/19 02/05/19 02/05/19 Rx NEBS] Acetaminophen [Acetaminophen TAB] 500 mg PO Q6HR PRN #30 02/04/19 02/05/19 02/05/19 Rx Arformoterol Nebu [Brovana Nebu] 15 mcg IH Q12HRT #30 ml 02/04/19 02/05/19 02/05/19 Rx AtorvaSTATin [Lipitor] 40 mg PO QHS #30 02/04/19 02/05/19 02/05/19 Rx Benzonatate [Tessalon Perles] 100 mg PO Q8HR PRN #15 capsule 02/04/19 02/05/19 02/05/19 Rx Budesonide [Pulmicort Respules] 0.5 mg IH Q12HRT #30 nebu 02/04/19 02/05/19 02/05/19 Rx Carvedilol [Coreg] 12.5 mg PO BID #60 02/04/19 02/05/19 02/05/19 Rx Cholecalciferol (Vitamin D3) 1,000 unit PO QDAY #30 02/04/19 02/05/19 02/05/19 Rx [Children's Vitamin D3 1,000 unit CHEW] Clopidogrel [Plavix] 75 mg PO QDAY #30 02/04/19 02/05/19 02/05/19 Rx Famotidine [Pepcid] 20 mg PO BID #30 tablet 02/04/19 02/05/19 02/05/19 Rx Fluticasone [Flonase] 1 spray NS QDAY 5 Days #1 02/04/19 02/05/19 02/05/19 Rx Furosemide [Lasix] 20 mg PO QDAY #30 tablet 02/04/19 02/05/19 02/05/19 Rx Insulin Glargine [Lantus VIAL] 60 units SUB-Q HS #100 units 02/04/19 02/05/19 02/05/19 Rx Ipratropium/Albuterol Sulfate 1 ampul IH Q6HRT #30 ampul.neb 02/04/19 02/05/19 02/05/19 Rx [DUONEB *Not for PRN Use*] Lispro Insulin [HumaLOG] 1 dose SUB-Q ACHS PRN #100 units 02/04/19 02/05/19 02/05/19 Rx Losartan [Cozaar] 50 mg PO QDAY #30 tablet 02/04/19 02/05/19 02/05/19 Rx Sertraline [Zoloft] 150 mg PO QDAY #30 02/04/19 02/05/19 02/05/19 Rx Sildenafil [Revatio] 20 mg PO TID #90 02/04/19 02/05/19 02/05/19 Rx amLODIPine [Norvasc] 10 mg PO DAILY #30 02/04/19 02/05/1919 Rx cefUROXime [Ceftin] 500 mg PO Q12H #8 tablet 02/04/19 02/05/19 02/05/19 Rx methylPREDNISolone [Medrol 4MG 1 dose PO QDAY #1 tab.ds.pk 02/04/19 02/05/19 02/05/19 Rx DOSEPAK (21 tabs)] oxyCODONE /ACETAMINOPHEN [Percocet 1 tab PO Q6H PRN #15 tablet 02/04/19 02/05/19 02/05/19 Rx 5/325 mg] Exam - Constitutional Vitals: Temp Pulse Resp BP Pulse Ox 114 H 32 H 118/69 86 02/05/19 20:01 02/05/19 20:01 02/05/19 20:01 02/05/19 20:01 General appearance: Present: severe distress, well-nourished - EENT Eyes: Present: PERRL ENT: hearing intact, clear oral mucosa - Neck Neck: Present: supple, normal ROM - Respiratory Respiratory effort: normal Respiratory: bilateral: CTA, diminished, rhonchi - Cardiovascular Heart rate: 80 Rhythm: regular Heart Sounds: Present: S1 & S2. Absent: rub, click - Extremities Extremities: no ischemia, pulses intact, pulses symmetrical, No edema Peripheral Pulses: within normal limits - Abdominal General gastrointestinal: Present: soft, non-tender, non-distended, normal bowel sounds Male genitourinary: Present: normal - Rectal Rectal Exam: deferred - Integumentary Integumentary: Present: clear, warm, dry - Musculoskeletal Musculoskeletal: gait normal, strength equal bilaterally - Psychiatric Psychiatric: appropriate mood/affect, intact judgment & insight - Neurologic Neurologic: CNII-XII intact, moves all extremities - Allied Health Allied health notes reviewed: nursing Results - Labs CBC & Chem 7: 02/06/19 04:25 02/06/19 04:25 Labs: Laboratory Last Values WBC 20.3 K/mm3 (4.5-11.0) H 02/05/19 18:33 RBC 4.20 M/mm3 (3.65-5.03) 02/05/19 18:33 Hgb 12.3 gm/dl (11.8-15.2) 02/05/19 18:33 Hct 37.2 % (35.5-45.6) 02/05/19 18:33 MCV 89 fl (84-94) 02/05/19 18:33 MCH 29 pg (28-32) 02/05/19 18:33 MCHC 33 % (32-34) 02/05/19 18:33 RDW 20.9 % (13.2-15.2) H 02/05/19 18:33 Plt Count 171 K/mm3 (140-440) 02/05/19 18:33 Add Manual Diff Complete 02/05/19 18:33 Total Counted 100 02/05/19 18:33 Seg Neutrophils % Oral Hygienist 02/05/19 18:33 Seg Neuts % (Manual) 96.0 % (40.0-70.0) H 02/05/19 18:33 0 % 02/05/19 18:33 1.0 % (13.4-35.0) L 02/05/19 18:33 Reactive Lymphs % (Man) 0 % 02/05/19 18:33 1.0 % (0.0-7.3) 02/05/19 18:33 0 % (0.0-4.3) 02/05/19 18:33 0 % (0.0-1.8) 02/05/19 18:33 0 % 02/05/19 18:33 2.0 % 02/05/19 18:33 0 % 02/05/19 18:33 0 % 02/05/19 18:33 Nucleated RBC % Not Reportable 02/05/19 18:33 Seg Neutrophils # Man 19.5 K/mm3 (1.8-7.7) H 02/05/19 18:33 Band Neutrophils # 0.0 K/mm3 02/05/19 18:33 0.2 K/mm3 (1.2-5.4) L 02/05/19 18:33 Abs React Lymphs (Man) 0.0 K/mm3 02/05/19 18:33 0.2 K/mm3 (0.0-0.8) 02/05/19 18:33 0.0 K/mm3 (0.0-0.4) 02/05/19 18:33 0.0 K/mm3 (0.0-0.1) 02/05/19 18:33 0.0 K/mm3 02/05/19 18:33 0.4 K/mm3 02/05/19 18:33 0.0 K/mm3 02/05/19 18:33 Blast Cells # 0.0 K/mm3 02/05/19 18:33 WBC Morphology Not Reportable 02/05/19 18:33 Hypersegmented Neuts Not Reportable 02/05/19 18:33 Hyposegmented Neuts Not Reportable 02/05/19 18:33 Hypogranular Neuts Not Reportable 02/05/19 18:33 Not Reportable 02/05/19 18:33 Not Reportable 02/05/19 18:33 Not Reportable 02/05/19 18:33 Not Reportable 02/05/19 18:33 Not Reportable 02/05/19 18:33 Not Reportable 02/05/19 18:33 Consistent w auto 02/05/19 18:33 Not Reportable 02/05/19 18:33 Plt Clumps, EDTA Not Reportable 02/05/19 18:33 Not Reportable 02/05/19 18:33 Not Reportable 02/05/19 18:33 Not Reportable 02/05/19 18:33 Plt Morphology Comment Not Reportable 02/05/19 18:33 RBC Morphology Not Reportable 02/05/19 18:33 Dimorphic RBCs Not Reportable 02/05/19 18:33 Not Reportable 02/05/19 18:33 Not Reportable 02/05/19 18:33 Not Reportable 02/05/19 18:33 1+ 02/05/19 18:33 Not Reportable 02/05/19 18:33 Not Reportable 02/05/19 18:33 Not Reportable 02/05/19 18:33 Not Reportable 02/05/19 18:33 Not Reportable 02/05/19 18:33 Not Reportable 02/05/19 18:33 Not Reportable 02/05/19 18:33 Not Reportable 02/05/19 18:33 Not Reportable 02/05/19 18:33 Not Reportable 02/05/19 18:33 Not Reportable 02/05/19 18:33 Not Reportable 02/05/19 18:33 Not Reportable 02/05/19 18:33 Not Reportable 02/05/19 18:33 Few 02/05/19 18:33 Acanthocytes (Spur) Not Reportable 02/05/19 18:33 Rouleaux Not Reportable 02/05/19 18:33 Not Reportable 02/05/19 18:33 Not Reportable 02/05/19 18:33 Not Reportable 02/05/19 18:33 Not Reportable 02/05/19 18:33 Hem Pathologist Commnt No 02/05/19 18:33 883.25 ng/mlDDU (0-234) H 02/05/19 18:33 Sodium 137 mmol/L (137-145) 02/05/19 18:33 Potassium 5.5 mmol/L (3.6-5.0) H 02/05/19 18:33 Chloride 102.5 mmol/L (98-107) 02/05/19 18:33 Carbon Dioxide 21 mmol/L (22-30) L 02/05/19 18:33 19 mmol/L 02/05/19 18:33 BUN 37 mg/dL (9-20) H 02/05/19 18:33 1.1 mg/dL (0.8-1.5) 02/05/19 18:33 Estimated GFR > 60 ml/min 02/05/19 18:33 34 % 02/05/19 18:33 Glucose 286 mg/dL (75-100) H 02/05/19 18:33 Calcium 9.0 mg/dL (8.4-10.2) 02/05/19 18:33 0.050 ng/mL (0.00-0.029) H D 02/05/19 19:22 NT-Pro-B Natriuret Pep 694.3 pg/mL (0-900) 02/05/19 19:22 Triglycerides 107 mg/dL (2-149) 02/05/19 19:22 Cholesterol 99 mg/dL (50-199) 02/05/19 19:22 64 mg/dL (50-130) 02/05/19 19:22 27 mg/dL (40-59) L 02/05/19 19:22 3.66 % 02/05/19 19:22 Short CBC 02/05/19 02/06/19 Range/Units 18:33 04:25 WBC 20.3 H 17.6 H (4.5-11.0) K/mm3 Hgb 12.3 11.8 (11.8-15.2) gm/dl Hct 37.2 36.3 (35.5-45.6) % Plt Count 171 148 (140-440) K/mm3 BMP 02/05/19 02/06/19 18:33 04:25 Sodium 137 138 Potassium 5.5 H 6.3 H* Chloride 102.5 99.9 Carbon Dioxide 21 L 24 BUN 37 H 51 H Creatinine 1.1 2.0 H D Glucose 286 H 368 H Calcium 9.0 8.3 L Cardiac Enzymes 02/05/19 02/05/19 Range/Units 18:33 19:22 Troponin T 0.019 0.050 H D (0.00-0.029) ng/mL Liver Function 02/06/19 Range/Units 04:25 Total Bilirubin 1.00 (0.1-1.2) mg/dL AST 18 (5-40) units/L ALT 19 (7-56) units/L Alkaline Phosphatase 72 (35-129) units/L Albumin 3.3 L (3.9-5) g/dL - Imaging and Cardiology EKG: report reviewed (NSR 91/min) Chest x-ray: report reviewed Imaging and Cardiology: CXR IMPRESSION: Infiltrates in the right hilum and left base consistent with pneumonia versus congestion This document is electronically signed by Laura Vazquez MD., February 05 2019 07:53:00 PM ET Assessment and Plan Assessment and plan: (1) Acute respiratory failure with hypoxia Current Visit: Yes Status: Acute Plan to address problem: Patient's oxygen saturations were in mid 50s Even with 50% FiO2-sats was 80 Patient is on BiPAP We will intubate if necessary IV Solu-Medrol at 125 mg every 6 hours IV Levaquin and nebulizer treatments every 3 when necessary every 6 hours [id number] started Pulmonary was consulted (2) COPD with acute exacerbation Current Visit: Yes Status: Acute Plan to address problem: Patient's oxygen saturations were in mid 50s Even with 50% FiO2--oxygen was 79 Patient is on BiPAP We will intubate if necessary IV Solu-Medrol at 125 mg every 6 hours IV Levaquin and nebulizer treatments every 3 when necessary every 6 hours [id number] started Pulmonary was consulted (3)Hyperkalemia Treated (4) Hypertension Current Visit: Yes Status: Chronic Qualifiers: Hypertension type: essential hypertension Qualified Code(s): I10 - Essential (primary) hypertension Plan to address problem: Continue antihypertensive (6) Insulin dependent diabetes mellitus Current Visit: Yes Status: Chronic Plan to address problem: Continue home insulin and coverage (7) Hyperlipidemia Current Visit: Yes Status: Chronic Qualifiers: Hyperlipidemia type: mixed hyperlipidemia Qualified Code(s): E78.2 - Mixed hyperlipidemia Plan to address problem: Continue statins (8) Pulmonary hypertension Current Visit: Yes Status: Chronic Plan to address problem: Patient on sildenafil 20 mg 3 times a day. Continue the same (9) Coronary artery disease Current Visit: Yes Status: Chronic Qualifiers: Coronary Disease-Associated Artery/Lesion type: [place] artery Associated angina: without angina Plan to address problem: Continue Plavix (10) Lactic acid acidosis Current Visit: Yes Status: Acute Plan to address problem: Probably nonspecific. We will trend the lactic acid (11) Prostate cancer Current Visit: Yes Status: Chronic Plan to address problem: Supportive care (12) DVT prophylaxis Current Visit: Yes Status: Acute Plan to address problem: On Lovenox and GI prophylaxis Advance Directives: Yes (full code)
[2019-02-05] MEDS ORDERED: NON-FORMULARY (Cetirizine Hcl [Allergy Relief] 10 MG) PO SCH (21:30)
[2019-02-05] MEDS: ROCEPHIN/NS 2 GM/100 ML 2 GM/100 ML BAG IV SCH (21:53)
[2019-02-05] MEDS ORDERED: PEPCID PO SCH (22:00)
[2019-02-05] MEDS: ZITHROMAX 500 MG in NACL 0.9% 250ML 250 ML IV SCH (22:16)
[2019-02-05] MEDS: FLONASE NS SCH (23:28)
[2019-02-05] MEDS: LANTUS SUB-Q SCH (23:28)
[2019-02-05] MEDS: COREG PO SCH (23:28)
[2019-02-05] MEDS: NORVASC PO SCH (23:28)
[2019-02-05] MEDS ORDERED: COZAAR ONE (23:37)
[2019-02-05] MEDS ORDERED: PEPCID ONE (23:37)
[2019-02-05] MEDS ORDERED: PLAVIX ONE (23:37)
[2019-02-05] MEDS ORDERED: SOLU-Medrol ONE (23:37)
[2019-02-05] MEDS: SODIUM CHLORIDE FLUSH SYRINGE 10 ML IV SCH (23:39)
[2019-02-05] MEDS: COZAAR PO SCH (23:39)
[2019-02-05] MEDS: SOLU-Medrol IV SCH (23:39)
[2019-02-05] MEDS: PLAVIX PO SCH (23:39)
[2019-02-06] MEDS: BROVANA NEBU IH SCH ×3 (03:25→19:54)
[2019-02-06] MEDS: PULMICORT IH SCH ×3 (03:27→19:54)
[2019-02-06 04:44] LABS: Hematocrit 36.3 % (35.5-45.6); Hemoglobin 11.8 gm/dl (11.8-15.2); Mean Corpuscular HGB Conc 32 % (32-34); Mean Corpuscular Volume 89 fl (84-94); Platelet Count 148 K/mm3 (140-440); Red Blood Count 4.09 M/mm3 (3.65-5.03)
[2019-02-06 04:51] LABS: Red Cell Distribution Width 20.7 % (13.2-15.2)
[2019-02-06 05:01] LABS: Albumin 3.3 g/dL (3.9-5); Calcium 8.3 mg/dL (8.4-10.2)
[2019-02-06 05:50] LABS: Band Neutrophils # (Manual) 0.2 K/mm3; Basophils % (Manual) 0 % (0.0-1.8); Eosinophils % (Manual) 0 % (0.0-4.3); Total Cells Counted 100
[2019-02-06 05:51] LABS: Anisocytosis 1+; Ovalocytes Few; Platelet Estimate Consistent w Auto; Poikilocytosis 1+
[2019-02-06] MEDS ORDERED: SOLU-Medrol ONE ×2 (06:13→14:50)
[2019-02-06] MEDS: SOLU-Medrol IV SCH ×3 (06:27→22:10)
[2019-02-06] MEDS ORDERED: CALCIUM GLUCONATE 2,000 MG in NACL 0.9% 100 ML IV ONE (07:22)
[2019-02-06] MEDS: DUONEB *Not for PRN Use IH SCH ×4 (07:45→19:54)
[2019-02-06] MEDS ORDERED: BROVANA NEBU IH ONE (07:46)
[2019-02-06] MEDS ORDERED: DUONEB *Not for PRN Use IH ONE ×2 (07:47→16:27)
[2019-02-06] MEDS ORDERED: PULMICORT IH ONE (07:47)
--- NOTE | 2019-02-06 07:48 | Consultation ---
History of Present Illness Consult date: 02/06/19 Requesting physician: ROSETTE MCKEON Reason for consult: hypoxemia, pulmonary hypertension, other (acute on chronic hypoxemic respiratory failure, Interstial lung disease) History of present illness: 73-year-old male with end-stage COPD presents to ED and respiratory distress. Patient was discharged from this hospital 02/04/2019 following an admission for acute on chronic respiratory failure. Decision was made for patient to enter hospice. Today patient had first visit with hospice nurse, states he began having mild shortness of breath while she was there. The breathing treatment was administered, patient improved and the hospice nurse left. states shortly after the hospice nurse left, the patient again became short of breath, however much worse this time. EMS was called, patient was placed on CPAP and transported to the ED. Patient given magnesium, Solu-Medrol, albuterol nebs as well. Patient denies chest pain. I have been consulted for acute on chronic hypoxic respiratory failure, pulmo nary hypertension and ILD/COPD-AE Patient seen and examined. Vitals, labs, medications, chart and imaging reviewed. at the bedside. History essentially as documented. She states that if he requires mechanical ventilatory support that they want us to proceed with it. Past Medical History Hypertension: Yes Congestive Heart Failure: Yes Diabetes: Yes Additional medical history: interstitial lung disease, severe pulmonary hypertension, Obstructive sleep apnea Surgical History Coronary Stent: Yes Additional Surgical History: neck surgery Social History Smoking Status: Former Smoker Substance Use Type: None Family History HTN Medications and Allergies Allergies Allergy/AdvReac Type Severity Reaction Status Date / Time No Known Allergies Allergy Verified 12/23/18 10:17 Home Medications Medication Instructions Recorded Confirmed Last Taken Type Cetirizine HCl [Allergy Relief] 10 mg PO DAILY 01/09/19 02/05/19 02/05/19 History ALBUTEROL NEB's [Proventil 0.083% 2.5 mg IH Q4HRT PRN #15 nebu 02/04/19 02/05/19 02/05/19 Rx NEBS] Acetaminophen [Acetaminophen TAB] 500 mg PO Q6HR PRN #30 02/04/19 02/05/19 02/05/19 Rx Arformoterol Nebu [Brovana Nebu] 15 mcg IH Q12HRT #30 ml 02/04/19 02/05/19 02/05/19 Rx AtorvaSTATin [Lipitor] 40 mg PO QHS #30 02/04/19 02/05/19 02/05/19 Rx Benzonatate [Tessalon Perles] 100 mg PO Q8HR PRN #15 capsule 02/04/19 02/05/19 02/05/19 Rx Budesonide [Pulmicort Respules] 0.5 mg IH Q12HRT #30 nebu 02/04/19 02/05/19 02/05/19 Rx Carvedilol [Coreg] 12.5 mg PO BID #60 02/04/19 02/05/19 02/05/19 Rx Cholecalciferol (Vitamin D3) 1,000 unit PO QDAY #30 02/04/19 02/05/19 02/05/19 Rx [Children's Vitamin D3 1,000 unit CHEW] Clopidogrel [Plavix] 75 mg PO QDAY #30 02/04/19 02/05/19 02/05/19 Rx Famotidine [Pepcid] 20 mg PO BID #30 tablet 02/04/19 02/05/19 02/05/19 Rx Fluticasone [Flonase] 1 spray NS QDAY 5 Days #1 02/04/19 02/05/19 02/05/19 Rx Furosemide [Lasix TAB] 20 mg PO QDAY #30 tablet 02/04/19 02/05/19 02/05/19 Rx Insulin Glargine [Lantus VIAL] 60 units SUB-Q HS #100 units 02/04/19 02/05/19 02/05/19 Rx Ipratropium/Albuterol Sulfate 1 ampul IH Q6HRT #30 ampul.neb 02/04/19 02/05/19 02/05/19 Rx [DUONEB *Not for PRN Use*] Lispro Insulin [HumaLOG] 1 dose SUB-Q ACHS PRN #100 units 02/04/19 02/05/19 02/05/19 Rx Losartan [Cozaar] 50 mg PO QDAY #30 tablet 02/04/19 02/05/19 02/05/19 Rx Sertraline [Zoloft] 150 mg PO QDAY #30 02/04/19 02/05/19 02/05/19 Rx Sildenafil [Revatio] 20 mg PO TID #90 02/04/19 02/05/19 02/05/19 Rx amLODIPine [Norvasc] 10 mg PO DAILY #30 02/04/19 02/05/19 02/05/19 Rx oxyCODONE /ACETAMINOPHEN [Percocet 1 tab PO Q6H PRN #15 tablet 02/04/19 02/05/19 02/05/19 Rx 5/325 mg] methylPREDNISolone [Medrol 4MG 1 dose PO QDAY #1 tab.ds.pk 02/10/19 Unknown Rx DOSEPAK (21 tabs)] Active Meds: Active Medications Acetaminophen (Tylenol) 650 mg PO Q4H PRN PRN Reason: Pain MILD(1-3)/Fever >100.5/QUILES Acetaminophen (Tylenol) 500 mg PO Q6HR PRN PRN Reason: Pain, Moderate (4-6) Albuterol (Proventil) 2.5 mg IH Q4HRT PRN PRN Reason: Shortness Of Breath Albuterol/Ipratropium (Duoneb *Not For Prn Use*) 1 ampul IH QIDRT [facility] Last Admin: 02/06/19 07:45 Dose: 1 ampul Documented by: Amlodipine Besylate (Norvasc) 10 mg PO DAILY [facility] Last Admin: 02/05/19 23:28 Dose: 10 mg Documented by: Arformoterol Tartrate (Brovana Nebu) 15 mcg IH Q12HRT [facility] Last Admin: 02/06/19 03:25 Dose: Not Given Documented by: Atorvastatin Calcium (Lipitor) 40 mg PO QHS [facility] Last Admin: 02/05/19 23:28 Dose: 40 mg Documented by: Benzonatate (Tessalon Perles) 100 mg PO Q8HR PRN PRN Reason: Cough Budesonide (Pulmicort) 0.5 mg IH Q12HRT [facility] Last Admin: 02/06/19 07:45 Dose: 0.5 mg Documented by: Carvedilol (Coreg) 12.5 mg PO BID [facility] Last Admin: 02/05/19 23:28 Dose: 12.5 mg Documented by: Cholecalciferol (Vitamin D3) 1,000 unit PO DAILY [facility] Clopidogrel Bisulfate (Plavix) 75 mg PO QDAY [facility] Last Admin: 02/05/19 23:39 Dose: 75 mg Documented by: Enoxaparin Sodium (Lovenox) 30 mg SUB-Q QDAY [facility] Famotidine (Pepcid) 20 mg PO DAILY [facility] Fluticasone Propionate (Flonase) 50 mcg NS QDAY [facility] Last Admin: 02/05/19 23:28 Dose: 50 mcg Documented by: Furosemide (Lasix) 20 mg PO QDAY [facility] Hydromorphone HCl (Dilaudid) 0.5 mg IV Q3H PRN PRN Reason: Pain , Severe (7-10) Azithromycin 500 mg/ Sodium (Chloride) 250 mls @ 250 mls/hr IV Q24H [facility] Last Admin: 02/05/19 22:16 Dose: 250 mls/hr Documented by: Ceftriaxone Sodium (Rocephin/Ns 2 Gm/100 Ml) 2 gm in 100 mls @ 200 mls/hr IV Q24H [facility]; Protocol Last Admin: 02/05/19 21:53 Dose: 200 mls/hr Documented by: Insulin Glargine (Lantus) 60 units SUB-Q [facility] Last Admin: 02/05/19 23:28 Dose: 60 units Documented by: Loratadine (Claritin) 10 mg PO DAILY [facility] Losartan Potassium (Cozaar) 50 mg PO QDAY [facility] Last Admin: 02/05/19 23:39 Dose: 50 mg Documented by: Methylprednisolone Sodium Succinate (Solu-Medrol) 125 mg IV Q8HR [facility] Last Admin: 02/06/19 06:27 Dose: 125 mg Documented by: Ondansetron HCl (Zofran) 4 mg IV Q8H PRN PRN Reason: Nausea And Vomiting Oxycodone/Acetaminophen (Percocet 5/325) 1 tab PO Q6H PRN PRN Reason: Pain, Moderate (4-6) Sertraline HCl (Zoloft) 150 mg PO QDAY [facility] Sildenafil Citrate (Revatio) 20 mg PO TID [facility] Sodium Chloride (Sodium Chloride Flush Syringe 10 Ml) 10 ml IV BID [facility] Last Admin: 02/05/19 23:39 Dose: 10 ml Documented by: Sodium Chloride (Sodium Chloride Flush Syringe 10 Ml) 10 ml IV PRN PRN PRN Reason: LINE FLUSH Physical Examination Vital signs: Vital Signs Pulse Resp Pulse Ox 113 H 40 H 86 02/05/19 17:57 02/05/19 17:57 02/05/19 17:57 General appearance: Present: mild distress, well-nourished - EENT Eyes: Present: PERRL ENT: hearing intact, clear oral mucosa - Neck Neck: Present: supple, normal ROM - Respiratory Respiratory effort: normal Respiratory: bilateral: CTA, diminished, rhonchi - Cardiovascular Heart rate: 80 Rhythm: regular Heart Sounds: Present: S1 & S2. Absent: rub, click - Extremities Extremities: no ischemia, pulses intact, pulses symmetrical, No edema Peripheral Pulses: within normal limits - Abdominal General gastrointestinal: Present: soft, non-tender, non-distended, normal bowel sounds Male genitourinary: Present: normal - Rectal Rectal Exam: deferred - Integumentary Integumentary: Present: clear, warm, dry - Musculoskeletal Musculoskeletal: gait normal, strength equal bilaterally - Psychiatric Psychiatric: appropriate mood/affect, intact judgment & insight - Neurologic Neurologic: CNII-XII intact, moves all extremities Results - Laboratory Findings CBC and BMP: 02/07/19 04:10 02/09/19 05:16 PT/INR, D-dimer 883.25 ng/mlDDU (0-234) H 02/05/19 18:33 Abnormal lab findings: Abnormal Labs 02/05/19 02/05/19 02/05/19 18:33 18:33 18:33 WBC 20.3 H RDW 20.9 H Seg Neuts % (Manual) 96.0 H Lymphocytes % (Manual) 1.0 L Seg Neutrophils # Man 19.5 H Lymphocytes # (Manual) 0.2 L D-Dimer 883.25 H Potassium 5.5 H Carbon Dioxide 21 L BUN 37 H Creatinine Glucose 286 H POC Glucose Calcium Troponin T Albumin HDL Cholesterol 02/05/19 02/05/19 02/06/19 19:22 23:29 04:25 WBC 17.6 H RDW 20.7 H Seg Neuts % (Manual) 95.0 H Lymphocytes % (Manual) 2.0 L Seg Neutrophils # Man 16.7 H Lymphocytes # (Manual) 0.4 L D-Dimer Potassium Carbon Dioxide BUN Creatinine Glucose POC Glucose 327 H Calcium Troponin T 0.050 H D Albumin HDL Cholesterol 27 L 02/06/19 04:25 WBC RDW Seg Neuts % (Manual) Lymphocytes % (Manual) Seg Neutrophils # Man Lymphocytes # (Manual) D-Dimer Potassium 6.3 H* Carbon Dioxide BUN 51 H Creatinine 2.0 H D Glucose 368 H POC Glucose Calcium 8.3 L Troponin T Albumin 3.3 L HDL Cholesterol - Diagnostic Findings Chest x-ray: image reviewed (Low lung volumes interstial infiltraes with confluence in the LL lobe) Assessment and Plan -Acute on chronic hypoxic respiratory failure -Aspiration pneumonia/HAP -Pulmonary HTN -AE-ILD -Hyperkalemia -Lactic acidosis -h/o COPD -Continue supplemental oxygen to keep O2 sats>905 -ABG -NIPPV qhs and prn during the day as needed for work of breathing -Steroids, with slow taper -Antibiotics for aspiration/HAP -Follow up CXR in 48 hours to monitor infiltrates -Bronchodilators- GUILLERMINA/IVAN/nebulized steroids -Keep euvolemic to slightly negative balance in view of pulmonary HTN -Continue pulmonary vasodilator therapy -Medical management of hyperkalemia -Accuchecks with glycemic control, keep blood glucose 140-180 mg/dL -Trend lactic acid levels -PT/OT -Pulmonary rehab -[employer] AND [employer]CING MANAGER to evaluate swallow function -Aspiration precautions CONDITION: CRITICAL PROGNOSIS: GUARDED CODE STATUS: FULL CODE Discussed care plan with the and patient at the bedside. Thank you for the consult, will follow Please do not hesitate to call with questions or concerns
[2019-02-06] MEDS: REVATIO PO SCH ×3 (09:34→22:11)
--- NOTE | 2019-02-06 10:32 | Progress Note ---
Assessment and Plan Assessment and plan: --Acute respiratory failure with hypoxia Oxygen titrate O2 sats to more than 90% BiPAP as needed, if no improvement may need intubation Continue nebulizers and IV steroids and antibiotics and pulmonary following -- COPD with acute exacerbation With acute bronchitis, continue nebulizers and oxygen tapering dose of steroids IV antibiotics, supportive care --Hyperkalemia calcium gluconate IV 1 g, Kayexalate 30 g by mouth 1 dose monitor electrolytes --Community-acquired pneumonia; IV antibiotics, follow blood cultures, pulmonary following -- Hypertension Continue antihypertensive moderate control Closely monitor blood pressures -- Insulin dependent diabetes mellitus Accu-Chek sliding scale coverage and ADA diet long-acting insulin as needed --Hyperlipidemia Continue statins, low-cholesterol diet -- Pulmonary hypertension Patient on sildenafil 20 mg 3 times a day.Pulm following -- Coronary artery disease Continue Plavix, beta blockers and danitza inhibitors and nitrates Supportive care --Lactic acid acidosis Probably nonspecific. We will trend the lactic acid -- H/O Prostate cancer Supportive care --DVT prophylaxis On Lovenox --full CODE STATUS Monitor closely and adjust management as needed Discussed with [place] physician Dr. Wasserman Possible discharge in 2-3 days stable Critical care time 35 minutes History Interval history: Patient seen and examined Medical records reviewed Patient admitted with acute respiratory failure requiring BiPAP Complains of mild shortness of breath, on nasal cannula oxygen Alert and awake, in mild distress Vital signs noted Hospitalist Physical - Constitutional Vitals: Temp Pulse Resp BP Pulse Ox 74 17 112/69 100 02/06/19 10:24 02/06/19 10:24 02/06/19 10:24 02/06/19 10:24 General appearance: Present: mild distress, well-nourished, obese - EENT Eyes: Present: PERRL, EOM intact - Neck Neck: Present: supple, normal ROM - Respiratory Respiratory effort: normal Respiratory: bilateral: diminished, rhonchi, negative: rales, wheezing - Cardiovascular Rhythm: regular Heart Sounds: Present: S1 & S2 - Extremities Extremities: no ischemia, No edema - Abdominal General gastrointestinal: soft, non-tender, non-distended, normal bowel sounds - Integumentary Integumentary: Present: clear, warm - Psychiatric Psychiatric: appropriate mood/affect, cooperative - Neurologic Neurologic: CNII-XII intact, moves all extremities Results - Labs CBC & Chem 7: 02/06/19 04:25 02/06/19 04:25 Labs: Laboratory Last Values WBC 17.6 K/mm3 (4.5-11.0) H 02/06/19 04:25 RBC 4.09 M/mm3 (3.65-5.03) 02/06/19 04:25 Hgb 11.8 gm/dl (11.8-15.2) 02/06/19 04:25 Hct 36.3 % (35.5-45.6) 02/06/19 04:25 MCV 89 fl (84-94) 02/06/19 04:25 MCH 29 pg (28-32) 02/06/19 04:25 MCHC 32 % (32-34) 02/06/19 04:25 RDW 20.7 % (13.2-15.2) H 02/06/19 04:25 Plt Count 148 K/mm3 (140-440) 02/06/19 04:25 Add Manual Diff Complete 02/06/19 04:25 Total Counted 100 02/06/19 04:25 Seg Neutrophils % Mail Handler 02/05/19 18:33 Seg Neuts % (Manual) 95.0 % (40.0-70.0) H 02/06/19 04:25 1.0 % 02/06/19 04:25 2.0 % (13.4-35.0) L 02/06/19 04:25 Reactive Lymphs % (Man) 0 % 02/06/19 04:25 2.0 % (0.0-7.3) 02/06/19 04:25 0 % (0.0-4.3) 02/06/19 04:25 0 % (0.0-1.8) 02/06/19 04:25 0 % 02/06/19 04:25 0 % 02/06/19 04:25 0 % 02/06/19 04:25 0 % 02/06/19 04:25 Nucleated RBC % Not Reportable 02/06/19 04:25 Seg Neutrophils # Man 16.7 K/mm3 (1.8-7.7) H 02/06/19 04:25 Band Neutrophils # 0.2 K/mm3 02/06/19 04:25 0.4 K/mm3 (1.2-5.4) L 02/06/19 04:25 Abs React Lymphs (Man) 0.0 K/mm3 02/06/19 04:25 0.4 K/mm3 (0.0-0.8) 02/06/19 04:25 0.0 K/mm3 (0.0-0.4) 02/06/19 04:25 0.0 K/mm3 (0.0-0.1) 02/06/19 04:25 0.0 K/mm3 02/06/19 04:25 0.0 K/mm3 02/06/19 04:25 0.0 K/mm3 02/06/19 04:25 Blast Cells # 0.0 K/mm3 02/06/19 04:25 WBC Morphology Not Reportable 02/06/19 04:25 Hypersegmented Neuts Not Reportable 02/06/19 04:25 Hyposegmented Neuts Not Reportable 02/06/19 04:25 Hypogranular Neuts Not Reportable 02/06/19 04:25 Not Reportable 02/06/19 04:25 Not Reportable 02/06/19 04:25 Not Reportable 02/06/19 04:25 Not Reportable 02/06/19 04:25 Not Reportable 02/06/19 04:25 Not Reportable 02/06/19 04:25 Consistent w auto 02/06/19 04:25 Not Reportable 02/06/19 04:25 Plt Clumps, EDTA Not Reportable 02/06/19 04:25 Not Reportable 02/06/19 04:25 Not Reportable 02/06/19 04:25 Not Reportable 02/06/19 04:25 Plt Morphology Comment Not Reportable 02/06/19 04:25 RBC Morphology Not Reportable 02/06/19 04:25 Dimorphic RBCs Not Reportable 02/06/19 04:25 Not Reportable 02/06/19 04:25 Not Reportable 02/06/19 04:25 1+ 02/06/19 04:25 1+ 02/06/19 04:25 Not Reportable 02/06/19 04:25 Not Reportable 02/06/19 04:25 Not Reportable 02/06/19 04:25 Not Reportable 02/06/19 04:25 Not Reportable 02/06/19 04:25 Not Reportable 02/06/19 04:25 Not Reportable 02/06/19 04:25 Few 02/06/19 04:25 Not Reportable 02/06/19 04:25 Not Reportable 02/06/19 04:25 Not Reportable 02/06/19 04:25 Not Reportable 02/06/19 04:25 Not Reportable 02/06/19 04:25 Not Reportable 02/06/19 04:25 Few 02/06/19 04:25 Acanthocytes (Spur) Not Reportable 02/06/19 04:25 Rouleaux Not Reportable 02/06/19 04:25 Not Reportable 02/06/19 04:25 Not Reportable 02/06/19 04:25 Not Reportable 02/06/19 04:25 Not Reportable 02/06/19 04:25 Hem Pathologist Commnt No 02/06/19 04:25 883.25 ng/mlDDU (0-234) H 02/05/19 18:33 Sodium 138 mmol/L (137-145) 02/06/19 04:25 Potassium 6.3 mmol/L (3.6-5.0) H* 02/06/19 04:25 Chloride 99.9 mmol/L (98-107) 02/06/19 04:25 Carbon Dioxide 24 mmol/L (22-30) 02/06/19 04:25 20 mmol/L 02/06/19 04:25 BUN 51 mg/dL (9-20) H 02/06/19 04:25 2.0 mg/dL (0.8-1.5) H D 02/06/19 04:25 Estimated GFR 40 ml/min 02/06/19 04:25 26 % 02/06/19 04:25 Glucose 368 mg/dL (75-100) H 02/06/19 04:25 POC Glucose 327 (70-105) H 02/05/19 23:29 Calcium 8.3 mg/dL (8.4-10.2) L 02/06/19 04:25 1.00 mg/dL (0.1-1.2) 02/06/19 04:25 AST 18 units/L (5-40) 02/06/19 04:25 ALT 19 units/L (7-56) 02/06/19 04:25 72 units/L (35-129) 02/06/19 04:25 0.050 ng/mL (0.00-0.029) H D 02/05/19 19:22 NT-Pro-B Natriuret Pep 694.3 pg/mL (0-900) 02/05/19 19:22 6.4 g/dL (6.3-8.2) 02/06/19 04:25 3.3 g/dL (3.9-5) L 02/06/19 04:25 1.1 % 02/06/19 04:25 Triglycerides 107 mg/dL (2-149) 02/05/19 19:22 Cholesterol 99 mg/dL (50-199) 02/05/19 19:22 64 mg/dL (50-130) 02/05/19 19:22 27 mg/dL (40-59) L 02/05/19 19:22 3.66 % 02/05/19 19:22 Active Medications - Current Medications Current Medications: Generic Name Dose Route Start Last Admin Trade Name Freq PRN Reason Stop Dose Admin Acetaminophen 650 mg 02/05/19 21:12 Tylenol PO Q4H PRN Pain MILD(1-3)/Fever >100.5/QUILES Acetaminophen 500 mg 02/05/19 21:22 Tylenol PO Q6HR PRN Pain, Moderate (4-6) Albuterol 2.5 mg 02/05/19 21:19 Proventil IH Q4HRT PRN Shortness Of Breath Albuterol/Ipratropium 1 ampul 02/06/19 08:00 02/06/19 07:45 Duoneb *Not For Prn Use* IH 1 ampul QIDRT [facility] Administration Amlodipine Besylate 10 mg 02/05/19 22:00 02/05/19 23:28 Norvasc PO 10 mg DAILY [facility] Administration Arformoterol Tartrate 15 mcg 02/05/19 21:30 02/06/19 07:45 Brovana Nebu IH 15 mcg Q12HRT [facility] Administration Atorvastatin Calcium 40 mg 02/05/19 22:00 02/05/19 23:28 Lipitor PO 40 mg QHS [facility] Administration Benzonatate 100 mg 02/05/19 21:22 Tessalon Perles PO Q8HR PRN Cough Budesonide 0.5 mg 02/05/19 21:30 02/06/19 07:45 Pulmicort IH 0.5 mg Q12HRT [facility] Administration Carvedilol 12.5 mg 02/05/19 22:00 02/05/19 23:28 Coreg PO 12.5 mg BID [facility] Administration Cholecalciferol 1,000 unit 02/06/19 10:00 Vitamin D3 PO DAILY [facility] Clopidogrel Bisulfate 75 mg 02/05/19 22:00 02/05/19 23:39 Plavix PO 75 mg QDAY [facility] Administration Enoxaparin Sodium 30 mg 02/06/19 10:00 Lovenox SUB-Q QDAY [facility] Famotidine 20 mg 02/06/19 10:00 Pepcid PO DAILY [facility] Fluticasone Propionate 50 mcg 02/05/19 22:00 02/05/19 23:28 Flonase NS 50 mcg QDAY [facility] Administration Furosemide 20 mg 02/06/19 10:00 Lasix PO QDAY [facility] Hydromorphone HCl 0.5 mg 02/05/19 21:12 Dilaudid IV Q3H PRN Pain , Severe (7-10) Azithromycin 500 mg/ Sodium 250 mls @ 250 mls/hr 02/05/19 22:00 02/05/19 22:16 Chloride IV 250 mls/hr Q24H [facility] Administration Ceftriaxone Sodium 2 gm in 100 mls @ 200 mls/hr 02/05/19 22:00 02/05/19 21:53 Rocephin/Ns 2 Gm/100 Ml IV 200 mls/hr Q24H [facility] Administration Protocol Insulin Glargine 60 units 02/05/19 22:00 02/05/19 23:28 Lantus SUB-Q 60 units HS [facility] Administration Loratadine 10 mg 02/06/19 10:00 Claritin PO DAILY [facility] Losartan Potassium 50 mg 02/05/19 22:00 02/05/19 23:39 Cozaar PO 50 mg QDAY [facility] Administration Methylprednisolone Sodium Succinate 125 mg 02/05/19 22:00 02/06/19 06:27 Solu-Medrol IV 125 mg Q8HR [facility] Administration Ondansetron HCl 4 mg 02/05/19 21:12 Zofran IV Q8H PRN Nausea And Vomiting Oxycodone/Acetaminophen 1 tab 02/05/19 21:12 Percocet 5/325 PO Q6H PRN Pain, Moderate (4-6) Sertraline HCl 150 mg 02/06/19 10:00 Zoloft PO QDAY [facility] Sildenafil Citrate 20 mg 02/06/19 08:00 02/06/19 09:34 Revatio PO Not Given TID [facility] Sodium Chloride 10 ml 02/05/19 22:00 02/05/19 23:39 Sodium Chloride Flush Syringe 10 Ml IV 10 ml BID [facility] Administration Sodium Chloride 10 ml 02/05/19 21:12 Sodium Chloride Flush Syringe 10 Ml IV PRN PRN LINE FLUSH
[2019-02-06] MEDS: COREG PO SCH ×2 (11:04→22:11)
[2019-02-06] MEDS: COZAAR PO SCH (11:04)
[2019-02-06] MEDS: NORVASC PO SCH (11:06)
[2019-02-06] MEDS ORDERED: LOVENOX SUB-Q ONE (11:40)
[2019-02-06] MEDS ORDERED: PEPCID ONE (11:40)
[2019-02-06] MEDS ORDERED: PLAVIX ONE (11:41)
[2019-02-06] MEDS ORDERED: LASIX ONE (11:41)
[2019-02-06] MEDS ORDERED: ZOLOFT ONE ×2 (11:41→11:42)
[2019-02-06] MEDS: CLARITIN PO SCH (11:43)
[2019-02-06] MEDS: LOVENOX SUB-Q SCH (11:44)
[2019-02-06] MEDS: PEPCID PO SCH (11:44)
[2019-02-06] MEDS: PLAVIX PO SCH (11:44)
[2019-02-06] MEDS: ZOLOFT PO SCH (11:45)
[2019-02-06] MEDS: FLONASE NS SCH (11:59)
[2019-02-06] MEDS: SODIUM CHLORIDE FLUSH SYRINGE 10 ML IV SCH ×2 (11:59→22:10)
[2019-02-06] MEDS: VITAMIN D3 PO SCH (11:59)
[2019-02-06] MEDS: LASIX PO SCH (11:59)
[2019-02-06] MEDS ORDERED: HumaLOG SUB-Q ONE (16:23)
[2019-02-06] MEDS: HumaLOG SUB-Q SCH ×2 (16:23→19:33)
[2019-02-06] MEDS ORDERED: HumuLIN R ONE (19:34)
[2019-02-06] MEDS: ROCEPHIN/NS 2 GM/100 ML 2 GM/100 ML BAG IV SCH (22:00)
[2019-02-06] MEDS: ZITHROMAX 500 MG in NACL 0.9% 250ML 250 ML IV SCH (22:00)
[2019-02-06] MEDS: LANTUS SUB-Q SCH (22:11)
[2019-02-07] MEDS: HumaLOG SUB-Q SCH ×3 (00:44→23:46)
[2019-02-07] MEDS: SOLU-Medrol IV SCH ×3 (05:17→22:08)
[2019-02-07 05:30] LABS: Hematocrit 33.3 % (35.5-45.6); Mean Corpuscular HGB Conc 33 % (32-34); Mean Corpuscular Volume 88 fl (84-94); Platelet Count 140 K/mm3 (140-440); Red Blood Count 3.78 M/mm3 (3.65-5.03)
[2019-02-07 05:37] LABS: Red Cell Distribution Width 20.6 % (13.2-15.2)
[2019-02-07 07:11] LABS: Band Neutrophils # (Manual) 0.4 K/mm3; Basophils % (Manual) 0 % (0.0-1.8); Eosinophils % (Manual) 0 % (0.0-4.3); Total Cells Counted 100
[2019-02-07 07:12] LABS: Anisocytosis 1+; Platelet Estimate Consistent w Auto
[2019-02-07 07:47] LABS: Calcium 8.5 mg/dL (8.4-10.2)
[2019-02-07] MEDS: BROVANA NEBU IH SCH ×2 (09:27→20:31)
[2019-02-07] MEDS: PULMICORT IH SCH ×2 (09:27→20:31)
[2019-02-07] MEDS: DUONEB *Not for PRN Use IH SCH ×4 (09:30→20:31)
[2019-02-07] MEDS: ZOLOFT PO SCH (10:32)
[2019-02-07] MEDS: PEPCID PO SCH (10:32)
[2019-02-07] MEDS: NORVASC PO SCH (10:32)
[2019-02-07] MEDS: CLARITIN PO SCH (10:32)
[2019-02-07] MEDS: VITAMIN D3 PO SCH (10:32)
[2019-02-07] MEDS: PLAVIX PO SCH (10:32)
[2019-02-07] MEDS: COZAAR PO SCH (10:32)
[2019-02-07] MEDS: SODIUM CHLORIDE FLUSH SYRINGE 10 ML IV SCH ×2 (10:33→22:10)
[2019-02-07] MEDS: REVATIO PO SCH ×3 (10:33→22:09)
[2019-02-07] MEDS: LOVENOX SUB-Q SCH (10:33)
[2019-02-07] MEDS: LASIX PO SCH (10:33)
[2019-02-07] MEDS: FLONASE NS SCH (10:33)
[2019-02-07] MEDS: COREG PO SCH ×2 (10:33→22:09)
--- NOTE | 2019-02-07 12:48 | Progress Note ---
Assessment and Plan Assessment and plan: --Acute respiratory failure with hypoxia/requiring BiPAP Oxygen titrate O2 sats to more than 90% BiPAP as needed, if no improvement may need intubation Continue nebulizers and IV steroids and antibiotics and pulmonary following -- COPD with acute exacerbation With acute bronchitis, continue nebulizers and oxygen tapering dose of steroids, IV antibiotics, supportive care --Hyperkalemia Corrected, closely monitor electrolytes, --Community-acquired pneumonia; IV antibiotics, follow blood cultures, pulmonary following -- Hypertension Continue antihypertensive moderate control Closely monitor blood pressures -- Insulin dependent diabetes mellitus Accu-Chek sliding scale coverage and ADA diet long-acting insulin as needed --Hyperlipidemia Continue statins, low-cholesterol diet -- Pulmonary hypertension Patient on sildenafil 20 mg 3 times a day.Pulm following -- Coronary artery disease Continue Plavix, beta blockers and danitza inhibitors and nitrates Supportive care --Lactic acid acidosis Probably nonspecific. We will trend the lactic acid -- H/O Prostate cancer Supportive care --DVT prophylaxis On Lovenox --full CODE STATUS Monitor closely and adjust management as needed Discussed with [place] physician Dr. Wasserman Possible discharge in 2-3 days stable Plan of care is reviewed with the patient his at the bedside and the case management History Interval history: Patient seen and examined this morning medical records reviewed Admitted yesterday with acute hypoxic respiratory failure requiring BiPAP On nebulizers IV steroids and IV antibiotics and inhalation steroids Symptoms slightly improved, saturating well on 2 L nasal cannula oxygen The patient is alert and awake oriented 3 vital signs stable Hospitalist Physical - Constitutional Vitals: Temp Pulse Resp BP Pulse Ox 97.7 F 80 16 115/67 98 02/07/19 12:00 02/07/19 12:45 02/07/19 12:45 02/07/19 12:00 02/07/19 12:00 General appearance: Present: no acute distress, well-nourished, obese - EENT Eyes: Present: PERRL, EOM intact - Neck Neck: Present: supple, normal ROM - Respiratory Respiratory effort: normal Respiratory: bilateral: diminished, rhonchi, wheezing, negative: rales - Cardiovascular Rhythm: regular Heart Sounds: Present: S1 & S2 - Extremities Extremities: no ischemia Extremity abnormal: edema - Abdominal General gastrointestinal: soft, non-tender, non-distended, normal bowel sounds - Integumentary Integumentary: Present: clear, warm - Psychiatric Psychiatric: appropriate mood/affect, cooperative - Neurologic Neurologic: moves all extremities Results - Labs CBC & Chem 7: 02/07/19 04:10 02/07/19 04:10 Labs: Laboratory Last Values WBC 11.2 K/mm3 (4.5-11.0) H 02/07/19 04:10 RBC 3.78 M/mm3 (3.65-5.03) 02/07/19 04:10 Hgb 11.0 gm/dl (11.8-15.2) L 02/07/19 04:10 Hct 33.3 % (35.5-45.6) L 02/07/19 04:10 MCV 88 fl (84-94) 02/07/19 04:10 MCH 29 pg (28-32) 02/07/19 04:10 MCHC 33 % (32-34) 02/07/19 04:10 RDW 20.6 % (13.2-15.2) H 02/07/19 04:10 Plt Count 140 K/mm3 (140-440) 02/07/19 04:10 Add Manual Diff Complete 02/07/19 04:10 Total Counted 100 02/07/19 04:10 Seg Neutrophils % Mechanical Design Drafter 02/07/19 04:10 Seg Neuts % (Manual) 92.0 % (40.0-70.0) H 02/07/19 04:10 4.0 % 02/07/19 04:10 2.0 % (13.4-35.0) L 02/07/19 04:10 Reactive Lymphs % (Man) 0 % 02/07/19 04:10 2.0 % (0.0-7.3) 02/07/19 04:10 0 % (0.0-4.3) 02/07/19 04:10 0 % (0.0-1.8) 02/07/19 04:10 0 % 02/07/19 04:10 0 % 02/07/19 04:10 0 % 02/07/19 04:10 0 % 02/07/19 04:10 Nucleated RBC % Not Reportable 02/07/19 04:10 Seg Neutrophils # Man 10.3 K/mm3 (1.8-7.7) H 02/07/19 04:10 Band Neutrophils # 0.4 K/mm3 02/07/19 04:10 0.2 K/mm3 (1.2-5.4) L 02/07/19 04:10 Abs React Lymphs (Man) 0.0 K/mm3 02/07/19 04:10 0.2 K/mm3 (0.0-0.8) 02/07/19 04:10 0.0 K/mm3 (0.0-0.4) 02/07/19 04:10 0.0 K/mm3 (0.0-0.1) 02/07/19 04:10 0.0 K/mm3 02/07/19 04:10 0.0 K/mm3 02/07/19 04:10 0.0 K/mm3 02/07/19 04:10 Blast Cells # 0.0 K/mm3 02/07/19 04:10 WBC Morphology Not Reportable 02/07/19 04:10 Hypersegmented Neuts Not Reportable 02/07/19 04:10 Hyposegmented Neuts Not Reportable 02/07/19 04:10 Hypogranular Neuts Not Reportable 02/07/19 04:10 Not Reportable 02/07/19 04:10 Not Reportable 02/07/19 04:10 Not Reportable 02/07/19 04:10 Not Reportable 02/07/19 04:10 Not Reportable 02/07/19 04:10 Not Reportable 02/07/19 04:10 Consistent w auto 02/07/19 04:10 Not Reportable 02/07/19 04:10 Plt Clumps, EDTA Not Reportable 02/07/19 04:10 Not Reportable 02/07/19 04:10 Not Reportable 02/07/19 04:10 Not Reportable 02/07/19 04:10 Plt Morphology Comment Not Reportable 02/07/19 04:10 RBC Morphology Not Reportable 02/07/19 04:10 Dimorphic RBCs Not Reportable 02/07/19 04:10 Not Reportable 02/07/19 04:10 Not Reportable 02/07/19 04:10 Not Reportable 02/07/19 04:10 1+ 02/07/19 04:10 Not Reportable 02/07/19 04:10 Not Reportable 02/07/19 04:10 Not Reportable 02/07/19 04:10 Not Reportable 02/07/19 04:10 Not Reportable 02/07/19 04:10 Not Reportable 02/07/19 04:10 Not Reportable 02/07/19 04:10 Not Reportable 02/07/19 04:10 Not Reportable 02/07/19 04:10 Not Reportable 02/07/19 04:10 Not Reportable 02/07/19 04:10 Not Reportable 02/07/19 04:10 Not Reportable 02/07/19 04:10 Not Reportable 02/07/19 04:10 1+ 02/07/19 04:10 Acanthocytes (Spur) Not Reportable 02/07/19 04:10 Rouleaux Not Reportable 02/07/19 04:10 Not Reportable 02/07/19 04:10 Not Reportable 02/07/19 04:10 Not Reportable 02/07/19 04:10 Not Reportable 02/07/19 04:10 Hem Pathologist Commnt No 02/07/19 04:10 883.25 ng/mlDDU (0-234) H 02/05/19 18:33 POC ABG pH 7.318 (7.35-7.45) L 02/06/19 10:31 POC ABG pCO2 40.8 (35-45) 02/06/19 10:31 POC ABG pO2 99 (80-105) 02/06/19 10:31 POC ABG HCO3 20.9 (22-26 mml/L) 02/06/19 10:31 POC ABG Total CO2 22 (23-27mmol/L) 02/06/19 10:31 POC ABG O2 Sat 97 02/06/19 10:31 POC ABG Base Excess -5 ((-2) - (+3)mmol/L) 02/06/19 10:31 50 % 02/06/19 10:31 Sodium 140 mmol/L (137-145) 02/07/19 04:10 Potassium 4.9 mmol/L (3.6-5.0) D 02/07/19 04:10 Chloride 105.3 mmol/L (98-107) 02/07/19 04:10 Carbon Dioxide 18 mmol/L (22-30) L 02/07/19 04:10 22 mmol/L 02/07/19 04:10 BUN 58 mg/dL (9-20) H 02/07/19 04:10 1.6 mg/dL (0.8-1.5) H 02/07/19 04:10 Estimated GFR 51 ml/min 02/07/19 04:10 36 % 02/07/19 04:10 Glucose 252 mg/dL (75-100) H 02/07/19 04:10 POC Glucose 279 (70-105) H 02/07/19 11:22 Calcium 8.5 mg/dL (8.4-10.2) 02/07/19 04:10 Magnesium 3.10 mg/dL (1.7-2.3) H 02/07/19 04:10 1.00 mg/dL (0.1-1.2) 02/06/19 04:25 AST 18 units/L (5-40) 02/06/19 04:25 ALT 19 units/L (7-56) 02/06/19 04:25 72 units/L (35-129) 02/06/19 04:25 0.050 ng/mL (0.00-0.029) H D 02/05/19 19:22 NT-Pro-B Natriuret Pep 694.3 pg/mL (0-900) 02/05/19 19:22 6.4 g/dL (6.3-8.2) 02/06/19 04:25 3.3 g/dL (3.9-5) L 02/06/19 04:25 1.1 % 02/06/19 04:25 Triglycerides 107 mg/dL (2-149) 02/05/19 19:22 Cholesterol 99 mg/dL (50-199) 02/05/19 19:22 64 mg/dL (50-130) 02/05/19 19:22 27 mg/dL (40-59) L 02/05/19 19:22 3.66 % 02/05/19 19:22 Active Medications - Current Medications Current Medications: Generic Name Dose Route Start Last Admin Trade Name Freq PRN Reason Stop Dose Admin Acetaminophen 650 mg 02/05/19 21:12 Tylenol PO Q4H PRN Pain MILD(1-3)/Fever >100.5/QUILES Acetaminophen 500 mg 02/05/19 21:22 Tylenol PO Q6HR PRN Pain, Moderate (4-6) Albuterol 2.5 mg 02/05/19 21:19 Proventil IH Q4HRT PRN Shortness Of Breath Albuterol/Ipratropium 1 ampul 02/06/19 08:00 02/07/19 12:45 Duoneb *Not For Prn Use* IH 1 ampul QIDRT LAM Administration Amlodipine Besylate 10 mg 02/05/19 22:00 02/07/19 10:32 Norvasc PO 10 mg DAILY LAM Administration Arformoterol Tartrate 15 mcg 02/05/19 21:30 02/07/19 09:27 Brovana Nebu IH 15 mcg Q12HRT LAM Administration Atorvastatin Calcium 40 mg 02/05/19 22:00 02/06/19 22:10 Lipitor PO 40 mg QHS LAM Administration Benzonatate 100 mg 02/05/19 21:22 Tessalon Perles PO Q8HR PRN Cough Budesonide 0.5 mg 02/05/19 21:30 02/07/19 09:27 Pulmicort IH 0.5 mg Q12HRT LAM Administration Carvedilol 12.5 mg 02/05/19 22:00 02/07/19 10:33 Coreg PO 12.5 mg BID LAM Administration Cholecalciferol 1,000 unit 02/06/19 10:00 02/07/19 10:32 Vitamin D3 PO 1,000 unit DAILY LAM Administration Clopidogrel Bisulfate 75 mg 02/05/19 22:00 02/07/19 10:32 Plavix PO 75 mg QDAY LAM Administration Enoxaparin Sodium 30 mg 02/06/19 10:00 02/07/19 10:33 Lovenox SUB-Q 30 mg QDAY LAM Administration Famotidine 20 mg 02/06/19 10:00 02/07/19 10:32 Pepcid PO 20 mg DAILY LAM Administration Fluticasone Propionate 50 mcg 02/05/19 22:00 02/07/19 10:33 Flonase NS Not Given QDAY LAM Furosemide 20 mg 02/06/19 10:00 02/07/19 10:33 Lasix PO 20 mg QDAY LAM Administration Hydromorphone HCl 0.5 mg 02/05/19 21:12 Dilaudid IV Q3H PRN Pain , Severe (7-10) Azithromycin 500 mg/ Sodium 250 mls @ 250 mls/hr 02/05/19 22:00 02/06/19 22:00 Chloride IV 250 mls/hr Q24H LAM Administration Ceftriaxone Sodium 2 gm in 100 mls @ 200 mls/hr 02/05/19 22:00 02/06/19 22:00 Rocephin/Ns 2 Gm/100 Ml IV 200 mls/hr Q24H LAM Administration Protocol Insulin Glargine 60 units 02/05/19 22:00 02/06/19 22:11 Lantus SUB-Q 60 units HS LAM Administration Insulin Human Lispro 0 unit 02/06/19 18:00 02/07/19 05:23 Humalog SUB-Q 4 unit Q6HR LAM Administration Protocol Loratadine 10 mg 02/06/19 10:00 02/07/19 10:32 Claritin PO 10 mg DAILY LAM Administration Losartan Potassium 50 mg 02/05/19 22:00 02/07/19 10:32 Cozaar PO 50 mg QDAY LAM Administration Methylprednisolone Sodium Succinate 60 mg 02/07/19 12:46 Solu-Medrol IV Q8HR LAM Ondansetron HCl 4 mg 02/05/19 21:12 Zofran IV Q8H PRN Nausea And Vomiting Oxycodone/Acetaminophen 1 tab 02/05/19 21:12 Percocet 5/325 PO Q6H PRN Pain, Moderate (4-6) Sertraline HCl 150 mg 02/06/19 10:00 02/07/19 10:32 Zoloft PO 150 mg QDAY LAM Administration Sildenafil Citrate 20 mg 02/06/19 08:00 02/07/19 10:33 Revatio PO 20 mg TID LAM Administration Sodium Chloride 10 ml 02/05/19 22:00 02/07/19 10:33 Sodium Chloride Flush Syringe 10 Ml IV 10 ml BID LAM Administration Sodium Chloride 10 ml 02/05/19 21:12 Sodium Chloride Flush Syringe 10 Ml IV PRN PRN LINE FLUSH
--- NOTE | 2019-02-07 13:38 | Progress Note ---
Assessment and Plan Patient awake. Resting on 2 litres O2.O2 saturation 94%.No acute respiratory distress. Patient afebrile and has mild leukocytosis. - Patient Problems (1) Acute respiratory failure with hypoxia Current Visit: Yes Status: Acute Plan to address problem: O2 2 litres via nasal canula. BIPAP during night time and use BIPAP during day time PRN for shortness of breath. Albuterol/atrovent aerosol treatments q 6 hours. Continue I/V solumedrol. Continue ceftrioxone and Zithromax. Continue S/C Lovenox. Continue famotidine. (2) CHF exacerbation Current Visit: Yes Status: Acute Plan to address problem: Management as per cardiology. (3) Pneumonia Current Visit: Yes Status: Acute Plan to address problem: Patient is on ceftrioxone and Zithromax. (4) COPD with acute exacerbation Current Visit: No Status: Acute Plan to address problem: O2 2 litres via nasal canula. BIPAP during night time and use BIPAP during day time PRN for shortness of br eath. Albuterol/atrovent aerosol treatments q 6 hours. Continue I/V solumedrol. Continue ceftrioxone and Zithromax. Continue S/C Lovenox. Continue famotidine. Subjective Date of service: 02/07/19 Interval history: Patient awake. Resting on 2 litres O2.O2 saturation 94%.No acute respiratory distress. Patient afebrile and has mild leukocytosis. Objective Vital Signs - 12hr 02/07/19 02/07/19 02/07/19 05:18 07:29 09:30 Temperature 97.5 F L Pulse Rate Pulse Rate [ 74 Anterior Bilateral Throughout] Respiratory 24 18 Rate Respiratory 18 Rate [Anterior Bilateral Throughout] Blood Pressure 114/68 103/62 Blood Pressure [Right] O2 Sat by Pulse Oximetry 02/07/19 02/07/19 02/07/19 09:40 10:00 12:00 Temperature 97.7 F Pulse Rate 78 Pulse Rate [ 75 Anterior Bilateral Throughout] Respiratory 18 Rate Respiratory 18 Rate [Anterior Bilateral Throughout] Blood Pressure Blood Pressure 115/67 [Right] O2 Sat by Pulse 94 98 Oximetry 02/07/19 02/07/19 12:45 12:52 Temperature Pulse Rate Pulse Rate [ 80 81 Anterior Bilateral Throughout] Respiratory Rate Respiratory 16 16 Rate [Anterior Bilateral Throughout] Blood Pressure Blood Pressure [Right] O2 Sat by Pulse Oximetry Constitutional: no acute distress, alert Eyes: non-icteric ENT: oropharynx moist Neck: supple, no lymphadenopathy Ascultation: Bilateral: diminished breath sounds Cardiovascular: regular rate and rhythm Gastrointestinal: normoactive bowel sounds, soft, non-tender Integumentary: normal Extremities: no cyanosis, no edema Neurologic: normal mental status, non-focal exam, pupils equal and round Psychiatric: mood appropriate CBC and BMP: 02/07/19 04:10 02/07/19 04:10 ABG, PT/INR, D-dimer: ABG POC ABG pH 7.318 (7.35-7.45) L 02/06/19 10:31 POC ABG pCO2 40.8 (35-45) 02/06/19 10:31 POC ABG pO2 99 (80-105) 02/06/19 10:31 POC ABG HCO3 20.9 (22-26 mml/L) 02/06/19 10:31 POC ABG Total CO2 22 (23-27mmol/L) 02/06/19 10:31 POC ABG O2 Sat 97 02/06/19 10:31 PT/INR, D-dimer 883.25 ng/mlDDU (0-234) H 02/05/19 18:33 Abnormal lab findings: Abnormal Labs 02/05/19 02/05/19 02/05/19 18:33 18:33 18:33 WBC 20.3 H Hgb Hct RDW 20.9 H Seg Neuts % (Manual) 96.0 H Lymphocytes % (Manual) 1.0 L Seg Neutrophils # Man 19.5 H Lymphocytes # (Manual) 0.2 L D-Dimer 883.25 H POC ABG pH Potassium 5.5 H Carbon Dioxide 21 L BUN 37 H Creatinine Glucose 286 H POC Glucose Calcium Magnesium Troponin T Albumin HDL Cholesterol 02/05/19 02/05/19 02/06/19 19:22 23:29 04:25 WBC 17.6 H Hgb Hct RDW 20.7 H Seg Neuts % (Manual) 95.0 H Lymphocytes % (Manual) 2.0 L Seg Neutrophils # Man 16.7 H Lymphocytes # (Manual) 0.4 L D-Dimer POC ABG pH Potassium Carbon Dioxide BUN Creatinine Glucose POC Glucose 327 H Calcium Magnesium Troponin T 0.050 H D Albumin HDL Cholesterol 27 L 02/06/19 02/06/19 02/06/19 04:25 10:31 14:57 WBC Hgb Hct RDW Seg Neuts % (Manual) Lymphocytes % (Manual) Seg Neutrophils # Man Lymphocytes # (Manual) D-Dimer POC ABG pH 7.318 L Potassium 6.3 H* Carbon Dioxide BUN 51 H Creatinine 2.0 H D Glucose 368 H POC Glucose 335 H Calcium 8.3 L Magnesium Troponin T Albumin 3.3 L HDL Cholesterol 02/06/19 02/07/19 02/07/19 19:34 00:39 04:10 WBC 11.2 H Hgb 11.0 L Hct 33.3 L RDW 20.6 H Seg Neuts % (Manual) 92.0 H Lymphocytes % (Manual) 2.0 L Seg Neutrophils # Man 10.3 H Lymphocytes # (Manual) 0.2 L D-Dimer POC ABG pH Potassium Carbon Dioxide BUN Creatinine Glucose POC Glucose 265 H 338 H Calcium Magnesium Troponin T Albumin HDL Cholesterol 02/07/19 02/07/19 02/07/19 04:10 05:24 11:22 WBC Hgb Hct RDW Seg Neuts % (Manual) Lymphocytes % (Manual) Seg Neutrophils # Man Lymphocytes # (Manual) D-Dimer POC ABG pH Potassium Carbon Dioxide 18 L BUN 58 H Creatinine 1.6 H Glucose 252 H POC Glucose 284 H 279 H Calcium Magnesium 3.10 H Troponin T Albumin HDL Cholesterol Chest x-ray: report reviewed (Infiltrate left hilum and left base consistent with pneumonia or edema.), image reviewed
[2019-02-07] MEDS: ROCEPHIN/NS 2 GM/100 ML 2 GM/100 ML BAG IV SCH (22:08)
[2019-02-07] MEDS: LANTUS SUB-Q SCH (22:09)
[2019-02-07] MEDS: ZITHROMAX 500 MG in NACL 0.9% 250ML 250 ML IV SCH (22:22)
[2019-02-08] MEDS: HumaLOG SUB-Q SCH ×4 (06:44→17:59)
[2019-02-08] MEDS: SOLU-Medrol IV SCH ×3 (06:45→22:26)
[2019-02-08] MEDS: SODIUM CHLORIDE FLUSH SYRINGE 10 ML IV PRN (06:46)
[2019-02-08] MEDS: DUONEB *Not for PRN Use IH SCH ×3 (08:34→21:10)
[2019-02-08] MEDS: BROVANA NEBU IH SCH ×2 (08:39→21:10)
[2019-02-08] MEDS: PULMICORT IH SCH ×2 (08:39→21:10)
[2019-02-08] MEDS: PEPCID PO SCH (10:33)
[2019-02-08] MEDS: LOVENOX SUB-Q SCH (10:33)
[2019-02-08] MEDS: COZAAR PO SCH (10:36)
[2019-02-08] MEDS: COREG PO SCH ×2 (10:37→22:26)
[2019-02-08] MEDS: NORVASC PO SCH (10:38)
[2019-02-08] MEDS: CLARITIN PO SCH (10:39)
[2019-02-08] MEDS: PLAVIX PO SCH (10:39)
[2019-02-08] MEDS: LASIX PO SCH (10:39)
[2019-02-08] MEDS: SODIUM CHLORIDE FLUSH SYRINGE 10 ML IV SCH ×2 (10:46→22:28)
[2019-02-08] MEDS: REVATIO PO SCH ×3 (11:30→22:27)
[2019-02-08] MEDS: FLONASE NS SCH (11:30)
[2019-02-08] MEDS: VITAMIN D3 PO SCH (11:32)
[2019-02-08] MEDS: ZOLOFT PO SCH (11:32)
--- NOTE | 2019-02-08 13:44 | Progress Note ---
Hospitalist Physical - Constitutional Vitals: Temp Pulse Resp BP Pulse Ox 97.7 F 82 16 121/70 92 02/08/19 07:56 02/08/19 10:38 02/08/19 12:22 02/08/19 12:22 02/08/19 08:40 General appearance: Present: no acute distress, well-nourished, obese Results - Labs CBC & Chem 7: 02/07/19 04:10 02/07/19 04:10 Labs: Laboratory Last Values WBC 11.2 K/mm3 (4.5-11.0) H 02/07/19 04:10 RBC 3.78 M/mm3 (3.65-5.03) 02/07/19 04:10 Hgb 11.0 gm/dl (11.8-15.2) L 02/07/19 04:10 Hct 33.3 % (35.5-45.6) L 02/07/19 04:10 MCV 88 fl (84-94) 02/07/19 04:10 MCH 29 pg (28-32) 02/07/19 04:10 MCHC 33 % (32-34) 02/07/19 04:10 RDW 20.6 % (13.2-15.2) H 02/07/19 04:10 Plt Count 140 K/mm3 (140-440) 02/07/19 04:10 Add Manual Diff Complete 02/07/19 04:10 Total Counted 100 02/07/19 04:10 Seg Neutrophils % Cook Helper Preserves 02/07/19 04:10 Seg Neuts % (Manual) 92.0 % (40.0-70.0) H 02/07/19 04:10 4.0 % 02/07/19 04:10 2.0 % (13.4-35.0) L 02/07/19 04:10 Reactive Lymphs % (Man) 0 % 02/07/19 04:10 2.0 % (0.0-7.3) 02/07/19 04:10 0 % (0.0-4.3) 02/07/19 04:10 0 % (0.0-1.8) 02/07/19 04:10 0 % 02/07/19 04:10 0 % 02/07/19 04:10 0 % 02/07/19 04:10 0 % 02/07/19 04:10 Nucleated RBC % Not Reportable 02/07/19 04:10 Seg Neutrophils # Man 10.3 K/mm3 (1.8-7.7) H 02/07/19 04:10 Band Neutrophils # 0.4 K/mm3 02/07/19 04:10 0.2 K/mm3 (1.2-5.4) L 02/07/19 04:10 Abs React Lymphs (Man) 0.0 K/mm3 02/07/19 04:10 0.2 K/mm3 (0.0-0.8) 02/07/19 04:10 0.0 K/mm3 (0.0-0.4) 02/07/19 04:10 0.0 K/mm3 (0.0-0.1) 02/07/19 04:10 0.0 K/mm3 02/07/19 04:10 0.0 K/mm3 02/07/19 04:10 0.0 K/mm3 02/07/19 04:10 Blast Cells # 0.0 K/mm3 02/07/19 04:10 WBC Morphology Not Reportable 02/07/19 04:10 Hypersegmented Neuts Not Reportable 02/07/19 04:10 Hyposegmented Neuts Not Reportable 02/07/19 04:10 Hypogranular Neuts Not Reportable 02/07/19 04:10 Not Reportable 02/07/19 04:10 Not Reportable 02/07/19 04:10 Not Reportable 02/07/19 04:10 Not Reportable 02/07/19 04:10 Not Reportable 02/07/19 04:10 Not Reportable 02/07/19 04:10 Consistent w auto 02/07/19 04:10 Not Reportable 02/07/19 04:10 Plt Clumps, EDTA Not Reportable 02/07/19 04:10 Not Reportable 02/07/19 04:10 Not Reportable 02/07/19 04:10 Not Reportable 02/07/19 04:10 Plt Morphology Comment Not Reportable 02/07/19 04:10 RBC Morphology Not Reportable 02/07/19 04:10 Dimorphic RBCs Not Reportable 02/07/19 04:10 Not Reportable 02/07/19 04:10 Not Reportable 02/07/19 04:10 Not Reportable 02/07/19 04:10 1+ 02/07/19 04:10 Not Reportable 02/07/19 04:10 Not Reportable 02/07/19 04:10 Not Reportable 02/07/19 04:10 Not Reportable 02/07/19 04:10 Not Reportable 02/07/19 04:10 Not Reportable 02/07/19 04:10 Not Reportable 02/07/19 04:10 Not Reportable 02/07/19 04:10 Not Reportable 02/07/19 04:10 Not Reportable 02/07/19 04:10 Not Reportable 02/07/19 04:10 Not Reportable 02/07/19 04:10 Not Reportable 02/07/19 04:10 Not Reportable 02/07/19 04:10 1+ 02/07/19 04:10 Acanthocytes (Spur) Not Reportable 02/07/19 04:10 Rouleaux Not Reportable 02/07/19 04:10 Not Reportable 02/07/19 04:10 Not Reportable 02/07/19 04:10 Not Reportable 02/07/19 04:10 Not Reportable 02/07/19 04:10 Hem Pathologist Commnt No 02/07/19 04:10 883.25 ng/mlDDU (0-234) H 02/05/19 18:33 POC ABG pH 7.318 (7.35-7.45) L 02/06/19 10:31 POC ABG pCO2 40.8 (35-45) 02/06/19 10:31 POC ABG pO2 99 (80-105) 02/06/19 10:31 POC ABG HCO3 20.9 (22-26 mml/L) 02/06/19 10:31 POC ABG Total CO2 22 (23-27mmol/L) 02/06/19 10:31 POC ABG O2 Sat 97 02/06/19 10:31 POC ABG Base Excess -5 ((-2) - (+3)mmol/L) 02/06/19 10:31 50 % 02/06/19 10:31 Sodium 140 mmol/L (137-145) 02/07/19 04:10 Potassium 4.9 mmol/L (3.6-5.0) D 02/07/19 04:10 Chloride 105.3 mmol/L (98-107) 02/07/19 04:10 Carbon Dioxide 18 mmol/L (22-30) L 02/07/19 04:10 22 mmol/L 02/07/19 04:10 BUN 58 mg/dL (9-20) H 02/07/19 04:10 1.6 mg/dL (0.8-1.5) H 02/07/19 04:10 Estimated GFR 51 ml/min 02/07/19 04:10 36 % 02/07/19 04:10 Glucose 252 mg/dL (75-100) H 02/07/19 04:10 POC Glucose 199 (70-105) H 02/08/19 12:36 Calcium 8.5 mg/dL (8.4-10.2) 02/07/19 04:10 Magnesium 3.10 mg/dL (1.7-2.3) H 02/07/19 04:10 1.00 mg/dL (0.1-1.2) 02/06/19 04:25 AST 18 units/L (5-40) 02/06/19 04:25 ALT 19 units/L (7-56) 02/06/19 04:25 72 units/L (35-129) 02/06/19 04:25 0.050 ng/mL (0.00-0.029) H D 02/05/19 19:22 NT-Pro-B Natriuret Pep 694.3 pg/mL (0-900) 02/05/19 19:22 6.4 g/dL (6.3-8.2) 02/06/19 04:25 3.3 g/dL (3.9-5) L 02/06/19 04:25 1.1 % 02/06/19 04:25 Triglycerides 107 mg/dL (2-149) 02/05/19 19:22 Cholesterol 99 mg/dL (50-199) 02/05/19 19:22 64 mg/dL (50-130) 02/05/19 19:22 27 mg/dL (40-59) L 02/05/19 19:22 3.66 % 02/05/19 19:22 Active Medications - Current Medications Current Medications: Generic Name Dose Route Start Last Admin Trade Name Freq PRN Reason Stop Dose Admin Acetaminophen 650 mg 02/05/19 21:12 Tylenol PO Q4H PRN Pain MILD(1-3)/Fever >100.5/QUILES Albuterol 2.5 mg 02/05/19 21:19 Proventil IH Q4HRT PRN Shortness Of Breath Albuterol/Ipratropium 1 ampul 02/08/19 14:00 Duoneb *Not For Prn Use* IH Q6HRT LAM Amlodipine Besylate 10 mg 02/05/19 22:00 02/08/19 10:38 Norvasc PO 10 mg DAILY LAM Administration Arformoterol Tartrate 15 mcg 02/05/19 21:30 02/08/19 08:39 Brovana Nebu IH 15 mcg Q12HRT LAM Administration Atorvastatin Calcium 40 mg 02/05/19 22:00 02/07/19 22:08 Lipitor PO 40 mg QHS LAM Administration Benzonatate 100 mg 02/05/19 21:22 Tessalon Perles PO Q8HR PRN Cough Budesonide 0.5 mg 02/05/19 21:30 02/08/19 08:39 Pulmicort IH 0.5 mg Q12HRT LAM Administration Carvedilol 12.5 mg 02/05/19 22:00 02/08/19 10:37 Coreg PO 12.5 mg BID LAM Administration Cholecalciferol 1,000 unit 02/06/19 10:00 02/08/19 11:32 Vitamin D3 PO 1,000 unit DAILY LAM Administration Clopidogrel Bisulfate 75 mg 02/05/19 22:00 02/08/19 10:39 Plavix PO 75 mg QDAY LAM Administration Enoxaparin Sodium 30 mg 02/06/19 10:00 02/08/19 10:33 Lovenox SUB-Q 30 mg QDAY LAM Administration Famotidine 20 mg 02/06/19 10:00 02/08/19 10:33 Pepcid PO 20 mg DAILY LAM Administration Fluticasone Propionate 50 mcg 02/05/19 22:00 02/08/19 11:30 Flonase NS 50 mcg QDAY LAM Administration Furosemide 20 mg 02/06/19 10:00 02/08/19 10:39 Lasix PO 20 mg QDAY LAM Administration Hydromorphone HCl 0.5 mg 02/05/19 21:12 Dilaudid IV Q3H PRN Pain , Severe (7-10) Azithromycin 500 mg/ Sodium 250 mls @ 250 mls/hr 02/05/19 22:00 02/07/19 22:22 Chloride IV 250 mls/hr Q24H LAM Administration Ceftriaxone Sodium 2 gm in 100 mls @ 200 mls/hr 02/05/19 22:00 02/07/19 22:08 Rocephin/Ns 2 Gm/100 Ml IV 200 mls/hr Q24H LAM Administration Protocol Insulin Glargine 60 units 02/05/19 22:00 02/07/19 22:09 Lantus SUB-Q 60 units HS LAM Administration Insulin Human Lispro 0 unit 02/06/19 18:00 02/08/19 12:34 Humalog SUB-Q 2 unit Q6HR LAM Administration Protocol Loratadine 10 mg 02/06/19 10:00 02/08/19 10:39 Claritin PO 10 mg DAILY LAM Administration Losartan Potassium 50 mg 02/05/19 22:00 02/08/19 10:36 Cozaar PO 50 mg QDAY LAM Administration Methylprednisolone Sodium Succinate 60 mg 02/07/19 14:00 02/08/19 06:45 Solu-Medrol IV 60 mg Q8H LAM Administration Ondansetron HCl 4 mg 02/05/19 21:12 Zofran IV Q8H PRN Nausea And Vomiting Oxycodone/Acetaminophen 1 tab 02/05/19 21:12 Percocet 5/325 PO Q6H PRN Pain, Moderate (4-6) Sertraline HCl 150 mg 02/06/19 10:00 02/08/19 11:32 Zoloft PO 150 mg QDAY LAM Administration Sildenafil Citrate 20 mg 02/06/19 08:00 02/08/19 11:30 Revatio PO 20 mg TID LAM Administration Sodium Chloride 10 ml 02/05/19 22:00 02/08/19 10:46 Sodium Chloride Flush Syringe 10 Ml IV 10 ml BID LAM Administration Sodium Chloride 10 ml 02/05/19 21:12 02/08/19 06:46 Sodium Chloride Flush Syringe 10 Ml IV 10 ml PRN PRN Administration LINE FLUSH
--- NOTE | 2019-02-08 20:20 | Progress Note ---
Assessment and Plan Assessment and plan: --Community-acquired pneumonia; IV antibiotics, follow blood cultures, pulmonary following --Acute respiratory failure with hypoxia/requiring BiPAP Oxygen titrate O2 sats to more than 90% BiPAP as needed, if no improvement may need intubation Continue nebulizers and IV steroids and antibiotics and pulmonary following -- COPD with acute exacerbation With acute bronchitis, continue nebulizers and oxygen tapering dose of steroids, IV antibiotics, supportive care --Hyperkalemia Corrected, closely monitor electrolytes, -- Hypertension Continue antihypertensive moderate control Closely monitor blood pressures -- Insulin dependent diabetes mellitus Accu-Chek sliding scale coverage and ADA diet long-acting insulin as needed --Hyperlipidemia Continue statins, low-cholesterol diet -- Pulmonary hypertension Patient on sildenafil 20 mg 3 times a day.Pulm following -- Coronary artery disease Continue Plavix, beta blockers and danitza inhibitors and nitrates Supportive care --Lactic acid acidosis Probably nonspecific. We will trend the lactic acid -- H/O Prostate cancer Supportive care --DVT prophylaxis On Lovenox --full CODE STATUS Monitor closely and adjust management as needed Discussed with [facility] physician Dr. Wasserman Possible discharge in 2-3 days stable Discharge home tomorrow if stable History Interval history: Patient feels slightly better no new complaints Denies shortness of breath or chest pain Denies nausea vomiting or abdominal pain Denies headache or dizziness Vital signs noted Hospitalist Physical - Constitutional Vitals: Temp Pulse Resp BP Pulse Ox 98.0 F 72 20 108/65 93 02/08/19 19:15 02/08/19 19:15 02/08/19 19:15 02/08/19 19:15 02/08/19 19:15 General appearance: Present: no acute distress, well-nourished, obese - EENT Eyes: Present: PERRL, EOM intact - Neck Neck: Present: supple, normal ROM - Respiratory Respiratory effort: normal Respiratory: bilateral: diminished, negative: rales, rhonchi, wheezing - Cardiovascular Rhythm: regular Heart Sounds: Present: S1 & S2 - Extremities Extremities: no ischemia, No edema Peripheral Pulses: within normal limits - Abdominal General gastrointestinal: soft, non-tender, non-distended, normal bowel sounds - Integumentary Integumentary: Present: clear, warm - Psychiatric Psychiatric: appropriate mood/affect, cooperative - Neurologic Neurologic: CNII-XII intact, moves all extremities Results - Labs CBC & Chem 7: 02/07/19 04:10 02/07/19 04:10 Labs: Laboratory Last Values WBC 11.2 K/mm3 (4.5-11.0) H 02/07/19 04:10 RBC 3.78 M/mm3 (3.65-5.03) 02/07/19 04:10 Hgb 11.0 gm/dl (11.8-15.2) L 02/07/19 04:10 Hct 33.3 % (35.5-45.6) L 02/07/19 04:10 MCV 88 fl (84-94) 02/07/19 04:10 MCH 29 pg (28-32) 02/07/19 04:10 MCHC 33 % (32-34) 02/07/19 04:10 RDW 20.6 % (13.2-15.2) H 02/07/19 04:10 Plt Count 140 K/mm3 (140-440) 02/07/19 04:10 Add Manual Diff Complete 02/07/19 04:10 Total Counted 100 02/07/19 04:10 Seg Neutrophils % Maintenance [place] 02/07/19 04:10 Seg Neuts % (Manual) 92.0 % (40.0-70.0) H 02/07/19 04:10 4.0 % 02/07/19 04:10 2.0 % (13.4-35.0) L 02/07/19 04:10 Reactive Lymphs % (Man) 0 % 02/07/19 04:10 2.0 % (0.0-7.3) 02/07/19 04:10 0 % (0.0-4.3) 02/07/19 04:10 0 % (0.0-1.8) 02/07/19 04:10 0 % 02/07/19 04:10 0 % 02/07/19 04:10 0 % 02/07/19 04:10 0 % 02/07/19 04:10 Nucleated RBC % Not Reportable 02/07/19 04:10 Seg Neutrophils # Man 10.3 K/mm3 (1.8-7.7) H 02/07/19 04:10 Band Neutrophils # 0.4 K/mm3 02/07/19 04:10 0.2 K/mm3 (1.2-5.4) L 02/07/19 04:10 Abs React Lymphs (Man) 0.0 K/mm3 02/07/19 04:10 0.2 K/mm3 (0.0-0.8) 02/07/19 04:10 0.0 K/mm3 (0.0-0.4) 02/07/19 04:10 0.0 K/mm3 (0.0-0.1) 02/07/19 04:10 0.0 K/mm3 02/07/19 04:10 0.0 K/mm3 02/07/19 04:10 0.0 K/mm3 02/07/19 04:10 Blast Cells # 0.0 K/mm3 02/07/19 04:10 WBC Morphology Not Reportable 02/07/19 04:10 Hypersegmented Neuts Not Reportable 02/07/19 04:10 Hyposegmented Neuts Not Reportable 02/07/19 04:10 Hypogranular Neuts Not Reportable 02/07/19 04:10 Not Reportable 02/07/19 04:10 Not Reportable 02/07/19 04:10 Not Reportable 02/07/19 04:10 Not Reportable 02/07/19 04:10 Not Reportable 02/07/19 04:10 Not Reportable 02/07/19 04:10 Consistent w auto 02/07/19 04:10 Not Reportable 02/07/19 04:10 Plt Clumps, EDTA Not Reportable 02/07/19 04:10 Not Reportable 02/07/19 04:10 Not Reportable 02/07/19 04:10 Not Reportable 02/07/19 04:10 Plt Morphology Comment Not Reportable 02/07/19 04:10 RBC Morphology Not Reportable 02/07/19 04:10 Dimorphic RBCs Not Reportable 02/07/19 04:10 Not Reportable 02/07/19 04:10 Not Reportable 02/07/19 04:10 Not Reportable 02/07/19 04:10 1+ 02/07/19 04:10 Not Reportable 02/07/19 04:10 Not Reportable 02/07/19 04:10 Not Reportable 02/07/19 04:10 Not Reportable 02/07/19 04:10 Not Reportable 02/07/19 04:10 Not Reportable 02/07/19 04:10 Not Reportable 02/07/19 04:10 Not Reportable 02/07/19 04:10 Not Reportable 02/07/19 04:10 Not Reportable 02/07/19 04:10 Not Reportable 02/07/19 04:10 Not Reportable 02/07/19 04:10 Not Reportable 02/07/19 04:10 Not Reportable 02/07/19 04:10 1+ 02/07/19 04:10 Acanthocytes (Spur) Not Reportable 02/07/19 04:10 Rouleaux Not Reportable 02/07/19 04:10 Not Reportable 02/07/19 04:10 Not Reportable 02/07/19 04:10 Not Reportable 02/07/19 04:10 Not Reportable 02/07/19 04:10 Hem Pathologist Commnt No 02/07/19 04:10 883.25 ng/mlDDU (0-234) H 02/05/19 18:33 POC ABG pH 7.318 (7.35-7.45) L 02/06/19 10:31 POC ABG pCO2 40.8 (35-45) 02/06/19 10:31 POC ABG pO2 99 (80-105) 02/06/19 10:31 POC ABG HCO3 20.9 (22-26 mml/L) 02/06/19 10:31 POC ABG Total CO2 22 (23-27mmol/L) 02/06/19 10:31 POC ABG O2 Sat 97 02/06/19 10:31 POC ABG Base Excess -5 ((-2) - (+3)mmol/L) 02/06/19 10:31 50 % 02/06/19 10:31 Sodium 140 mmol/L (137-145) 02/07/19 04:10 Potassium 4.9 mmol/L (3.6-5.0) D 02/07/19 04:10 Chloride 105.3 mmol/L (98-107) 02/07/19 04:10 Carbon Dioxide 18 mmol/L (22-30) L 02/07/19 04:10 22 mmol/L 02/07/19 04:10 BUN 58 mg/dL (9-20) H 02/07/19 04:10 1.6 mg/dL (0.8-1.5) H 02/07/19 04:10 Estimated GFR 51 ml/min 02/07/19 04:10 36 % 02/07/19 04:10 Glucose 252 mg/dL (75-100) H 02/07/19 04:10 POC Glucose 199 (70-105) H 02/08/19 12:36 Calcium 8.5 mg/dL (8.4-10.2) 02/07/19 04:10 Magnesium 3.10 mg/dL (1.7-2.3) H 02/07/19 04:10 1.00 mg/dL (0.1-1.2) 02/06/19 04:25 AST 18 units/L (5-40) 02/06/19 04:25 ALT 19 units/L (7-56) 02/06/19 04:25 72 units/L (35-129) 02/06/19 04:25 0.050 ng/mL (0.00-0.029) H D 02/05/19 19:22 NT-Pro-B Natriuret Pep 694.3 pg/mL (0-900) 02/05/19 19:22 6.4 g/dL (6.3-8.2) 02/06/19 04:25 3.3 g/dL (3.9-5) L 02/06/19 04:25 1.1 % 02/06/19 04:25 Triglycerides 107 mg/dL (2-149) 02/05/19 19:22 Cholesterol 99 mg/dL (50-199) 02/05/19 19:22 64 mg/dL (50-130) 02/05/19 19:22 27 mg/dL (40-59) L 02/05/19 19:22 3.66 % 02/05/19 19:22 Active Medications - Current Medications Current Medications: Generic Name Dose Route Start Last Admin Trade Name Freq PRN Reason Stop Dose Admin Acetaminophen 650 mg 02/05/19 21:12 Tylenol PO Q4H PRN Pain MILD(1-3)/Fever >100.5/QUILES Albuterol 2.5 mg 02/05/19 21:19 Proventil IH Q4HRT PRN Shortness Of Breath Albuterol/Ipratropium 1 ampul 02/08/19 14:00 02/08/19 13:50 Duoneb *Not For Prn Use* IH 1 ampul Q6HRT LAM Administration Amlodipine Besylate 10 mg 02/05/19 22:00 02/08/19 10:38 Norvasc PO 10 mg DAILY LAM Administration Arformoterol Tartrate 15 mcg 02/05/19 21:30 02/08/19 08:39 Brovana Nebu IH 15 mcg Q12HRT LAM Administration Atorvastatin Calcium 40 mg 02/05/19 22:00 02/07/19 22:08 Lipitor PO 40 mg QHS LAM Administration Benzonatate 100 mg 02/05/19 21:22 Tessalon Perles PO Q8HR PRN Cough Budesonide 0.5 mg 02/05/19 21:30 02/08/19 08:39 Pulmicort IH 0.5 mg Q12HRT LAM Administration Carvedilol 12.5 mg 02/05/19 22:00 02/08/19 10:37 Coreg PO 12.5 mg BID LAM Administration Cholecalciferol 1,000 unit 02/06/19 10:00 02/08/19 11:32 Vitamin D3 PO 1,000 unit DAILY LAM Administration Clopidogrel Bisulfate 75 mg 02/05/19 22:00 02/08/19 10:39 Plavix PO 75 mg QDAY LAM Administration Enoxaparin Sodium 30 mg 02/06/19 10:00 02/08/19 10:33 Lovenox SUB-Q 30 mg QDAY LAM Administration Famotidine 20 mg 02/06/19 10:00 02/08/19 10:33 Pepcid PO 20 mg DAILY LAM Administration Fluticasone Propionate 50 mcg 02/05/19 22:00 02/08/19 11:30 Flonase NS 50 mcg QDAY LAM Administration Furosemide 20 mg 02/06/19 10:00 02/08/19 10:39 Lasix PO 20 mg QDAY LAM Administration Hydromorphone HCl 0.5 mg 02/05/19 21:12 Dilaudid IV Q3H PRN Pain , Severe (7-10) Azithromycin 500 mg/ Sodium 250 mls @ 250 mls/hr 02/05/19 22:00 02/07/19 22:22 Chloride IV 250 mls/hr Q24H LAM Administration Ceftriaxone Sodium 2 gm in 100 mls @ 200 mls/hr 02/05/19 22:00 02/07/19 22:08 Rocephin/Ns 2 Gm/100 Ml IV 200 mls/hr Q24H LAM Administration Protocol Insulin Glargine 60 units 02/05/19 22:00 02/07/19 22:09 Lantus SUB-Q 60 units HS LAM Administration Insulin Human Lispro 0 unit 02/06/19 18:00 02/08/19 17:59 Humalog SUB-Q 1 unit Q6HR LAM Administration Protocol Loratadine 10 mg 02/06/19 10:00 02/08/19 10:39 Claritin PO 10 mg DAILY LAM Administration Losartan Potassium 50 mg 02/05/19 22:00 02/08/19 10:36 Cozaar PO 50 mg QDAY LAM Administration Methylprednisolone Sodium Succinate 40 mg 02/08/19 14:00 02/08/19 14:41 Solu-Medrol IV 40 mg Q8H LAM Administration Ondansetron HCl 4 mg 02/05/19 21:12 Zofran IV Q8H PRN Nausea And Vomiting Oxycodone/Acetaminophen 1 tab 02/05/19 21:12 Percocet 5/325 PO Q6H PRN Pain, Moderate (4-6) Sertraline HCl 150 mg 02/06/19 10:00 02/08/19 11:32 Zoloft PO 150 mg QDAY LAM Administration Sildenafil Citrate 20 mg 02/06/19 08:00 02/08/19 14:40 Revatio PO 20 mg TID LAM Administration Sodium Chloride 10 ml 02/05/19 22:00 02/08/19 10:46 Sodium Chloride Flush Syringe 10 Ml IV 10 ml BID LAM Administration Sodium Chloride 10 ml 02/05/19 21:12 02/08/19 06:46 Sodium Chloride Flush Syringe 10 Ml IV 10 ml PRN PRN Administration LINE FLUSH
--- NOTE | 2019-02-08 21:43 | Progress Note ---
Assessment and Plan Patient awake. Resting on 2 litres O2.O2 saturation 92%.No acute respiratory distress. Patient afebrile and has mild leukocytosis. - Patient Problems (1) Acute respiratory failure with hypoxia Current Visit: Yes Status: Acute Plan to address problem: O2 2 litres via nasal canula. BIPAP during night time and use BIPAP during day time PRN for shortness of breath. Albuterol/atrovent aerosol treatments q 6 hours. Continue I/V solumedrol. Continue ceftrioxone and Zithromax. Continue S/C Lovenox. Continue famotidine. (2) CHF exacerbation Current Visit: Yes Status: Acute Plan to address problem: Management as per cardiology. (3) Pneumonia Current Visit: Yes Status: Acute Plan to address problem: Patient is on ceftrioxone and Zithromax. (4) COPD with acute exacerbation Current Visit: No Status: Acute Plan to address problem: O2 2 litres via nasal canula. BIPAP during night time and use BIPAP during day time PRN for shortness of br eath. Albuterol/atrovent aerosol treatments q 6 hours. Continue I/V solumedrol. Continue ceftrioxone and Zithromax. Continue S/C Lovenox. Continue famotidine. Subjective Date of service: 02/08/19 Interval history: Patient awake. Resting on 2 litres O2.O2 saturation 92%.No acute respiratory distress. Patient afebrile and has mild leukocytosis. Objective Vital Signs - 12hr 02/08/19 02/08/19 02/08/19 10:00 10:36 10:37 Temperature Pulse Rate 82 82 Pulse Rate [ Anterior Bilateral Throughout] Pulse Rate [ 82 Left Radial] Respiratory Rate Respiratory Rate [Anterior Bilateral Throughout] Blood Pressure 105/60 105/60 O2 Sat by Pulse Oximetry 02/08/19 02/08/19 02/08/19 10:38 12:18 12:22 Temperature Pulse Rate 82 Pulse Rate [ Anterior Bilateral Throughout] Pulse Rate [ Left Radial] Respiratory 16 Rate Respiratory Rate [Anterior Bilateral Throughout] Blood Pressure 105/60 121/70 121/70 O2 Sat by Pulse Oximetry 02/08/19 02/08/19 02/08/19 13:50 14:05 17:12 Temperature 98.1 F Pulse Rate 59 L Pulse Rate [ 74 82 Anterior Bilateral Throughout] Pulse Rate [ Left Radial] Respiratory 18 Rate Respiratory 15 16 Rate [Anterior Bilateral Throughout] Blood Pressure 111/60 O2 Sat by Pulse 91 Oximetry 02/08/19 02/08/19 02/08/19 19:15 20:21 21:12 Temperature 98.0 F Pulse Rate 72 72 Pulse Rate [ 66 Anterior Bilateral Throughout] Pulse Rate [ Left Radial] Respiratory 20 Rate Respiratory 20 Rate [Anterior Bilateral Throughout] Blood Pressure 108/65 O2 Sat by Pulse 93 Oximetry 02/08/19 21:13 Temperature Pulse Rate Pulse Rate [ Anterior Bilateral Throughout] Pulse Rate [ Left Radial] Respiratory Rate Respiratory Rate [Anterior Bilateral Throughout] Blood Pressure O2 Sat by Pulse 92 Oximetry Constitutional: no acute distress, alert Eyes: non-icteric ENT: oropharynx moist Neck: supple, no lymphadenopathy Ascultation: Bilateral: diminished breath sounds Cardiovascular: regular rate and rhythm Gastrointestinal: normoactive bowel sounds, soft, non-tender Integumentary: normal Extremities: no cyanosis, no edema Neurologic: normal mental status, non-focal exam, pupils equal and round Psychiatric: mood appropriate CBC and BMP: 02/07/19 04:10 02/07/19 04:10 ABG, PT/INR, D-dimer: ABG POC ABG pH 7.318 (7.35-7.45) L 02/06/19 10:31 POC ABG pCO2 40.8 (35-45) 02/06/19 10:31 POC ABG pO2 99 (80-105) 02/06/19 10:31 POC ABG HCO3 20.9 (22-26 mml/L) 02/06/19 10:31 POC ABG Total CO2 22 (23-27mmol/L) 02/06/19 10:31 POC ABG O2 Sat 97 02/06/19 10:31 PT/INR, D-dimer 883.25 ng/mlDDU (0-234) H 02/05/19 18:33 Abnormal lab findings: Abnormal Labs 02/05/19 02/05/19 02/05/19 18:33 18:33 18:33 WBC 20.3 H Hgb Hct RDW 20.9 H Seg Neuts % (Manual) 96.0 H Lymphocytes % (Manual) 1.0 L Seg Neutrophils # Man 19.5 H Lymphocytes # (Manual) 0.2 L D-Dimer 883.25 H POC ABG pH Potassium 5.5 H Carbon Dioxide 21 L BUN 37 H Creatinine Glucose 286 H POC Glucose Calcium Magnesium Troponin T Albumin HDL Cholesterol 02/05/19 02/05/19 02/06/19 19:22 23:29 04:25 WBC 17.6 H Hgb Hct RDW 20.7 H Seg Neuts % (Manual) 95.0 H Lymphocytes % (Manual) 2.0 L Seg Neutrophils # Man 16.7 H Lymphocytes # (Manual) 0.4 L D-Dimer POC ABG pH Potassium Carbon Dioxide BUN Creatinine Glucose POC Glucose 327 H Calcium Magnesium Troponin T 0.050 H D Albumin HDL Cholesterol 27 L 02/06/19 02/06/19 02/06/19 04:25 10:31 14:57 WBC Hgb Hct RDW Seg Neuts % (Manual) Lymphocytes % (Manual) Seg Neutrophils # Man Lymphocytes # (Manual) D-Dimer POC ABG pH 7.318 L Potassium 6.3 H* Carbon Dioxide BUN 51 H Creatinine 2.0 H D Glucose 368 H POC Glucose 335 H Calcium 8.3 L Magnesium Troponin T Albumin 3.3 L HDL Cholesterol 02/06/19 02/07/19 02/07/19 19:34 00:39 04:10 WBC 11.2 H Hgb 11.0 L Hct 33.3 L RDW 20.6 H Seg Neuts % (Manual) 92.0 H Lymphocytes % (Manual) 2.0 L Seg Neutrophils # Man 10.3 H Lymphocytes # (Manual) 0.2 L D-Dimer POC ABG pH Potassium Carbon Dioxide BUN Creatinine Glucose POC Glucose 265 H 338 H Calcium Magnesium Troponin T Albumin HDL Cholesterol 02/07/19 02/07/19 02/07/19 04:10 05:24 11:22 WBC Hgb Hct RDW Seg Neuts % (Manual) Lymphocytes % (Manual) Seg Neutrophils # Man Lymphocytes # (Manual) D-Dimer POC ABG pH Potassium Carbon Dioxide 18 L BUN 58 H Creatinine 1.6 H Glucose 252 H POC Glucose 284 H 279 H Calcium Magnesium 3.10 H Troponin T Albumin HDL Cholesterol 02/07/19 02/07/19 02/08/19 18:58 23:18 06:37 WBC Hgb Hct RDW Seg Neuts % (Manual) Lymphocytes % (Manual) Seg Neutrophils # Man Lymphocytes # (Manual) D-Dimer POC ABG pH Potassium Carbon Dioxide BUN Creatinine Glucose POC Glucose 318 H 313 H 177 H Calcium Magnesium Troponin T Albumin HDL Cholesterol 02/08/19 02/08/19 12:36 17:46 WBC Hgb Hct RDW Seg Neuts % (Manual) Lymphocytes % (Manual) Seg Neutrophils # Man Lymphocytes # (Manual) D-Dimer POC ABG pH Potassium Carbon Dioxide BUN Creatinine Glucose POC Glucose 199 H 262 H Calcium Magnesium Troponin T Albumin HDL Cholesterol
[2019-02-08] MEDS: ROCEPHIN/NS 2 GM/100 ML 2 GM/100 ML BAG IV SCH (22:25)
[2019-02-08] MEDS: ZITHROMAX 500 MG in NACL 0.9% 250ML 250 ML IV SCH (22:25)
[2019-02-08] MEDS: TESSALON PERLES PO PRN (22:26)
[2019-02-09] MEDS: HumaLOG SUB-Q SCH ×6 (01:40→21:38)
[2019-02-09] MEDS: LANTUS SUB-Q SCH ×2 (01:41→21:25)
[2019-02-09] MEDS: DUONEB *Not for PRN Use IH SCH ×5 (02:00→19:19)
[2019-02-09] MEDS: TESSALON PERLES PO PRN (06:03)
[2019-02-09] MEDS: SOLU-Medrol IV SCH ×3 (06:03→21:42)
[2019-02-09 06:04] LABS: Calcium 8.1 mg/dL (8.4-10.2)
[2019-02-09] MEDS: BROVANA NEBU IH SCH ×2 (08:03→19:19)
[2019-02-09] MEDS: PULMICORT IH SCH ×2 (08:03→19:19)
[2019-02-09] MEDS: PEPCID PO SCH ×2 (09:10→21:25)
[2019-02-09] MEDS: LOVENOX SUB-Q SCH (09:10)
[2019-02-09] MEDS: REVATIO PO SCH ×3 (09:10→20:32)
[2019-02-09] MEDS: COREG PO SCH ×2 (09:10→21:25)
[2019-02-09] MEDS: ZOLOFT PO SCH (09:10)
[2019-02-09] MEDS: SODIUM CHLORIDE FLUSH SYRINGE 10 ML IV SCH ×2 (09:11→21:27)
[2019-02-09] MEDS: PLAVIX PO SCH (09:11)
[2019-02-09] MEDS: VITAMIN D3 PO SCH (09:11)
[2019-02-09] MEDS: NORVASC PO SCH (09:11)
[2019-02-09] MEDS: CLARITIN PO SCH (09:20)
[2019-02-09] MEDS: COZAAR PO SCH (09:20)
[2019-02-09] MEDS: LASIX PO SCH (09:20)
[2019-02-09] MEDS: FLONASE NS SCH (11:42)
--- NOTE | 2019-02-09 14:01 | Progress Note ---
Assessment and Plan atient awake. Resting on 3 litres O2.O2 saturation 94%.No acute respiratory distress. Patient afebrile and has mild leukocytosis. Repeating chest xray in AM. - Patient Problems (1) Acute respiratory failure with hypoxia Current Visit: Yes Status: Acute Plan to address problem: O2 3 litres via nasal canula. BIPAP during night time and use BIPAP during day time PRN for shortness of breath. Albuterol/atrovent aerosol treatments q 6 hours. Continue I/V solumedrol. Continue ceftrioxone and Zithromax. Continue S/C Lovenox. Continue famotidine. (2) CHF exacerbation Current Visit: Yes Status: Acute Plan to address problem: Management as per cardiology. (3) Pneumonia Current Visit: Yes Status: Acute Plan to address problem: Patient is on ceftrioxone and Zithromax. (4) COPD with acute exacerbation Current Visit: No Status: Acute Plan to address problem: O2 3 litres via nasal canula. BIPAP during night time and use BIPAP during day time PRN for shortness of breath. Albuterol/atrovent aerosol treatments q 6 hours. Continue I/V solumedrol. Continue ceftrioxone and Zithromax. Continue S/C Lovenox. Continue famotidine. Subjective Date of service: 02/09/19 Interval history: Patient awake. Resting on 3 litres O2.O2 saturation 94%.No acute respiratory distress. Patient afebrile and has mild leukocytosis. Repeating chest xray in AM. Objective Vital Signs - 12hr 02/09/19 02/09/19 02/09/19 03:58 08:03 08:10 Temperature 98.0 F 97.7 F Pulse Rate 63 Pulse Rate [ 58 L Anterior Bilateral Throughout] Respiratory 18 18 Rate Respiratory 18 Rate [Anterior Bilateral Throughout] Blood Pressure 104/59 108/64 O2 Sat by Pulse 90 98 Oximetry 02/09/19 08:13 Temperature Pulse Rate Pulse Rate [ 57 L Anterior Bilateral Throughout] Respiratory Rate Respiratory 18 Rate [Anterior Bilateral Throughout] Blood Pressure O2 Sat by Pulse Oximetry Constitutional: no acute distress, alert Eyes: non-icteric ENT: oropharynx moist Neck: supple, no lymphadenopathy Ascultation: Bilateral: diminished breath sounds Cardiovascular: regular rate and rhythm Gastrointestinal: normoactive bowel sounds, soft, non-tender Integumentary: normal Extremities: no cyanosis, no edema Neurologic: normal mental status, non-focal exam, pupils equal and round Psychiatric: mood appropriate CBC and BMP: 02/07/19 04:10 02/09/19 05:16 ABG, PT/INR, D-dimer: ABG POC ABG pH 7.318 (7.35-7.45) L 02/06/19 10:31 POC ABG pCO2 40.8 (35-45) 02/06/19 10:31 POC ABG pO2 99 (80-105) 02/06/19 10:31 POC ABG HCO3 20.9 (22-26 mml/L) 02/06/19 10:31 POC ABG Total CO2 22 (23-27mmol/L) 02/06/19 10:31 POC ABG O2 Sat 97 02/06/19 10:31 PT/INR, D-dimer 883.25 ng/mlDDU (0-234) H 02/05/19 18:33 Abnormal lab findings: Abnormal Labs 02/05/19 02/05/19 02/05/19 18:33 18:33 18:33 WBC 20.3 H Hgb Hct RDW 20.9 H Seg Neuts % (Manual) 96.0 H Lymphocytes % (Manual) 1.0 L Seg Neutrophils # Man 19.5 H Lymphocytes # (Manual) 0.2 L D-Dimer 883.25 H POC ABG pH Potassium 5.5 H Carbon Dioxide 21 L BUN 37 H Creatinine Glucose 286 H POC Glucose Calcium Magnesium Troponin T Albumin HDL Cholesterol 02/05/19 02/05/19 02/06/19 19:22 23:29 04:25 WBC 17.6 H Hgb Hct RDW 20.7 H Seg Neuts % (Manual) 95.0 H Lymphocytes % (Manual) 2.0 L Seg Neutrophils # Man 16.7 H Lymphocytes # (Manual) 0.4 L D-Dimer POC ABG pH Potassium Carbon Dioxide BUN Creatinine Glucose POC Glucose 327 H Calcium Magnesium Troponin T 0.050 H D Albumin HDL Cholesterol 27 L 02/06/19 02/06/19 02/06/19 04:25 10:31 14:57 WBC Hgb Hct RDW Seg Neuts % (Manual) Lymphocytes % (Manual) Seg Neutrophils # Man Lymphocytes # (Manual) D-Dimer POC ABG pH 7.318 L Potassium 6.3 H* Carbon Dioxide BUN 51 H Creatinine 2.0 H D Glucose 368 H POC Glucose 335 H Calcium 8.3 L Magnesium Troponin T Albumin 3.3 L HDL Cholesterol 02/06/19 02/07/19 02/07/19 19:34 00:39 04:10 WBC 11.2 H Hgb 11.0 L Hct 33.3 L RDW 20.6 H Seg Neuts % (Manual) 92.0 H Lymphocytes % (Manual) 2.0 L Seg Neutrophils # Man 10.3 H Lymphocytes # (Manual) 0.2 L D-Dimer POC ABG pH Potassium Carbon Dioxide BUN Creatinine Glucose POC Glucose 265 H 338 H Calcium Magnesium Troponin T Albumin HDL Cholesterol 02/07/19 02/07/19 02/07/19 04:10 05:24 11:22 WBC Hgb Hct RDW Seg Neuts % (Manual) Lymphocytes % (Manual) Seg Neutrophils # Man Lymphocytes # (Manual) D-Dimer POC ABG pH Potassium Carbon Dioxide 18 L BUN 58 H Creatinine 1.6 H Glucose 252 H POC Glucose 284 H 279 H Calcium Magnesium 3.10 H Troponin T Albumin HDL Cholesterol 02/07/19 02/07/19 02/08/19 18:58 23:18 06:37 WBC Hgb Hct RDW Seg Neuts % (Manual) Lymphocytes % (Manual) Seg Neutrophils # Man Lymphocytes # (Manual) D-Dimer POC ABG pH Potassium Carbon Dioxide BUN Creatinine Glucose POC Glucose 318 H 313 H 177 H Calcium Magnesium Troponin T Albumin HDL Cholesterol 02/08/19 02/08/19 02/09/19 12:36 17:46 01:41 WBC Hgb Hct RDW Seg Neuts % (Manual) Lymphocytes % (Manual) Seg Neutrophils # Man Lymphocytes # (Manual) D-Dimer POC ABG pH Potassium Carbon Dioxide BUN Creatinine Glucose POC Glucose 199 H 262 H 218 H Calcium Magnesium Troponin T Albumin HDL Cholesterol 02/09/19 05:16 WBC Hgb Hct RDW Seg Neuts % (Manual) Lymphocytes % (Manual) Seg Neutrophils # Man Lymphocytes # (Manual) D-Dimer POC ABG pH Potassium Carbon Dioxide 21 L BUN 43 H Creatinine Glucose 173 H POC Glucose Calcium 8.1 L Magnesium Troponin T Albumin HDL Cholesterol
--- NOTE | 2019-02-09 16:28 | Progress Note ---
Assessment and Plan Assessment and plan: 73-year-old male with end-stage COPD presents to ED and respiratory distress. Patient was discharged from this hospital yesterday following an admission for acute on chronic respiratory failure. Decision was made for patient to enter hospice. Today patient had first visit with hospice nurse, states he began having mild shortness of breath while she was there. Gerry patient,being treated for Pneumonia and COPD exacerbation.Initially planned ti DC ,however pulm wanted to observe 1-2 days more --Community-acquired pneumonia; IV antibiotics, neg blood cultures, pulmonary following --Acute respiratory failure with hypoxia/requiring BiPAP Oxygen titrate O2 sats to more than 90% BiPAP as needed, if no improvement may need intubation Continue nebulizers and IV steroids and antibiotics and pulmonary following -- COPD with acute exacerbation With acute bronchitis, continue nebulizers and oxygen tapering dose of steroids, IV antibiotics, supportive care --Hyperkalemia Corrected, closely monitor electrolytes, -- Hypertension Continue antihypertensive moderate control Closely monitor blood pressures -- Insulin dependent diabetes mellitus Accu-Chek sliding scale coverage and ADA diet long-acting insulin as needed --Hyperlipidemia Continue statins, low-cholesterol diet -- Pulmonary hypertension Patient on sildenafil 20 mg 3 times a day.Pulm following -- Coronary artery disease Continue Plavix, beta blockers and danitza inhibitors and nitrates Supportive care --Lactic acid acidosis Probably nonspecific. We will trend the lactic acid -- H/O Prostate cancer Supportive care --DVT prophylaxis On Lovenox --full CODE STATUS Monitor closely and adjust management as needed Discussed with [facility]erry physician Dr. Wasserman Patient was in hospice before Discharge home tomorrow if stable and cleared by Pulmonary History Interval history: Patient feels better,mild productive cough Vital signs stable Hospitalist Physical - Constitutional Vitals: Temp Pulse Resp BP Pulse Ox 97.7 F 70 18 108/64 98 02/09/19 08:10 02/09/19 12:46 02/09/19 12:46 02/09/19 08:10 02/09/19 08:03 General appearance: Present: no acute distress, well-nourished, obese - EENT Eyes: Present: PERRL, EOM intact - Neck Neck: Present: supple, normal ROM - Respiratory Respiratory effort: normal Respiratory: bilateral: diminished, wheezing, negative: rales, rhonchi - Cardiovascular Rhythm: regular Heart Sounds: Present: S1 & S2 - Extremities Extremities: no ischemia, No edema - Abdominal General gastrointestinal: soft, non-tender, non-distended, normal bowel sounds - Integumentary Integumentary: Present: clear, warm - Psychiatric Psychiatric: appropriate mood/affect, cooperative - Neurologic Neurologic: moves all extremities Results - Labs CBC & Chem 7: 02/07/19 04:10 02/09/19 05:16 Labs: Laboratory Last Values WBC 11.2 K/mm3 (4.5-11.0) H 02/07/19 04:10 RBC 3.78 M/mm3 (3.65-5.03) 02/07/19 04:10 Hgb 11.0 gm/dl (11.8-15.2) L 02/07/19 04:10 Hct 33.3 % (35.5-45.6) L 02/07/19 04:10 MCV 88 fl (84-94) 02/07/19 04:10 MCH 29 pg (28-32) 02/07/19 04:10 MCHC 33 % (32-34) 02/07/19 04:10 RDW 20.6 % (13.2-15.2) H 02/07/19 04:10 Plt Count 140 K/mm3 (140-440) 02/07/19 04:10 Add Manual Diff Complete 02/07/19 04:10 Total Counted 100 02/07/19 04:10 Seg Neutrophils % Swine Nutritionist 02/07/19 04:10 Seg Neuts % (Manual) 92.0 % (40.0-70.0) H 02/07/19 04:10 4.0 % 02/07/19 04:10 2.0 % (13.4-35.0) L 02/07/19 04:10 Reactive Lymphs % (Man) 0 % 02/07/19 04:10 2.0 % (0.0-7.3) 02/07/19 04:10 0 % (0.0-4.3) 02/07/19 04:10 0 % (0.0-1.8) 02/07/19 04:10 0 % 02/07/19 04:10 0 % 02/07/19 04:10 0 % 02/07/19 04:10 0 % 02/07/19 04:10 Nucleated RBC % Not Reportable 02/07/19 04:10 Seg Neutrophils # Man 10.3 K/mm3 (1.8-7.7) H 02/07/19 04:10 Band Neutrophils # 0.4 K/mm3 02/07/19 04:10 0.2 K/mm3 (1.2-5.4) L 02/07/19 04:10 Abs React Lymphs (Man) 0.0 K/mm3 02/07/19 04:10 0.2 K/mm3 (0.0-0.8) 02/07/19 04:10 0.0 K/mm3 (0.0-0.4) 02/07/19 04:10 0.0 K/mm3 (0.0-0.1) 02/07/19 04:10 0.0 K/mm3 02/07/19 04:10 0.0 K/mm3 02/07/19 04:10 0.0 K/mm3 02/07/19 04:10 Blast Cells # 0.0 K/mm3 02/07/19 04:10 WBC Morphology Not Reportable 02/07/19 04:10 Hypersegmented Neuts Not Reportable 02/07/19 04:10 Hyposegmented Neuts Not Reportable 02/07/19 04:10 Hypogranular Neuts Not Reportable 02/07/19 04:10 Not Reportable 02/07/19 04:10 Not Reportable 02/07/19 04:10 Not Reportable 02/07/19 04:10 Not Reportable 02/07/19 04:10 Not Reportable 02/07/19 04:10 Not Reportable 02/07/19 04:10 Consistent w auto 02/07/19 04:10 Not Reportable 02/07/19 04:10 Plt Clumps, EDTA Not Reportable 02/07/19 04:10 Not Reportable 02/07/19 04:10 Not Reportable 02/07/19 04:10 Not Reportable 02/07/19 04:10 Plt Morphology Comment Not Reportable 02/07/19 04:10 RBC Morphology Not Reportable 02/07/19 04:10 Dimorphic RBCs Not Reportable 02/07/19 04:10 Not Reportable 02/07/19 04:10 Not Reportable 02/07/19 04:10 Not Reportable 02/07/19 04:10 1+ 02/07/19 04:10 Not Reportable 02/07/19 04:10 Not Reportable 02/07/19 04:10 Not Reportable 02/07/19 04:10 Not Reportable 02/07/19 04:10 Not Reportable 02/07/19 04:10 Not Reportable 02/07/19 04:10 Not Reportable 02/07/19 04:10 Not Reportable 02/07/19 04:10 Not Reportable 02/07/19 04:10 Not Reportable 02/07/19 04:10 Not Reportable 02/07/19 04:10 Not Reportable 02/07/19 04:10 Not Reportable 02/07/19 04:10 Not Reportable 02/07/19 04:10 1+ 02/07/19 04:10 Acanthocytes (Spur) Not Reportable 02/07/19 04:10 Rouleaux Not Reportable 02/07/19 04:10 Not Reportable 02/07/19 04:10 Not Reportable 02/07/19 04:10 Not Reportable 02/07/19 04:10 Not Reportable 02/07/19 04:10 Hem Pathologist Commnt No 02/07/19 04:10 883.25 ng/mlDDU (0-234) H 02/05/19 18:33 POC ABG pH 7.318 (7.35-7.45) L 02/06/19 10:31 POC ABG pCO2 40.8 (35-45) 02/06/19 10:31 POC ABG pO2 99 (80-105) 02/06/19 10:31 POC ABG HCO3 20.9 (22-26 mml/L) 02/06/19 10:31 POC ABG Total CO2 22 (23-27mmol/L) 02/06/19 10:31 POC ABG O2 Sat 97 02/06/19 10:31 POC ABG Base Excess -5 ((-2) - (+3)mmol/L) 02/06/19 10:31 50 % 02/06/19 10:31 Sodium 138 mmol/L (137-145) 02/09/19 05:16 Potassium 5.0 mmol/L (3.6-5.0) 02/09/19 05:16 Chloride 105.0 mmol/L (98-107) 02/09/19 05:16 Carbon Dioxide 21 mmol/L (22-30) L 02/09/19 05:16 17 mmol/L 02/09/19 05:16 BUN 43 mg/dL (9-20) H 02/09/19 05:16 1.4 mg/dL (0.8-1.5) 02/09/19 05:16 Estimated GFR 60 ml/min 02/09/19 05:16 31 % 02/09/19 05:16 Glucose 173 mg/dL (75-100) H 02/09/19 05:16 POC Glucose 218 (70-105) H 02/09/19 01:41 Calcium 8.1 mg/dL (8.4-10.2) L 02/09/19 05:16 Magnesium 3.10 mg/dL (1.7-2.3) H 02/07/19 04:10 1.00 mg/dL (0.1-1.2) 02/06/19 04:25 AST 18 units/L (5-40) 02/06/19 04:25 ALT 19 units/L (7-56) 02/06/19 04:25 72 units/L (35-129) 02/06/19 04:25 0.050 ng/mL (0.00-0.029) H D 02/05/19 19:22 NT-Pro-B Natriuret Pep 694.3 pg/mL (0-900) 02/05/19 19:22 6.4 g/dL (6.3-8.2) 02/06/19 04:25 3.3 g/dL (3.9-5) L 02/06/19 04:25 1.1 % 02/06/19 04:25 Triglycerides 107 mg/dL (2-149) 02/05/19 19:22 Cholesterol 99 mg/dL (50-199) 02/05/19 19:22 64 mg/dL (50-130) 02/05/19 19:22 27 mg/dL (40-59) L 02/05/19 19:22 3.66 % 02/05/19 19:22 Active Medications - Current Medications Current Medications: Generic Name Dose Route Start Last Admin Trade Name Freq PRN Reason Stop Dose Admin Acetaminophen 650 mg 02/05/19 21:12 Tylenol PO Q4H PRN Pain MILD(1-3)/Fever >100.5/QUILES Albuterol 2.5 mg 02/05/19 21:19 Proventil IH Q4HRT PRN Shortness Of Breath Albuterol/Ipratropium 1 ampul 02/08/19 14:00 02/09/19 14:05 Duoneb *Not For Prn Use* IH Not Given Q6HRT [facility] Amlodipine Besylate 10 mg 02/05/19 22:00 02/09/19 09:11 Norvasc PO 10 mg DAILY LAM Administration Arformoterol Tartrate 15 mcg 02/05/19 21:30 02/09/19 08:03 Brovana Nebu IH 15 mcg Q12HRT LAM Administration Atorvastatin Calcium 40 mg 02/05/19 22:00 02/08/19 22:26 Lipitor PO 40 mg QHS LAM Administration Benzonatate 100 mg 02/05/19 21:22 02/09/19 06:03 Tessalon Perles PO 100 mg Q8HR PRN Administration Cough Budesonide 0.5 mg 02/05/19 21:30 02/09/19 08:03 Pulmicort IH 0.5 mg Q12HRT LAM Administration Carvedilol 12.5 mg 02/05/19 22:00 02/09/19 09:10 Coreg PO 12.5 mg BID LAM Administration Cholecalciferol 1,000 unit 02/06/19 10:00 02/09/19 09:11 Vitamin D3 PO 1,000 unit DAILY LAM Administration Clopidogrel Bisulfate 75 mg 02/05/19 22:00 02/09/19 09:11 Plavix PO 75 mg QDAY [facility] Administration Enoxaparin Sodium 40 mg 02/10/19 10:00 Lovenox SUB-Q QDAY@1000 [facility] Famotidine 20 mg 02/09/19 22:00 Pepcid PO BID [facility] Fluticasone Propionate 50 mcg 02/05/19 22:00 02/09/19 11:42 Flonase NS 50 mcg QDAY LAM Administration Furosemide 20 mg 02/06/19 10:00 02/09/19 09:20 Lasix PO 20 mg QDAY LAM Administration Hydromorphone HCl 0.5 mg 02/05/19 21:12 Dilaudid IV Q3H PRN Pain , Severe (7-10) Azithromycin 500 mg/ Sodium 250 mls @ 250 mls/hr 02/05/19 22:00 02/08/19 22:25 Chloride IV 250 mls/hr Q24H LAM Administration Ceftriaxone Sodium 2 gm in 100 mls @ 200 mls/hr 02/05/19 22:00 02/08/19 22:25 Rocephin/Ns 2 Gm/100 Ml IV 200 mls/hr Q24H LAM Administration Protocol Insulin Glargine 60 units 02/05/19 22:00 02/09/19 01:41 Lantus SUB-Q 60 units HS LAM Administration Insulin Human Lispro 0 unit 02/06/19 18:00 02/09/19 06:12 Humalog SUB-Q 2 unit Q6HR LAM Administration Protocol Loratadine 10 mg 02/06/19 10:00 02/09/19 09:20 Claritin PO 10 mg DAILY LAM Administration Losartan Potassium 50 mg 02/05/19 22:00 02/09/19 09:20 Cozaar PO 50 mg QDAY LAM Administration Methylprednisolone Sodium Succinate 40 mg 02/08/19 14:00 02/09/19 06:03 Solu-Medrol IV 40 mg Q8H LAM Administration Ondansetron HCl 4 mg 02/05/19 21:12 Zofran IV Q8H PRN Nausea And Vomiting Oxycodone/Acetaminophen 1 tab 02/05/19 21:12 Percocet 5/325 PO Q6H PRN Pain, Moderate (4-6) Sertraline HCl 150 mg 02/06/19 10:00 02/09/19 09:10 Zoloft PO 150 mg QDAY LAM Administration Sildenafil Citrate 20 mg 02/06/19 08:00 02/09/19 09:10 Revatio PO 20 mg TID LAM Administration Sodium Chloride 10 ml 02/05/19 22:00 02/09/19 09:11 Sodium Chloride Flush Syringe 10 Ml IV 10 ml BID LAM Administration Sodium Chloride 10 ml 02/05/19 21:12 02/08/19 06:46 Sodium Chloride Flush Syringe 10 Ml IV 10 ml PRN PRN Administration LINE FLUSH
[2019-02-09] MEDS: ROCEPHIN/NS 2 GM/100 ML 2 GM/100 ML BAG IV SCH ×2 (20:32→21:41)
[2019-02-09] MEDS: SODIUM CHLORIDE FLUSH SYRINGE 10 ML IV PRN (20:35)
[2019-02-09] MEDS: ZITHROMAX 500 MG in NACL 0.9% 250ML 250 ML IV SCH (21:25)
[2019-02-10] MEDS: DUONEB *Not for PRN Use IH SCH ×3 (01:45→14:00)
[2019-02-10] MEDS: SOLU-Medrol IV SCH ×2 (06:35→15:55)
[2019-02-10] MEDS: BROVANA NEBU IH SCH (08:50)
[2019-02-10] MEDS: PULMICORT IH SCH (08:50)
[2019-02-10] MEDS: HumaLOG SUB-Q SCH ×2 (08:56→14:03)
--- NOTE | 2019-02-10 08:59 | XRay Report ---
ROUTINE CHEST, TWO VIEWS: HISTORY: Followup on pulmonary infiltrates. There is poor inspiration. Infiltration in the right perihilar region and left lung base have resolved. The lungs are generally clear given the poor inspiration. Heart and mediastinal structures are unremarkable. The bony structures are grossly intact. IMPRESSION: Negative expiratory chest x-ray.
[2019-02-10] MEDS ORDERED: LOVENOX SUB-Q SCH (10:00)
[2019-02-10] MEDS: REVATIO PO SCH ×2 (10:28→13:58)
[2019-02-10] MEDS: ZOLOFT PO SCH (10:29)
[2019-02-10] MEDS: VITAMIN D3 PO SCH (10:29)
[2019-02-10] MEDS: COZAAR PO SCH (10:29)
[2019-02-10] MEDS: LASIX PO SCH (10:31)
[2019-02-10] MEDS: CLARITIN PO SCH (10:31)
[2019-02-10] MEDS: COREG PO SCH (10:31)
[2019-02-10] MEDS: NORVASC PO SCH (10:34)
[2019-02-10] MEDS: SODIUM CHLORIDE FLUSH SYRINGE 10 ML IV SCH (10:35)
--- NOTE | 2019-02-10 13:49 | Progress Note ---
Assessment and Plan Patient awake. Resting on 3 litres O2.O2 saturation 97%.No acute respiratory distress. Patient afebrile and has mild leukocytosis. Chest xray reported Negative. Patient can be discharged from pulmonary point of view. Follow up with my office in 1 or 2 weeks.. - Patient Problems (1) Acute respiratory failure with hypoxia Current Visit: Yes Status: Acute Plan to address problem: O2 3 litres via nasal canula. BIPAP during night time and use BIPAP during day time PRN for shortness of breath. Albuterol/atrovent aerosol treatments q 6 hours. Continue I/V solumedrol. Continue ceftrioxone and Zithromax. Continue S/C Lovenox. Continue famotidine. (2) CHF exacerbation Current Visit: Yes Status: Acute Plan to address problem: Management as per cardiology. (3) Pneumonia Current Visit: Yes Status: Acute Plan to address problem: Patient is on ceftrioxone and Zithromax. (4) COPD with acute exacerbation Current Visit: No Status: Acute Plan to address problem: O2 3 litres via nasal canula. BIPAP during night time and use BIPAP during day time PRN for shortness of breath. Albuterol/atrovent aerosol treatments q 6 hours. Continue I/V solumedrol. Continue ceftrioxone and Zithromax. Continue S/C Lovenox. Continue famotidine. Subjective Date of service: 02/10/19 Interval history: Patient awake. Resting on 3 litres O2.O2 saturation 96%.No acute respiratory distress. Patient afebrile and has mild leukocytosis. Chest xray reported Negative. Patient can be discharged from pulmonary point of view. Follow up with my office in 1 or 2 weeks. Objective Vital Signs - 12hr 02/10/19 02/10/19 02/10/19 04:10 08:04 08:53 Temperature 97.6 F Pulse Rate 57 L Pulse Rate [ 54 L Anterior Bilateral Throughout] Pulse Rate [ 61 Throughout] Respiratory 17 Rate Respiratory 16 Rate [Anterior Bilateral Throughout] Respiratory 18 Rate [ Throughout] Blood Pressure 109/62 O2 Sat by Pulse 95 97 Oximetry 02/10/19 02/10/19 02/10/19 10:29 10:31 10:34 Temperature Pulse Rate 75 62 62 Pulse Rate [ Anterior Bilateral Throughout] Pulse Rate [ Throughout] Respiratory Rate Respiratory Rate [Anterior Bilateral Throughout] Respiratory Rate [ Throughout] Blood Pressure 103/62 103/62 103/62 O2 Sat by Pulse Oximetry Constitutional: no acute distress, alert Eyes: non-icteric ENT: oropharynx moist Neck: supple, no lymphadenopathy Ascultation: Bilateral: diminished breath sounds Cardiovascular: regular rate and rhythm Gastrointestinal: normoactive bowel sounds, soft, non-tender Integumentary: normal Extremities: no cyanosis, no edema Neurologic: normal mental status, non-focal exam, pupils equal and round Psychiatric: mood appropriate CBC and BMP: 02/07/19 04:10 02/09/19 05:16 ABG, PT/INR, D-dimer: ABG POC ABG pH 7.318 (7.35-7.45) L 02/06/19 10:31 POC ABG pCO2 40.8 (35-45) 02/06/19 10:31 POC ABG pO2 99 (80-105) 02/06/19 10:31 POC ABG HCO3 20.9 (22-26 mml/L) 02/06/19 10:31 POC ABG Total CO2 22 (23-27mmol/L) 02/06/19 10:31 POC ABG O2 Sat 97 02/06/19 10:31 PT/INR, D-dimer 883.25 ng/mlDDU (0-234) H 02/05/19 18:33 Abnormal lab findings: Abnormal Labs 02/05/19 02/05/19 02/05/19 18:33 18:33 18:33 WBC 20.3 H Hgb Hct RDW 20.9 H Seg Neuts % (Manual) 96.0 H Lymphocytes % (Manual) 1.0 L Seg Neutrophils # Man 19.5 H Lymphocytes # (Manual) 0.2 L D-Dimer 883.25 H POC ABG pH Potassium 5.5 H Carbon Dioxide 21 L BUN 37 H Creatinine Glucose 286 H POC Glucose Calcium Magnesium Troponin T Albumin HDL Cholesterol 02/05/19 02/05/19 02/06/19 19:22 23:29 04:25 WBC 17.6 H Hgb Hct RDW 20.7 H Seg Neuts % (Manual) 95.0 H Lymphocytes % (Manual) 2.0 L Seg Neutrophils # Man 16.7 H Lymphocytes # (Manual) 0.4 L D-Dimer POC ABG pH Potassium Carbon Dioxide BUN Creatinine Glucose POC Glucose 327 H Calcium Magnesium Troponin T 0.050 H D Albumin HDL Cholesterol 27 L 02/06/19 02/06/19 02/06/19 04:25 10:31 14:57 WBC Hgb Hct RDW Seg Neuts % (Manual) Lymphocytes % (Manual) Seg Neutrophils # Man Lymphocytes # (Manual) D-Dimer POC ABG pH 7.318 L Potassium 6.3 H* Carbon Dioxide BUN 51 H Creatinine 2.0 H D Glucose 368 H POC Glucose 335 H Calcium 8.3 L Magnesium Troponin T Albumin 3.3 L HDL Cholesterol 02/06/19 02/07/19 02/07/19 19:34 00:39 04:10 WBC 11.2 H Hgb 11.0 L Hct 33.3 L RDW 20.6 H Seg Neuts % (Manual) 92.0 H Lymphocytes % (Manual) 2.0 L Seg Neutrophils # Man 10.3 H Lymphocytes # (Manual) 0.2 L D-Dimer POC ABG pH Potassium Carbon Dioxide BUN Creatinine Glucose POC Glucose 265 H 338 H Calcium Magnesium Troponin T Albumin HDL Cholesterol 02/07/19 02/07/19 02/07/19 04:10 05:24 11:22 WBC Hgb Hct RDW Seg Neuts % (Manual) Lymphocytes % (Manual) Seg Neutrophils # Man Lymphocytes # (Manual) D-Dimer POC ABG pH Potassium Carbon Dioxide 18 L BUN 58 H Creatinine 1.6 H Glucose 252 H POC Glucose 284 H 279 H Calcium Magnesium 3.10 H Troponin T Albumin HDL Cholesterol 02/07/19 02/07/19 02/08/19 18:58 23:18 06:37 WBC Hgb Hct RDW Seg Neuts % (Manual) Lymphocytes % (Manual) Seg Neutrophils # Man Lymphocytes # (Manual) D-Dimer POC ABG pH Potassium Carbon Dioxide BUN Creatinine Glucose POC Glucose 318 H 313 H 177 H Calcium Magnesium Troponin T Albumin HDL Cholesterol 02/08/19 02/08/19 02/09/19 12:36 17:46 01:41 WBC Hgb Hct RDW Seg Neuts % (Manual) Lymphocytes % (Manual) Seg Neutrophils # Man Lymphocytes # (Manual) D-Dimer POC ABG pH Potassium Carbon Dioxide BUN Creatinine Glucose POC Glucose 199 H 262 H 218 H Calcium Magnesium Troponin T Albumin HDL Cholesterol 02/09/19 02/09/19 02/09/19 05:16 18:18 21:41 WBC Hgb Hct RDW Seg Neuts % (Manual) Lymphocytes % (Manual) Seg Neutrophils # Man Lymphocytes # (Manual) D-Dimer POC ABG pH Potassium Carbon Dioxide 21 L BUN 43 H Creatinine Glucose 173 H POC Glucose 253 H 345 H Calcium 8.1 L Magnesium Troponin T Albumin HDL Cholesterol 02/10/19 02/10/19 07:49 11:35 WBC Hgb Hct RDW Seg Neuts % (Manual) Lymphocytes % (Manual) Seg Neutrophils # Man Lymphocytes # (Manual) D-Dimer POC ABG pH Potassium Carbon Dioxide BUN Creatinine Glucose POC Glucose 160 H 293 H Calcium Magnesium Troponin T Albumin HDL Cholesterol Chest x-ray: report reviewed (Reported negative respiratory chest xray.), image reviewed
[2019-02-10] MEDS: PEPCID PO SCH (13:59)
[2019-02-10] MEDS: PLAVIX PO SCH (13:59)
[2019-02-10] MEDS: FLONASE NS SCH (14:00)
--- NOTE | 2019-02-10 14:20 | Discharge Summary ---
Providers - Providers Date of Admission: 02/05/19 21:12 Date of discharge: 02/10/19 Attending physician: TRACY SINGH 02/05/19 Consult to Case Management [CONS] Routine Services Needed at Discharge: Home Health Services Notified:: director case 02/05/19 21:12 Consult to Physician [CONS] Routine Comment: Consulting Provider: BRENT RIZZO Physician Instructions: Reason For Exam: acute respiratory failure [facility] Hospital[facility] Condition: Stable Pertinent studies: CXR Hospital course: 73-year-old male with end-stage COPD presents to ED and respiratory distress. Patient was discharged from this hospital a day ago following an admission for acute on chronic respiratory failure. Decision was made for patient to enter hospice. when patient had first visit with hospice nurse, states he began having mild shortness of breath while she was there. He was brought back for readmission, being treated for Pneumonia and COPD exacerbation. Then discharged back with home hospice. Discharge Diagnosis; --Community-acquired pneumonia with sepsis; POA treated with IV antibiotics, neg blood cultures, --Acute respiratory failure with hypoxia/requiring BiPAP Oxygen titrated to keep O2 sats to more than 90% along with nebulizers and IV steroids and antibiotics -- COPD with acute exacerbation With acute bronchitis, treated with nebulizers, tapering dose of steroids, IV antibiotics and oxygen --Hyperkalemia Corrected, closely monitored electrolytes, -- Hypertension Continue antihypertensives, moderate control -- Insulin dependent diabetes mellitus managed with Accu-Chek sliding scale coverage and ADA diet , long-acting insulin as needed --Hyperlipidemia Continue statins, low-cholesterol diet -- Pulmonary hypertension Patient on sildenafil 20 mg 3 times a day. outpt Pulm followup -- Coronary artery disease Continue Plavix, beta blockers and danitza inhibitors and nitrates --Lactic acid acidosis Probably nonspecific vs dehydration. -- H/O Prostate cancer Supportive care --DVT prophylaxis On Lovenox Discharge home with home hospice Hospitalist Physical General appearance: Present: no acute distress, well-nourished, obese - EENT Eyes: Present: PERRL, EOM intact - Neck Neck: Present: supple, normal ROM - Respiratory Respiratory effort: normal Respiratory: bilateral: diminished, wheezing, negative: rales, rhonchi - Cardiovascular Rhythm: regular Heart Sounds: Present: S1 & S2 - Extremities Extremities: no ischemia, No edema - Abdominal General gastrointestinal: soft, non-tender, non-distended, normal bowel sounds - Integumentary Integumentary: Present: clear, warm - Psychiatric Psychiatric: appropriate mood/affect, cooperative - Neurologic Neurologic: moves all extremities Disposition: DC-50 TO HOSPICE (HOME) Time spent for discharge: 34 minutes Core Measure Documentation - Palliative Care Palliative Care/ Comfort Measures: Hospice Care - Core Measures Any of the following diagnoses?: none Exam - Constitutional Vitals: Temp Pulse Resp BP Pulse Ox 97.6 F 59 L 18 103/62 97 02/10/19 04:10 02/10/19 14:00 02/10/19 14:00 02/10/19 10:34 02/10/19 08:04 Plan Activity: advance as tolerated, fall precautions Weight Bearing Status: Non-Weight Bearing Diet: diabetic Special Instructions: record daily BP diary, record blood sugar diary Follow up with: ALEXIS DAILEY MD [Primary Care Provider] - 3-5 Days BRENT RIZZO MD [Staff Physician] - 7 Days
[2019-02-10 17:23] VITALS: BP 108/62
== END 2019-02-10 17:49 | disposition hospice, home (50) | DRG 871 ==
LOC: ED 17:53 → IMCU 21:12 → 4A 02-06 19:41
PROVIDERS: ADMIT Internal Medicine; ATTEND Internal Medicine
PROC: 5A09357 Assistance with Respiratory Ventilation, Less than 24 Consecutive Hours, Continuous Positive Airway Pressure (ICD-10-PCS; 2019-02-05)
PROC: 4A033R1 Measurement of Arterial Saturation, Peripheral, Percutaneous Approach (ICD-10-PCS; principal; 2019-02-06)
PROC: 5A09357 Assistance with Respiratory Ventilation, Less than 24 Consecutive Hours, Continuous Positive Airway Pressure (ICD-10-PCS; 2019-02-06)
PROC: 5A09357 Assistance with Respiratory Ventilation, Less than 24 Consecutive Hours, Continuous Positive Airway Pressure (ICD-10-PCS; 2019-02-07)
PROC: 5A09357 Assistance with Respiratory Ventilation, Less than 24 Consecutive Hours, Continuous Positive Airway Pressure (ICD-10-PCS; 2019-02-09)
DX: A41.9 Sepsis, unspecified organism (principal); J18.9 Pneumonia, unspecified organism; J96.21 Acute and chronic respiratory failure with hypoxia; J44.1 Chronic obstructive pulmonary disease with (acute) exacerbation; J44.0 Chronic obstructive pulmonary disease with (acute) lower respiratory infection; E87.5 Hyperkalemia; I11.0 Hypertensive heart disease with heart failure; I50.9 Heart failure, unspecified; E11.9 Type 2 diabetes mellitus without complications; G47.33 Obstructive sleep apnea (adult) (pediatric); I27.20 Pulmonary hypertension, unspecified; E78.2 Mixed hyperlipidemia; C61 Malignant neoplasm of prostate; Z79.4 Long term (current) use of insulin; Z87.891 Personal history of nicotine dependence
CPT/HCPCS: 36415; 36600; 71045; 71046; 80048; 80053; 80061; 82803; 82962; 83735; 83880; 84484; 85007; 85025; 85379; 87040; 93005; 93010; 94640; 94660; 94760; G0378; A9270-GY; J0456; J0610; J0696; J1650; J1815; J1940; J2060; J2920; J2930; J7050

== ENCOUNTER 2019-02-17 21:38 | Inpatient (IN) | payer MEDICARE ==
[2019-02-17] MEDS ORDERED: SOLU-Medrol IV ONE (22:06)
[2019-02-17 22:27] LABS: Hematocrit 30.6 % (35.5-45.6); Hemoglobin 9.9 gm/dl (11.8-15.2); Mean Corpuscular HGB Conc 32 % (32-34); Mean Corpuscular Volume 90 fl (84-94); Platelet Count 102 K/mm3 (140-440); Red Blood Count 3.42 M/mm3 (3.65-5.03)
[2019-02-17 22:31] LABS: Red Cell Distribution Width 21.4 % (13.2-15.2)
[2019-02-17] MEDS ORDERED: NACL 0.9% 500 ML 500 ML ONE (22:41)
[2019-02-17] MEDS ORDERED: NACL 0.9% 500 ML 500 ML IV ONE (22:44)
[2019-02-17 22:49] LABS: Albumin 2.9 g/dL (3.9-5); Calcium 8.2 mg/dL (8.4-10.2)
[2019-02-17 22:59] LABS: Basophils % (Manual) 0 % (0.0-1.8); Eosinophils % (Manual) 0 % (0.0-4.3); Total Cells Counted 100
[2019-02-17 23:00] LABS: Anisocytosis 1+; Platelet Estimate Consistent w Auto; Poikilocytosis Few
[2019-02-17 23:01] LABS: Tear Drop Cells Few
--- NOTE | 2019-02-17 23:29 | XRay Report ---
PROCEDURE: XR CHEST 1V AP TECHNIQUE: Chest radiograph single view. HISTORY: Dyspnea COMPARISONS: February 05, 2019 . FINDINGS: Heart: Normal. Mediastinum/Vessels: Normal. Lungs/Pleural space: Moderate vascular congestion. Infiltrate and atelectasis left lower lung. Moder ate left and mild right effusions.. Bony thorax: No acute osseous abnormality. Life support devices: None. IMPRESSION: Vascular congestion with an infiltrate and atelectasis left lower lung. Moderate left an d mild right effusions.. This document is electronically signed by Bela Guerrero DO., February 17 2019 11:27:47 PM ET
[2019-02-17] MEDS ORDERED: NACL 0.9% 500 ML 500 ML IV SCH (23:45)
[2019-02-17] MEDS ORDERED: HumuLIN R IV ONE (23:47)
[2019-02-18] MEDS ORDERED: LEVAQUIN 750MG/150ML 750 MG/150 ML BAG IV ONE (00:51)
[2019-02-18] MEDS ORDERED: TYLENOL PO PRN (02:15)
[2019-02-18] MEDS ORDERED: ZOFRAN IV PRN (02:15)
[2019-02-18] MEDS ORDERED: SODIUM CHLORIDE FLUSH SYRINGE 10 ML IV PRN (02:15)
[2019-02-18] MEDS ORDERED: PROVENTIL IH PRN (02:15)
--- NOTE | 2019-02-18 02:20 | Emergency Department Report ---
HPI - General Chief Complaint: Dyspnea/Respdistress Time Seen by Provider: 02/17/19 21:47 - HPI HPI: 73-year-old -Malag[place] male presents to the emergency department via EMS from home with complaint of shortness of breath, wheezing, coughing that has worsened over the past few days. He has a past medical history of interstitial lung disease, COPD, CHF, coronary artery disease and is home oxygen dependent on 10 L. The patient has had many recent hospitalizations secondary to his chronic conditions and issues with shortness of breath. He has been taking his home medications and using inhalers and nebulizer treatments without any relief. 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 Desai. No recent travel or sick contacts at home. ED Past Medical Hx - Past Medical History Previous Medical History?: Yes Hx Hypertension: Yes Hx Congestive Heart Failure: Yes Hx Diabetes: Yes Hx COPD: Yes Additional medical history: interstitial lung disease, severe pulmonary hy pertension, Obstructive sleep apnea - Surgical History Past Surgical History?: Yes Hx Coronary Stent: Yes Additional Surgical History: neck surgery - Social History Smoking Status: Never Smoker Substance Use Type: None - Medications Home Medications: Home Medications Medication Instructions Recorded Confirmed Last Taken Type Cetirizine HCl [Allergy Relief] 10 mg PO DAILY 01/09/19 02/05/19 02/05/19 History ALBUTEROL NEB's [Proventil 0.083% 2.5 mg IH Q4HRT PRN #15 nebu 02/04/19 02/05/19 02/05/19 Rx NEBS] Acetaminophen [Acetaminophen TAB] 500 mg PO Q6HR PRN #30 02/04/19 02/05/19 Rx Arformoterol Nebu [Brovana Nebu] 15 mcg IH Q12HRT #30 ml 02/04/19 02/05/19 02/05/19 Rx AtorvaSTATin [Lipitor] 40 mg PO QHS #30 02/04/19 02/05/19 02/05/19 Rx Benzonatate [Tessalon Perles] 100 mg PO Q8HR PRN #15 capsule 02/04/19 02/05/19 02/05/19 Rx Budesonide [Pulmicort Respules] 0.5 mg IH Q12HRT #30 nebu 02/04/19 02/05/19 02/05/19 Rx Carvedilol [Coreg] 12.5 mg PO BID #60 02/04/19 02/05/19 02/05/19 Rx Cholecalciferol (Vitamin D3) 1,000 unit PO QDAY #30 02/04/19 02/05/19 02/05/19 Rx [Children's Vitamin D3 1,000 unit CHEW] Clopidogrel [Plavix] 75 mg PO QDAY #30 02/04/19 02/05/19 02/05/19 Rx Famotidine [Pepcid] 20 mg PO BID #30 tablet 02/04/19 02/05/19 02/05/19 Rx Fluticasone [Flonase] 1 spray NS QDAY 5 Days #1 02/04/19 02/05/19 02/05/19 Rx Furosemide [Lasix TAB] 20 mg PO QDAY #30 tablet 02/04/19 02/05/19 02/05/19 Rx Insulin Glargine [Lantus VIAL] 60 units SUB-Q HS #100 units 02/04/19 02/05/19 02/05/19 Rx Ipratropium/Albuterol Sulfate 1 ampul IH Q6HRT #30 ampul.neb 02/04/19 02/05/19 02/05/19 Rx [DUONEB *Not for PRN Use*] Lispro Insulin [HumaLOG] 1 dose SUB-Q ACHS PRN #100 units 02/04/19 02/05/19 02/05/19 Rx Losartan [Cozaar] 50 mg PO QDAY #30 tablet 02/04/19 02/05/19 02/05/19 Rx Sertraline [Zoloft] 150 mg PO QDAY #30 02/04/19 02/05/19 02/05/19 Rx Sildenafil [Revatio] 20 mg PO TID #90 02/04/19 02/05/19 02/05/19 Rx amLODIPine [Norvasc] 10 mg PO DAILY #30 02/04/19 02/05/19 02/05/19 Rx oxyCODONE /ACETAMINOPHEN [Percocet 1 tab PO Q6H PRN #15 tablet 02/04/19 02/05/19 02/05/19 Rx 5/325 mg] methylPREDNISolone [Medrol 4MG 1 dose PO QDAY #1 tab.ds.pk 02/10/19 Unknown Rx DOSEPAK (21 tabs)] ED Review of Systems ROS: Stated complaint: OMAR Other details as noted in HPI Comment: All other systems reviewed and negative Constitutional: denies: chills, fever Eyes: denies: eye pain, vision change ENT: denies: ear pain, throat pain Respiratory: cough, orthopnea, shortness of breath, wheezing Cardiovascular: denies: chest pain, palpitations Gastrointestinal: denies: abdominal pain, vomiting Genitourinary: denies: dysuria, discharge Musculoskeletal: denies: back pain, arthralgia Skin: denies: rash, lesions Neurological: denies: headache, weakness Physical Exam - Physical Exam Vital Signs: Vital Signs 02/17/19 02/17/19 02/17/19 21:38 21:46 22:00 Temperature 99.0 F Pulse Rate 84 109 H Respiratory 23 24 Rate Blood Pressure 137/67 116/65 O2 Sat by Pulse 88 93 94 Oximetry 02/17/19 02/17/19 02/17/19 22:15 22:30 22:35 Temperature Pulse Rate 108 H 111 H Respiratory 20 20 17 Rate Blood Pressure 92/59 84/51 O2 Sat by Pulse 96 98 96 Oximetry 02/17/19 02/17/19 02/17/19 22:45 23:00 23:08 Temperature Pulse Rate 103 H 100 H 101 H Respiratory 18 17 17 Rate Blood Pressure 83/52 89/51 89/51 O2 Sat by Pulse 94 96 96 Oximetry 02/17/19 02/17/19 02/17/19 23:15 23:30 23:45 Temperature Pulse Rate 101 H 100 H 103 H Respiratory 20 19 17 Rate Blood Pressure 99/61 102/55 104/65 O2 Sat by Pulse 97 96 95 Oximetry 02/18/19 02/18/19 02/18/19 00:00 00:15 00:30 Temperature Pulse Rate 102 H 107 H Respiratory 18 20 Rate Blood Pressure 109/62 102/51 O2 Sat by Pulse 97 87 89 Oximetry 02/18/19 02/18/19 02/18/19 00:34 00:45 00:50 Temperature Pulse Rate 105 H Respiratory 21 Rate Blood Pressure 102/51 97/67 O2 Sat by Pulse 74 L 89 93 Oximetry 02/18/19 02/18/19 01:00 01:15 Temperature Pulse Rate 116 H 108 H Respiratory 23 22 Rate Blood Pressure 97/67 102/64 O2 Sat by Pulse 94 94 Oximetry Physical Exam: GENERAL: The patient is well-developed well-nourished. HENT: Normocephalic. Atraumatic. Patient has moist mucous membranes. EYES: Extraocular motions are intact. Pupils equal reactive to light bilaterally. NECK: Supple. Trachea is midline. CHEST/LUNGS: Mild wheezing. Coarse breath sounds throughout the chest. There is tachypnea and accessory muscle use. There is respiratory distress noted. HEART/CARDIOVASCULAR: Regular. There is mild to moderate tachycardia. There is no murmur. ABDOMEN: Abdomen is soft, nontender. Patient has normal bowel sounds. There is no abdominal distention. SKIN: Skin is warm and dry. NEURO: The patient is awake, alert, and cooperative. The patient has no focal neurologic deficits. The patient has normal speech. MUSCULOSKELETAL: There is no tenderness or deformity. There is no evidence of acute injury. ED Course Vital Signs 02/17/19 02/17/19 02/17/19 21:38 21:46 22:00 Temperature 99.0 F Pulse Rate 84 109 H Respiratory 23 24 Rate Blood Pressure 137/67 116/65 O2 Sat by Pulse 88 93 94 Oximetry 02/17/19 02/17/19 02/17/19 22:15 22:30 22:35 Temperature Pulse Rate 108 H 111 H Respiratory 20 20 17 Rate Blood Pressure 92/59 84/51 O2 Sat by Pulse 96 98 96 Oximetry 02/17/19 02/17/19 02/17/19 22:45 23:00 23:08 Temperature Pulse Rate 103 H 100 H 101 H Respiratory 18 17 17 Rate Blood Pressure 83/52 89/51 89/51 O2 Sat by Pulse 94 96 96 Oximetry 02/17/19 02/17/19 02/17/19 23:15 23:30 23:45 Temperature Pulse Rate 101 H 100 H 103 H Respiratory 20 19 17 Rate Blood Pressure 99/61 102/55 104/65 O2 Sat by Pulse 97 96 95 Oximetry 02/18/19 02/18/19 02/18/19 00:00 00:15 00:30 Temperature Pulse Rate 102 H 107 H Respiratory 18 20 Rate Blood Pressure 109/62 102/51 O2 Sat by Pulse 97 87 89 Oximetry 06/19/19 06/19/19 06/19/19 00:34 00:45 00:50 Temperature Pulse Rate 105 H Respiratory 21 Rate Blood Pressure 102/51 97/67 O2 Sat by Pulse 74 L 89 93 Oximetry 02/18/19 02/18/19 01:00 01:15 Temperature Pulse Rate 116 H 108 H Respiratory 23 22 Rate Blood Pressure 97/67 102/64 O2 Sat by Pulse 94 94 Oximetry - Consultations Consultation #1: 02/18/19 02:[address] Norris at the [facility] who listened to the case presentation and has given permission to keep the patient at our facility for further evaluation and treatment. - Central Line Placement Right Femoral Consent Obtained: written consent Time Out Performed: Yes Patient Placed on Monitor/Pulse Ox: Yes MD Prep: mask, gown, gloves Central Line Prep: Chlorhexidine scrub Local Anesthesia Used: Lidocaine 1% Amount of Anesthesia Used (mls): 3 Ultrasound Used for Placement: Yes Central Line Lumen Inserted: triple Central Line Position: good blood return, all ports aspirated, flus, sutured in place with nyl Dressing Applied: Tegaderm, sterile gauze/tape Patient Tolerated Procedure: well Complications: none ED Medical Decision Making - Lab Data Result diagrams: 02/17/19 22:09 02/17/19 22:09 - EKG Data -: EKG Interpreted by Me EKG shows normal: sinus rhythm, axis, intervals, QRS complexes (right bundle- branch block), ST-T waves Rate: tachycardia - EKG Data When compared to previous EKG there are: no significant change Interpretation: unchanged when compared t (02/05/19) - Radiology Data Radiology results: image reviewed interpreted by me: Chest x-ray shows some pulmonary vascular congestion, bilateral pleural effusions and some infiltrates to the left lower lung. - Medical Decision Making Patient presents to the emergency department with acute on chronic shortness of breath with his history of interstitial lung disease, COPD and CHF. He has some wheezing and coarse breath sounds with some respiratory distress. Placed on a nonrebreather secondary to his work of breathing and hypoxia which did improve both. Patient has a leukocytosis of 18,000, anemia with a hemoglobin of 10, blood sugar of about 450, BNP of about 3500, slightly elevated troponin level and some mild renal insufficiency. Chest x-ray shows signs of volume overload and left lower pneumonia. Patient started having some hypotension so he was given a 500 mL bolus of fluid with some improvement. However his blood pressure once again started going back down and his chest x-ray and blood work showed signs of an exacerbation of CHF, so decision was made to place a central line and place the patient on pressors instead. Blood cultures were obtained and the patient was started on antibiotics. He was given some steroids for his bronchospasm and some breathing treatments. The patient had an elevated d-dimer and we attempted to get a VQ scan, but the patient is unable to lay flat and appeared slightly claustrophobic so this examination could not be done. If necessary, the patient can be given a dose of Lovenox. The patient will be admitted to the hospital for further evaluation and treatment and was accepted for admission by the hospitalist service. - Differential Diagnosis CHF, COPD, Pneumonia, PE Critical Care Time: Yes Critical care time in (mins) excluding proc time.: 35 Critical care attestation.: If time is entered above; I have spent that time in minutes in the direct care of this critically ill patient, excluding procedure time. Critical care time was spent on this patient and doing his initial examination, multiple re- evaluations, ordering and interpretation of labs and imaging, ordering and titration of pressors, discussion with the [place] physician, multiple discussions with the patient and his family Critical Care Time: 35 minutes ED Disposition Clinical Impression: Interstitial lung disease, Respiratory distress, COPD with acute exacerbation Pneumonia Qualifiers: Pneumonia type: due to unspecified organism Laterality: left Lung location: lower lobe of lung Qualified Code(s): J18.1 - Lobar pneumonia, unspecified organism CHF exacerbation Qualifiers: Heart failure type: unspecified Qualified Code(s): I50.9 - Heart failure, unspecified Hypotension Qualifiers: Hypotension type: unspecified hypotension type Qualified Code(s): I95.9 - Hypotension, unspecified Disposition: 09 OP ADMIT IP TO THIS HOSP Is pt being admited?: Yes Condition: Serious Instructions: Chronic Obstructive Pulmonary Disease (ED), Bacterial Pneumonia (ED) Referrals: ALEXIS DAILEY MD [Primary Care Provider] - 3-5 Days Time of Disposition: 02:53
[2019-02-18] MEDS ORDERED: D50W (25GM) Syringe IV PRN (02:26)
[2019-02-18] MEDS ORDERED: LEVOPHED DRIP 4 MG/NS 250 ML 4 MG/250 ML BAG IV SCH (03:00)
[2019-02-18] MEDS ORDERED: VANCOMYCIN PHARMACY TO DOSE IV SCH (03:00)
[2019-02-18] MEDS ORDERED: VANCOMYCIN 2,000 MG in NACL 0.9% 500 ML 500 ML IV ONE (03:15)
--- NOTE | 2019-02-18 05:00 | History and Physical Report ---
History of Present Illness Date of examination: 02/18/19 Date of admission: 02/18/19 03:51 Chief complaint: Difficulty breathing History of present illness: 73-year-old -[place] male with history of pulmonary hypertension, hypertension, COPD, ILD, insulin-dependent diabetes mellitus, hyperlipidemia, CAD, CHF, prostate cancer, chronic respiratory failure who presents [facility] ED with complaints of difficulty breathing, wheezing and nonproductive cough. Patient had many recent hospitalizations due to his chronic lung disease. Patient's family is at bedside. Patient is a poor historian. History is provided by family and review of medical records. According to the patient's family patient developed a cough 1 week ago. Over the course of the week his cough continued to progress and patient started experiencing frequent coughing fits. His daughter checked his saturation and it was found to be 30-35% on room air; and EMS was called. On arrival to ED he has saturation of 74% on room air. Past History Past Medical History: COPD ( interstitial lung disease, severe pulmonary hypertension, Obstructive sleep apnea), diabetes, heart failure, hypertension Past Surgical History: Other (s/p stent, neck surgery, ) Social history: , lives with family Family history: no significant family history Medications and Allergies Allergies Allergy/AdvReac Type Severity Reaction Status Date / Time No Known Allergies Allergy Verified 12/23/18 10:17 Home Medications Medication Instructions Recorded Confirmed Last Taken Type Cetirizine HCl [Allergy Relief] 10 mg PO DAILY 01/09/19 02/18/19 02/05/19 History ALBUTEROL NEB's [Proventil 0.083% 2.5 mg IH Q4HRT PRN #15 nebu 02/04/19 02/18/19 02/05/19 Rx NEBS] Acetaminophen [Acetaminophen TAB] 500 mg PO Q6HR PRN #30 02/04/19 02/18/19 02/05/19 Rx Arformoterol Nebu [Brovana Nebu] 15 mcg IH Q12HRT #30 ml 02/04/19 02/18/19 02/05/19 Rx AtorvaSTATin [Lipitor] 40 mg PO QHS #30 02/04/19 02/18/19 02/05/19 Rx Benzonatate [Tessalon Perles] 100 mg PO Q8HR PRN #15 capsule 02/04/19 02/18/19 02/05/19 Rx Budesonide [Pulmicort Respules] 0.5 mg IH Q12HRT #30 nebu 02/04/19 02/18/19 02/05/19 Rx Carvedilol [Coreg] 12.5 mg PO BID #60 02/04/19 02/18/19 02/05/19 Rx Cholecalciferol (Vitamin D3) 1,000 unit PO QDAY #30 02/04/19 02/18/19 02/05/19 Rx [Children's Vitamin D3 1,000 unit CHEW] Clopidogrel [Plavix] 75 mg PO QDAY #30 02/04/19 02/18/19 02/05/19 Rx Famotidine [Pepcid] 20 mg PO BID #30 tablet 02/04/19 02/18/19 02/05/19 Rx Fluticasone [Flonase] 1 spray NS QDAY 5 Days #1 02/04/19 02/18/19 02/05/19 Rx Furosemide [Lasix TAB] 20 mg PO QDAY #30 tablet 02/04/19 02/18/19 02/05/19 Rx Insulin Glargine [Lantus VIAL] 60 units SUB-Q HS #100 units 02/04/19 02/18/19 02/05/19 Rx Ipratropium/Albuterol Sulfate 1 ampul IH Q6HRT #30 ampul.neb 02/04/19 02/18/19 02/05/19 Rx [DUONEB *Not for PRN Use*] Lispro Insulin [HumaLOG] 1 dose SUB-Q ACHS PRN #100 units 02/04/19 02/18/19 02/05/19 Rx Losartan [Cozaar] 50 mg PO QDAY #30 tablet 02/04/19 02/18/19 02/05/19 Rx Sertraline [Zoloft] 150 mg PO QDAY #30 02/04/19 02/18/19 02/05/19 Rx Sildenafil [Revatio] 20 mg PO TID #90 02/04/19 02/18/19 02/05/19 Rx amLODIPine [Norvasc] 10 mg PO DAILY #30 02/04/19 02/18/19 02/05/19 Rx oxyCODONE /ACETAMINOPHEN [Percocet 1 tab PO Q6H PRN #15 tablet 02/04/19 02/18/19 02/05/19 Rx 5/325 mg] Active Meds: Active Medications Acetaminophen (Tylenol) 650 mg PO Q4H PRN PRN Reason: Pain MILD(1-3)/Fever >100.5/QUILES Albuterol (Proventil) 2.5 mg IH Q3HRT PRN PRN Reason: Shortness Of Breath Albuterol/Ipratropium (Duoneb *Not For Prn Use*) 1 ampul IH Q6HRT [facility] Atorvastatin Calcium (Lipitor) 40 mg PO QHS LAM Budesonide (Pulmicort) 0.5 mg IH Q12HRT [facility] Cholecalciferol (Vitamin D3) 1,000 unit PO QDAY LAM Clopidogrel Bisulfate (Plavix) 75 mg PO QDAY [facility] Dextrose (D50w (25gm) Syringe) 50 ml IV PRN PRN PRN Reason: Hypoglycemia Enoxaparin Sodium (Lovenox) 100 mg SUB-Q Q12HR [facility] Famotidine (Pepcid) 20 mg PO BID LAM Sodium Chloride (Nacl 0.9% 500 Ml) 500 mls @ 125 mls/hr IV DIRECT LAM Last Admin: 02/17/19 23:50 Dose: 125 mls/hr Documented by: Cefepime HCl (Maxipime/Ns 1 Gm/100 Ml) 1 gm in 100 mls @ 200 mls/hr IV Q12H [facility]; Protocol Vancomycin HCl 2,000 mg/ (Sodium Chloride) 540 mls @ 250 mls/hr IV ONCE ONE Stop: 02/18/19 05:24 Last Admin: 02/18/19 03:29 Dose: 250 mls/hr Documented by: Norepinephrine (Levophed Drip 4 Mg/Ns 250 Ml) 4 mg in 250 mls @ 7.5 mls/hr IV TITR [facility]; Protocol Vancomycin HCl 1,500 mg/ (Sodium Chloride) 530 mls @ 333.333 mls/hr IV Q18H L[facility] Insulin Glargine (Lantus) 30 units SUB-Q BID [facility] Insulin Human Lispro (Humalog) 0 unit SUB-Q ACHS LAM; Protocol Methylprednisolone Sodium Succinate (Solu-Medrol) 60 mg IV Q8HR LAM Ondansetron HCl (Zofran) 4 mg IV Q8H PRN PRN Reason: Nausea And Vomiting Sertraline HCl (Zoloft) 100 mg PO QDAY LAM Sertraline HCl (Zoloft) 50 mg PO QDAY [facility] Sildenafil Citrate (Revatio) 20 mg PO TID LAM Sodium Chloride (Sodium Chloride Flush Syringe 10 Ml) 10 ml IV BID LAM Sodium Chloride (Sodium Chloride Flush Syringe 10 Ml) 10 ml IV PRN PRN PRN Reason: LINE FLUSH Review of Systems All systems: negative (reviewed and no additional remarkable complaints except as noted) Cardiovascular: orthopnea, shortness of breath, dyspnea on exertion Respiratory: cough, shortness of breath, dyspnea on exertion, wheezing Exam - Physical Exam Narrative exam: Physical exam General appearance: Present: Mild distress, confused, oriented to self and place, older adult -[place]yrgy[place] male - EENT Eyes: Present: PERRL, EOM intact ENT: hearing intact, poor dentition - Neck Neck: Present: supple, normal ROM - Respiratory Respiratory effort: Labored, tachypneic Respiratory: wheezing and coarse breath sounds - Cardiovascular Heart rate: 108 (bpm) Rhythm: Tachycardic Heart Sounds: Present: S1 & S2. Absent: rub, click - Extremities Extremities: no ischemia, pulses intact, abnormal (right femoral double lumen central line) - Peripheral Assessment Peripheral Pulses: within normal limits - Abdominal General gastrointestinal: soft, non-tender, normal bowel sounds - Integumentary Integumentary: Present: warm, dry - Musculoskeletal Musculoskeletal: generalized weakness, able to move all extremities, unable to ambulate patient is bedbound - Psychiatric Psychiatric: cooperative - Constitutional Vitals: Temp Pulse Resp BP Pulse Ox 99.0 F 104 H 20 101/62 98 02/17/19 21:46 02/18/19 04:15 02/18/19 04:15 02/18/19 04:15 02/18/19 04:15 Results - Labs CBC & Chem 7: 02/17/19 22:09 02/17/19 22:09 Labs: Laboratory Last Values WBC 18.3 K/mm3 (4.5-11.0) H 02/17/19 22:09 RBC 3.42 M/mm3 (3.65-5.03) L 02/17/19 22:09 Hgb 9.9 gm/dl (11.8-15.2) L 02/17/19 22:09 Hct 30.6 % (35.5-45.6) L 02/17/19 22:09 MCV 90 fl (84-94) 02/17/19 22:09 MCH 29 pg (28-32) 02/17/19 22:09 MCHC 32 % (32-34) 02/17/19 22:09 RDW 21.4 % (13.2-15.2) H 02/17/19 22:09 Plt Count 102 K/mm3 (140-440) L 02/17/19 22:09 Add Manual Diff Complete 02/17/19 22:09 Total Counted 100 02/17/19 22:09 Seg Neutrophils % Filer Finish 02/17/19 22:09 Seg Neuts % (Manual) 88.0 % (40.0-70.0) H 02/17/19 22:09 0 % 02/17/19 22:09 9.0 % (13.4-35.0) L 02/17/19 22:09 Reactive Lymphs % (Man) 0 % 02/17/19 22:09 3.0 % (0.0-7.3) 02/17/19 22:09 0 % (0.0-4.3) 02/17/19 22:09 0 % (0.0-1.8) 02/17/19 22:09 0 % 02/17/19 22:09 0 % 02/17/19 22:09 0 % 02/17/19 22:09 0 % 02/17/19 22:09 Nucleated RBC % Not Reportable 02/17/19 22:09 Seg Neutrophils # Man 16.1 K/mm3 (1.8-7.7) H 02/17/19 22:09 Band Neutrophils # 0.0 K/mm3 02/17/19 22:09 1.6 K/mm3 (1.2-5.4) 02/17/19 22:09 Abs React Lymphs (Man) 0.0 K/mm3 02/17/19 22:09 0.5 K/mm3 (0.0-0.8) 02/17/19 22:09 0.0 K/mm3 (0.0-0.4) 02/17/19 22:09 0.0 K/mm3 (0.0-0.1) 02/17/19 22:09 0.0 K/mm3 02/17/19 22:09 0.0 K/mm3 02/17/19 22:09 0.0 K/mm3 02/17/19 22:09 Blast Cells # 0.0 K/mm3 02/17/19 22:09 WBC Morphology Not Reportable 02/17/19 22:09 Hypersegmented Neuts Not Reportable 02/17/19 22:09 Hyposegmented Neuts Not Reportable 02/17/19 22:09 Hypogranular Neuts Not Reportable 02/17/19 22:09 Not Reportable 02/17/19 22:09 Not Reportable 02/17/19 22:09 Not Reportable 02/17/19 22:09 Not Reportable 02/17/19 22:09 Not Reportable 02/17/19 22:09 Not Reportable 02/17/19 22:09 Consistent w auto 02/17/19 22:09 Not Reportable 02/17/19 22:09 Plt Clumps, EDTA Not Reportable 02/17/19 22:09 Not Reportable 02/17/19 22:09 Not Reportable 02/17/19 22:09 Not Reportable 02/17/19 22:09 Plt Morphology Comment Not Reportable 02/17/19 22:09 RBC Morphology Not Reportable 02/17/19 22:09 Dimorphic RBCs Not Reportable 02/17/19 22:09 Not Reportable 02/17/19 22:09 Not Reportable 02/17/19 22:09 Few 02/17/19 22:09 1+ 02/17/19 22:09 Few 02/17/19 22:09 Not Reportable 02/17/19 22:09 Not Reportable 02/17/19 22:09 Not Reportable 02/17/19 22:09 Not Reportable 02/17/19 22:09 Not Reportable 02/17/19 22:09 Few 02/17/19 22:09 Not Reportable 02/17/19 22:09 Not Reportable 02/17/19 22:09 Not Reportable 02/17/19 22:09 Not Reportable 02/17/19 22:09 Not Reportable 02/17/19 22:09 Not Reportable 02/17/19 22:09 Not Reportable 02/17/19 22:09 Not Reportable 02/17/19 22:09 Acanthocytes (Spur) Not Reportable 02/17/19 22:09 Rouleaux Not Reportable 02/17/19 22:09 Not Reportable 02/17/19 22:09 Not Reportable 02/17/19 22:09 Not Reportable 02/17/19 22:09 Not Reportable 02/17/19 22:09 Hem Pathologist Commnt No 02/17/19 22:09 603.05 ng/mlDDU (0-234) H 02/17/19 22:09 VBG pH 7.299 (7.320-7.420) L 02/17/19 23:13 Sodium 135 mmol/L (137-145) L 02/17/19 22:09 Potassium 4.8 mmol/L (3.6-5.0) 02/17/19 22:09 Chloride 101.3 mmol/L (98-107) 02/17/19 22:09 Carbon Dioxide 18 mmol/L (22-30) L 02/17/19 22:09 21 mmol/L 02/17/19 22:09 BUN 20 mg/dL (9-20) 02/17/19 22:09 1.5 mg/dL (0.8-1.5) 02/17/19 22:09 Estimated GFR 55 ml/min 02/17/19 22:09 13 % 02/17/19 22:09 Glucose 446 mg/dL (75-100) H 02/17/19 22:09 POC Glucose 281 (70-105) H 02/18/19 01:23 Negative (Negative) 02/17/19 23:13 Calcium 8.2 mg/dL (8.4-10.2) L 02/17/19 22:09 Magnesium 1.90 mg/dL (1.7-2.3) 02/17/19 22:09 1.20 mg/dL (0.1-1.2) 02/17/19 22:09 AST 17 units/L (5-40) 02/17/19 22:09 ALT 20 units/L (7-56) 02/17/19 22:09 81 units/L (35-129) 02/17/19 22:09 0.061 ng/mL (0.00-0.029) H 02/17/19 22:09 NT-Pro-B Natriuret Pep 3625 pg/mL (0-900) H 02/17/19 22:09 6.0 g/dL (6.3-8.2) L 02/17/19 22:09 2.9 g/dL (3.9-5) L 02/17/19 22:09 0.9 % 02/17/19 22:09 - Imaging and Cardiology Chest x-ray: report reviewed (*with congestion with infiltrate and atelectasis left lower lung, moderate left and mild right effusion), image reviewed Assessment and Plan Assessment and plan: 73-year-old -[place] male with history of pulmonary hypertension, hypertension, COPD, ILD, insulin-dependent diabetes mellitus, hyperlipidemia, CAD, CHF, prostate cancer, chronic respiratory failure who presents [facility] ED with complaints of difficulty breathing, wheezing and nonproductive cough. Patient had many recent hospitalizations due to his chronic lung disease. On arrival to ED his family 74% on room air. Patient was hypotensive and was given a 500 mL fluid bolus in the ED and was responsive for short period of time. Right femoral double lumen central line was placed and patient was started on levophed gtt. Will admit to the critical care unit. Acute on chronic hypoxic respiratory failure Pneumonia AE COPD Sepsis Leukocytosis Anemia Thrombocytopenia Elevated d-dimer Acidosis Hyperglycemia Insulin-dependent diabetes mellitus Elevated BNP R/O PE ILD Pulmonary hypertension-severe CHF KELLY Mild to moderate malnutrition HLD History of prostate cancer Plan: Continue supportive care Baseline home supplemental oxygen of 10L; Continue supplemental oxygen and wean as tolerated Echo pending VQ scan pending; she is not a candidate for CT angiogram chest Bilateral Doppler pending Pulmonary consulted Scheduled DuoNeb's and Pulmicort, albuterol when necessary Solu-Medrol 60 mg every 8 hours Blood cultures pending Start cefepime and vancomycin ID consult pending Monitor BP Hold all antihypertensive medication d/t hypotension Continue levothyroid drip POC BG Monitoring Scheduled Lantus 30 units twice a day, SSI coverage Lovenox 100 mg every 6 hours Dietitian consult pending DVT PPX on Lovenox Advance Directives: No VTE prophylaxis?: Chemical Plan of care discussed with patient/family: Yes
[2019-02-18] MEDS: MAXIPIME/NS 1 GM/100 ML 1 GM/100 ML BAG IV SCH ×2 (05:54→17:35)
[2019-02-18] MEDS: SOLU-Medrol IV SCH ×3 (05:55→21:40)
[2019-02-18] MEDS: PULMICORT IH SCH ×2 (08:02→19:22)
[2019-02-18] MEDS: DUONEB *Not for PRN Use IH SCH ×3 (08:02→19:22)
--- NOTE | 2019-02-18 08:31 | Progress Note ---
Assessment and Plan Assessment and plan: Patient is a 73 yo man who is a [facility] patient with a history of hypertension, COPD, ILD, insulin-dependent diabetes mellitus, hyperlipidemia, CAD, CHF, prostate cancer, chronic respiratory failure and pulmonary hypertension who presented to [facility] ED with SOB/OMAR. Home Pulse ox was 35% and O2 saturation in ED was 74% on RA. Patient was hypotensive and was given a 500 mL fluid bolus in the ED and was responsive for short period of time. Right femoral double lumen central line was placed and patient was started on levophed gtt and admitted to the Critical Care Unit. Patient has a leukocytosis of 18,000, anemia with a hemoglobin of 10, blood sugar of about 450, BNP of about 3500, slightly elevated troponin level and some mild renal insufficiency, so CTA chest wasn't done. Chest x-ray shows signs of volume overload and left lower pneumonia. Patient started having some hypotension so he was given a 500 mL bolus of fluid with some improvement. However his blood pressure once again started going back down and his chest x-ray and blood work showed signs of an exacerbation of CHF, so decision was made to place a central line to start Vasopressor instead of more IV fluids. Blood cultures were obtained and the patient was started on antibiotics. He was given some steroids for his bronchospasm and some breathing treatments. The patient had an elevated d-dimer and we attempted to get a VQ scan, but the patient is unable to lay flat and appeared slightly claustrophobic so this examination could not be done. If necessary, the patient can be given a dose of Lovenox. * pCXR Impression: Vascular congestion with an infiltrate and atelectasis left lower lung, moderate left and mild right effusions Acute on chronic hypoxic respiratory failure: Baseline home supplemental oxygen of 10L; Continue supplemental oxygen and wean as tolerated LLL Pneumonia: Start cefepime and vancomycin, ID consulted AE COPD: Solu-Medrol 60 mg every 8 hours, Scheduled DuoNeb's and Pulmicort, albuterol when necessary Sepsis with shock: Hold all antihypertensive medication d/t hypotension, try to wean off levophed drip, follow Blood cultures pending Acute on chronic combined heart failure: difficult/complex medical decision, treat the septic shock with IVF will worsen CHF, so Consult Cardiology, ?ECHO Anemia and Thrombocytopenia: monitor cbc closely Elevated d-dimer R/O PE: on Lovenox 100 mg every 6 hours Acidosis Insulin-dependent diabetes mellitus uncontrolled with Hyperglycemia: POC BG Monitoring, Scheduled Lantus 30 units twice a day, SSI coverage ILD with severe Pulmonary hypertension-severe: consult Pulmonology, continue O2 support h/o KELLY Mild to moderate malnutrition; Dietitian consulted h/o HLD History of prostate cancer DVT PPX on Lovenox ARF due to ATN, poa: improve BP and monitor closely full code Echo pending VQ scan pending; she is not a candidate for CT angiogram chest Bilateral Doppler pending CCT 35 minutes I had just discharge patient home with [facility] on 02/04/19. He came back the next day for admission then was discharge again on 02/10/19 and now comes back on 02/18/19. Patient may need a different Home Hospice company to prevent frequent re-admission for the same thing, underlying end stage ILD with severe pulmonary hypertension. History Interval history: Patient was seen and examined. Follow-up on current diagnosis Hypotensio n/pna/chf/copd. No overnight events reported to me. Patient denies any chest pain, nausea/vomiting or severe headaches. Imaging, nursing note, chart, labs and old chart reviewed. Discussed with patient. Hospitalist Physical - Physical exam Narrative exam: Gen: ill appearing, WDWN, NAD, Awake, Alert, Orientated HEENT: NCAT, EOMI, PERRL, OP Clear Neck: supple, no adenopathy, no thyromegaly, no JVD CVS/Heart: RRR, normal S1S2, pulses present bilaterally Chest/Lungs: diminished bs bilateral with bibasilar crackles and rhonchi, Symmetrical chest expansion, good air entry bilaterally GI/Abdomen: soft, NTND, good bowel sounds, no guarding or rebound /Bladder: no suprapubic tenderness, no CVA or paraspinal tenderness Extermity/Skin: no c/c/e, no obvious rash MSK: FROM x 4 Neuro: CN 2-12 grossly intact, no new focal deficits Psych: calm - Constitutional Vitals: Temp Pulse Resp BP Pulse Ox 99.3 F 108 H 22 116/68 96 02/18/19 05:00 02/18/19 08:03 02/18/19 08:03 02/18/19 06:00 02/18/19 08:08 Results - Labs CBC & Chem 7: 06/18/19 22:09 02/17/19 22:09 Labs: Laboratory Last Values WBC 18.3 K/mm3 (4.5-11.0) H 02/17/19 22:09 RBC 3.42 M/mm3 (3.65-5.03) L 02/17/19 22:09 Hgb 9.9 gm/dl (11.8-15.2) L 02/17/19 22:09 Hct 30.6 % (35.5-45.6) L 02/17/19 22:09 MCV 90 fl (84-94) 02/17/19 22:09 MCH 29 pg (28-32) 02/17/19 22:09 MCHC 32 % (32-34) 02/17/19 22:09 RDW 21.4 % (13.2-15.2) H 02/17/19 22:09 Plt Count 102 K/mm3 (140-440) L 02/17/19 22:09 Add Manual Diff Complete 02/17/19 22:09 Total Counted 100 02/17/19 22:09 Seg Neutrophils % [employer] 02/17/19 22:09 Seg Neuts % (Manual) 88.0 % (40.0-70.0) H 02/17/19 22:09 0 % 02/17/19 22:09 9.0 % (13.4-35.0) L 02/17/19 22:09 Reactive Lymphs % (Man) 0 % 02/17/19 22:09 3.0 % (0.0-7.3) 02/17/19 22:09 0 % (0.0-4.3) 02/17/19 22:09 0 % (0.0-1.8) 02/17/19 22:09 0 % 02/17/19 22:09 0 % 02/17/19 22:09 0 % 02/17/19 22:09 0 % 02/17/19 22:09 Nucleated RBC % Not Reportable 02/17/19 22:09 Seg Neutrophils # Man 16.1 K/mm3 (1.8-7.7) H 02/17/19 22:09 Band Neutrophils # 0.0 K/mm3 02/17/19 22:09 1.6 K/mm3 (1.2-5.4) 02/17/19 22:09 Abs React Lymphs (Man) 0.0 K/mm3 02/17/19 22:09 0.5 K/mm3 (0.0-0.8) 02/17/19 22:09 0.0 K/mm3 (0.0-0.4) 02/17/19 22:09 0.0 K/mm3 (0.0-0.1) 02/17/19 22:09 0.0 K/mm3 02/17/19 22:09 0.0 K/mm3 02/17/19 22:09 0.0 K/mm3 02/17/19 22:09 Blast Cells # 0.0 K/mm3 02/17/19 22:09 WBC Morphology Not Reportable 02/17/19 22:09 Hypersegmented Neuts Not Reportable 02/17/19 22:09 Hyposegmented Neuts Not Reportable 02/17/19 22:09 Hypogranular Neuts Not Reportable 02/17/19 22:09 Not Reportable 02/17/19 22:09 Not Reportable 02/17/19 22:09 Not Reportable 02/17/19 22:09 Not Reportable 02/17/19 22:09 Not Reportable 02/17/19 22:09 Not Reportable 02/17/19 22:09 Consistent w auto 02/17/19 22:09 Not Reportable 02/17/19 22:09 Plt Clumps, EDTA Not Reportable 02/17/19 22:09 Not Reportable 02/17/19 22:09 Not Reportable 02/17/19 22:09 Not Reportable 02/17/19 22:09 Plt Morphology Comment Not Reportable 02/17/19 22:09 RBC Morphology Not Reportable 02/17/19 22:09 Dimorphic RBCs Not Reportable 02/17/19 22:09 Not Reportable 02/17/19 22:09 Not Reportable 02/17/19 22:09 Few 02/17/19 22:09 1+ 02/17/19 22:09 Few 02/17/19 22:09 Not Reportable 02/17/19 22:09 Not Reportable 02/17/19 22:09 Not Reportable 02/17/19 22:09 Not Reportable 02/17/19 22:09 Not Reportable 02/17/19 22:09 Few 02/17/19 22:09 Not Reportable 02/17/19 22:09 Not Reportable 02/17/19 22:09 Not Reportable 02/17/19 22:09 Not Reportable 02/17/19 22:09 Not Reportable 02/17/19 22:09 Not Reportable 02/17/19 22:09 Not Reportable 02/17/19 22:09 Not Reportable 02/17/19 22:09 Acanthocytes (Spur) Not Reportable 02/17/19 22:09 Rouleaux Not Reportable 02/17/19 22:09 Not Reportable 02/17/19 22:09 Not Reportable 02/17/19 22:09 Not Reportable 02/17/19 22:09 Not Reportable 02/17/19 22:09 Hem Pathologist Commnt No 02/17/19 22:09 603.05 ng/mlDDU (0-234) H 02/17/19 22:09 POC ABG pH 7.308 (7.35-7.45) L 02/17/19 22:28 POC ABG pCO2 38.5 (35-45) 02/17/19 22:28 POC ABG pO2 93 (80-105) 02/17/19 22:28 POC ABG HCO3 19.3 (22-26 mml/L) 02/17/19 22:28 POC ABG Total CO2 20 (23-27mmol/L) 02/17/19 22:28 POC ABG O2 Sat 96 02/17/19 22:28 POC ABG Base Excess -7 ((-2) - (+3)mmol/L) 02/17/19 22:28 VBG pH 7.299 (7.320-7.420) L 02/17/19 23:13 100 % 02/17/19 22:28 Sodium 135 mmol/L (137-145) L 02/17/19 22:09 Potassium 4.8 mmol/L (3.6-5.0) 02/17/19 22:09 Chloride 101.3 mmol/L (98-107) 02/17/19 22:09 Carbon Dioxide 18 mmol/L (22-30) L 02/17/19 22:09 21 mmol/L 02/17/19 22:09 BUN 20 mg/dL (9-20) 02/17/19 22:09 1.5 mg/dL (0.8-1.5) 02/17/19 22:09 Estimated GFR 55 ml/min 02/17/19 22:09 13 % 02/17/19 22:09 Glucose 446 mg/dL (75-100) H 02/17/19 22:09 POC Glucose 388 (70-105) H 02/18/19 07:54 Negative (Negative) 02/17/19 23:13 Calcium 8.2 mg/dL (8.4-10.2) L 02/17/19 22:09 Magnesium 1.90 mg/dL (1.7-2.3) 02/17/19 22:09 1.20 mg/dL (0.1-1.2) 02/17/19 22:09 AST 17 units/L (5-40) 02/17/19 22:09 ALT 20 units/L (7-56) 02/17/19 22:09 81 units/L (35-129) 02/17/19 22:09 0.061 ng/mL (0.00-0.029) H 02/17/19 22:09 NT-Pro-B Natriuret Pep 3625 pg/mL (0-900) H 02/17/19 22:09 6.0 g/dL (6.3-8.2) L 02/17/19 22:09 2.9 g/dL (3.9-5) L 02/17/19 22:09 0.9 % 02/17/19 22:09 Active Medications - Current Medications Current Medications: Generic Name Dose Route Start Last Admin Trade Name Freq PRN Reason Stop Dose Admin Acetaminophen 650 mg 02/18/19 02:15 Tylenol PO Q4H PRN Pain MILD(1-3)/Fever >100.5/QUILES Albuterol 2.5 mg 02/18/19 02:15 Proventil IH Q3HRT PRN Shortness Of Breath Albuterol/Ipratropium 1 ampul 02/18/19 08:00 02/18/19 08:02 Duoneb *Not For Prn Use* IH 1 ampul Q6HRT [facility] Administration Atorvastatin Calcium 40 mg 02/18/19 22:00 Lipitor PO QHS [facility] Budesonide 0.5 mg 02/18/19 08:00 02/18/19 08:02 Pulmicort IH 0.5 mg Q12HRT [facility] Administration Cholecalciferol 1,000 unit 02/18/19 10:00 Vitamin D3 PO QDAY [facility] Clopidogrel Bisulfate 75 mg 02/18/19 10:00 Plavix PO QDAY [facility] Dextrose 50 ml 02/18/19 02:26 D50w (25gm) Syringe IV PRN PRN Hypoglycemia Enoxaparin Sodium 100 mg 02/18/19 10:00 Lovenox SUB-Q Q12HR [facility] Famotidine 20 mg 02/18/19 10:00 Pepcid PO BID [facility] Sodium Chloride 500 mls @ 125 mls/hr 02/17/19 23:45 02/17/19 23:50 Nacl 0.9% 500 Ml IV 125 mls/hr DIRECT [facility] Administration Cefepime HCl 1 gm in 100 mls @ 200 mls/hr 02/18/19 06:00 02/18/19 05:54 Maxipime/Ns 1 Gm/100 Ml IV 200 mls/hr Q12H [facility] Administration Protocol Norepinephrine 4 mg in 250 mls @ 7.5 mls/hr 02/18/19 03:00 Levophed Drip 4 Mg/Ns 250 Ml IV TITR [facility] Protocol 2 MCG/MIN Vancomycin HCl 1,500 mg/ 530 mls @ 333.333 mls/hr 02/18/19 16:00 Sodium Chloride IV Q18H [facility] Insulin Glargine 30 units 02/18/19 10:00 Lantus SUB-Q BID [facility] Insulin Human Lispro 0 unit 02/18/19 07:30 Humalog SUB-Q ACHS [facility] Protocol Methylprednisolone Sodium Succinate 60 mg 02/18/19 06:00 02/18/19 05:55 Solu-Medrol IV 60 mg Q8HR [facility] Administration Ondansetron HCl 4 mg 02/18/19 02:15 Zofran IV Q8H PRN Nausea And Vomiting Sertraline HCl 50 mg 02/18/19 10:00 Zoloft PO QDAY [facility] Sildenafil Citrate 20 mg 02/18/19 08:00 Revatio PO TID [facility] Sodium Chloride 10 ml 02/18/19 10:00 Sodium Chloride Flush Syringe 10 Ml IV BID [facility] Sodium Chloride 10 ml 02/18/19 02:15 Sodium Chloride Flush Syringe 10 Ml IV PRN PRN LINE FLUSH
[2019-02-18] MEDS: HumaLOG SUB-Q SCH ×4 (08:49→21:41)
[2019-02-18] MEDS: REVATIO PO SCH ×3 (09:07→21:42)
[2019-02-18] MEDS: PLAVIX PO SCH (09:08)
[2019-02-18] MEDS: VITAMIN D3 PO SCH (09:09)
[2019-02-18] MEDS: PEPCID PO SCH ×2 (09:10→21:42)
[2019-02-18] MEDS: ZOLOFT PO SCH (09:10)
[2019-02-18] MEDS: LOVENOX SUB-Q SCH ×2 (09:10→21:42)
[2019-02-18] MEDS ORDERED: LOVENOX SUB-Q SCH ×2 (10:00)
[2019-02-18] MEDS ORDERED: ZOLOFT PO SCH (10:00)
[2019-02-18] MEDS ORDERED: COZAAR PO SCH (10:00)
[2019-02-18] MEDS ORDERED: COREG PO SCH (10:00)
[2019-02-18] MEDS ORDERED: NORVASC PO SCH (10:00)
--- NOTE | 2019-02-18 12:36 | Consultation ---
History of Present Illness Consult date: 02/18/19 Requesting physician: ADAN CUEVAS Reason for consult: COPD, pulmonary fibrosis, other (Acute on Chronic Hypoxemic Respiratory Failure) History of present illness: PULMONARY/CCM CONSULT NOTE (Full dictation # [id number]) - empiric AB's - ACS w/up - dopplers and if negative stop full dose lovenox - sputum C&S - CRP, lactate levels to aid clinical decision making - gentle diuresis - 2D ECHO +/- cardiology evalutaion - supportive care Please see dictated notes for full details Past History Past Medical History: COPD ( interstitial lung disease, severe pulmonary hypertension, Obstructive sleep apnea), diabetes, heart failure, hypertension Past Surgical History: Other (s/p stent, neck surgery, ) Social history: , lives with family Family history: no significant family history Medications and Allergies Allergies Allergy/AdvReac Type Severity Reaction Status Date / Time No Known Allergies Allergy Verified 12/23/18 10:17 Home Medications Medication Instructions Recorded Confirmed Last Taken Type Cetirizine HCl [Allergy Relief] 10 mg PO DAILY 01/09/19 02/18/19 02/05/19 History ALBUTEROL NEB's [Proventil 0.083% 2.5 mg IH Q4HRT PRN #15 nebu 02/04/19 02/18/19 02/05/19 Rx NEBS] Acetaminophen [Acetaminophen TAB] 500 mg PO Q6HR PRN #30 02/04/19 02/18/19 02/05/19 Rx Arformoterol Nebu [Brovana Nebu] 15 mcg IH Q12HRT #30 ml 02/04/19 02/18/19 02/05/19 Rx AtorvaSTATin [Lipitor] 40 mg PO QHS #30 02/04/19 02/18/19 02/05/19 Rx Benzonatate [Tessalon Perles] 100 mg PO Q8HR PRN #15 capsule 02/04/19 02/18/19 02/05/19 Rx Budesonide [Pulmicort Respules] 0.5 mg IH Q12HRT #30 nebu 02/04/19 02/18/19 02/05/19 Rx Carvedilol [Coreg] 12.5 mg PO BID #60 02/04/19 02/18/19 02/05/19 Rx Cholecalciferol (Vitamin D3) 1,000 unit PO QDAY #30 02/04/19 02/18/19 02/05/19 Rx [Children's Vitamin D3 1,000 unit CHEW] Clopidogrel [Plavix] 75 mg PO QDAY #30 02/04/19 02/18/19 02/05/19 Rx Famotidine [Pepcid] 20 mg PO BID #30 tablet 02/04/19 02/18/19 02/05/19 Rx Fluticasone [Flonase] 1 spray NS QDAY 5 Days #1 02/04/19 02/18/19 02/05/19 Rx Furosemide [Lasix TAB] 20 mg PO QDAY #30 tablet 02/04/19 02/18/19 02/05/19 Rx Insulin Glargine [Lantus VIAL] 60 units SUB-Q HS #100 units 02/04/19 02/18/19 02/05/19 Rx Ipratropium/Albuterol Sulfate 1 ampul IH Q6HRT #30 ampul.neb 02/04/19 02/18/19 02/05/19 Rx [DUONEB *Not for PRN Use*] Lispro Insulin [HumaLOG] 1 dose SUB-Q ACHS PRN #100 units 02/04/19 02/18/19 02/05/19 Rx Losartan [Cozaar] 50 mg PO QDAY #30 tablet 02/04/19 02/18/19 02/05/19 Rx Sertraline [Zoloft] 150 mg PO QDAY #30 02/04/19 02/18/19 02/05/19 Rx Sildenafil [Revatio] 20 mg PO TID #90 02/04/19 02/18/19 02/05/19 Rx amLODIPine [Norvasc] 10 mg PO DAILY #30 02/04/19 02/18/19 02/05/19 Rx oxyCODONE /ACETAMINOPHEN [Percocet 1 tab PO Q6H PRN #15 tablet 02/04/19 02/18/19 02/05/19 Rx 5/325 mg] Active Meds: Active Medications Acetaminophen (Tylenol) 650 mg PO Q4H PRN PRN Reason: Pain MILD(1-3)/Fever >100.5/QUILES Albuterol (Proventil) 2.5 mg IH Q3HRT PRN PRN Reason: Shortness Of Breath Albuterol/Ipratropium (Duoneb *Not For Prn Use*) 1 ampul IH Q6HRT [facility] Last Admin: 02/18/19 08:02 Dose: 1 ampul Documented by: Atorvastatin Calcium (Lipitor) 40 mg PO QHS [facility] Budesonide (Pulmicort) 0.5 mg IH Q12HRT [facility] Last Admin: 02/18/19 08:02 Dose: 0.5 mg Documented by: Cholecalciferol (Vitamin D3) 1,000 unit PO QDAY [facility] Last Admin: 02/18/19 09:09 Dose: 1,000 unit Documented by: Clopidogrel Bisulfate (Plavix) 75 mg PO QDAY [facility] Last Admin: 02/18/19 09:08 Dose: 75 mg Documented by: Dextrose (D50w (25gm) Syringe) 50 ml IV PRN PRN PRN Reason: Hypoglycemia Enoxaparin Sodium (Lovenox) 100 mg SUB-Q Q12HR [facility] Last Admin: 02/18/19 09:10 Dose: 100 mg Documented by: Famotidine (Pepcid) 20 mg PO BID [facility] Last Admin: 02/18/19 09:10 Dose: 20 mg Documented by: Cefepime HCl (Maxipime/Ns 1 Gm/100 Ml) 1 gm in 100 mls @ 200 mls/hr IV Q12H [facility]; Protocol Last Admin: 02/18/19 05:54 Dose: 200 mls/hr Documented by: Norepinephrine (Levophed Drip 4 Mg/Ns 250 Ml) 4 mg in 250 mls @ 7.5 mls/hr IV TITR [facility]; Protocol Vancomycin HCl 1,500 mg/ (Sodium Chloride) 530 mls @ 333.333 mls/hr IV Q18H [facility] Insulin Glargine (Lantus) 30 units SUB-Q BID [facility] Insulin Human Lispro (Humalog) 0 unit SUB-Q ACHS [facility]; Protocol Last Admin: 02/18/19 08:49 Dose: 10 unit Documented by: Methylprednisolone Sodium Succinate (Solu-Medrol) 60 mg IV Q8HR [facility] Last Admin: 02/18/19 05:55 Dose: 60 mg Documented by: Ondansetron HCl (Zofran) 4 mg IV Q8H PRN PRN Reason: Nausea And Vomiting Sertraline HCl (Zoloft) 50 mg PO QDAY [facility] Last Admin: 02/18/19 09:10 Dose: 50 mg Documented by: Sildenafil Citrate (Revatio) 20 mg PO TID [facility] Last Admin: 02/18/19 09:07 Dose: 20 mg Documented by: Sodium Chloride (Sodium Chloride Flush Syringe 10 Ml) 10 ml IV BID [facility] Sodium Chloride (Sodium Chloride Flush Syringe 10 Ml) 10 ml IV PRN PRN PRN Reason: LINE FLUSH Physical Examination Vital signs: Vital Signs Pulse Ox 88 02/17/19 21:38 Results - Laboratory Findings CBC and BMP: 02/17/19 22:09 02/17/19 22:09 ABG POC ABG pH 7.308 (7.35-7.45) L 02/17/19 22:28 POC ABG pCO2 38.5 (35-45) 02/17/19 22:28 POC ABG pO2 93 (80-105) 02/17/19 22:28 POC ABG HCO3 19.3 (22-26 mml/L) 02/17/19 22:28 POC ABG Total CO2 20 (23-27mmol/L) 02/17/19 22:28 POC ABG O2 Sat 96 02/17/19 22:28 PT/INR, D-dimer 603.05 ng/mlDDU (0-234) H 02/17/19 22:09 Abnormal lab findings: Abnormal Labs 02/17/19 02/17/19 02/17/19 22:09 22:09 22:09 WBC 18.3 H RBC 3.42 L Hgb 9.9 L Hct 30.6 L RDW 21.4 H Plt Count 102 L Seg Neuts % (Manual) 88.0 H Lymphocytes % (Manual) 9.0 L Seg Neutrophils # Man 16.1 H D-Dimer 603.05 H POC ABG pH VBG pH Sodium 135 L Carbon Dioxide 18 L Glucose 446 H POC Glucose Calcium 8.2 L Troponin T 0.061 H NT-Pro-B Natriuret Pep Total Protein 6.0 L Albumin 2.9 L 02/17/19 02/17/19 02/17/19 22:09 22:28 23:13 WBC RBC Hgb Hct RDW Plt Count Seg Neuts % (Manual) Lymphocytes % (Manual) Seg Neutrophils # Man D-Dimer POC ABG pH 7.308 L VBG pH 7.299 L Sodium Carbon Dioxide Glucose POC Glucose Calcium Troponin T NT-Pro-B Natriuret Pep 3625 H Total Protein Albumin 02/18/19 02/18/19 02/18/19 00:01 01:23 05:40 WBC RBC Hgb Hct RDW Plt Count Seg Neuts % (Manual) Lymphocytes % (Manual) Seg Neutrophils # Man D-Dimer POC ABG pH VBG pH Sodium Carbon Dioxide Glucose POC Glucose 424 H 281 H 381 H Calcium Troponin T NT-Pro-B Natriuret Pep Total Protein Albumin 02/18/19 02/18/19 07:54 11:25 WBC RBC Hgb Hct RDW Plt Count Seg Neuts % (Manual) Lymphocytes % (Manual) Seg Neutrophils # Man D-Dimer POC ABG pH VBG pH Sodium Carbon Dioxide Glucose POC Glucose 388 H 343 H Calcium Troponin T NT-Pro-B Natriuret Pep Total Protein Albumin
[2019-02-18] MEDS: LANTUS SUB-Q SCH ×2 (13:33→21:41)
[2019-02-18] MEDS: LASIX IV SCH (13:46)
[2019-02-18] MEDS: SODIUM CHLORIDE FLUSH SYRINGE 10 ML IV SCH ×2 (14:00→21:42)
[2019-02-18 15:45] LABS: Chol/HDL Ratio 4.06 %
[2019-02-18] MEDS: VANCOMYCIN 1,500 MG in NACL 0.9% 500 ML 500 ML IV SCH (17:34)
[2019-02-18] MEDS ORDERED: ATIVAN IV ONE (18:26)
[2019-02-18] MEDS: BROVANA NEBU IH SCH (19:22)
--- NOTE | 2019-02-18 20:37 | Vascular Lab Report ---
PROCEDURE: US BILATERAL LOWER EXTREMITY VENOUS DUPLEX DOPPLER TECHNIQUE: Duplex Doppler ultrasound of the BILATERAL common and superficial femoral, popliteal, pos terior tibial and proximal deep femoral and greater saphenous veins was attempted. Young scale imaging with and without compression, spectral waveform analysis with and without augmentation, and color fl ow Doppler were employed. CPT 32175 HISTORY: Lower extremity swelling COMPARISONS: None . FINDINGS: RIGHT LOWER EXTREMITY: Deep Venous Thrombus: None . Soft tissue abnormality: None . Other: None . LEFT LOWER EXTREMITY: Deep Venous Thrombus: None . Soft tissue abnormality: None . Other: None . IMPRESSION: No evidence of deep venous thrombosis . This document is electronically signed by Diogenes Rodríguez MD., February 18 2019 08:35:24 PM ET
--- NOTE | 2019-02-19 01:16 | Consultation ---
CONSULTING PHYSICIAN: Dr. Fair. REASON FOR CONSULTATION: [id number] hypoxemic respiratory failure, recurrent pneumonia, pulmonary hypertension and sepsis. CHIEF COMPLAINT AND HISTORY OF PRESENT ILLNESS: The patient is a now 73-year-old -[place] male known to me from multiple prior admissions in particular this year. Past medical history indeed significant for diffuse proliferative lung disease with accompanying severe pulmonary hypertension, obstructive sleep apnea, home oxygen dependent, came to the Emergency Room complaining of shortness of breath, wheezing, coughing. It had increased over the preceding few days. He denied any gross or streaky hemoptysis. They denied any sick contacts. He is on his home oxygen, apparently using up to 10 liters flow at home. He denies any again sick contacts. He denied nausea, vomiting, or overt aspiration. Denied any real fevers or chills. Denied running out of his medications and he was using his home oxygen. He was evaluated in the Emergency Room. Amongst other things in the Emergency Room, he was also found to be hypotensive. A central line was placed and he was started on Levophed. He was transferred to the Intensive Care Unit where I stopped by to see him. When I stopped by to see him, he was off Levophed, still systolics a little bit labile. He denied any chest pain, pleuritic or otherwise. This really is as much of the history of presentation as I have. I should mention that he is not a tobacco smoker and denies remote tobacco smoking history. This really is as much of the history of presentation as I have. PAST MEDICAL HISTORY: Again, significant for interstitial lung disease/diffuse proliferative lung disease, obstructive sleep apnea, hypertension, prostate cancer, pulmonary hypertension. He is obese and has a history of recurrent pneumonia and history of COPD. PAST SURGICAL HISTORY: He has had neck surgery; nature of the surgery is unknown. MEDICATIONS: He was on at the time I stopped by to see him were reviewed; pertinent medications include the following: Tylenol 650 mg p.o. q.4 hours p.r.n. mild pain or fevers, albuterol nebulizer treatments 2.5 mg nebulized q.3 hours p.r.n. shortness of breath, DuoNeb treatments nebulized q.6 hours, Lipitor 40 mg p.o. at bedtime, Pulmicort 0.5 mg nebulized q.12 hours, cefepime 1 gram IV q.12, vitamin D3 1000 units p.o. daily, Plavix 75 mg p.o. daily, Lovenox 100 mg subQ q.12 hours, Pepcid 20 mg p.o. b.i.d., and Lantus insulin 30 units subQ b.i.d. scheduled as well as Lantus via sliding scale, Levophed drip had been going at 2 mcg per minute, Zofran 4 mg IV q.8 hours p.r.n. nausea and vomiting, Zoloft 50 mg p.o. daily, Revatio 20 mg p.o. t.i.d., vancomycin 1.5 grams IV q.18 hours. ALLERGIES: No known drug allergies. DIET: Obese gentleman, no significant weight changes since I last seen him a few weeks ago. FAMILY AND SOCIAL HISTORY: Lives in the community, has good family support. Denies current alcohol, tobacco, or illicit drug use or abuse. Family history, otherwise noncontributory. REVIEW OF SYSTEMS: No loss of consciousness. No new onset seizures. No new onset focal weakness. Denied gross hematochezia or melena. Denies gross hematuria or dysuria. Denies any new onset leg pain or swelling either unilaterally or bilaterally or any suggestion of venous thromboembolic phenomenon. Denies heat or cold intolerance. Denies polydipsia, polyuria. Denies any new rash on his body. Denies any periods of severe depression or anxiety as may be classified for jayne or clinical depression. Complete 13-system review of systems obtained. Pertinent positives and/or negatives as in body of history above, otherwise noncontributory. PHYSICAL EXAMINATION: VITAL SIGNS: On examination at presentation, he had a low grade fever 99.0 degrees Fahrenheit with a pulse of 87, respiratory rate of 24, blood pressure 137/67, oxygen sats were 88%, inspired oxygen concentration at that time was not recorded. When I stopped by to see him, his O2 sats were 98% that was on 80% high flow nasal cannula. GENERAL: He is an elderly looking -[place] male. Normocephalic, atraumatic, talking to me in occasionally interrupted sentences with mild increased respiratory effort at rest. HEAD, EYES, EARS, NOSE AND THROAT: He is anicteric. No conjunctival erythema. Oropharynx was moist. There is a Mallampati #3 oropharynx. No exudation over his tongue. NECK: No gross thyromegaly, no gross jugular venous distention. Grossly, there were no palpable lymph nodes in the supraclavicular or submandibular lymph node chains. LUNGS: Auscultation of both lung narvaez revealed inspiratory rales in the bases and diminished bilateral breath sounds. No active wheezing. HEART: Heart sounds 1 and 2 are heard. They were regular in rate and rhythm at the time of my evaluation, without rubs or murmurs. ABDOMEN: Soft. It was protuberant. Bowel sounds are positive, nontender, no palpable hepatosplenomegaly. EXTREMITIES: Without overt digital clubbing or cyanosis. He did have trace pedal edema. Pedal pulses were palpable bilaterally and strong. NEUROLOGIC: Pupils are equal, round, about 3 mm, reactive to light. Extraocular muscle movements were intact. He moved all 4 extremities spontaneously. He was alert and oriented x 3. The skin was of normal turgor. There was no overt cellulitis or rash. His mood was normal. His affect was anxious. LABORATORY DATA: From my review are as follows: Admission white cell count 18,300 with a hemoglobin of 9.9, hematocrit of 30.6, platelet count of 102. No band forms were reported. D-dimer was up at 603. Arterial blood gas showed a pH of 7.31, pCO2 of 39, pO2 of 93, that was on 100% FiO2; oxygen delivery method was not recorded. Serum sodium 135, potassium 4.8, chloride 101, bicarbonate 18, BUN 20, creatinine 1.5, glucose 446. Ketones negative. Liver function tests essentially within normal limits. Albumin was low at 2.9. Two sets of blood cultures were sent, no growth to date. I have reviewed the chest x-ray. I have also reviewed the radiologist's interpretation. I am able to compare it with an x-ray from the , about 8-9 days ago and essentially he has bilateral chronic looking infiltrates/fibrosis, but also has suggestion of mild interstitial edema with blunting of the costophrenic angles suggestive of possible interstitial edema. Cardiovascular silhouette is obscured. No gross pneumothorax, no gross bony fractures. ASSESSMENT: 1. Acute on chronic hypoxemic respiratory failure with increased oxygen requirements. 2. Acute chronic obstructive pulmonary disease exacerbation. 3. Possible interstitial edema/pulmonary edema. 4. Possible occult pneumonia. 5. Pulmonary fibrosis. 6. Diabetes type 2, poorly controlled. 7. Obesity. 8. History of obstructive sleep apnea. 9. Hypertension. 10. History of severe pulmonary hypertension. 11. Leukocytosis. 12. Anemia that is normocytic. 13. Thrombocytopenia. 14. Elevated D-dimer. 15. Mild metabolic acidosis. 16. Mild hyponatremia. 17. Elevated serum BNP. PLAN: We will keep him on supplemental oxygen, high flow nasal cannula during the day, bilevel positive airway pressure ventilation therapy at night, targeting O2 sats greater than or equal to about 88-89%. Aspiration precautions will be maintained. Bronchodilators will be continued. I will add Brovana or long-acting bronchodilators in light of the baseline COPD. I do not have access to recent lung function testing, but now that his blood pressure is better, I will do some gentle diuresis. I will give him Lasix 20 mg IV x 1 and see his response to the Lasix while keeping watching him closely, otherwise we will obviously hold. We will hold Revatio for systolic blood pressures less than 100. We will continue empiric antibiotic therapy. Sputum will be sent for Gram stain, cultures and sensitivities. I will consult ID as he has been exposed to antibiotics multiple times. A CRP level, lactic acid level will also be ordered to shooter helper clinical decision making/antibiotic de-escalation. Troponin will be ordered. Cardiology evaluation may be requested. I cannot find any 2D echo recently in this gentleman over an extended range of his hospitalization. I will go ahead and order a 2D echocardiogram again plus or minus Cardiology intervention. Levophed will be weaned to keep mean arterial pressures greater than or equal to about 65 mmHg. We will follow his H and H. Sliding scale insulin, Lantus will be continued; target blood glucose of 140-180 mg/dL in the short term. He is appropriately on GI prophylaxis with Pepcid. He is fully anticoagulated. I will get a stat bilateral lower extremity Doppler. I have a really low pretest clinical probability for VTE. If the Dopplers are negative, I will go ahead and put him on DVT prophylaxis doses of full anticoagulation. Flu and pneumonia vaccination will be addressed per protocol. Thank you very much for the consult, Dr. Fair. We will follow along and make further recommendations as picture progresses/becomes clearer. He is critically ill on life-sustaining interventions including vasopressors and high flow nasal cannula at high risk of from cardiopulmonary system decompensation. At this time, I have spent about 35-40 minutes of critical care time without overlap and excluding any procedural time that may be necessary. JOB# [id number] JESSICA/NTS
[2019-02-19] MEDS: DUONEB *Not for PRN Use IH SCH ×4 (02:33→20:18)
[2019-02-19 05:26] LABS: Hematocrit 29.8 % (35.5-45.6); Hemoglobin 9.8 gm/dl (11.8-15.2); Mean Corpuscular HGB Conc 33 % (32-34); Mean Corpuscular Volume 90 fl (84-94)
[2019-02-19 05:28] LABS: Platelet Count 91 K/mm3 (140-440); Red Cell Distribution Width 21.2 % (13.2-15.2)
[2019-02-19] MEDS: MAXIPIME/NS 1 GM/100 ML 1 GM/100 ML BAG IV SCH ×2 (05:28→18:19)
[2019-02-19] MEDS: SOLU-Medrol IV SCH ×3 (05:28→22:47)
[2019-02-19 05:41] LABS: BUN/Creatinine Ratio 20; Blood Urea Nitrogen 24 mg/dL (9-20); Calcium 8.6 mg/dL (8.4-10.2); Hemolysis Index 5
[2019-02-19 06:29] LABS: Anisocytosis 1+; Basophils % (Manual) 0 % (0.0-1.8); Eosinophils % (Manual) 0 % (0.0-4.3); Large Platelets Rare; Ovalocytes Few; Platelet Estimate Consistent w Auto; Poikilocytosis 1+; Tear Drop Cells Few; Total Cells Counted 100
[2019-02-19] MEDS: BROVANA NEBU IH SCH ×2 (07:39→20:19)
[2019-02-19] MEDS: PULMICORT IH SCH ×2 (07:39→20:18)
--- NOTE | 2019-02-19 08:58 | Progress Note ---
Assessment and Plan Acute on chronic hypoxic respiratory failure: LLL Pneumonia: AE COPD: Sepsis with shock: Hold all antihypertensive medication d/t hypotension, try to wean off levophed drip, follow Blood cultures pending Acute on chronic combined heart failure: difficult/complex medical decision, treat the septic shock with IVF will worsen CHF, so Consult Cardiology, ?ECHO Anemia and Thrombocytopenia: monitor cbc closely Elevated d-dimer R/O PE: on Lovenox 100 mg every 6 hours Acidosis Insulin-dependent diabetes mellitus uncontrolled with Hyperglycemia: POC BG Monitoring, Scheduled Lantus 30 units twice a day, SSI coverage ILD with severe Pulmonary hypertension-severe: consult Pulmonology, continue O2 support h/o KELLY Mild to moderate malnutrition; Dietitian consulted h/o HLD History of prostate cancer DVT PPX on Lovenox ARF due to ATN, poa: Subjective Date of service: 02/19/19 Objective Vital Signs - 12hr 02/18/19 02/18/19 02/18/19 21:00 21:09 21:15 Temperature Pulse Rate 94 H 93 H 94 H Pulse Rate [ Anterior Bilateral Throughout] Respiratory 18 19 19 Rate Respiratory Rate [Anterior Bilateral Throughout] Blood Pressure 77/45 77/45 82/46 O2 Sat by Pulse 97 96 Oximetry 02/18/19 02/18/19 02/18/19 21:30 21:45 22:00 Temperature Pulse Rate 94 H 98 H 90 Pulse Rate [ Anterior Bilateral Throughout] Respiratory 18 14 18 Rate Respiratory Rate [Anterior Bilateral Throughout] Blood Pressure 88/48 88/48 99/51 O2 Sat by Pulse 100 98 94 Oximetry 02/18/19 02/18/19 02/18/19 22:15 22:30 22:45 Temperature Pulse Rate 88 88 90 Pulse Rate [ Anterior Bilateral Throughout] Respiratory 18 19 19 Rate Respiratory Rate [Anterior Bilateral Throughout] Blood Pressure 101/55 96/50 97/53 O2 Sat by Pulse 94 97 95 Oximetry 02/18/19 02/18/19 02/18/19 23:00 23:15 23:31 Temperature Pulse Rate 91 H 93 H 100 H Pulse Rate [ Anterior Bilateral Throughout] Respiratory 19 18 18 Rate Respiratory Rate [Anterior Bilateral Throughout] Blood Pressure 100/53 100/53 130/74 O2 Sat by Pulse 95 98 97 Oximetry 02/18/19 02/19/19 02/19/19 23:45 00:00 00:15 Temperature 98.8 F Pulse Rate 96 H 90 89 Pulse Rate [ Anterior Bilateral Throughout] Respiratory 19 17 16 Rate Respiratory Rate [Anterior Bilateral Throughout] Blood Pressure 130/74 100/55 100/55 O2 Sat by Pulse 100 98 100 Oximetry 02/19/19 02/19/19 02/19/19 00:30 00:45 01:00 Temperature Pulse Rate 89 92 H 86 Pulse Rate [ Anterior Bilateral Throughout] Respiratory 19 20 19 Rate Respiratory Rate [Anterior Bilateral Throughout] Blood Pressure 101/62 101/62 110/64 O2 Sat by Pulse 97 100 100 Oximetry 02/19/19 02/19/19 02/19/19 01:15 01:30 01:45 Temperature Pulse Rate 87 88 87 Pulse Rate [ Anterior Bilateral Throughout] Respiratory 19 17 21 Rate Respiratory Rate [Anterior Bilateral Throughout] Blood Pressure 110/64 124/68 124/68 O2 Sat by Pulse 100 97 100 Oximetry 02/19/19 02/19/19 02/19/19 02:00 02:15 02:30 Temperature Pulse Rate 85 87 90 Pulse Rate [ Anterior Bilateral Throughout] Respiratory 18 19 15 Rate Respiratory Rate [Anterior Bilateral Throughout] Blood Pressure 123/64 128/62 101/62 O2 Sat by Pulse 100 100 96 Oximetry 02/19/19 02/19/19 02/19/19 02:34 02:41 02:45 Temperature Pulse Rate 90 Pulse Rate [ 87 88 Anterior Bilateral Throughout] Respiratory 16 Rate Respiratory 99 H 20 Rate [Anterior Bilateral Throughout] Blood Pressure 101/62 O2 Sat by Pulse 100 Oximetry 02/19/19 02/19/19 02/19/19 03:00 03:15 03:30 Temperature Pulse Rate 87 89 87 Pulse Rate [ Anterior Bilateral Throughout] Respiratory 19 19 17 Rate Respiratory Rate [Anterior Bilateral Throughout] Blood Pressure 105/54 105/54 118/47 O2 Sat by Pulse 96 100 96 Oximetry 02/19/19 02/19/19 02/19/19 03:33 03:45 03:46 Temperature 98.3 F Pulse Rate 87 88 Pulse Rate [ Anterior Bilateral Throughout] Respiratory 18 15 Rate Respiratory Rate [Anterior Bilateral Throughout] Blood Pressure 118/47 107/56 O2 Sat by Pulse 100 100 Oximetry 02/19/19 02/19/19 02/19/19 04:00 04:15 04:30 Temperature Pulse Rate 86 94 H 91 H Pulse Rate [ Anterior Bilateral Throughout] Respiratory 17 22 16 Rate Respiratory Rate [Anterior Bilateral Throughout] Blood Pressure 107/60 107/60 118/55 O2 Sat by Pulse 96 100 99 Oximetry 02/19/19 02/19/19 02/19/19 04:45 05:00 05:15 Temperature Pulse Rate 91 H 94 H 91 H Pulse Rate [ Anterior Bilateral Throughout] Respiratory 20 24 18 Rate Respiratory Rate [Anterior Bilateral Throughout] Blood Pressure 118/55 124/62 124/62 O2 Sat by Pulse 100 100 100 Oximetry 02/19/19 02/19/19 02/19/19 05:30 05:45 06:01 Temperature Pulse Rate 91 H 91 H 92 H Pulse Rate [ Anterior Bilateral Throughout] Respiratory 22 29 H 25 H Rate Respiratory Rate [Anterior Bilateral Throughout] Blood Pressure 139/84 123/72 126/57 O2 Sat by Pulse 99 100 97 Oximetry 02/19/19 02/19/19 02/19/19 06:15 07:23 07:42 Temperature Pulse Rate 88 Pulse Rate [ 93 H Anterior Bilateral Throughout] Respiratory 19 Rate Respiratory 20 Rate [Anterior Bilateral Throughout] Blood Pressure 111/65 O2 Sat by Pulse 98 99 Oximetry 02/19/19 07:43 Temperature Pulse Rate Pulse Rate [ 94 H Anterior Bilateral Throughout] Respiratory Rate Respiratory 20 Rate [Anterior Bilateral Throughout] Blood Pressure O2 Sat by Pulse Oximetry CBC and BMP: 02/19/19 04:14 02/19/19 04:14 ABG, PT/INR, D-dimer: ABG POC ABG pH 7.344 (7.35-7.45) L 02/19/19 08:50 POC ABG pCO2 40.1 (35-45) 02/19/19 08:50 POC ABG pO2 96 (80-105) 02/19/19 08:50 POC ABG HCO3 21.9 (22-26 mml/L) 02/19/19 08:50 POC ABG Total CO2 23 (23-27mmol/L) 02/19/19 08:50 POC ABG O2 Sat 97 02/19/19 08:50 PT/INR, D-dimer 603.05 ng/mlDDU (0-234) H 02/17/19 22:09 Abnormal lab findings: Abnormal Labs 02/17/19 02/17/19 02/17/19 22:09 22:09 22:09 WBC 18.3 H RBC 3.42 L Hgb 9.9 L Hct 30.6 L RDW 21.4 H Plt Count 102 L Seg Neuts % (Manual) 88.0 H Lymphocytes % (Manual) 9.0 L Seg Neutrophils # Man 16.1 H Lymphocytes # (Manual) D-Dimer 603.05 H POC ABG pH VBG pH Sodium 135 L Chloride Carbon Dioxide 18 L BUN Glucose 446 H POC Glucose Calcium 8.2 L Troponin T 0.061 H C-Reactive Protein NT-Pro-B Natriuret Pep Total Protein 6.0 L Albumin 2.9 L HDL Cholesterol 02/17/19 02/17/19 02/17/19 22:09 22:28 23:13 WBC RBC Hgb Hct RDW Plt Count Seg Neuts % (Manual) Lymphocytes % (Manual) Seg Neutrophils # Man Lymphocytes # (Manual) D-Dimer POC ABG pH 7.308 L VBG pH 7.299 L Sodium Chloride Carbon Dioxide BUN Glucose POC Glucose Calcium Troponin T C-Reactive Protein NT-Pro-B Natriuret Pep 3625 H Total Protein Albumin HDL Cholesterol 02/18/19 02/18/19 02/18/19 00:01 01:23 05:40 WBC RBC Hgb Hct RDW Plt Count Seg Neuts % (Manual) Lymphocytes % (Manual) Seg Neutrophils # Man Lymphocytes # (Manual) D-Dimer POC ABG pH VBG pH Sodium Chloride Carbon Dioxide BUN Glucose POC Glucose 424 H 281 H 381 H Calcium Troponin T C-Reactive Protein NT-Pro-B Natriuret Pep Total Protein Albumin HDL Cholesterol 02/18/19 02/18/19 02/18/19 07:54 11:25 13:36 WBC RBC Hgb Hct RDW Plt Count Seg Neuts % (Manual) Lymphocytes % (Manual) Seg Neutrophils # Man Lymphocytes # (Manual) D-Dimer POC ABG pH VBG pH Sodium Chloride Carbon Dioxide BUN Glucose POC Glucose 388 H 343 H Calcium Troponin T C-Reactive Protein 7.40 H NT-Pro-B Natriuret Pep Total Protein Albumin HDL Cholesterol 02/18/19 02/18/19 02/18/19 13:36 15:56 21:31 WBC RBC Hgb Hct RDW Plt Count Seg Neuts % (Manual) Lymphocytes % (Manual) Seg Neutrophils # Man Lymphocytes # (Manual) D-Dimer POC ABG pH VBG pH Sodium Chloride Carbon Dioxide BUN Glucose POC Glucose 377 H 312 H Calcium Troponin T 0.056 H C-Reactive Protein NT-Pro-B Natriuret Pep Total Protein Albumin HDL Cholesterol 30 L 02/19/19 02/19/19 02/19/19 04:14 04:14 08:50 WBC 11.3 H RBC 3.30 L Hgb 9.8 L Hct 29.8 L RDW 21.2 H Plt Count 91 L Seg Neuts % (Manual) 96.0 H Lymphocytes % (Manual) 3.0 L Seg Neutrophils # Man 10.8 H Lymphocytes # (Manual) 0.3 L D-Dimer POC ABG pH 7.344 L VBG pH Sodium Chloride 108.9 H Carbon Dioxide 21 L BUN 24 H Glucose 307 H POC Glucose Calcium Troponin T C-Reactive Protein NT-Pro-B Natriuret Pep Total Protein Albumin HDL Cholesterol
[2019-02-19] MEDS: LOVENOX SUB-Q SCH (09:21)
[2019-02-19] MEDS: VANCOMYCIN 1,500 MG in NACL 0.9% 500 ML 500 ML IV SCH (09:21)
[2019-02-19] MEDS: REVATIO PO SCH ×3 (09:22→22:47)
[2019-02-19] MEDS: VITAMIN D3 PO SCH (09:22)
[2019-02-19] MEDS: PLAVIX PO SCH (09:23)
[2019-02-19] MEDS: PEPCID PO SCH ×2 (09:23→22:47)
[2019-02-19] MEDS: ZOLOFT PO SCH (09:23)
[2019-02-19] MEDS: SODIUM CHLORIDE FLUSH SYRINGE 10 ML IV SCH ×2 (09:24→22:49)
[2019-02-19] MEDS: LASIX IV SCH (09:24)
[2019-02-19] MEDS: LANTUS SUB-Q SCH ×3 (09:25→22:49)
[2019-02-19] MEDS: HumaLOG SUB-Q SCH (11:30)
--- NOTE | 2019-02-19 13:56 | Consultation ---
History of Present Illness - Reason for Consult Consult date: 02/19/19 sepsis ? Pneumonia Requesting physician: MARGUERITE MATA - History of Present Illness 73 y/o male with history of chronic hypoxic respiratory failure on home O2 due to end stage COPD, interstitial lung disease, pulmonary hypertension, hypertension, functional quadreplegic bed bound mostly, diabetes and prostate cancer s/p radiation causing bladder and bowel stress incontinence admitted on due to worsening shortness of breath. Patient was at home hospice. Per , patient's SOB has progressively worsened the last 3 months however last month he started with cough and the day of admission his O2 sat dropped to 30-35% on room air.EMS was called. Of note, he was recently admitted to the hospital on 02/05/2019. In the ED, temp 99, HR 87, R 24, O2 88%, BP 137/67. WBC 18.3. Hg 9.9. Plat 102. Creat 1.5. Glu 446. CRP 7.4. BNP 3625. Blood culture 02/18/2019 no growth so far. CXR showed LLL infiltrate and moderate L effusion. Review of Systems: limited as patient is confused Past History Past Medical History: COPD ( interstitial lung disease, severe pulmonary hypertension, Obstructive sleep apnea), diabetes, heart failure, hypertension Past Surgical History: Other (s/p stent, neck surgery, ) Social history: , lives with family Family history: no significant family history Medications and Allergies Allergies Allergy/AdvReac Type Severity Reaction Status Date / Time No Known Allergies Allergy Verified 12/23/18 10:17 Home Medications Medication Instructions Recorded Confirmed Last Taken Type Cetirizine HCl [Allergy Relief] 10 mg PO DAILY 01/09/19 02/18/19 02/05/19 History ALBUTEROL NEB's [Proventil 0.083% 2.5 mg IH Q4HRT PRN #15 nebu 02/04/19 02/18/19 02/05/19 Rx NEBS] Acetaminophen [Acetaminophen TAB] 500 mg PO Q6HR PRN #30 02/04/19 02/18/19 02/05/19 Rx Arformoterol Nebu [Brovana Nebu] 15 mcg IH Q12HRT #30 ml 02/04/19 02/18/19 02/05/19 Rx AtorvaSTATin [Lipitor] 40 mg PO QHS #30 02/04/19 02/18/19 02/05/19 Rx Benzonatate [Tessalon Perles] 100 mg PO Q8HR PRN #15 capsule 02/04/19 02/18/19 02/05/19 Rx Budesonide [Pulmicort Respules] 0.5 mg IH Q12HRT #30 nebu 02/04/19 02/18/19 02/05/19 Rx Carvedilol [Coreg] 12.5 mg PO BID #60 02/04/19 02/18/19 02/05/19 Rx Cholecalciferol (Vitamin D3) 1,000 unit PO QDAY #30 02/04/19 02/18/19 02/05/19 Rx [Children's Vitamin D3 1,000 unit CHEW] Clopidogrel [Plavix] 75 mg PO QDAY #30 02/04/19 02/18/19 02/05/19 Rx Famotidine [Pepcid] 20 mg PO BID #30 tablet 02/04/19 02/18/19 02/05/19 Rx Fluticasone [Flonase] 1 spray NS QDAY 5 Days #1 02/04/19 02/18/19 02/05/19 Rx Furosemide [Lasix TAB] 20 mg PO QDAY #30 tablet 02/04/19 02/18/19 02/05/19 Rx Insulin Glargine [Lantus VIAL] 60 units SUB-Q HS #100 units 02/04/19 02/18/19 02/05/19 Rx Ipratropium/Albuterol Sulfate 1 ampul IH Q6HRT #30 ampul.[facility] 02/04/19 02/18/19 02/05/19 Rx [DUONEB *Not for PRN Use*] Lispro Insulin [HumaLOG] 1 dose SUB-Q ACHS PRN #100 units 02/04/19 02/18/19 02/05/19 Rx Losartan [Cozaar] 50 mg PO QDAY #30 tablet 02/04/19 02/18/19 02/05/19 Rx Sertraline [Zoloft] 150 mg PO QDAY #30 02/04/19 02/18/19 02/05/19 Rx Sildenafil [Revatio] 20 mg PO TID #90 02/04/19 02/18/19 02/05/19 Rx amLODIPine [Norvasc] 10 mg PO DAILY #30 02/04/19 02/18/19 02/05/19 Rx oxyCODONE /ACETAMINOPHEN [Percocet 1 tab PO Q6H PRN #15 tablet 02/04/19 02/18/19 02/05/19 Rx 5/325 mg] Active Meds: Active Medications Acetaminophen (Tylenol) 650 mg PO Q4H PRN PRN Reason: Pain MILD(1-3)/Fever >100.5/QUILES Albuterol (Proventil) 2.5 mg IH Q3HRT PRN PRN Reason: Shortness Of Breath Albuterol/Ipratropium (Duoneb *Not For Prn Use*) 1 ampul IH Q6HRT [facility] Last Admin: 02/19/19 13:02 Dose: Not Given Documented by: Arformoterol Tartrate (Brovana Nebu) 15 mcg IH Q12HRT [facility] Last Admin: 02/19/19 07:39 Dose: 15 mcg Documented by: Atorvastatin Calcium (Lipitor) 40 mg PO QHS [facility] Last Admin: 02/18/19 21:42 Dose: 40 mg Documented by: Budesonide (Pulmicort) 0.5 mg IH Q12HRT [facility] Last Admin: 02/19/19 07:39 Dose: 0.5 mg Documented by: Cholecalciferol (Vitamin D3) 1,000 unit PO QDAY [facility] Last Admin: 02/19/19 09:22 Dose: 1,000 unit Documented by: Clopidogrel Bisulfate (Plavix) 75 mg PO QDAY [facility] Last Admin: 02/19/19 09:23 Dose: 75 mg Documented by: Dextrose (D50w (25gm) Syringe) 50 ml IV PRN PRN PRN Reason: Hypoglycemia Enoxaparin Sodium (Lovenox) 40 mg SUB-Q QDAY@1000 [facility] Last Admin: 02/19/19 09:21 Dose: 40 mg Documented by: Famotidine (Pepcid) 20 mg PO BID [facility] Last Admin: 02/19/19 09:23 Dose: 20 mg Documented by: Furosemide (Lasix) 20 mg IV QDAY [facility] Stop: 02/20/19 10:01 Last Admin: 02/19/19 09:24 Dose: 20 mg Documented by: Cefepime HCl (Maxipime/Ns 1 Gm/100 Ml) 1 gm in 100 mls @ 200 mls/hr IV Q12H [facility]; Protocol Last Admin: 02/19/19 05:28 Dose: 200 mls/hr Documented by: Vancomycin HCl 1,500 mg/ (Sodium Chloride) 530 mls @ 333.333 mls/hr IV Q18H [facility] Last Admin: 02/19/19 09:21 Dose: 333.333 mls/hr Documented by: Insulin Glargine (Lantus) 40 units SUB-Q BID [facility] Last Admin: 02/19/19 13:22 Dose: 40 units Documented by: Insulin Human Lispro (Humalog) 0 unit SUB-Q ACHS [facility]; Protocol Last Admin: 02/18/19 21:41 Dose: 8 unit Documented by: Methylprednisolone Sodium Succinate (Solu-Medrol) 60 mg IV Q8HR [facility] Last Admin: 02/19/19 05:28 Dose: 60 mg Documented by: Ondansetron HCl (Zofran) 4 mg IV Q8H PRN PRN Reason: Nausea And Vomiting Sertraline HCl (Zoloft) 50 mg PO QDAY [facility] Last Admin: 02/19/19 09:23 Dose: 50 mg Documented by: Sildenafil Citrate (Revatio) 20 mg PO TID [facility] Last Admin: 02/19/19 09:22 Dose: 20 mg Documented by: Sodium Chloride (Sodium Chloride Flush Syringe 10 Ml) 10 ml IV BID [facility] Last Admin: 02/19/19 09:24 Dose: 10 ml Documented by: Sodium Chloride (Sodium Chloride Flush Syringe 10 Ml) 10 ml IV PRN PRN PRN Reason: LINE FLUSH Physical Examination - Physical Exam Narrative exam: General appearance: Alert in mild resp distress on HFO2 Eyes: anicteric sclerae, moist conjunctivae; no lid-lag; PERRLA HENT: Atraumatic; oropharynx clear with moist mucous membranes and no mucosal ulcerations/no oral thrush; normal hard and soft palate. Normal external ears. Neck: Trachea midline; supple, no thyromegaly or lymphadenopathy Lungs: distant BS CV: RRR no murmur Abdomen: Soft, non-tender; no masses or hepatosplenomegaly Extremities: no edema, cyanosis Skin: Normal temperature, turgor and texture; no rash, ulcers or subcutaneous nodules Psych: no agitated. Neuro: alert confused - Constitutional Vitals: Vital Signs Temp Pulse Resp BP Pulse Ox 98.4 F 89 14 114/56 96 02/19/19 08:00 02/19/19 13:00 02/19/19 13:00 02/19/19 13:00 02/19/19 13:00 Temperature -Last 24 Hours Temperature 98.4 F Temperature 98.3 F Temperature 98.8 F Temperature 98.6 F Results - Labs CBC & Chem 7: 02/19/19 04:14 02/19/19 04:14 Labs: Abnormal lab results 02/18/19 02/18/19 02/18/19 Range/Units 13:36 13:36 15:56 WBC (4.5-11.0) K/mm3 RBC (3.65-5.03) M/mm3 Hgb (11.8-15.2) gm/dl Hct (35.5-45.6) % RDW (13.2-15.2) % Plt Count (140-440) K/mm3 Seg Neuts % (Manual) (40.0-70.0) % Lymphocytes % (Manual) (13.4-35.0) % Seg Neutrophils # Man (1.8-7.7) K/mm3 Lymphocytes # (Manual) (1.2-5.4) K/mm3 POC ABG pH (7.35-7.45) Chloride (98-107) mmol/L Carbon Dioxide (22-30) mmol/L BUN (9-20) mg/dL Glucose (75-100) mg/dL POC Glucose 377 H (70-105) Troponin T 0.056 H (0.00-0.029) ng/mL C-Reactive Protein 7.40 H (0.00-1.30) mg/dL HDL Cholesterol 30 L (40-59) mg/dL 02/18/19 02/19/19 02/19/19 Range/Units 21:31 04:14 04:14 WBC 11.3 H (4.5-11.0) K/mm3 RBC 3.30 L (3.65-5.03) M/mm3 Hgb 9.8 L (11.8-15.2) gm/dl Hct 29.8 L (35.5-45.6) % RDW 21.2 H (13.2-15.2) % Plt Count 91 L (140-440) K/mm3 Seg Neuts % (Manual) 96.0 H (40.0-70.0) % Lymphocytes % (Manual) 3.0 L (13.4-35.0) % Seg Neutrophils # Man 10.8 H (1.8-7.7) K/mm3 Lymphocytes # (Manual) 0.3 L (1.2-5.4) K/mm3 POC ABG pH (7.35-7.45) Chloride 108.9 H (98-107) mmol/L Carbon Dioxide 21 L (22-30) mmol/L BUN 24 H (9-20) mg/dL Glucose 307 H (75-100) mg/dL POC Glucose 312 H (70-105) Troponin T (0.00-0.029) ng/mL C-Reactive Protein (0.00-1.30) mg/dL HDL Cholesterol (40-59) mg/dL 02/19/19 Range/Units 08:50 WBC (4.5-11.0) K/mm3 RBC (3.65-5.03) M/mm3 Hgb (11.8-15.2) gm/dl Hct (35.5-45.6) % RDW (13.2-15.2) % Plt Count (140-440) K/mm3 Seg Neuts % (Manual) (40.0-70.0) % Lymphocytes % (Manual) (13.4-35.0) % Seg Neutrophils # Man (1.8-7.7) K/mm3 Lymphocytes # (Manual) (1.2-5.4) K/mm3 POC ABG pH 7.344 L (7.35-7.45) Chloride (98-107) mmol/L Carbon Dioxide (22-30) mmol/L BUN (9-20) mg/dL Glucose (75-100) mg/dL POC Glucose (70-105) Troponin T (0.00-0.029) ng/mL C-Reactive Protein (0.00-1.30) mg/dL HDL Cholesterol (40-59) mg/dL Assessment and Plan Cultures: Blood cultures 01/21/2019 no growth today Urine culture 01/21/2019 Assessment: 73 y/o male with history of chronic hypoxic respiratory failure on home O2 due to end stage COPD, interstitial lung disease, pulmonary hypertension, hypertension, functional quadreplegic bed bound mostly, diabetes and prostate cancer s/p radiation causing bladder and bowel stress incontinence admitted on due to worsening shortness of breath: 1) Leukocytosis: Present on admission. Etiology most likely pneumonia. 2) Chronic hypoxic respiratory failure: due end stage COPD, interstitial lung d isease, pulmonary hypertension and now pneumonia with left effusion. 3) Left sided pneumonia with left moderate pleural effusion: likely ? hospital- acquired pneumonia v/s CAP v/s COPD exacerbation. CXR showed LLL infiltrate and moderate L effusion. Blood culture 02/18/2019 no growth so far. 4) Diabetes: uncontrolled 5) Thrombocytopenia: from sepsis. Recommendations: - follow-up blood cultures - check UA and urine culture - consider chest US to eval need for thoracentesis - continue cefepime and vancomycin for now - add levaquin for atypicals - check strep pneumoniae urine antigen and legionella urine antigen Will follow. Faina Figueroa MD Infectious Diseases [employer] [facility] M [phone] O [phone]
[2019-02-19] MEDS: LEVAQUIN 750MG/150ML 750 MG/150 ML BAG IV SCH (15:27)
--- NOTE | 2019-02-19 16:24 | Progress Note ---
Assessment and Plan Assessment and plan: Patient is a 73 yo man who is a [facility] patient with a history of hypertension, COPD, ILD, insulin-dependent diabetes mellitus, hyperlipidemia, CAD, CHF, prostate cancer, chronic respiratory failure and pulmonary hypertension who presented to [facility] ED with SOB/OMAR. Home Pulse ox was 35% and O2 saturation in ED was 74% on RA. Patient was hypotensive and was given a 500 mL fluid bolus in the ED and was responsive for short period of time. Right femoral double lumen central line was placed and patient was started on levophed gtt and admitted to the Critical Care Unit. Patient has a leukocytosis of 18,000, anemia with a hemoglobin of 10, blood sugar of about 450, BNP of about 3500, slightly elevated troponin level and some mild renal insufficiency, so CTA chest wasn't done. Chest x-ray shows signs of volume overload and left lower pneumonia. Patient started having some hypotension so he was given a 500 mL bolus of fluid with some improvement. However his blood pressure once again started going back down and his chest x-ray and blood work showed signs of an exacerbation of CHF, so decision was made to place a central line to start Vasopressor instead of more IV fluids. Blood cultures were obtained and the patient was started on antibiotics. He was given some steroids for his bronchospasm and some breathing treatments. The patient had an elevated d-dimer and we attempted to get a VQ scan, but the patient is unable to lay flat and appeared slightly claustrophobic so this examination could not be done. If necessary, the patient can be given a dose of Lovenox. I had just discharge patient home with [facility] on 02/04/19. He came back the next day for admission then was discharge again on 02/10/19 and now comes back on 02/18/19. Patient may need a different Home Hospice company to prevent frequent re-admission for the same thing, underlying end stage ILD with severe pulmonary hypertension. * pCXR Impression: Vascular congestion with an infiltrate and atelectasis left lower lung, moderate left and mild right effusions Acute on chronic hypoxic respiratory failure: Baseline home supplemental oxygen of 10L; currently on high flow O2 LLL Pneumonia: Start cefepime and vancomycin, ID consulted AE COPD: Solu-Medrol 60 mg every 8 hours, Scheduled DuoNeb's and Pulmicort, albuterol when necessary Sepsis with shock: Hold all antihypertensive medication d/t hypotension, try to wean off levophed drip, follow Blood cultures pending Acute on chronic combined heart failure: difficult/complex medical decision, treat the septic shock with IVF will worsen CHF, so Consult Cardiology, ?ECHO Anemia and Thrombocytopenia: monitor cbc closely Elevated d-dimer R/O PE: on Lovenox 100 mg every 6 hours Acidosis Insulin-dependent diabetes mellitus uncontrolled with Hyperglycemia: POC BG Monitoring, Scheduled Lantus 30 units twice a day, SSI coverage ILD with severe Pulmonary hypertension-severe: consult Pulmonology, continue O2 support h/o KELLY Mild to moderate malnutrition; Dietitian consulted h/o HLD History of prostate cancer DVT PPX on Lovenox ARF due to ATN, poa: improve BP and monitor closely full code Echo still pending VQ scan unable to be done because he is claustrophobic and sedation is not a good idea due to hypoxia/high O2 demand; he is not a candidate for CT angiogram chest Bilateral Leg Doppler negative d/w CCM ok to transfer to [facility] CCT 35 minutes History Interval history: Patient was seen and examined. Follow-up on current diagnosis Hypotension/pna/chf/copd. No overnight events reported to me. Patient denies any chest pain, nausea/vomiting or severe headaches. Imaging, nursing note, chart, labs and old chart reviewed. Discussed with patient. Hospitalist Physical - Physical exam Narrative exam: Gen: ill appearing, WDWN, NAD, Awake, Alert, Orientated HEENT: NCAT, EOMI, PERRL, OP Clear Neck: supple, no adenopathy, no thyromegaly, no JVD CVS/Heart: RRR, normal S1S2, pulses present bilaterally Chest/Lungs: diminished bs bilateral with bibasilar crackles and rhonchi, Symmetrical chest expansion, good air entry bilaterally GI/Abdomen: soft, NTND, good bowel sounds, no guarding or rebound /Bladder: no suprapubic tenderness, no CVA or paraspinal tenderness Extermity/Skin: no c/c/e, no obvious rash MSK: FROM x 4 Neuro: CN 2-12 grossly intact, no new focal deficits Psych: calm - Constitutional Vitals: Temp Pulse Resp BP Pulse Ox 98.4 F 89 14 114/56 96 02/19/19 08:00 02/19/19 13:00 02/19/19 13:00 02/19/19 13:00 02/19/19 13:00 Results - Labs CBC & Chem 7: 02/19/19 04:14 02/19/19 04:14 Labs: Laboratory Last Values WBC 11.3 K/mm3 (4.5-11.0) H 02/19/19 04:14 RBC 3.30 M/mm3 (3.65-5.03) L 02/19/19 04:14 Hgb 9.8 gm/dl (11.8-15.2) L 02/19/19 04:14 Hct 29.8 % (35.5-45.6) L 02/19/19 04:14 MCV 90 fl (84-94) 02/19/19 04:14 MCH 30 pg (28-32) 02/19/19 04:14 MCHC 33 % (32-34) 02/19/19 04:14 RDW 21.2 % (13.2-15.2) H 02/19/19 04:14 Plt Count 91 K/mm3 (140-440) L 02/19/19 04:14 Add Manual Diff Complete 02/19/19 04:14 Total Counted 100 02/19/19 04:14 Seg Neutrophils % Managed Care Director 02/17/19 22:09 Seg Neuts % (Manual) 96.0 % (40.0-70.0) H 02/19/19 04:14 0 % 02/19/19 04:14 3.0 % (13.4-35.0) L 02/19/19 04:14 Reactive Lymphs % (Man) 0 % 02/19/19 04:14 1.0 % (0.0-7.3) 02/19/19 04:14 0 % (0.0-4.3) 02/19/19 04:14 0 % (0.0-1.8) 02/19/19 04:14 0 % 02/19/19 04:14 0 % 02/19/19 04:14 0 % 02/19/19 04:14 0 % 02/19/19 04:14 Nucleated RBC % Not Reportable 02/19/19 04:14 Seg Neutrophils # Man 10.8 K/mm3 (1.8-7.7) H 02/19/19 04:14 Band Neutrophils # 0.0 K/mm3 02/19/19 04:14 0.3 K/mm3 (1.2-5.4) L 02/19/19 04:14 Abs React Lymphs (Man) 0.0 K/mm3 02/19/19 04:14 0.1 K/mm3 (0.0-0.8) 02/19/19 04:14 0.0 K/mm3 (0.0-0.4) 02/19/19 04:14 0.0 K/mm3 (0.0-0.1) 02/19/19 04:14 0.0 K/mm3 02/19/19 04:14 0.0 K/mm3 02/19/19 04:14 0.0 K/mm3 02/19/19 04:14 Blast Cells # 0.0 K/mm3 02/19/19 04:14 WBC Morphology Not Reportable 02/19/19 04:14 Hypersegmented Neuts Not Reportable 02/19/19 04:14 Hyposegmented Neuts Not Reportable 02/19/19 04:14 Hypogranular Neuts Not Reportable 02/19/19 04:14 Not Reportable 02/19/19 04:14 Not Reportable 02/19/19 04:14 Not Reportable 02/19/19 04:14 Not Reportable 02/19/19 04:14 Not Reportable 02/19/19 04:14 Not Reportable 02/19/19 04:14 Consistent w auto 02/19/19 04:14 Not Reportable 02/19/19 04:14 Plt Clumps, EDTA Not Reportable 02/19/19 04:14 Rare 02/19/19 04:14 Not Reportable 02/19/19 04:14 Not Reportable 02/19/19 04:14 Plt Morphology Comment Not Reportable 02/19/19 04:14 RBC Morphology Not Reportable 02/19/19 04:14 Dimorphic RBCs Not Reportable 02/19/19 04:14 Not Reportable 02/19/19 04:14 Not Reportable 02/19/19 04:14 1+ 02/19/19 04:14 1+ 02/19/19 04:14 Not Reportable 02/19/19 04:14 Not Reportable 02/19/19 04:14 Not Reportable 02/19/19 04:14 Not Reportable 02/19/19 04:14 Not Reportable 02/19/19 04:14 Not Reportable 02/19/19 04:14 Few 02/19/19 04:14 Few 02/19/19 04:14 Not Reportable 02/19/19 04:14 Not Reportable 02/19/19 04:14 Not Reportable 02/19/19 04:14 Not Reportable 02/19/19 04:14 Not Reportable 02/19/19 04:14 Not Reportable 02/19/19 04:14 Few 02/19/19 04:14 Acanthocytes (Spur) Not Reportable 02/19/19 04:14 Rouleaux Not Reportable 02/19/19 04:14 Not Reportable 02/19/19 04:14 Not Reportable 02/19/19 04:14 Not Reportable 02/19/19 04:14 Not Reportable 02/19/19 04:14 Hem Pathologist Commnt No 02/19/19 04:14 603.05 ng/mlDDU (0-234) H 02/17/19 22:09 POC ABG pH 7.344 (7.35-7.45) L 02/19/19 08:50 POC ABG pCO2 40.1 (35-45) 02/19/19 08:50 POC ABG pO2 96 (80-105) 02/19/19 08:50 POC ABG HCO3 21.9 (22-26 mml/L) 02/19/19 08:50 POC ABG Total CO2 23 (23-27mmol/L) 02/19/19 08:50 POC ABG O2 Sat 97 02/19/19 08:50 POC ABG Base Excess -4 ((-2) - (+3)mmol/L) 02/19/19 08:50 VBG pH 7.299 (7.320-7.420) L 02/17/19 23:13 90 % 02/19/19 08:50 Sodium 144 mmol/L (137-145) D 02/19/19 04:14 Potassium 4.8 mmol/L (3.6-5.0) 02/19/19 04:14 Chloride 108.9 mmol/L (98-107) H 02/19/19 04:14 Carbon Dioxide 21 mmol/L (22-30) L 02/19/19 04:14 19 mmol/L 02/19/19 04:14 BUN 24 mg/dL (9-20) H 02/19/19 04:14 1.2 mg/dL (0.8-1.5) 02/19/19 04:14 Estimated GFR > 60 ml/min 02/19/19 04:14 20 % 02/19/19 04:14 Glucose 307 mg/dL (75-100) H 02/19/19 04:14 POC Glucose 414 (70-105) H 02/19/19 13:19 Negative (Negative) 02/17/19 23:13 Lactic Acid 1.80 mmol/L (0.7-2.0) 02/18/19 13:36 Calcium 8.6 mg/dL (8.4-10.2) 02/19/19 04:14 Magnesium 1.90 mg/dL (1.7-2.3) 02/17/19 22:09 1.20 mg/dL (0.1-1.2) 02/17/19 22:09 AST 17 units/L (5-40) 02/17/19 22:09 ALT 20 units/L (7-56) 02/17/19 22:09 81 units/L (35-129) 02/17/19 22:09 0.056 ng/mL (0.00-0.029) H 02/18/19 13:36 7.40 mg/dL (0.00-1.30) H 02/18/19 13:36 NT-Pro-B Natriuret Pep 3625 pg/mL (0-900) H 02/17/19 22:09 6.0 g/dL (6.3-8.2) L 02/17/19 22:09 2.9 g/dL (3.9-5) L 02/17/19 22:09 0.9 % 02/17/19 22:09 Triglycerides 99 mg/dL (2-149) 02/18/19 13:36 Cholesterol 122 mg/dL (50-199) 02/18/19 13:36 81 mg/dL (50-130) 02/18/19 13:36 30 mg/dL (40-59) L 02/18/19 13:36 4.06 % 02/18/19 13:36 Active Medications - Current Medications Current Medications: Generic Name Dose Route Start Last Admin Trade Name Freq PRN Reason Stop Dose Admin Acetaminophen 650 mg 02/18/19 02:15 Tylenol PO Q4H PRN Pain MILD(1-3)/Fever >100.5/QUILES Albuterol 2.5 mg 02/18/19 02:15 Proventil IH Q3HRT PRN Shortness Of Breath Albuterol/Ipratropium 1 ampul 02/18/19 08:00 02/19/19 13:02 Duoneb *Not For Prn Use* IH Not Given Q6HRT [facility] Arformoterol Tartrate 15 mcg 02/18/19 20:00 02/19/19 07:39 Brovana Nebu IH 15 mcg Q12HRT [facility] Administration Atorvastatin Calcium 40 mg 02/18/19 22:00 02/18/19 21:42 Lipitor PO 40 mg QHS [facility] Administration Budesonide 0.5 mg 02/18/19 08:00 02/19/19 07:39 Pulmicort IH 0.5 mg Q12HRT [facility] Administration Cholecalciferol 1,000 unit 02/18/19 10:00 02/19/19 09:22 Vitamin D3 PO 1,000 unit QDAY [facility] Administration Clopidogrel Bisulfate 75 mg 02/18/19 10:00 02/19/19 09:23 Plavix PO 75 mg QDAY [facility] Administration Dextrose 50 ml 02/18/19 02:26 D50w (25gm) Syringe IV PRN PRN Hypoglycemia Enoxaparin Sodium 40 mg 02/19/19 10:00 02/19/19 09:21 Lovenox SUB-Q 40 mg QDAY@1000 [facility] Administration Famotidine 20 mg 02/18/19 10:00 02/19/19 09:23 Pepcid PO 20 mg BID [facility] Administration Furosemide 20 mg 02/18/19 14:00 02/19/19 09:24 Lasix IV 02/20/19 10:01 20 mg QDAY [facility] Administration Cefepime HCl 1 gm in 100 mls @ 200 mls/hr 02/18/19 06:00 02/19/19 05:28 Maxipime/Ns 1 Gm/100 Ml IV 200 mls/hr Q12H [facility] Administration Protocol Vancomycin HCl 1,500 mg/ 530 mls @ 333.333 mls/hr 02/18/19 16:00 02/19/19 09:21 Sodium Chloride IV 333.333 mls/hr Q18H [facility] Administration Levofloxacin/Dextrose 750 mg in 150 mls @ 100 mls/hr 02/19/19 15:00 02/19/19 15:27 Levaquin 750mg/150ml IV 100 mls/hr Q24HR [facility] Administration Protocol Insulin Glargine 40 units 02/19/19 10:00 02/19/19 13:22 Lantus SUB-Q 40 units BID [facility] Administration Insulin Human Lispro 0 unit 02/18/19 07:30 02/19/19 11:30 Humalog SUB-Q 10 unit ACHS [facility] Administration Protocol Methylprednisolone Sodium Succinate 60 mg 02/18/19 06:00 02/19/19 15:27 Solu-Medrol IV 60 mg Q8HR [facility] Administration Ondansetron HCl 4 mg 02/18/19 02:15 Zofran IV Q8H PRN Nausea And Vomiting Sertraline HCl 50 mg 02/18/19 10:00 02/19/19 09:23 Zoloft PO 50 mg QDAY [facility] Administration Sildenafil Citrate 20 mg 02/18/19 08:00 02/19/19 15:27 Revatio PO 20 mg TID [facility]AM Administration Sodium Chloride 10 ml 02/18/19 10:00 02/19/19 09:24 Sodium Chloride Flush Syringe 10 Ml IV 10 ml BID [facility]AM Administration Sodium Chloride 10 ml 02/18/19 02:15 Sodium Chloride Flush Syringe 10 Ml IV PRN PRN LINE FLUSH
[2019-02-20] MEDS: HumaLOG SUB-Q SCH ×5 (01:05→18:05)
[2019-02-20] MEDS: DUONEB *Not for PRN Use IH SCH ×4 (02:35→21:13)
[2019-02-20] MEDS: VANCOMYCIN 1,500 MG in NACL 0.9% 500 ML 500 ML IV SCH ×2 (04:52→21:37)
[2019-02-20] MEDS: MAXIPIME/NS 1 GM/100 ML 1 GM/100 ML BAG IV SCH ×2 (05:01→17:16)
[2019-02-20] MEDS: SOLU-Medrol IV SCH ×3 (07:12→21:39)
[2019-02-20] MEDS: PULMICORT IH SCH ×2 (08:37→21:12)
[2019-02-20] MEDS: BROVANA NEBU IH SCH ×2 (08:37→21:12)
--- NOTE | 2019-02-20 10:31 | Progress Note ---
Subjective Date of service: 02/20/19 Objective Vital Signs - 12hr 02/19/19 02/19/19 02/20/19 23:01 23:23 00:00 Temperature 98.1 F Pulse Rate 86 81 Pulse Rate [ Anterior Bilateral Throughout] Respiratory 17 18 Rate Respiratory Rate [Anterior Bilateral Throughout] Blood Pressure 125/69 123/72 O2 Sat by Pulse 100 100 Oximetry 02/20/19 02/20/19 02/20/19 00:02 01:00 02:00 Temperature Pulse Rate 81 83 87 Pulse Rate [ 85 Anterior Bilateral Throughout] Respiratory 18 17 16 Rate Respiratory 19 Rate [Anterior Bilateral Throughout] Blood Pressure 123/72 137/75 128/69 O2 Sat by Pulse 100 100 100 Oximetry 02/20/19 02/20/19 02/20/19 02:10 03:00 03:36 Temperature 98.9 F Pulse Rate 82 Pulse Rate [ 87 Anterior Bilateral Throughout] Respiratory 16 Rate Respiratory 18 Rate [Anterior Bilateral Throughout] Blood Pressure 124/68 O2 Sat by Pulse 100 Oximetry 02/20/19 02/20/19 02/20/19 04:00 04:25 05:00 Temperature Pulse Rate 89 90 94 H Pulse Rate [ Anterior Bilateral Throughout] Respiratory 19 21 18 Rate Respiratory Rate [Anterior Bilateral Throughout] Blood Pressure 126/74 118/69 136/73 O2 Sat by Pulse 100 100 100 Oximetry 02/20/19 02/20/19 06:00 08:00 Temperature Pulse Rate 92 H 85 Pulse Rate [ 83 Anterior Bilateral Throughout] Respiratory 20 17 Rate Respiratory 16 Rate [Anterior Bilateral Throughout] Blood Pressure 121/68 144/80 O2 Sat by Pulse 97 97 Oximetry CBC and BMP: 02/19/19 04:14 02/19/19 04:14 ABG, PT/INR, D-dimer: ABG POC ABG pH 7.344 (7.35-7.45) L 02/19/19 08:50 POC ABG pCO2 40.1 (35-45) 02/19/19 08:50 POC ABG pO2 96 (80-105) 02/19/19 08:50 POC ABG HCO3 21.9 (22-26 mml/L) 02/19/19 08:50 POC ABG Total CO2 23 (23-27mmol/L) 02/19/19 08:50 POC ABG O2 Sat 97 02/19/19 08:50 PT/INR, D-dimer 603.05 ng/mlDDU (0-234) H 02/17/19 22:09 Abnormal lab findings: Abnormal Labs 02/17/19 02/17/19 02/17/19 22:09 22:09 22:09 WBC 18.3 H RBC 3.42 L Hgb 9.9 L Hct 30.6 L RDW 21.4 H Plt Count 102 L Seg Neuts % (Manual) 88.0 H Lymphocytes % (Manual) 9.0 L Seg Neutrophils # Man 16.1 H Lymphocytes # (Manual) D-Dimer 603.05 H POC ABG pH VBG pH Sodium 135 L Chloride Carbon Dioxide 18 L BUN Glucose 446 H POC Glucose Calcium 8.2 L Troponin T 0.061 H C-Reactive Protein NT-Pro-B Natriuret Pep Total Protein 6.0 L Albumin 2.9 L HDL Cholesterol 02/17/19 02/17/19 02/17/19 22:09 22:28 23:13 WBC RBC Hgb Hct RDW Plt Count Seg Neuts % (Manual) Lymphocytes % (Manual) Seg Neutrophils # Man Lymphocytes # (Manual) D-Dimer POC ABG pH 7.308 L VBG pH 7.299 L Sodium Chloride Carbon Dioxide BUN Glucose POC Glucose Calcium Troponin T C-Reactive Protein NT-Pro-B Natriuret Pep 3625 H Total Protein Albumin HDL Cholesterol 02/18/19 02/18/19 02/18/19 00:01 01:23 05:40 WBC RBC Hgb Hct RDW Plt Count Seg Neuts % (Manual) Lymphocytes % (Manual) Seg Neutrophils # Man Lymphocytes # (Manual) D-Dimer POC ABG pH VBG pH Sodium Chloride Carbon Dioxide BUN Glucose POC Glucose 424 H 281 H 381 H Calcium Troponin T C-Reactive Protein NT-Pro-B Natriuret Pep Total Protein Albumin HDL Cholesterol 02/18/19 02/18/19 02/18/19 07:54 11:25 13:36 WBC RBC Hgb Hct RDW Plt Count Seg Neuts % (Manual) Lymphocytes % (Manual) Seg Neutrophils # Man Lymphocytes # (Manual) D-Dimer POC ABG pH VBG pH Sodium Chloride Carbon Dioxide BUN Glucose POC Glucose 388 H 343 H Calcium Troponin T C-Reactive Protein 7.40 H NT-Pro-B Natriuret Pep Total Protein Albumin HDL Cholesterol 06/02/18/19 02/18/19 13:36 15:56 21:31 WBC RBC Hgb Hct RDW Plt Count Seg Neuts % (Manual) Lymphocytes % (Manual) Seg Neutrophils # Man Lymphocytes # (Manual) D-Dimer POC ABG pH VBG pH Sodium Chloride Carbon Dioxide BUN Glucose POC Glucose 377 H 312 H Calcium Troponin T 0.056 H C-Reactive Protein NT-Pro-B Natriuret Pep Total Protein Albumin HDL Cholesterol 30 L 02/19/19 02/19/19 02/19/19 04:14 04:14 08:50 WBC 11.3 H RBC 3.30 L Hgb 9.8 L Hct 29.8 L RDW 21.2 H Plt Count 91 L Seg Neuts % (Manual) 96.0 H Lymphocytes % (Manual) 3.0 L Seg Neutrophils # Man 10.8 H Lymphocytes # (Manual) 0.3 L D-Dimer POC ABG pH 7.344 L VBG pH Sodium Chloride 108.9 H Carbon Dioxide 21 L BUN 24 H Glucose 307 H POC Glucose Calcium Troponin T C-Reactive Protein NT-Pro-B Natriuret Pep Total Protein Albumin HDL Cholesterol 02/19/19 02/19/19 02/19/19 13:19 18:18 23:34 WBC RBC Hgb Hct RDW Plt Count Seg Neuts % (Manual) Lymphocytes % (Manual) Seg Neutrophils # Man Lymphocytes # (Manual) D-Dimer POC ABG pH VBG pH Sodium Chloride Carbon Dioxide BUN Glucose POC Glucose 414 H 240 H 325 H Calcium Troponin T C-Reactive Protein NT-Pro-B Natriuret Pep Total Protein Albumin HDL Cholesterol 02/20/19 05:33 WBC RBC Hgb Hct RDW Plt Count Seg Neuts % (Manual) Lymphocytes % (Manual) Seg Neutrophils # Man Lymphocytes # (Manual) D-Dimer POC ABG pH VBG pH Sodium Chloride Carbon Dioxide BUN Glucose POC Glucose 247 H Calcium Troponin T C-Reactive Protein NT-Pro-B Natriuret Pep Total Protein Albumin HDL Cholesterol
--- NOTE | 2019-02-20 10:56 | Progress Note ---
Assessment and Plan Cultures: Blood cultures 01/21/2019 no growth today Urine culture 01/21/2019 Assessment: 73 y/o male with history of chronic hypoxic respiratory failure on home O2 due to end stage COPD, interstitial lung disease, pulmonary hypertension, hypertension, functional quadreplegic bed bound mostly, diabetes and prostate cancer s/p radiation causing bladder and bowel stress incontinence admitted on due to worsening shortness of breath: 1) Leukocytosis: better. Etiology most likely pneumonia. 2) Chronic hypoxic respiratory failure: due end stage COPD, interstitial lung disease, pulmonary hypertension and now pneumonia with left effusion, better on BIPAP 3) Left sided pneumonia with left moderate pleural effusion: likely ? hospital- acquired pneumonia v/s CAP v/s COPD exacerbation. CXR showed LLL infiltrate and moderate L effusion. Blood culture 02/18/2019 no growth so far. 4) Diabetes: uncontrolled 5) Thrombocytopenia: from sepsis. Recommendations: - follow-up blood cultures - consider chest US to eval need for thoracentesis - discussed w Dr Mike - continue cefepime and vancomycin for now D3 - continue levaquin for atypicals D2 - follow up strep pneumoniae urine antigen and legionella urine antigen Will follow. Faina Figueroa MD Infectious Diseases [employer] [facility] ([facility]) M [phone] O [phone] Subjective Date of service: 02/20/19 Principal diagnosis: resp failure/pneumonia Interval history: Patient feels better, more alert, SOB is better, still on BIPAP, no fever. Objective - Exam Narrative Exam: General appearance: Alert inno resp distress on BIPAP Eyes: anicteric sclerae, moist conjunctivae; no lid-lag; PERRLA HENT: Atraumatic; oropharynx clear with moist mucous membranes and no mucosal ulcerations/no oral thrush; normal hard and soft palate. Normal external ears. Neck: Trachea midline; supple, no thyromegaly or lymphadenopathy Lungs: distant BS CV: RRR no murmur Abdomen: Soft, non-tender; no masses or hepatosplenomegaly Extremities: no edema, cyanosis Skin: Normal temperature, turgor and texture; no rash, ulcers or subcutaneous nodules Psych: no agitated. Neuro: alert follows commands - Constitutional Vitals: Vital Signs Temp Pulse Resp BP Pulse Ox 98.9 F 83 16 144/80 97 02/20/19 03:36 06/21/19 08:00 02/20/19 08:00 02/20/19 08:00 02/20/19 08:00 Temperature -Last 24 Hours Temperature 98.9 F Temperature 98.1 F Temperature 98.5 F - Labs CBC & Chem 7: 02/19/19 04:14 02/19/19 04:14 Labs: Abnormal lab results 02/19/19 02/19/19 02/19/19 Range/Units 13:19 18:18 23:34 POC Glucose 414 H 240 H 325 H (70-105) 02/20/19 Range/Units 05:33 POC Glucose 247 H (70-105)
[2019-02-20] MEDS: LOVENOX SUB-Q SCH (11:09)
[2019-02-20] MEDS: LASIX IV SCH (11:09)
[2019-02-20] MEDS: LEVAQUIN 750MG/150ML 750 MG/150 ML BAG IV SCH (11:09)
[2019-02-20] MEDS: LANTUS SUB-Q SCH ×2 (11:58→22:37)
[2019-02-20] MEDS: PLAVIX PO SCH (11:58)
[2019-02-20] MEDS: PEPCID PO SCH (11:58)
[2019-02-20] MEDS: REVATIO PO SCH ×2 (11:58→13:58)
[2019-02-20] MEDS: ZOLOFT PO SCH (11:59)
[2019-02-20] MEDS: SODIUM CHLORIDE FLUSH SYRINGE 10 ML IV SCH ×2 (11:59→21:39)
[2019-02-20] MEDS: VITAMIN D3 PO SCH (11:59)
--- NOTE | 2019-02-20 14:07 | Progress Note ---
Assessment and Plan Assessment and plan: Patient is a 73 yo man who is a [facility] patient with a history of hypertension, COPD, ILD, insulin-dependent diabetes mellitus, hyperlipidemia, CAD, CHF, prostate cancer, chronic respiratory failure and pulmonary hypertension who presented to [facility] ED with SOB/OMAR. Home Pulse ox was 35% and O2 saturation in ED was 74% on RA. Patient was hypotensive and was given a 500 mL fluid bolus in the ED and was responsive for short period of time. Right femoral double lumen central line was placed and patient was started on levophed gtt and admitted to the Critical Care Unit. Patient has a leukocytosis of 18,000, anemia with a hemoglobin of 10, blood sugar of about 450, BNP of about 3500, slightly elevated troponin level and some mild renal insufficiency, so CTA chest wasn't done. Chest x-ray shows signs of volume overload and left lower pneumonia. Patient started having some hypotension so he was given a 500 mL bolus of fluid with some improvement. However his blood pressure once again started going back down and his chest x-ray and blood work showed signs of an exacerbation of CHF, so decision was made to place a central line to start Vasopressor instead of more IV fluids. Blood cultures were obtained and the patient was started on antibiotics. He was given some steroids for his bronchospasm and some breathing treatments. The patient had an elevated d-dimer and we attempted to get a VQ scan, but the patient is unable to lay flat and appeared slightly claustrophobic so this examination could not be done. If necessary, the patient can be given a dose of Lovenox. I had just discharge patient home with [facility] on 02/04/19. He came back the next day for admission then was discharge again on 02/10/19 and now comes back on 02/18/19. Patient may need a different Home Hospice company to prevent frequent re-admission for the same thing, underlying end stage ILD with severe pulmonary hypertension. * pCXR Impression: Vascular congestion with an infiltrate and atelectasis left lower lung, moderate left and mild right effusions * Bilateral Leg Doppler negative Acute on chronic hypoxic respiratory failure, went back on bipap on 02/19/19, will try to wean off LLL Pneumonia: Start cefepime and vancomycin, ID consulted AE COPD: Solu-Medrol 60 mg every 8 hours, Scheduled DuoNeb's and Pulmicort, albuterol when necessary Sepsis with shock: resolved Acute on chronic combined heart failure: Consult Cardiology, ECHO reviewed ARF due to ATN, poa: improve BP and monitor closely Anemia and Thrombocytopenia: monitor cbc closely Elevated d-dimer R/O PE: off Lovenox but Pulmonology Acidosis, improved: monitor levels Insulin-dependent diabetes mellitus uncontrolled with Hyperglycemia: POC BG Monitoring, basal/bolus coverage ILD with severe Pulmonary hypertension-severe: Pulmonology following, continue O2 support h/o KELLY Mild to moderate malnutrition; Dietitian consulted h/o HLD History of prostate cancer DVT PPX on Lovenox full code d/w CCM CCT 31 minutes History Interval history: Patient was seen and examined. Follow-up on current diagnosis Hypotension/pna/chf/copd. No overnight events reported to me but he was placed on bipap yesterday and still on bipap this morning. Patient denies any chest pa in, nausea/vomiting or severe headaches. Imaging, nursing note, chart, labs and old chart reviewed. Discussed with patient and at bedside. Hospitalist Physical - Physical exam Narrative exam: Gen: ill appearing, WDWN, NAD, Awake, Alert, Orientated HEENT: NCAT, EOMI, PERRL, OP Clear Neck: supple, no adenopathy, no thyromegaly, no JVD CVS/Heart: RRR, normal S1S2, pulses present bilaterally Chest/Lungs: diminished bs bilateral with bibasilar crackles and rhonchi, Symmetrical chest expansion, good air entry bilaterally GI/Abdomen: soft, NTND, good bowel sounds, no guarding or rebound /Bladder: no suprapubic tenderness, no CVA or paraspinal tenderness Extermity/Skin: no c/c/e, no obvious rash MSK: FROM x 4 Neuro: CN 2-12 grossly intact, no new focal deficits Psych: calm - Constitutional Vitals: Temp Pulse Resp BP Pulse Ox 97.8 F 93 H 14 124/78 96 02/20/19 12:00 02/20/19 13:00 02/20/19 13:00 02/20/19 13:00 02/20/19 13:00 Results - Labs CBC & Chem 7: 02/19/19 04:14 02/19/19 04:14 Labs: Laboratory Last Values WBC 11.3 K/mm3 (4.5-11.0) H 02/19/19 04:14 RBC 3.30 M/mm3 (3.65-5.03) L 02/19/19 04:14 Hgb 9.8 gm/dl (11.8-15.2) L 02/19/19 04:14 Hct 29.8 % (35.5-45.6) L 02/19/19 04:14 MCV 90 fl (84-94) 02/19/19 04:14 MCH 30 pg (28-32) 02/19/19 04:14 MCHC 33 % (32-34) 02/19/19 04:14 RDW 21.2 % (13.2-15.2) H 02/19/19 04:14 Plt Count 91 K/mm3 (140-440) L 02/19/19 04:14 Add Manual Diff Complete 02/19/19 04:14 Total Counted 100 02/19/19 04:14 Seg Neutrophils % [employer] 02/17/19 22:09 Seg Neuts % (Manual) 96.0 % (40.0-70.0) H 02/19/19 04:14 0 % 02/19/19 04:14 3.0 % (13.4-35.0) L 02/19/19 04:14 Reactive Lymphs % (Man) 0 % 02/19/19 04:14 1.0 % (0.0-7.3) 02/19/19 04:14 0 % (0.0-4.3) 02/19/19 04:14 0 % (0.0-1.8) 02/19/19 04:14 0 % 02/19/19 04:14 0 % 02/19/19 04:14 0 % 02/19/19 04:14 0 % 02/19/19 04:14 Nucleated RBC % Not Reportable 02/19/19 04:14 Seg Neutrophils # Man 10.8 K/mm3 (1.8-7.7) H 02/19/19 04:14 Band Neutrophils # 0.0 K/mm3 02/19/19 04:14 0.3 K/mm3 (1.2-5.4) L 02/19/19 04:14 Abs React Lymphs (Man) 0.0 K/mm3 02/19/19 04:14 0.1 K/mm3 (0.0-0.8) 02/19/19 04:14 0.0 K/mm3 (0.0-0.4) 02/19/19 04:14 0.0 K/mm3 (0.0-0.1) 02/19/19 04:14 0.0 K/mm3 02/19/19 04:14 0.0 K/mm3 02/19/19 04:14 0.0 K/mm3 02/19/19 04:14 Blast Cells # 0.0 K/mm3 02/19/19 04:14 WBC Morphology Not Reportable 02/19/19 04:14 Hypersegmented Neuts Not Reportable 02/19/19 04:14 Hyposegmented Neuts Not Reportable 02/19/19 04:14 Hypogranular Neuts Not Reportable 02/19/19 04:14 Not Reportable 02/19/19 04:14 Not Reportable 02/19/19 04:14 Not Reportable 02/19/19 04:14 Not Reportable 02/19/19 04:14 Not Reportable 02/19/19 04:14 Not Reportable 02/19/19 04:14 Consistent w auto 02/19/19 04:14 Not Reportable 02/19/19 04:14 Plt Clumps, EDTA Not Reportable 02/19/19 04:14 Rare 02/19/19 04:14 Not Reportable 02/19/19 04:14 Not Reportable 02/19/19 04:14 Plt Morphology Comment Not Reportable 02/19/19 04:14 RBC Morphology Not Reportable 02/19/19 04:14 Dimorphic RBCs Not Reportable 02/19/19 04:14 Not Reportable 02/19/19 04:14 Not Reportable 02/19/19 04:14 1+ 02/19/19 04:14 1+ 02/19/19 04:14 Not Reportable 02/19/19 04:14 Not Reportable 02/19/19 04:14 Not Reportable 02/19/19 04:14 Not Reportable 02/19/19 04:14 Not Reportable 02/19/19 04:14 Not Reportable 02/19/19 04:14 Few 02/19/19 04:14 Few 02/19/19 04:14 Not Reportable 02/19/19 04:14 Not Reportable 02/19/19 04:14 Not Reportable 02/19/19 04:14 Not Reportable 02/19/19 04:14 Not Reportable 02/19/19 04:14 Not Reportable 02/19/19 04:14 Few 02/19/19 04:14 Acanthocytes (Spur) Not Reportable 02/19/19 04:14 Rouleaux Not Reportable 02/19/19 04:14 Not Reportable 02/19/19 04:14 Not Reportable 02/19/19 04:14 Not Reportable 02/19/19 04:14 Not Reportable 02/19/19 04:14 Hem Pathologist Commnt No 02/19/19 04:14 603.05 ng/mlDDU (0-234) H 02/17/19 22:09 POC ABG pH 7.344 (7.35-7.45) L 02/19/19 08:50 POC ABG pCO2 40.1 (35-45) 02/19/19 08:50 POC ABG pO2 96 (80-105) 02/19/19 08:50 POC ABG HCO3 21.9 (22-26 mml/L) 02/19/19 08:50 POC ABG Total CO2 23 (23-27mmol/L) 02/19/19 08:50 POC ABG O2 Sat 97 02/19/19 08:50 POC ABG Base Excess -4 ((-2) - (+3)mmol/L) 02/19/19 08:50 VBG pH 7.299 (7.320-7.420) L 02/17/19 23:13 90 % 02/19/19 08:50 Sodium 144 mmol/L (137-145) D 02/19/19 04:14 Potassium 4.8 mmol/L (3.6-5.0) 02/19/19 04:14 Chloride 108.9 mmol/L (98-107) H 02/19/19 04:14 Carbon Dioxide 21 mmol/L (22-30) L 02/19/19 04:14 19 mmol/L 02/19/19 04:14 BUN 24 mg/dL (9-20) H 02/19/19 04:14 1.2 mg/dL (0.8-1.5) 02/19/19 04:14 Estimated GFR > 60 ml/min 02/19/19 04:14 20 % 02/19/19 04:14 Glucose 307 mg/dL (75-100) H 02/19/19 04:14 POC Glucose 196 (70-105) H 02/20/19 12:12 Negative (Negative) 02/17/19 23:13 Lactic Acid 1.80 mmol/L (0.7-2.0) 02/18/19 13:36 Calcium 8.6 mg/dL (8.4-10.2) 02/19/19 04:14 Magnesium 1.90 mg/dL (1.7-2.3) 02/17/19 22:09 1.20 mg/dL (0.1-1.2) 02/17/19 22:09 AST 17 units/L (5-40) 02/17/19 22:09 ALT 20 units/L (7-56) 02/17/19 22:09 81 units/L (35-129) 02/17/19 22:09 0.056 ng/mL (0.00-0.029) H 02/18/19 13:36 7.40 mg/dL (0.00-1.30) H 02/18/19 13:36 NT-Pro-B Natriuret Pep 3625 pg/mL (0-900) H 02/17/19 22:09 6.0 g/dL (6.3-8.2) L 02/17/19 22:09 2.9 g/dL (3.9-5) L 02/17/19 22:09 0.9 % 02/17/19 22:09 Triglycerides 99 mg/dL (2-149) 02/18/19 13:36 Cholesterol 122 mg/dL (50-199) 02/18/19 13:36 81 mg/dL (50-130) 02/18/19 13:36 30 mg/dL (40-59) L 02/18/19 13:36 4.06 % 02/18/19 13:36 Active Medications - Current Medications Current Medications: Generic Name Dose Route Start Last Admin Trade Name Freq PRN Reason Stop Dose Admin Acetaminophen 650 mg 02/18/19 02:15 Tylenol PO Q4H PRN Pain MILD(1-3)/Fever >100.5/QUILES Albuterol 2.5 mg 06/19/19 02:15 Proventil IH Q3HRT PRN Shortness Of Breath Albuterol/Ipratropium 1 ampul 02/18/19 08:00 02/20/19 13:27 Duoneb *Not For Prn Use* IH Not Given Q6HRT [facility] Arformoterol Tartrate 15 mcg 02/18/19 20:00 02/20/19 08:37 Brovana Nebu IH Not Given Q12HRT [facility] Atorvastatin Calcium 40 mg 02/18/19 22:00 02/19/19 22:47 Lipitor PO 40 mg QHS [facility] Administration Budesonide 0.5 mg 02/18/19 08:00 02/20/19 08:37 Pulmicort IH Not Given Q12HRT [facility] Cholecalciferol 1,000 unit 02/18/19 10:00 02/20/19 11:59 Vitamin D3 PO Not Given QDAY [facility] Clopidogrel Bisulfate 75 mg 02/18/19 10:00 02/20/19 11:58 Plavix PO Not Given QDAY [facility] Dextrose 50 ml 02/18/19 02:26 D50w (25gm) Syringe IV PRN PRN Hypoglycemia Enoxaparin Sodium 40 mg 02/19/19 10:00 02/20/19 11:09 Lovenox SUB-Q 40 mg QDAY@1000 [facility] Administration Famotidine 20 mg 02/18/19 10:00 02/20/19 11:58 Pepcid PO Not Given BID [facility] Cefepime HCl 1 gm in 100 mls @ 200 mls/hr 02/18/19 06:00 02/20/19 05:01 Maxipime/Ns 1 Gm/100 Ml IV 200 mls/hr Q12H [facility] Administration Protocol Vancomycin HCl 1,500 mg/ 530 mls @ 333.333 mls/hr 02/18/19 16:00 02/20/19 04: 52 Sodium Chloride IV 333.333 mls/hr Q18H [facility] Administration Levofloxacin/Dextrose 750 mg in 150 mls @ 100 mls/hr 02/19/19 15:00 02/20/19 11:09 Levaquin 750mg/150ml IV 100 mls/hr Q24HR [facility] Administration Protocol Insulin Glargine 40 units 02/19/19 10:00 02/20/19 11:58 Lantus SUB-Q Not Given BID [facility] Insulin Human Lispro 0 unit 02/20/19 00:00 02/20/19 11:59 Humalog SUB-Q Not Given Q6HR [facility] Protocol Methylprednisolone Sodium Succinate 60 mg 02/18/19 06:00 02/20/19 07:12 Solu-Medrol IV 60 mg Q8HR [facility] Administration Ondansetron HCl 4 mg 02/18/19 02:15 Zofran IV Q8H PRN Nausea And Vomiting Sertraline HCl 50 mg 02/18/19 10:00 02/20/19 11:59 Zoloft PO Not Given QDAY [facility] Sildenafil Citrate 20 mg 02/18/19 08:00 02/20/19 13:58 Revatio PO Not Given TID [facility] Sodium Chloride 10 ml 02/18/19 10:00 02/20/19 11:59 Sodium Chloride Flush Syringe 10 Ml IV Not Given BID [facility] Sodium Chloride 10 ml 02/18/19 02:15 Sodium Chloride Flush Syringe 10 Ml IV PRN PRN LINE FLUSH
--- NOTE | 2019-02-20 16:16 | Consultation ---
History of Present Illness Consult date: 02/20/19 Requesting physician: ADAN CUEVAS Consult reason: congestive heart failure History of present illness: The pt is a 73YO male with a past medical history of reported CAD s/p stent many years ago at the [facility] (pt was Medic in [place]), interstitial lung disease, pulmonary hypertension, chronic hypoxic respiratory failure on home O2, hypertension, CVA in 2018, functional quadreplegic bed bound mostly, diabetes and prostate cancer s/p radiation causing bladder and bowel stress incontinence. He is previously unknown to our practice and states that he sees a drama therapist at [facility]. He presented on 02/18 with c/o worsening shortness of breath and was found to have PNA. Cardiology has been consulted to evaluate for HF. CXR does appear c/w some HF, pro-BNP elevated. Echo done 02/18/2019 showed EF 50-55%, mild-mod AR, mild LVH, trace MR, right heart chambers dilated, mod RV systolic dysfunction, mod TR, pulm HTN with RVSP 53mmHg, mild dilatation of the root and ascending aorta measuring 4.03cm. Pt denies any prior known h/o HF. He denies any chest pain, palpitations, n/v, diaphoresis, dizziness or syncope. Past History Past Medical History: diabetes, heart failure, hypertension, other (ILD, pulm HTN, KELLY) Past Surgical History: PTCA, Other ( neck surgery) Social history: , lives with family Family history: no significant family history Medications and Allergies Allergies Allergy/AdvReac Type Severity Reaction Status Date / Time No Known Allergies Allergy Verified 12/23/18 10:17 Home Medications Medication Instructions Recorded Confirmed Last Taken Type Cetirizine HCl [Allergy Relief] 10 mg PO DAILY 01/09/19 02/18/19 02/05/19 History ALBUTEROL NEB's [Proventil 0.083% 2.5 mg IH Q4HRT PRN #15 nebu 02/04/19 02/18/19 02/05/19 Rx NEBS] Acetaminophen [Acetaminophen TAB] 500 mg PO Q6HR PRN #30 02/04/19 02/18/19 02/05/19 Rx Arformoterol Nebu [Brovana Nebu] 15 mcg IH Q12HRT #30 ml 02/04/19 02/18/19 02/05/19 Rx AtorvaSTATin [Lipitor] 40 mg PO QHS #30 02/04/19 02/18/19 02/05/19 Rx Benzonatate [Tessalon Perles] 100 mg PO Q8HR PRN #15 capsule 02/04/19 02/18/19 02/05/19 Rx Budesonide [Pulmicort Respules] 0.5 mg IH Q12HRT #30 nebu 02/04/19 02/18/19 02/05/19 Rx Carvedilol [Coreg] 12.5 mg PO BID #60 02/04/19 02/18/19 02/05/19 Rx Cholecalciferol (Vitamin D3) 1,000 unit PO QDAY #30 02/04/19 02/18/19 02/05/19 Rx [Children's Vitamin D3 1,000 unit CHEW] Clopidogrel [Plavix] 75 mg PO QDAY #30 02/04/19 02/18/19 02/05/19 Rx Famotidine [Pepcid] 20 mg PO BID #30 tablet 02/04/19 02/18/19 02/05/19 Rx Fluticasone [Flonase] 1 spray NS QDAY 5 Days #1 02/04/19 02/18/19 02/05/19 Rx Furosemide [Lasix TAB] 20 mg PO QDAY #30 tablet 02/04/19 02/18/19 02/05/19 Rx Insulin Glargine [Lantus VIAL] 60 units SUB-Q HS #100 units 02/04/19 02/18/19 02/05/19 Rx Ipratropium/Albuterol Sulfate 1 ampul IH Q6HRT #30 ampul.neb 02/04/19 02/18/19 02/05/19 Rx [DUONEB *Not for PRN Use*] Lispro Insulin [HumaLOG] 1 dose SUB-Q ACHS PRN #100 units 02/04/19 02/18/19 02/05/19 Rx Losartan [Cozaar] 50 mg PO QDAY #30 tablet 02/04/19 02/18/19 02/05/19 Rx Sertraline [Zoloft] 150 mg PO QDAY #30 02/04/19 02/18/19 02/05/19 Rx Sildenafil [Revatio] 20 mg PO TID #90 02/04/19 02/18/19 02/05/19 Rx amLODIPine [Norvasc] 10 mg PO DAILY #30 02/04/19 02/18/19 02/05/19 Rx oxyCODONE /ACETAMINOPHEN [Percocet 1 tab PO Q6H PRN #15 tablet 02/04/19 02/18/19 02/05/19 Rx 5/325 mg] Active Meds: Active Medications Acetaminophen (Tylenol) 650 mg PO Q4H PRN PRN Reason: Pain MILD(1-3)/Fever >100.5/QUILES Albuterol (Proventil) 2.5 mg IH Q3HRT PRN PRN Reason: Shortness Of Breath Albuterol/Ipratropium (Duoneb *Not For Prn Use*) 1 ampul IH Q6HRT [facility] Last Admin: 02/20/19 13:27 Dose: Not Given Documented by: Arformoterol Tartrate (Brovana Nebu) 15 mcg IH Q12HRT [facility] Last Admin: 02/20/19 08:37 Dose: Not Given Documented by: Atorvastatin Calcium (Lipitor) 40 mg PO QHS [facility] Last Admin: 02/19/19 22:47 Dose: 40 mg Documented by: Budesonide (Pulmicort) 0.5 mg IH Q12HRT [facility] Last Admin: 02/20/19 08:37 Dose: Not Given Documented by: Cholecalciferol (Vitamin D3) 1,000 unit PO QDAY [facility] Last Admin: 02/20/19 11:59 Dose: Not Given Documented by: Clopidogrel Bisulfate (Plavix) 75 mg PO QDAY [facility] Last Admin: 02/20/19 11:58 Dose: Not Given Documented by: Dextrose (D50w (25gm) Syringe) 50 ml IV PRN PRN PRN Reason: Hypoglycemia Enoxaparin Sodium (Lovenox) 40 mg SUB-Q QDAY@1000 [facility] Last Admin: 02/20/19 11:09 Dose: 40 mg Documented by: Famotidine (Pepcid) 20 mg PO BID [facility] Last Admin: 02/20/19 11:58 Dose: Not Given Documented by: Cefepime HCl (Maxipime/Ns 1 Gm/100 Ml) 1 gm in 100 mls @ 200 mls/hr IV Q12H [facility]; Protocol Last Admin: 02/20/19 05:01 Dose: 200 mls/hr Documented by: Vancomycin HCl 1,500 mg/ (Sodium Chloride) 530 mls @ 333.333 mls/hr IV Q18H [facility] Last Admin: 02/20/19 04:52 Dose: 333.333 mls/hr Documented by: Levofloxacin/Dextrose (Levaquin 750mg/150ml) 750 mg in 150 mls @ 100 mls/hr IV Q24HR [facility]; Protocol Last Admin: 02/20/19 11:09 Dose: 100 mls/hr Documented by: Insulin Glargine (Lantus) 40 units SUB-Q BID [facility] Last Admin: 02/20/19 11:58 Dose: Not Given Documented by: Insulin Human Lispro (Humalog) 0 unit SUB-Q Q6HR [facility]; Protocol Last Admin: 02/20/19 11:59 Dose: Not Given Documented by: Methylprednisolone Sodium Succinate (Solu-Medrol) 60 mg IV Q8HR [facility] Last Admin: 02/20/19 14:44 Dose: 60 mg Documented by: Ondansetron HCl (Zofran) 4 mg IV Q8H PRN PRN Reason: Nausea And Vomiting Sertraline HCl (Zoloft) 50 mg PO QDAY [facility] Last Admin: 02/20/19 11:59 Dose: Not Given Documented by: Sildenafil Citrate (Revatio) 20 mg PO TID [facility] Last Admin: 02/20/19 13:58 Dose: Not Given Documented by: Sodium Chloride (Sodium Chloride Flush Syringe 10 Ml) 10 ml IV BID [facility] Last Admin: 02/20/19 11:59 Dose: Not Given Documented by: Sodium Chloride (Sodium Chloride Flush Syringe 10 Ml) 10 ml IV PRN PRN PRN Reason: LINE FLUSH Review of Systems Constitutional: no weight loss, no weight gain, no fever, no chills, no sweats Ears, nose, mouth and throat: no ear pain, no nose pain, no sinus pressure, no sinus pain Cardiovascular: orthopnea, shortness of breath, dyspnea on exertion, no chest pain, no palpitations, no rapid/irregular heart beat, no edema, no syncope, no lightheadedness, no leg edema Respiratory: shortness of breath, dyspnea on exertion, no cough, no pain on inspiration Gastrointestinal: no abdominal pain, no nausea, no vomiting, no diarrhea, no constipation, no change in bowel habits Genitourinary Male: no dysuria, no hematuria, no flank pain, no discharge, no urinary frequency, no urinary hesitancy Musculoskeletal: no neck stiffness, no neck pain, no shooting arm pain, no arm numbness/tingling, no low back pain, no shooting leg pain Integumentary: no rash, no pruritis, no redness, no sores, no wounds Neurological: no head injury, no paralysis, no weakness, no parathesias, no numbness, no tingling, no seizures, no syncope Psychiatric: no anxiety Endocrine: no cold intolerance, no heat intolerance Hematologic/Lymphatic: no easy bruising, no easy bleeding Allergic/Immunologic: no urticaria Physical Examination Vital Signs Pulse Ox 88 02/17/19 21:38 General appearance: no acute distress HEENT: Positive: PERRL, Normocephaly, Mucus Membranes Moist Neck: Positive: neck supple, trachea midline Cardiac: Positive: Reg Rate and Rhythm, S1/S2 Lungs: Positive: Decreased Breath Sounds, Rales, Oxygen Neuro: Positive: Grossly Intact Abdomen: Positive: Soft. Negative: Tender Skin: Negative: Rash Musculoskeletal: No Pain Extremities: Absent: edema Results 02/19/19 04:14 02/19/19 04:14 - Imaging and Cardiology Echo: report reviewed (02/18/2019 showed EF 50-55%, mild-mod AR, mild LVH, trace MR, right heart chambers dilated, mod RV systolic dysfunction, mod TR, pulm HTN with RVSP 53mmHg, mild dilatation of the root and ascending aorta measuring 4.03cm. ) EKG: report reviewed, image reviewed EKG interpretations - Telemetry EKG Rhythm: Sinus Rhythm - EKG Sinus rhythms and dysrhythmias: sinus rhythm AV and intraventricular conduction: right bundle branch block Assessment and Plan Initiate IV lasix and monitor renal indices. Cont all other present cardiac management. The patient has been seen in conjunction with Dr. ASHLEY Reed who agrees with the assessment and plan of care. - Patient Problems (1) Acute on chronic respiratory failure Current Visit: Yes Status: Acute (2) Pneumonia Current Visit: Yes Status: Acute Qualifiers: Pneumonia type: due to unspecified organism Laterality: left Lung location: lower lobe of lung Qualified Code(s): J18.1 - Lobar pneumonia, unspecified organism (3) Interstitial lung disease Current Visit: Yes Status: Chronic (4) Pulmonary hypertension Current Visit: Yes Status: Chronic (5) Acute heart failure with preserved ejection fraction Current Visit: Yes Status: Acute (6) Coronary artery disease Current Visit: Yes Status: Chronic Qualifiers: Coronary Disease-Associated Artery/Lesion type: [place] artery Associated angina: without angina (7) Hypertension Current Visit: Yes Status: Chronic Qualifiers: Hypertension type: essential hypertension Qualified Code(s): I10 - Essential (primary) hypertension (8) Hyperlipidemia Current Visit: Yes Status: Chronic Qualifiers: Hyperlipidemia type: mixed hyperlipidemia Qualified Code(s): E78.2 - Mixed hyperlipidemia (9) Diabetes Current Visit: Yes Status: Chronic (10) History of CVA (cerebrovascular accident) Current Visit: Yes Status: Chronic
--- NOTE | 2019-02-20 17:54 | Gastroenterology Consultation ---
History of Present Illness - Reason for Consult Consult date: 02/20/19 Dysphagia Requesting physician: ADAN CUEVAS - History of Present Illness Consulted for dysphagia. History obtained from was present at bedside as patient is mildly confused. She reports that for the last few months he has been having intermittent dysphagia, oropharyngeal, with choking or coughing episodes. However, she reports that over the last week or 2 he has had a major deterioration with severe trouble with eating any solids or liquids. Speech pathology assessment pace mature and severe oropharyngeal dysphagia and recommended nothing by mouth diet. GI is consulted. Patient reports having had a colonoscopy approximately 1 year ago at [place] does not think he had an upper endoscopy denies any gastric surgeries in the past Currently on high flow nasal cannula To review his history, patient is a 73 yo man who is a [place] patient with a history of hypertension, COPD, ILD, insulin-dependent diabetes mellitus, hyperlipidemia, CAD, CHF, prostate cancer, chronic respiratory failure and pulmonary hypertension who presented to [facility] ED with SOB/OMAR. Home Pulse ox was 35% and O2 saturation in ED was 74% on RA. Patient was hypotensive and was given a 500 mL fluid bolus in the ED and was responsive for short period of time. Right femoral double lumen central line was placed and patient was started on levophed gtt and admitted to the Critical Care Unit. Patient has a leukocytosis of 18,000, anemia with a hemoglobin of 10, blood sugar of about 450, BNP of about 3500, slightly elevated troponin level and some mild renal insufficiency, so CTA chest wasn't done. Chest x-ray shows signs of volume overload and left lower pneumonia. Patient started having some hypotension so he was given a 500 mL bolus of fluid with some improvement. However his blood pressure once again started going back down and his chest x-ray and blood work showed signs of an exacerbation of CHF, so decision was made to place a central line to start Vasopressor instead of more IV fluids. Blood cultures were obtained and the patient was started on antibiotics. He was given some steroids for his bronchospasm and some breathing treatments. The patient had an elevated d-dimer and we attempted to get a VQ scan, but the patient is unable to lay flat and appeared slightly claustrophobic so this examination could not be done. If necessary, the patient can be given a dose of Lovenox. I had just discharge patient home with [facility] on 02/04/19. He came back the next day for admission then was discharge again on 02/10/19 and now comes back on 02/18/19. Patient may need a different Home Hospice company to prevent frequent re- admission for the same thing, underlying end stage ILD with severe pulmonary hypertension. Home meds reviewed/reconciled/updated Past History Past Medical History: diabetes, heart failure, hypertension, other (ILD, pulm HTN, KELLY) Past Surgical History: PTCA, Other ( neck surgery) Social history: , lives with family Family history: no significant family history Medications and Allergies Allergies Allergy/AdvReac Type Severity Reaction Status Date / Time No Known Allergies Allergy Verified 12/23/18 10:17 Home Medications Medication Instructions Recorded Confirmed Last Taken Type Cetirizine HCl [Allergy Relief] 10 mg PO DAILY 01/09/19 02/18/19 02/05/19 History ALBUTEROL NEB's [Proventil 0.083% 2.5 mg IH Q4HRT PRN #15 nebu 02/04/19 02/18/19 02/05/19 Rx NEBS] Acetaminophen [Acetaminophen TAB] 500 mg PO Q6HR PRN #30 02/04/19 02/18/19 02/05/19 Rx Arformoterol Nebu [Brovana Nebu] 15 mcg IH Q12HRT #30 ml 02/04/19 02/18/19 0 02/05/19 Rx AtorvaSTATin [Lipitor] 40 mg PO QHS #30 02/04/19 02/18/19 02/05/19 Rx Benzonatate [Tessalon Perles] 100 mg PO Q8HR PRN #15 capsule 02/04/19 02/18/19 02/05/19 Rx Budesonide [Pulmicort Respules] 0.5 mg IH Q12HRT #30 nebu 02/04/19 02/18/19 02/05/19 Rx Carvedilol [Coreg] 12.5 mg PO BID #60 02/04/19 02/18/19 02/05/19 Rx Cholecalciferol (Vitamin D3) 1,000 unit PO QDAY #30 02/04/19 02/18/19 02/05/19 Rx [Children's Vitamin D3 1,000 unit CHEW] Clopidogrel [Plavix] 75 mg PO QDAY #30 02/04/19 02/18/19 02/05/19 Rx Famotidine [Pepcid] 20 mg PO BID #30 tablet 02/04/19 02/18/19 02/05/19 Rx Fluticasone [Flonase] 1 spray NS QDAY 5 Days #1 02/04/19 02/18/19 02/05/19 Rx Furosemide [Lasix TAB] 20 mg PO QDAY #30 tablet 02/04/19 02/18/19 02/05/19 Rx Insulin Glargine [Lantus VIAL] 60 units SUB-Q HS #100 units 02/04/19 02/18/19 02/05/19 Rx Ipratropium/Albuterol Sulfate 1 ampul IH Q6HRT #30 ampul.neb 02/04/19 02/18/19 02/05/19 Rx [DUONEB *Not for PRN Use*] Lispro Insulin [HumaLOG] 1 dose SUB-Q ACHS PRN #100 units 02/04/19 02/18/19 02/05/19 Rx Losartan [Cozaar] 50 mg PO QDAY #30 tablet 02/04/19 02/18/19 02/05/19 Rx Sertraline [Zoloft] 150 mg PO QDAY #30 02/04/19 02/18/19 02/05/19 Rx Sildenafil [Revatio] 20 mg PO TID #90 02/04/19 02/18/19 02/05/19 Rx amLODIPine [Norvasc] 10 mg PO DAILY #30 02/04/19 02/18/19 02/05/19 Rx oxyCODONE /ACETAMINOPHEN [Percocet 1 tab PO Q6H PRN #15 tablet 02/04/19 02/18/19 02/05/19 Rx 5/325 mg] Active Meds: Active Medications Acetaminophen (Tylenol) 650 mg PO Q4H PRN PRN Reason: Pain MILD(1-3)/Fever >100.5/QUILES Albuterol (Proventil) 2.5 mg IH Q3HRT PRN PRN Reason: Shortness Of Breath Albuterol/Ipratropium (Duoneb *Not For Prn Use*) 1 ampul IH Q6HRT [facility] Last Admin: 02/20/19 13:27 Dose: Not Given Documented by: Arformoterol Tartrate (Brovana Nebu) 15 mcg IH Q12HRT [facility] Last Admin: 02/20/19 08:37 Dose: Not Given Documented by: Atorvastatin Calcium (Lipitor) 40 mg PO QHS [facility] Last Admin: 02/19/19 22:47 Dose: 40 mg Documented by: Budesonide (Pulmicort) 0.5 mg IH Q12HRT [facility] Last Admin: 02/20/19 08:37 Dose: Not Given Documented by: Cholecalciferol (Vitamin D3) 1,000 unit PO QDAY [facility] Last Admin: 02/20/19 11:59 Dose: Not Given Documented by: Clopidogrel Bisulfate (Plavix) 75 mg PO QDAY [facility] Last Admin: 02/20/19 11:58 Dose: Not Given Documented by: Dextrose (D50w (25gm) Syringe) 50 ml IV PRN PRN PRN Reason: Hypoglycemia Enoxaparin Sodium (Lovenox) 40 mg SUB-Q QDAY@1000 [facility] Last Admin: 02/20/19 11:09 Dose: 40 mg Documented by: Famotidine (Pepcid) 20 mg PO BID [facility] Last Admin: 02/20/19 11:58 Dose: Not Given Documented by: Furosemide (Lasix) 40 mg IV QDAY [facility] Cefepime HCl (Maxipime/Ns 1 Gm/100 Ml) 1 gm in 100 mls @ 200 mls/hr IV Q12H [facility]; Protocol Last Admin: 02/20/19 17:16 Dose: 200 mls/hr Documented by: Vancomycin HCl 1,500 mg/ (Sodium Chloride) 530 mls @ 333.333 mls/hr IV Q18H [facility] Last Admin: 02/20/19 04:52 Dose: 333.333 mls/hr Documented by: Levofloxacin/Dextrose (Levaquin 750mg/150ml) 750 mg in 150 mls @ 100 mls/hr IV Q24HR [facility]; Protocol Last Admin: 02/20/19 11:09 Dose: 100 mls/hr Documented by: Insulin Glargine (Lantus) 40 units SUB-Q BID [facility] Last Admin: 02/20/19 11:58 Dose: Not Given Documented by: Insulin Human Lispro (Humalog) 0 unit SUB-Q Q6HR [facility]; Protocol Last Admin: 02/20/19 11:59 Dose: Not Given Documented by: Methylprednisolone Sodium Succinate (Solu-Medrol) 60 mg IV Q8HR [facility] Last Admin: 02/20/19 14:44 Dose: 60 mg Documented by: Ondansetron HCl (Zofran) 4 mg IV Q8H PRN PRN Reason: Nausea And Vomiting Sertraline HCl (Zoloft) 50 mg PO QDAY [facility] Last Admin: 02/20/19 11:59 Dose: Not Given Documented by: Sildenafil Citrate (Revatio) 20 mg PO TID [facility] Last Admin: 02/20/19 13:58 Dose: Not Given Documented by: Sodium Chloride (Sodium Chloride Flush Syringe 10 Ml) 10 ml IV BID [facility] Last Admin: 02/20/19 11:59 Dose: Not Given Documented by: Sodium Chloride (Sodium Chloride Flush Syringe 10 Ml) 10 ml IV PRN PRN PRN Reason: LINE FLUSH Review of Systems - Review of Systems ROS unobtainable: due to mental status Exam - Constitutional Vital Signs: Temp Pulse Resp BP Pulse Ox 97.8 F 90 14 130/77 97 02/20/19 12:00 02/20/19 14:00 02/20/19 14:00 02/20/19 14:00 02/20/19 14:00 - EENT ENT: other (no scleral icterus) - Respiratory Respiratory effort: other (using high flow NC, slighly increased respiratory rate) - Cardiovascular Rhythm: regular - Gastrointestinal General gastrointestinal: Present: soft, non-tender - Integumentary Integumentary: Present: dry - Musculoskeletal Musculoskeletal: normal - Neurologic Neurological: disoriented - Psychiatric Psychiatric: appropriate mood/affect - Labs CBC & Chem 7: 02/19/19 04:14 02/19/19 04:14 Lab Results: Laboratory Results - last 24 hr 02/19/19 02/19/19 02/20/19 18:18 23:34 05:33 POC ABG pH POC ABG pCO2 POC ABG pO2 POC ABG HCO3 POC ABG Total CO2 POC ABG O2 Sat POC ABG Base Excess FiO2 POC Glucose 240 H 325 H 247 H 02/20/19 02/20/19 12:12 14:34 POC ABG pH 7.417 POC ABG pCO2 38.5 POC ABG pO2 68 L POC ABG HCO3 24.8 POC ABG Total CO2 26 POC ABG O2 Sat 94 POC ABG Base Excess 0 FiO2 70 POC Glucose 196 H Assessment and Plan Oropharyngeal dysphagia - His options are remain NPO, NGT for temporary enteral feeds (may be an issue given respiratory equipment patient is requiring), PPN/TPN, or gastrostomy tube placement Patient in hospice for his severe pulm disease and at increased risk of endoscopy. I reviewed the above options with the , she is concerned about PEG tube placement and does not wish to pursue for the immediate moment, though she is concerned about assisted nutrition. Therefore for short term nutrition would prefer PPN for now. If patient's pulm status improves to the point where he would be safe for PEG tube placement and the would be interested in pursuing that further (she is not at the moment) then please call us back and we will be happy to re-evaluate and discuss with the patient and his family. We will sign off for now. - Patient Problems (1) Dysphagia Current Visit: Yes Status: Acute (2) Oropharyngeal dysphagia Current Visit: Yes Status: Acute
[2019-02-21] MEDS: DUONEB *Not for PRN Use IH SCH ×4 (02:07→20:36)
[2019-02-21] MEDS: REVATIO PO SCH ×4 (03:08→21:28)
[2019-02-21] MEDS: HumaLOG SUB-Q SCH ×4 (03:09→18:13)
[2019-02-21] MEDS: PEPCID PO SCH ×3 (03:11→21:28)
[2019-02-21] MEDS: SOLU-Medrol IV SCH ×3 (05:45→21:32)
[2019-02-21] MEDS: MAXIPIME/NS 1 GM/100 ML 1 GM/100 ML BAG IV SCH ×2 (05:45→18:12)
[2019-02-21 06:27] LABS: Hematocrit 31.2 % (35.5-45.6); Hemoglobin 10.3 gm/dl (11.8-15.2); Mean Corpuscular HGB Conc 33 % (32-34); Mean Corpuscular Volume 90 fl (84-94); Red Blood Count 3.48 M/mm3 (3.65-5.03)
[2019-02-21 06:43] LABS: BUN/Creatinine Ratio 25; Blood Urea Nitrogen 30 mg/dL (9-20); Calcium 9.5 mg/dL (8.4-10.2); Hemolysis Index 9
[2019-02-21 06:44] LABS: Platelet Count 86 K/mm3 (140-440); Red Cell Distribution Width 21.4 % (13.2-15.2)
[2019-02-21] MEDS: BROVANA NEBU IH SCH ×2 (07:54→20:37)
[2019-02-21] MEDS: PULMICORT IH SCH ×2 (07:55→20:36)
--- NOTE | 2019-02-21 10:00 | Progress Note ---
Assessment and Plan Assessment and plan: Patient is a 73 yo man who is a [facility] patient with a history of hypertension, COPD, ILD, insulin-dependent diabetes mellitus, hyperlipidemia, CAD, CHF, prostate cancer, chronic respiratory failure and pulmonary hypertension who presented to [facility] ED with SOB/OMAR. Home Pulse ox was 35% and O2 saturation in ED was 74% on RA. Patient was hypotensive and was given a 500 mL fluid bolus in the ED and was responsive for short period of time. Right femoral double lumen central line was placed and patient was started on levophed gtt and admitted to the Critical Care Unit. Patient has a leukocytosis of 18,000, anemia with a hemoglobin of 10, blood sugar of about 450, BNP of about 3500, slightly elevated troponin level and some mild renal insufficiency, so CTA chest wasn't done. Chest x-ray shows signs of volume overload and left lower pneumonia. Patient started having some hypotension so he was given a 500 mL bolus of fluid with some improvement. However his blood pressure once again started going back down and his chest x-ray and blood work showed signs of an exacerbation of CHF, so decision was made to place a central line to start Vasopressor instead of more IV fluids. Blood cultures were obtained and the patient was started on antibiotics. He was given some steroids for his bronchospasm and some breathing treatments. The patient had an elevated d-dimer and we attempted to get a VQ scan, but the patient is unable to lay flat and appeared slightly claustrophobic so this examination could not be done. If necessary, the patient can be given a dose of Lovenox. I had just discharge patient home with [facility] on 02/04/19. He came back the next day for admission then was discharge again on 02/10/19 and now comes back on 02/18/19. Patient may need a different Home Hospice company to prevent frequent re-admission for the same thing, underlying end stage ILD with severe pulmonary hypertension. * pCXR Impression: Vascular congestion with an infiltrate and atelectasis left lower lung, moderate left and mild right effusions * Bilateral Leg Doppler negative Acute on chronic hypoxic respiratory failure, went back on bipap on 02/19/19 then weaned off 02/20/19, now on high flow O2 LLL Pneumonia: ID consulted, input noted AE COPD: Solu-Medrol, Scheduled DuoNeb's and Pulmicort, albuterol when necessary Sepsis with shock: resolved Acute on chronic combined heart failure: Consulted Cardiology,input noted, ECHO reviewed ARF due to ATN, poa: improve BP and monitor closely Anemia and Thrombocytopenia: monitor cbc closely Elevated d-dimer R/O PE: off therapeutic Lovenox by Pulmonology Dysphagia, choked on rice and became hypoxic: NPO and consulted GI, input noted Acidosis, improved: monitor levels h/o KELLY Mild to moderate malnutrition; Dietitian consulted Insulin-dependent diabetes mellitus uncontrolled with Hyperglycemia: POC BG Monitoring, basal/bolus coverage ILD with severe Pulmonary hypertension-severe underlying cause of respiratory failure: Pulmonology following, continue O2 support h/o HLD History of prostate cancer DVT PPX on Lovenox full code AMS with acute metabolic encephalopathy, pO2 on 61 on 60% fiO2, probably will need bipap again, may need restraints, d/c [place], get UA, on Levaquin GI mentioned PPN but not started, patient remains NPO Hypernatremia, start d5w only at 75ml/hr, monitor the heart failure I called [facility] at [phone] and spoke with pinky Davis to keep here CCT 32 minutes History Interval history: Patient was seen and examined. Follow-up on current diagnosis Hypotension/pna/chf/copd. No overnight events reported to me but he was placed on bipap yesterday and off bipap this morning. Patient denies any chest pain, nausea/vomiting or severe headaches. Imaging, nursing note, chart, labs and old chart reviewed. Discussed with patient and at bedside. Hospitalist Physical - Physical exam Narrative exam: Gen: ill appearing, WDWN, NAD, Awake, Alert, Orientated HEENT: NCAT, EOMI, PERRL, OP Clear Neck: supple, no adenopathy, no thyromegaly, no JVD CVS/Heart: RRR, normal S1S2, pulses present bilaterally Chest/Lungs: diminished bs bilateral with bibasilar crackles and rhonchi, Symmetrical chest expansion, good air entry bilaterally GI/Abdomen: soft, NTND, good bowel sounds, no guarding or rebound /Bladder: no suprapubic tenderness, no CVA or paraspinal tenderness Extermity/Skin: no c/c/e, no obvious rash MSK: FROM x 4 Neuro: CN 2-12 grossly intact, no new focal deficits Psych: calm - Constitutional Vitals: Temp Pulse Resp BP Pulse Ox 97.6 F 83 18 94/73 96 02/21/19 04:00 02/21/19 08:05 02/21/19 08:05 02/21/19 08:00 02/21/19 08:06 General appearance: Present: no acute distress Results - Labs CBC & Chem 7: 02/21/19 04:48 02/21/19 04:48 Labs: Laboratory Last Values WBC 11.3 K/mm3 (4.5-11.0) H 02/21/19 04:48 RBC 3.48 M/mm3 (3.65-5.03) L 02/21/19 04:48 Hgb 10.3 gm/dl (11.8-15.2) L 02/21/19 04:48 Hct 31.2 % (35.5-45.6) L 02/21/19 04:48 MCV 90 fl (84-94) 02/21/19 04:48 MCH 30 pg (28-32) 02/21/19 04:48 MCHC 33 % (32-34) 02/21/19 04:48 RDW 21.4 % (13.2-15.2) H 02/21/19 04:48 Plt Count 86 K/mm3 (140-440) L 02/21/19 04:48 Add Manual Diff Complete 02/19/19 04:14 Total Counted 100 02/19/19 04:14 Seg Neutrophils % Crane Ladle Person 02/17/19 22:09 Seg Neuts % (Manual) 96.0 % (40.0-70.0) H 02/19/19 04:14 0 % 02/19/19 04:14 3.0 % (13.4-35.0) L 02/19/19 04:14 Reactive Lymphs % (Man) 0 % 02/19/19 04:14 1.0 % (0.0-7.3) 02/19/19 04:14 0 % (0.0-4.3) 02/19/19 04:14 0 % (0.0-1.8) 02/19/19 04:14 0 % 02/19/19 04:14 0 % 02/19/19 04:14 0 % 02/19/19 04:14 0 % 02/19/19 04:14 Nucleated RBC % Not Reportable 02/19/19 04:14 Seg Neutrophils # Man 10.8 K/mm3 (1.8-7.7) H 02/19/19 04:14 Band Neutrophils # 0.0 K/mm3 02/19/19 04:14 0.3 K/mm3 (1.2-5.4) L 02/19/19 04:14 Abs React Lymphs (Man) 0.0 K/mm3 02/19/19 04:14 0.1 K/mm3 (0.0-0.8) 02/19/19 04:14 0.0 K/mm3 (0.0-0.4) 02/19/19 04:14 0.0 K/mm3 (0.0-0.1) 02/19/19 04:14 0.0 K/mm3 02/19/19 04:14 0.0 K/mm3 02/19/19 04:14 0.0 K/mm3 02/19/19 04:14 Blast Cells # 0.0 K/mm3 02/19/19 04:14 WBC Morphology Not Reportable 02/19/19 04:14 Hypersegmented Neuts Not Reportable 02/19/19 04:14 Hyposegmented Neuts Not Reportable 02/19/19 04:14 Hypogranular Neuts Not Reportable 02/19/19 04:14 Not Reportable 02/19/19 04:14 Not Reportable 02/19/19 04:14 Not Reportable 02/19/19 04:14 Not Reportable 02/19/19 04:14 Not Reportable 02/19/19 04:14 Not Reportable 02/19/19 04:14 Consistent w auto 02/19/19 04:14 Not Reportable 02/19/19 04:14 Plt Clumps, EDTA Not Reportable 02/19/19 04:14 Rare 02/19/19 04:14 Not Reportable 02/19/19 04:14 Not Reportable 02/19/19 04:14 Plt Morphology Comment Not Reportable 02/19/19 04:14 RBC Morphology Not Reportable 02/19/19 04:14 Dimorphic RBCs Not Reportable 02/19/19 04:14 Not Reportable 02/19/19 04:14 Not Reportable 02/19/19 04:14 1+ 02/19/19 04:14 1+ 02/19/19 04:14 Not Reportable 02/19/19 04:14 Not Reportable 02/19/19 04:14 Not Reportable 02/19/19 04:14 Not Reportable 02/19/19 04:14 Not Reportable 02/19/19 04:14 Not Reportable 02/19/19 04:14 Few 02/19/19 04:14 Few 02/19/19 04:14 Not Reportable 02/19/19 04:14 Not Reportable 02/19/19 04:14 Not Reportable 02/19/19 04:14 Not Reportable 02/19/19 04:14 Not Reportable 02/19/19 04:14 Not Reportable 02/19/19 04:14 Few 02/19/19 04:14 Acanthocytes (Spur) Not Reportable 02/19/19 04:14 Rouleaux Not Reportable 02/19/19 04:14 Not Reportable 02/19/19 04:14 Not Reportable 02/19/19 04:14 Not Reportable 02/19/19 04:14 Not Reportable 02/19/19 04:14 Hem Pathologist Commnt No 02/19/19 04:14 603.05 ng/mlDDU (0-234) H 02/17/19 22:09 POC ABG pH 7.417 (7.35-7.45) 02/20/19 14:34 POC ABG pCO2 38.5 (35-45) 02/20/19 14:34 POC ABG pO2 68 (80-105) L 02/20/19 14:34 POC ABG HCO3 24.8 (22-26 mml/L) 02/20/19 14:34 POC ABG Total CO2 26 (23-27mmol/L) 02/20/19 14:34 POC ABG O2 Sat 94 02/20/19 14:34 POC ABG Base Excess 0 ((-2) - (+3)mmol/L) 02/20/19 14:34 VBG pH 7.299 (7.320-7.420) L 02/17/19 23:13 70 % 02/20/19 14:34 Sodium 154 mmol/L (137-145) H D 02/21/19 04:48 Potassium 4.3 mmol/L (3.6-5.0) 02/21/19 04:48 Chloride 115.0 mmol/L (98-107) H 02/21/19 04:48 Carbon Dioxide 25 mmol/L (22-30) 02/21/19 04:48 18 mmol/L 02/21/19 04:48 BUN 30 mg/dL (9-20) H 02/21/19 04:48 1.2 mg/dL (0.8-1.5) 02/21/19 04:48 Estimated GFR > 60 ml/min 02/21/19 04:48 25 % 02/21/19 04:48 Glucose 151 mg/dL (75-100) H 02/21/19 04:48 POC Glucose 159 (70-105) H 02/21/19 05:47 Negative (Negative) 02/17/19 23:13 Lactic Acid 1.80 mmol/L (0.7-2.0) 02/18/19 13:36 Calcium 9.5 mg/dL (8.4-10.2) 02/21/19 04:48 Magnesium 1.90 mg/dL (1.7-2.3) 02/17/19 22:09 1.20 mg/dL (0.1-1.2) 02/17/19 22:09 AST 17 units/L (5-40) 02/17/19 22:09 ALT 20 units/L (7-56) 02/17/19 22:09 81 units/L (35-129) 02/17/19 22:09 0.056 ng/mL (0.00-0.029) H 02/18/19 13:36 7.40 mg/dL (0.00-1.30) H 02/18/19 13:36 NT-Pro-B Natriuret Pep 3625 pg/mL (0-900) H 02/17/19 22:09 6.0 g/dL (6.3-8.2) L 02/17/19 22:09 2.9 g/dL (3.9-5) L 02/17/19 22:09 0.9 % 02/17/19 22:09 Triglycerides 99 mg/dL (2-149) 02/18/19 13:36 Cholesterol 122 mg/dL (50-199) 02/18/19 13:36 81 mg/dL (50-130) 02/18/19 13:36 30 mg/dL (40-59) L 02/18/19 13:36 4.06 % 02/18/19 13:36 Vancomycin Trough 23.4 ug/mL (5.0-20.0) H 02/20/19 20:24 Active Medications - Current Medications Current Medications: Generic Name Dose Route Start Last Admin Trade Name Freq PRN Reason Stop Dose Admin Acetaminophen 650 mg 02/18/19 02:15 Tylenol PO Q4H PRN Pain MILD(1-3)/Fever >100.5/QUILES Albuterol 2.5 mg 02/18/19 02:15 Proventil IH Q3HRT PRN Shortness Of Breath Albuterol/Ipratropium 1 ampul 02/18/19 08:00 02/21/19 07:55 Duoneb *Not For Prn Use* IH Not Given Q6HRT LAM Arformoterol Tartrate 15 mcg 02/18/19 20:00 02/21/19 07:54 Brovana Nebu IH 15 mcg Q12HRT LAM Administration Atorvastatin Calcium 40 mg 02/18/19 22:00 02/21/19 03:09 Lipitor PO Not Given QHS LAM Budesonide 0.5 mg 02/18/19 08:00 02/21/19 07:55 Pulmicort IH 0.5 mg Q12HRT LAM Administration Cholecalciferol 1,000 unit 02/18/19 10:00 02/20/19 11:59 Vitamin D3 PO Not Given QDAY LAM Clopidogrel Bisulfate 75 mg 02/18/19 10:00 02/20/19 11:58 Plavix PO Not Given QDAY LAM Dextrose 50 ml 02/18/19 02:26 D50w (25gm) Syringe IV PRN PRN Hypoglycemia Enoxaparin Sodium 40 mg 02/19/19 10:00 02/20/19 11:09 Lovenox SUB-Q 40 mg QDAY@1000 LAM Administration Famotidine 20 mg 02/18/19 10:00 02/21/19 03:11 Pepcid PO Not Given BID LAM Furosemide 40 mg 02/21/19 10:00 Lasix IV QDAY LAM Cefepime HCl 1 gm in 100 mls @ 200 mls/hr 02/18/19 06:00 02/21/19 05:45 Maxipime/Ns 1 Gm/100 Ml IV 200 mls/hr Q12H LAM Administration Protocol Vancomycin HCl 1,500 mg/ 530 mls @ 333.333 mls/hr 02/18/19 16:00 02/20/19 21:37 Sodium Chloride IV 333.333 mls/hr Q18H LAM Administration Levofloxacin/Dextrose 750 mg in 150 mls @ 100 mls/hr 02/19/19 15:00 02/20/19 11:09 Levaquin 750mg/150ml IV 100 mls/hr Q24HR LAM Administration Protocol Insulin Glargine 40 units 02/19/19 10:00 02/20/19 22:37 Lantus SUB-Q 40 units BID LAM Administration Insulin Human Lispro 0 unit 02/20/19 00:00 02/21/19 07:00 Humalog SUB-Q Not Given Q6HR [facility] Protocol Methylprednisolone Sodium Succinate 60 mg 02/18/19 06:00 02/21/19 05:45 Solu-Medrol IV 60 mg Q8HR LAM Administration Ondansetron HCl 4 mg 02/18/19 02:15 Zofran IV Q8H PRN Nausea And Vomiting Sertraline HCl 50 mg 02/18/19 10:00 02/20/19 11:59 Zoloft PO Not Given QDAY LAM Sildenafil Citrate 20 mg 02/18/19 08:00 02/21/19 03:08 Revatio PO Not Given TID LAM Sodium Chloride 10 ml 02/18/19 10:00 02/20/19 21:39 Sodium Chloride Flush Syringe 10 Ml IV 10 ml BID LAM Administration Sodium Chloride 10 ml 02/18/19 02:15 Sodium Chloride Flush Syringe 10 Ml IV PRN PRN LINE FLUSH
[2019-02-21] MEDS: ZOLOFT PO SCH (10:06)
[2019-02-21] MEDS: LEVAQUIN 750MG/150ML 750 MG/150 ML BAG IV SCH (10:06)
[2019-02-21] MEDS: PLAVIX PO SCH (10:06)
[2019-02-21] MEDS: VITAMIN D3 PO SCH (10:06)
[2019-02-21] MEDS: SODIUM CHLORIDE FLUSH SYRINGE 10 ML IV SCH ×2 (10:07→21:33)
[2019-02-21] MEDS: LOVENOX SUB-Q SCH (10:07)
[2019-02-21] MEDS: LANTUS SUB-Q SCH (10:07)
[2019-02-21] MEDS: LASIX IV SCH (10:07)
--- NOTE | 2019-02-21 12:44 | Progress Note ---
Assessment and Plan Continue current cardiac management. No beta francie, ACEi or ARB at this time d/t renal insufficiency and previously low BP. Will continue to monitor blood pressure and renal function. Patient seen in conjunction with Dr. Chirinos, who agrees with assessment and plan. - Patient Problems (1) Pneumonia Current Visit: Yes Status: Acute Qualifiers: Pneumonia type: due to unspecified organism Laterality: left Lung location: lower lobe of lung Qualified Code(s): J18.1 - Lobar pneumonia, unspecified organism (2) Acute on chronic respiratory failure Current Visit: Yes Status: Acute (3) Acute heart failure with preserved ejection fraction Current Visit: Yes Status: Acute (4) Dysphagia Current Visit: Yes Status: Acute (5) Coronary artery disease Current Visit: Yes Status: Chronic Qualifiers: Coronary Disease-Associated Artery/Lesion type: [place] artery Associated angina: without angina (6) Diabetes Current Visit: Yes Status: Chronic (7) History of CVA (cerebrovascular accident) Current Visit: Yes Status: Chronic (8) Hypertension Current Visit: Yes Status: Chronic Qualifiers: Hypertension type: essential hypertension Qualified Code(s): I10 - Essential (primary) hypertension (9) Interstitial lung disease Current Visit: Yes Status: Chronic (10) Pulmonary hypertension Current Visit: Yes Status: Chronic Subjective Date of service: 02/21/19 Principal diagnosis: resp failure/pneumonia Interval history: Patient sitting up in bed in NAD. Family at bedside. Per family member, patient failed swallow test yesterday and will remain NPO all weekend. SR in 80s on telemetry. BP improved. Objective Vital Signs Temp Pulse Pulse Resp Resp BP Pulse Ox 02/21/19 12:00 97.8 F 02/21/19 11:00 91 H 16 134/75 95 02/21/19 10:00 85 16 94/73 97 02/21/19 09:00 79 17 94/73 94 02/21/19 08:06 96 02/21/19 08:05 83 18 02/21/19 08:00 98.2 F 87 26 H 94/73 98 02/21/19 07:55 85 18 98 02/21/19 07:00 91 H 21 94/73 82 L 02/21/19 06:00 92 H 23 94/73 92 02/21/19 05:00 92 H 22 94/73 95 02/21/19 04:00 97.6 F 98 H 22 94/73 93 02/21/19 03:00 88 15 108/68 92 02/21/19 02:21 91 H 16 02/21/19 02:08 86 16 02/21/19 02:00 88 15 124/67 98 02/21/19 01:00 80 14 126/72 96 02/21/19 00:00 99 F 84 14 131/71 97 02/20/19 23:00 78 16 123/73 96 02/20/19 22:00 82 18 118/69 96 02/20/19 21:27 85 17 111/60 98 02/20/19 21:26 87 13 02/20/19 21:16 99 02/20/19 21:13 86 18 02/20/19 21:00 85 15 119/71 98 02/20/19 20:00 98 F 88 16 114/72 98 02/20/19 19:00 90 16 136/82 88 02/20/19 18:00 91 H 15 119/80 97 02/20/19 17:00 92 H 13 122/79 93 02/20/19 16:00 98.1 F 92 H 20 137/85 93 02/20/19 15:00 86 17 120/77 98 02/20/19 14:00 90 14 130/77 97 02/20/19 13:00 93 H 14 124/78 96 - Physical Examination General: No Apparent Distress HEENT: Positive: PERRL, Normocephaly, Mucus Membranes Moist Neck: Positive: neck supple, trachea midline Cardiac: Positive: Reg Rate and Rhythm Lungs: Positive: Normal Exam Neuro: Positive: Grossly Intact Abdomen: Positive: Soft. Negative: Tender Skin: Positive: Clear. Negative: Rash Musculoskeletal: No Pain Extremities: Present: normal. Absent: edema - Labs and Meds CBC 02/21/19 Range/Units 04:48 WBC 11.3 H (4.5-11.0) K/mm3 RBC 3.48 L (3.65-5.03) M/mm3 Hgb 10.3 L (11.8-15.2) gm/dl Hct 31.2 L (35.5-45.6) % Plt Count 86 L (140-440) K/mm3 Comprehensive Metabolic Panel 02/21/19 Range/Units 04:48 Sodium 154 H D (137-145) mmol/L Potassium 4.3 (3.6-5.0) mmol/L Chloride 115.0 H (98-107) mmol/L Carbon Dioxide 25 (22-30) mmol/L BUN 30 H (9-20) mg/dL Creatinine 1.2 (0.8-1.5) mg/dL Glucose 151 H (75-100) mg/dL Calcium 9.5 (8.4-10.2) mg/dL - Imaging and Cardiology EKG: report reviewed, image reviewed Echo: report reviewed (02/18/2019 showed EF 50-55%, mild-mod AR, mild LVH, trace MR, right heart chambers dilated, mod RV systolic dysfunction, mod TR, pulm HTN with RVSP 53mmHg, mild dilatation of the root and ascending aorta measuring 4.03cm. ) - Telemetry EKG Rhythm: Sinus Rhythm - EKG Sinus rhythms and dysrhythmias: sinus rhythm AV and intraventricular conduction: right bundle branch block
--- NOTE | 2019-02-21 13:51 | Progress Note ---
Assessment and Plan Acute on chronic hypoxemic respiratory failure, increased oxygen requirements at presentation. Acute exacerbation of his interstitial lung disease. Possible occult pneumonia. Acute pulmonary edema. Diabetes type 2, poorly controlled. Obstructive sleep apnea, noncompliant with therapy. Hypertension. Severe pulmonary hypertension. Lactic acidosis. Mild metabolic acidosis at presentation. Hyperbilirubinemia. coronary artery disease. Obesity. - adviced continued NPO status while ST evaluation goes on (family & patient wanting to eat) - oral swabs to combat dryness - continue supplemental oxygen and wean to keep O2 sats >/= 90% - continue bronchodilators (GUILLERMINA & LABA) with pulmonary hygiene per RT - continue systemic steroids with slow taper - complete empiric Levaquin monotherapy - CRP level equivocal; will de-escalate AB's quickly based on clinical and microbiologic data - continue bilevel positive airway pressure ventilation therapy scheduled at bedtime with p.r.n. daytime use. I - continue GI & DVT prophylaxis - continue Glycemic with SSI targeted to blood sugars less than 180 mg/dL - continue other care per attending ... re-evaluate in am & prn Subjective Date of service: 02/21/19 Principal diagnosis: Ac on ch hypoxemic resp failure; Acute exacerbation of ILDx; Possible PNA Interval history: Patient seen today for: Acute on chronic hypoxemic respiratory failure; Acute exacerbation of his interstitial lung disease; Possible occult pneumonia; Possible pulmonary edema; Diabetes type 2, poorly controlled; Obesity; HTN Seen and examined at bedside; 24 hour events reviewed; nursing and respiratory care staff consulted; no adverse overnight events reported to me; resting peacefully in bed; family in room; remains on supplemental oxygen but close to home baseline (On 60% FiO2); denies acute chest pains or palpitations Objective Vital Signs - 12hr 02/21/19 02/21/19 02/21/19 02:00 02:08 02:21 Temperature Pulse Rate 88 Pulse Rate [ 86 91 H Anterior Bilateral Throughout] Respiratory 15 Rate Respiratory 16 16 Rate [Anterior Bilateral Throughout] Blood Pressure 124/67 O2 Sat by Pulse 98 Oximetry 02/21/19 02/21/19 02/21/19 03:00 04:00 05:00 Temperature 97.6 F Pulse Rate 88 98 H 92 H Pulse Rate [ Anterior Bilateral Throughout] Respiratory 15 22 22 Rate Respiratory Rate [Anterior Bilateral Throughout] Blood Pressure 108/68 94/73 94/73 O2 Sat by Pulse 92 93 95 Oximetry 02/21/19 02/21/19 02/21/19 06:00 07:00 07:55 Temperature Pulse Rate 92 H 91 H Pulse Rate [ 85 Anterior Bilateral Throughout] Respiratory 23 21 Rate Respiratory 18 Rate [Anterior Bilateral Throughout] Blood Pressure 94/73 94/73 O2 Sat by Pulse 92 82 L 98 Oximetry 02/21/19 02/21/19 02/21/19 08:00 08:05 08:06 Temperature 98.2 F Pulse Rate 87 Pulse Rate [ 83 Anterior Bilateral Throughout] Respiratory 26 H Rate Respiratory 18 Rate [Anterior Bilateral Throughout] Blood Pressure 94/73 O2 Sat by Pulse 98 96 Oximetry 02/21/19 02/21/19 02/21/19 09:00 10:00 11:00 Temperature Pulse Rate 79 85 91 H Pulse Rate [ Anterior Bilateral Throughout] Respiratory 17 16 16 Rate Respiratory Rate [Anterior Bilateral Throughout] Blood Pressure 94/73 94/73 134/75 O2 Sat by Pulse 94 97 95 Oximetry 02/21/19 12:00 Temperature 97.8 F Pulse Rate Pulse Rate [ Anterior Bilateral Throughout] Respiratory Rate Respiratory Rate [Anterior Bilateral Throughout] Blood Pressure O2 Sat by Pulse Oximetry Constitutional: alert, other (elderly looking AAM, normocephalic with mildly increased resp effort at rest) Eyes: non-icteric ENT: oropharynx dry, other (mallampati 3) Neck: supple, no lymphadenopathy, no JVD, other (large neck circumference) Effort: mildly labored Ascultation: Bilateral: diminished breath sounds, rhonchi Percussion: Bilateral: not dull Cardiovascular: regular rate and rhythm, murmur noted (systolic) Gastrointestinal: normoactive bowel sounds, soft, non-tender, non-distended, other (protuberant) Integumentary: other (poor turgor) Extremities: no cyanosis, no edema, pulses normal, no ischemia or petechiae Neurologic: normal mental status, non-focal exam (grossly), pupils equal and round, other (weak) Psychiatric: mood appropriate, affect normal CBC and BMP: 02/22/19 13:55 02/22/19 13:55 ABG, PT/INR, D-dimer: ABG POC ABG pH 7.441 (7.35-7.45) 02/21/19 12:24 POC ABG pCO2 40.7 (35-45) 02/21/19 12:24 POC ABG pO2 61 (80-105) L 02/21/19 12:24 POC ABG HCO3 27.7 (22-26 mml/L) 02/21/19 12:24 POC ABG Total CO2 29 (23-27mmol/L) 02/21/19 12:24 POC ABG O2 Sat 92 02/21/19 12:24 PT/INR, D-dimer 603.05 ng/mlDDU (0-234) H 02/17/19 22:09 Abnormal lab findings: Abnormal Labs 02/17/19 02/17/19 02/17/19 22:09 22:09 22:09 WBC 18.3 H RBC 3.42 L Hgb 9.9 L Hct 30.6 L RDW 21.4 H Plt Count 102 L Seg Neuts % (Manual) 88.0 H Lymphocytes % (Manual) 9.0 L Seg Neutrophils # Man 16.1 H Lymphocytes # (Manual) D-Dimer 603.05 H POC ABG pH POC ABG pO2 VBG pH Sodium 135 L Chloride Carbon Dioxide 18 L BUN Glucose 446 H POC Glucose Calcium 8.2 L Troponin T 0.061 H C-Reactive Protein NT-Pro-B Natriuret Pep Total Protein 6.0 L Albumin 2.9 L HDL Cholesterol Vancomycin Trough 02/17/19 02/17/19 02/17/19 22:09 22:28 23:13 WBC RBC Hgb Hct RDW Plt Count Seg Neuts % (Manual) Lymphocytes % (Manual) Seg Neutrophils # Man Lymphocytes # (Manual) D-Dimer POC ABG pH 7.308 L POC ABG pO2 VBG pH 7.299 L Sodium Chloride Carbon Dioxide BUN Glucose POC Glucose Calcium Troponin T C-Reactive Protein NT-Pro-B Natriuret Pep 3625 H Total Protein Albumin HDL Cholesterol Vancomycin Trough 02/18/19 02/18/19 02/18/19 00:01 01:23 05:40 WBC RBC Hgb Hct RDW Plt Count Seg Neuts % (Manual) Lymphocytes % (Manual) Seg Neutrophils # Man Lymphocytes # (Manual) D-Dimer POC ABG pH POC ABG pO2 VBG pH Sodium Chloride Carbon Dioxide BUN Glucose POC Glucose 424 H 281 H 381 H Calcium Troponin T C-Reactive Protein NT-Pro-B Natriuret Pep Total Protein Albumin HDL Cholesterol Vancomycin Trough 02/18/19 02/18/19 02/18/19 07:54 11:25 13:36 WBC RBC Hgb Hct RDW Plt Count Seg Neuts % (Manual) Lymphocytes % (Manual) Seg Neutrophils # Man Lymphocytes # (Manual) D-Dimer POC ABG pH POC ABG pO2 VBG pH Sodium Chloride Carbon Dioxide BUN Glucose POC Glucose 388 H 343 H Calcium Troponin T C-Reactive Protein 7.40 H NT-Pro-B Natriuret Pep Total Protein Albumin HDL Cholesterol Vancomycin Trough 02/18/19 02/18/19 02/18/19 13:36 15:56 21:31 WBC RBC Hgb Hct RDW Plt Count Seg Neuts % (Manual) Lymphocytes % (Manual) Seg Neutrophils # Man Lymphocytes # (Manual) D-Dimer POC ABG pH POC ABG pO2 VBG pH Sodium Chloride Carbon Dioxide BUN Glucose POC Glucose 377 H 312 H Calcium Troponin T 0.056 H C-Reactive Protein NT-Pro-B Natriuret Pep Total Protein Albumin HDL Cholesterol 30 L Vancomycin Trough 02/19/19 02/19/19 02/19/19 04:14 04:14 08:50 WBC 11.3 H RBC 3.30 L Hgb 9.8 L Hct 29.8 L RDW 21.2 H Plt Count 91 L Seg Neuts % (Manual) 96.0 H Lymphocytes % (Manual) 3.0 L Seg Neutrophils # Man 10.8 H Lymphocytes # (Manual) 0.3 L D-Dimer POC ABG pH 7.344 L POC ABG pO2 VBG pH Sodium Chloride 108.9 H Carbon Dioxide 21 L BUN 24 H Glucose 307 H POC Glucose Calcium Troponin T C-Reactive Protein NT-Pro-B Natriuret Pep Total Protein Albumin HDL Cholesterol Vancomycin Trough 02/19/19 02/19/19 02/19/19 13:19 18:18 23:34 WBC RBC Hgb Hct RDW Plt Count Seg Neuts % (Manual) Lymphocytes % (Manual) Seg Neutrophils # Man Lymphocytes # (Manual) D-Dimer POC ABG pH POC ABG pO2 VBG pH Sodium Chloride Carbon Dioxide BUN Glucose POC Glucose 414 H 240 H 325 H Calcium Troponin T C-Reactive Protein NT-Pro-B Natriuret Pep Total Protein Albumin HDL Cholesterol Vancomycin Trough 02/20/19 02/20/19 02/20/19 05:33 12:12 14:34 WBC RBC Hgb Hct RDW Plt Count Seg Neuts % (Manual) Lymphocytes % (Manual) Seg Neutrophils # Man Lymphocytes # (Manual) D-Dimer POC ABG pH POC ABG pO2 68 L VBG pH Sodium Chloride Carbon Dioxide BUN Glucose POC Glucose 247 H 196 H Calcium Troponin T C-Reactive Protein NT-Pro-B Natriuret Pep Total Protein Albumin HDL Cholesterol Vancomycin Trough 02/20/19 02/20/19 02/20/19 18:01 20:24 22:11 WBC RBC Hgb Hct RDW Plt Count Seg Neuts % (Manual) Lymphocytes % (Manual) Seg Neutrophils # Man Lymphocytes # (Manual) D-Dimer POC ABG pH POC ABG pO2 VBG pH Sodium Chloride Carbon Dioxide BUN Glucose POC Glucose 217 H 173 H Calcium Troponin T C-Reactive Protein NT-Pro-B Natriuret Pep Total Protein Albumin HDL Cholesterol Vancomycin Trough 23.4 H 02/21/19 02/21/19 02/21/19 04:48 04:48 05:47 WBC 11.3 H RBC 3.48 L Hgb 10.3 L Hct 31.2 L RDW 21.4 H Plt Count 86 L Seg Neuts % (Manual) Lymphocytes % (Manual) Seg Neutrophils # Man Lymphocytes # (Manual) D-Dimer POC ABG pH POC ABG pO2 VBG pH Sodium 154 H D Chloride 115.0 H Carbon Dioxide BUN 30 H Glucose 151 H POC Glucose 159 H Calcium Troponin T C-Reactive Protein NT-Pro-B Natriuret Pep Total Protein Albumin HDL Cholesterol Vancomycin Trough 02/21/19 12:24 WBC RBC Hgb Hct RDW Plt Count Seg Neuts % (Manual) Lymphocytes % (Manual) Seg Neutrophils # Man Lymphocytes # (Manual) D-Dimer POC ABG pH POC ABG pO2 61 L VBG pH Sodium Chloride Carbon Dioxide BUN Glucose POC Glucose Calcium Troponin T C-Reactive Protein NT-Pro-B Natriuret Pep Total Protein Albumin HDL Cholesterol Vancomycin Trough Chest x-ray: other (none today) Allied health notes reviewed: nursing
[2019-02-21] MEDS: D5W 1,000 ML IV SCH (14:02)
[2019-02-21 14:22] LABS: Bacteria,Urine 1+ /HPF (Negative); Bilirubin,Urine NEG (Negative); Blood,Urine LG (Negative); Color,Urine Straw (Yellow); Mucus,Urine FEW /HPF; Protein,Urine <15 mg/dL mg/dL (Negative); Urobilinogen,Urine < 2.0 mg/dL (<2.0)
[2019-02-21] MEDS: VANCOMYCIN/NS 1 GM/250 ML 1 GM/250 ML BAG IV SCH (17:18)
[2019-02-22] MEDS: HumaLOG SUB-Q SCH ×3 (00:47→13:02)
[2019-02-22] MEDS: DUONEB *Not for PRN Use IH SCH ×3 (02:51→13:56)
[2019-02-22] MEDS: D5W 1,000 ML IV SCH (03:14)
[2019-02-22] MEDS: SOLU-Medrol IV SCH (05:49)
[2019-02-22] MEDS: MAXIPIME/NS 1 GM/100 ML 1 GM/100 ML BAG IV SCH (05:49)
[2019-02-22] MEDS: PULMICORT IH SCH (07:56)
[2019-02-22] MEDS: BROVANA NEBU IH SCH (07:57)
[2019-02-22] MEDS: VITAMIN D3 PO SCH (10:00)
[2019-02-22] MEDS: LOVENOX SUB-Q SCH (10:00)
[2019-02-22] MEDS: PEPCID PO SCH (10:00)
[2019-02-22] MEDS: ZOLOFT PO SCH (10:00)
[2019-02-22] MEDS: LASIX IV SCH (10:00)
[2019-02-22] MEDS: PLAVIX PO SCH (10:00)
[2019-02-22] MEDS: REVATIO PO SCH (11:03)
[2019-02-22] MEDS: VANCOMYCIN/NS 1 GM/250 ML 1 GM/250 ML BAG IV SCH (11:07)
[2019-02-22] MEDS: LEVAQUIN 750MG/150ML 750 MG/150 ML BAG IV SCH (11:27)
[2019-02-22] MEDS: SODIUM CHLORIDE FLUSH SYRINGE 10 ML IV SCH (11:28)
--- NOTE | 2019-02-22 12:04 | Progress Note ---
Assessment and Plan Assessment and plan: Patient is a 73 yo man who is a [facility] patient with a history of hypertension, COPD, ILD, insulin-dependent diabetes mellitus, hyperlipidemia, CAD, CHF, prostate cancer, chronic respiratory failure and pulmonary hypertension who presented to [facility] ED with SOB/OMAR. Home Pulse ox was 35% and O2 saturation in ED was 74% on RA. Patient was hypotensive and was given a 500 mL fluid bolus in the ED and was responsive for short period of time. Right femoral double lumen central line was placed and patient was started on levophed gtt and admitted to the Critical Care Unit. Patient has a leukocytosis of 18,000, anemia with a hemoglobin of 10, blood sugar of about 450, BNP of about 3500, slightly elevated troponin level and some mild renal insufficiency, so CTA chest wasn't done. Chest x-ray shows signs of volume overload and left lower pneumonia. Patient started having some hypotension so he was given a 500 mL bolus of fluid with some improvement. However his blood pressure once again started going back down and his chest x-ray and blood work showed signs of an exacerbation of CHF, so decision was made to place a central line to start Vasopressor instead of more IV fluids. Blood cultures were obtained and the patient was started on antibiotics. He was given some steroids for his bronchospasm and some breathing treatments. The patient had an elevated d-dimer and we attempted to get a VQ scan, but the patient is unable to lay flat and appeared slightly claustrophobic so this examination could not be done. If necessary, the patient can be given a dose of Lovenox. I had just discharge patient home with [facility] on 02/04/19. He came back the next day for admission then was discharge again on 02/10/19 and now comes back on 02/18/19. Patient may need a different Home Hospice company to prevent frequent re-admission for the same thing, underlying end stage ILD with severe pulmonary hypertension. * pCXR Impression: Vascular congestion with an infiltrate and atelectasis left lower lung, moderate left and mild right effusions * Bilateral Leg Doppler negative Acute on chronic hypoxic respiratory failure, went back on bipap on 02/19/19 then weaned off 02/20/19, now on high flow O2 LLL Pneumonia: ID consulted, input noted AE COPD: Solu-Medrol, Scheduled DuoNeb's and Pulmicort, albuterol when necessary Sepsis with shock: resolved Acute on chronic combined heart failure: Consulted Cardiology,input noted, ECHO reviewed ARF due to ATN, poa: improve BP and monitor closely Anemia and Thrombocytopenia: monitor cbc closely Elevated d-dimer R/O PE: off therapeutic Lovenox by Pulmonology Dysphagia, choked on rice and became hypoxic: NPO and consulted GI, input noted Acidosis, improved: monitor levels h/o KELLY Mild to moderate malnutrition; Dietitian consulted Insulin-dependent diabetes mellitus uncontrolled with Hyperglycemia: POC BG Monitoring, basal/bolus coverage ILD with severe Pulmonary hypertension-severe underlying cause of respiratory failure: Pulmonology following, continue O2 support h/o HLD History of prostate cancer DVT PPX on Lovenox full code AMS with acute metabolic encephalopathy, improved, pO2 on 61 on 60% fiO2, probably will need bipap again, BiPAP at night helps, may need restraints, d/c [facility], get UA, on Levaquin GI mentioned PPN but not started, patient remains NPO Hypernatremia, start d5w only at 75ml/hr, monitor the heart failure Saturday, I called [facility] at [phone] Coawn, ok to keep here Saturday, I called [facility] at [phone] Norris, she is considering transfer to [facility], she will call me back. History Interval history: Patient was seen and examined. Follow-up on current diagnosis Hypotensi on/pna/chf/copd. No overnight events reported to me but he was placed on bipap yesterday and off bipap this morning. Patient denies any chest pain, nausea/vomiting or severe headaches. Imaging, nursing note, chart, labs and old chart reviewed. Discussed with patient and at bedside. Hospitalist Physical - Physical exam Narrative exam: Gen: ill appearing, WDWN, NAD, Awake, Alert, Orientated HEENT: NCAT, EOMI, PERRL, OP Clear Neck: supple, no adenopathy, no thyromegaly, no JVD CVS/Heart: RRR, normal S1S2, pulses present bilaterally Chest/Lungs: diminished bs bilateral with bibasilar crackles and rhonchi, Symmetrical chest expansion, good air entry bilaterally GI/Abdomen: soft, NTND, good bowel sounds, no guarding or rebound /Bladder: no suprapubic tenderness, no CVA or paraspinal tenderness Extermity/Skin: no c/c/e, no obvious rash MSK: FROM x 4 Neuro: CN 2-12 grossly intact, no new focal deficits Psych: calm - Constitutional Vitals: Temp Pulse Resp BP Pulse Ox 97.8 F 82 18 143/70 95 02/22/19 10:58 02/22/19 08:08 02/22/19 08:08 02/22/19 07:57 02/22/19 08:09 General appearance: Present: no acute distress Results - Labs CBC & Chem 7: 02/21/19 04:48 02/21/19 04:48 Labs: Laboratory Last Values WBC 11.3 K/mm3 (4.5-11.0) H 02/21/19 04:48 RBC 3.48 M/mm3 (3.65-5.03) L 02/21/19 04:48 Hgb 10.3 gm/dl (11.8-15.2) L 02/21/19 04:48 Hct 31.2 % (35.5-45.6) L 02/21/19 04:48 MCV 90 fl (84-94) 02/21/19 04:48 MCH 30 pg (28-32) 02/21/19 04:48 MCHC 33 % (32-34) 02/21/19 04:48 RDW 21.4 % (13.2-15.2) H 02/21/19 04:48 Plt Count 86 K/mm3 (140-440) L 02/21/19 04:48 Add Manual Diff Complete 02/19/19 04:14 Total Counted 100 02/19/19 04:14 Seg Neutrophils % Torque Tester 02/17/19 22:09 Seg Neuts % (Manual) 96.0 % (40.0-70.0) H 02/19/19 04:14 0 % 02/19/19 04:14 3.0 % (13.4-35.0) L 02/19/19 04:14 Reactive Lymphs % (Man) 0 % 02/19/19 04:14 1.0 % (0.0-7.3) 02/19/19 04:14 0 % (0.0-4.3) 02/19/19 04:14 0 % (0.0-1.8) 02/19/19 04:14 0 % 02/19/19 04:14 0 % 02/19/19 04:14 0 % 02/19/19 04:14 0 % 02/19/19 04:14 Nucleated RBC % Not Reportable 02/19/19 04:14 Seg Neutrophils # Man 10.8 K/mm3 (1.8-7.7) H 02/19/19 04:14 Band Neutrophils # 0.0 K/mm3 02/19/19 04:14 0.3 K/mm3 (1.2-5.4) L 02/19/19 04:14 Abs React Lymphs (Man) 0.0 K/mm3 02/19/19 04:14 0.1 K/mm3 (0.0-0.8) 02/19/19 04:14 0.0 K/mm3 (0.0-0.4) 02/19/19 04:14 0.0 K/mm3 (0.0-0.1) 02/19/19 04:14 0.0 K/mm3 02/19/19 04:14 0.0 K/mm3 02/19/19 04:14 0.0 K/mm3 02/19/19 04:14 Blast Cells # 0.0 K/mm3 02/19/19 04:14 WBC Morphology Not Reportable 02/19/19 04:14 Hypersegmented Neuts Not Reportable 02/19/19 04:14 Hyposegmented Neuts Not Reportable 02/19/19 04:14 Hypogranular Neuts Not Reportable 02/19/19 04:14 Not Reportable 02/19/19 04:14 Not Reportable 02/19/19 04:14 Not Reportable 02/19/19 04:14 Not Reportable 02/19/19 04:14 Not Reportable 02/19/19 04:14 Not Reportable 02/19/19 04:14 Consistent w auto 02/19/19 04:14 Not Reportable 02/19/19 04:14 Plt Clumps, EDTA Not Reportable 02/19/19 04:14 Rare 02/19/19 04:14 Not Reportable 02/19/19 04:14 Not Reportable 02/19/19 04:14 Plt Morphology Comment Not Reportable 02/19/19 04:14 RBC Morphology Not Reportable 02/19/19 04:14 Dimorphic RBCs Not Reportable 02/19/19 04:14 Not Reportable 02/19/19 04:14 Not Reportable 02/19/19 04:14 1+ 02/19/19 04:14 1+ 02/19/19 04:14 Not Reportable 02/19/19 04:14 Not Reportable 02/19/19 04:14 Not Reportable 02/19/19 04:14 Not Reportable 02/19/19 04:14 Not Reportable 02/19/19 04:14 Not Reportable 02/19/19 04:14 Few 02/19/19 04:14 Few 02/19/19 04:14 Not Reportable 02/19/19 04:14 Not Reportable 02/19/19 04:14 Not Reportable 02/19/19 04:14 Not Reportable 02/19/19 04:14 Not Reportable 02/19/19 04:14 Not Reportable 02/19/19 04:14 Few 02/19/19 04:14 Acanthocytes (Spur) Not Reportable 02/19/19 04:14 Rouleaux Not Reportable 02/19/19 04:14 Not Reportable 02/19/19 04:14 Not Reportable 02/19/19 04:14 Not Reportable 02/19/19 04:14 Not Reportable 02/19/19 04:14 Hem Pathologist Commnt No 02/19/19 04:14 603.05 ng/mlDDU (0-234) H 02/17/19 22:09 POC ABG pH 7.441 (7.35-7.45) 02/21/19 12:24 POC ABG pCO2 40.7 (35-45) 02/21/19 12:24 POC ABG pO2 61 (80-105) L 02/21/19 12:24 POC ABG HCO3 27.7 (22-26 mml/L) 02/21/19 12:24 POC ABG Total CO2 29 (23-27mmol/L) 02/21/19 12:24 POC ABG O2 Sat 92 02/21/19 12:24 POC ABG Base Excess 4 ((-2) - (+3)mmol/L) 02/21/19 12:24 VBG pH 7.299 (7.320-7.420) L 02/17/19 23:13 60 % 02/21/19 12:24 Sodium 154 mmol/L (137-145) H D 02/21/19 04:48 Potassium 4.3 mmol/L (3.6-5.0) 02/21/19 04:48 Chloride 115.0 mmol/L (98-107) H 02/21/19 04:48 Carbon Dioxide 25 mmol/L (22-30) 02/21/19 04:48 18 mmol/L 02/21/19 04:48 BUN 30 mg/dL (9-20) H 02/21/19 04:48 1.2 mg/dL (0.8-1.5) 02/21/19 04:48 Estimated GFR > 60 ml/min 02/21/19 04:48 25 % 02/21/19 04:48 Glucose 151 mg/dL (75-100) H 02/21/19 04:48 POC Glucose 246 (70-105) H 02/22/19 05:59 Negative (Negative) 02/17/19 23:13 Lactic Acid 1.80 mmol/L (0.7-2.0) 02/18/19 13:36 Calcium 9.5 mg/dL (8.4-10.2) 02/21/19 04:48 Magnesium 1.90 mg/dL (1.7-2.3) 02/17/19 22:09 1.20 mg/dL (0.1-1.2) 02/17/19 22:09 AST 17 units/L (5-40) 02/17/19 22:09 ALT 20 units/L (7-56) 02/17/19 22:09 81 units/L (35-129) 02/17/19 22:09 0.056 ng/mL (0.00-0.029) H 02/18/19 13:36 7.40 mg/dL (0.00-1.30) H 02/18/19 13:36 NT-Pro-B Natriuret Pep 3625 pg/mL (0-900) H 02/17/19 22:09 6.0 g/dL (6.3-8.2) L 02/17/19 22:09 2.9 g/dL (3.9-5) L 02/17/19 22:09 0.9 % 02/17/19 22:09 Triglycerides 99 mg/dL (2-149) 02/18/19 13:36 Cholesterol 122 mg/dL (50-199) 02/18/19 13:36 81 mg/dL (50-130) 02/18/19 13:36 30 mg/dL (40-59) L 02/18/19 13:36 4.06 % 02/18/19 13:36 Straw (Yellow) 02/21/19 14:00 Slightly-cloudy (Clear) 02/21/19 14:00 5.0 (5.0-7.0) 02/21/19 14:00 Ur Specific [place] 1.009 (1.003-1.030) 02/21/19 14:00 <15 mg/dl mg/dL (Negative) 02/21/19 14:00 Neg mg/dL (Negative) 02/21/19 14:00 Neg mg/dL (Negative) 02/21/19 14:00 Lg (Negative) 02/21/19 14:00 Neg (Negative) 02/21/19 14:00 Neg (Negative) 02/21/19 14:00 < 2.0 mg/dL (<2.0) 02/21/19 14:00 Ur Leukocyte Esterase Lg (Negative) 02/21/19 14:00 28.0 /HPF (0.0-6.0) H 02/21/19 14:00 56.0 /HPF (0.0-6.0) 02/21/19 14:00 1+ /HPF (Negative) 02/21/19 14:00 Few /HPF 02/21/19 14:00 Vancomycin Trough 23.4 ug/mL (5.0-20.0) H 02/20/19 20:24 Active Medications - Current Medications Current Medications: Generic Name Dose Route Start Last Admin Trade Name Freq PRN Reason Stop Dose Admin Acetaminophen 650 mg 02/18/19 02:15 Tylenol PO Q4H PRN Pain MILD(1-3)/Fever >100.5/QUILES Albuterol 2.5 mg 02/18/19 02:15 Proventil IH Q3HRT PRN Shortness Of Breath Albuterol/Ipratropium 1 ampul 02/18/19 08:00 02/22/19 07:57 Duoneb *Not For Prn Use* IH Not Given Q6HRT LAM Arformoterol Tartrate 15 mcg 02/18/19 20:00 02/22/19 07:57 Melissa Munson IH 15 mcg Q12HRT LAM Administration Atorvastatin Calcium 40 mg 02/18/19 22:00 02/21/19 21:28 Lipitor PO Not Given QHS LAM Budesonide 0.5 mg 02/18/19 08:00 02/22/19 07:56 Pulmicort IH 0.5 mg Q12HRT LAM Administration Cholecalciferol 1,000 unit 02/18/19 10:00 02/22/19 10:00 Vitamin D3 PO 1,000 unit QDAY LAM Administration Clopidogrel Bisulfate 75 mg 02/18/19 10:00 02/22/19 10:00 Plavix PO 75 mg QDAY LAM Administration Dextrose 50 ml 02/18/19 02:26 D50w (25gm) Syringe IV PRN PRN Hypoglycemia Enoxaparin Sodium 40 mg 02/19/19 10:00 02/22/19 10:00 Lovenox SUB-Q 40 mg QDAY@1000 LAM Administration Famotidine 20 mg 02/18/19 10:00 02/22/19 10:00 Pepcid PO 20 mg BID LAM Administration Furosemide 40 mg 02/21/19 10:00 02/22/19 10:00 Lasix IV 40 mg QDAY LAM Administration Cefepime HCl 1 gm in 100 mls @ 200 mls/hr 02/18/19 06:00 02/22/19 05:49 Maxipime/Ns 1 Gm/100 Ml IV 200 mls/hr Q12H LAM Administration Protocol Levofloxacin/Dextrose 750 mg in 150 mls @ 100 mls/hr 02/19/19 15:00 02/22/19 11:27 Levaquin 750mg/150ml IV 100 mls/hr Q24HR LAM Administration Protocol Dextrose 1,000 mls @ 75 mls/hr 02/21/19 13:00 02/22/19 03:14 D5w IV 75 mls/hr DIRECT LAM Administration Vancomycin HCl 1 gm in 250 mls @ 166.667 mls/hr 02/21/19 15:30 02/22/19 11:07 Vancomycin/Ns 1 Gm/250 Ml IV 166.667 mls/hr Q18H LAM Administration Insulin Human Lispro 0 unit 02/20/19 00:00 02/22/19 06:01 Humalog SUB-Q 4 unit Q6HR LAM Administration Protocol Methylprednisolone Sodium Succinate 60 mg 02/18/19 06:00 02/22/19 05:49 Solu-Medrol IV 60 mg Q8HR LAM Administration Ondansetron HCl 4 mg 02/18/19 02:15 Zofran IV Q8H PRN Nausea And Vomiting Sertraline HCl 50 mg 02/18/19 10:00 02/22/19 10:00 Zoloft PO 50 mg QDAY LAM Administration Sildenafil Citrate 20 mg 02/18/19 08:00 02/22/19 11:03 Revatio PO Not Given TID LAM Sodium Chloride 10 ml 02/18/19 10:00 02/22/19 11:28 Sodium Chloride Flush Syringe 10 Ml IV Not Given BID LAM Sodium Chloride 10 ml 02/18/19 02:15 Sodium Chloride Flush Syringe 10 Ml IV PRN PRN LINE FLUSH
--- NOTE | 2019-02-22 12:32 | Discharge Summary ---
Providers - Providers Date of Admission: 02/18/19 03:51 Date of discharge: 02/22/19 Attending physician: ADAN CUEVAS 02/18/19 02:26 Consult to Physician [CONS] Routine Comment: Consulting Provider: BRENT RIZZO Physician Instructions: Reason For Exam: recurrent pneumonia,hx ILD& Pul HTN, ICU admission 02/18/19 10:00 Consult to Wound/ET Nurse [CONS] Routine Reason For Exam: sacral pressure ulcer 02/18/19 13:15 Consult to Physician [CONS] Routine Comment: Consulting Provider: MESFIN CASTILLO Physician Instructions: Reason For Exam: sepsis ? due to occult pneumonia 02/19/19 16:28 Speech Therapy Evaluation and Treat [CONS] Urgent Reason For Exam: odynophagia 02/20/19 14:20 Consult to Physician [CONS] Routine Comment: Consulting Provider: DL EDWARDS Physician Instructions: Reason For Exam: Dysphagia Consult to Physician [CONS] Routine Comment: Consulting Provider: JAMES GUIDO Physician Instructions: Reason For Exam: Evaluate for heart failure 02/22/19 12:23 Consult to Dietitian/Nutrition [CONS] Routine Reason For Exam: Physician Instructions: PPN for now Reason for Consult: Write/Manage TPN/PPN [facility] Condition: Serious Hospital course: Patient is a 73 yo man who is a [facility] patient with a history of hypertension, COPD, ILD, insulin-dependent diabetes mellitus, hyperlipidemia, CAD, CHF, prostate cancer, chronic respiratory failure and pulmonary hypertension who presented to [facility] ED with SOB/OMAR. Home Pulse ox was 35% and O2 saturation in ED was 74% on RA. Patient was hypotensive and was given a 500 mL fluid bolus in the ED and was responsive for short period of time. Right femoral double lumen central line was placed and patient was started on levophed gtt and admitted to the Critical Care Unit. Patient has a leukocytosis of 18,000, anemia with a hemoglobin of 10, blood sugar of about 450, BNP of about 3500, slightly elevated troponin level and some mild renal insufficiency, so CTA chest wasn't done. Chest x-ray shows signs of volume overload and left lower pneumonia. Patient started having some hypotension so he was given a 500 mL bolus of fluid with some improvement. However his blood pressure once again started going back down and his chest x-ray and blood work showed signs of an exacerbation of CHF, so decision was made to place a central line to start Vasopressor instead of more IV fluids. Blood cultures were obtained and the patient was started on antibiotics. He was given some steroids for his bronchospasm and some breathing treatments. The patient had an elevated d-dimer and we attempted to get a VQ scan, but the patient is unable to lay flat and appeared slightly claustrophobic so this examination could not be done. If necessary, the patient can be given a dose of Lovenox. I had just discharge patient home with [facility] on 02/04/19. He came back the next day for admission then was discharge again on 02/10/19 and now comes back on 02/18/19. Patient may need a different Home Hospice company to prevent frequent re-admission for the same thing, underlying end stage ILD with severe pulmonary hypertension. * pCXR Impression: Vascular congestion with an infiltrate and atelectasis left lower lung, moderate left and mild right effusions * Bilateral Leg Doppler negative Acute on chronic hypoxic respiratory failure, went back on bipap on 02/19/19 then weaned off 02/20/19, now on high flow O2 LLL Pneumonia: ID consulted, input noted AE COPD: Solu-Medrol, Scheduled DuoNeb's and Pulmicort, albuterol when necessary Sepsis with shock: resolved Acute on chronic combined heart failure: Consulted Cardiology,input noted, ECHO reviewed ARF due to ATN, poa: improve BP and monitor closely Anemia and Thrombocytopenia: monitor cbc closely Elevated d-dimer R/O PE: off therapeutic Lovenox by Pulmonology Dysphagia, choked on rice and became hypoxic: NPO and consulted GI, input noted Acidosis, improved: monitor levels h/o KELLY Mild to moderate malnutrition; Dietitian consulted Insulin-dependent diabetes mellitus uncontrolled with Hyperglycemia: POC BG Monitoring, basal/bolus coverage ILD with severe Pulmonary hypertension-severe underlying cause of respiratory failure: Pulmonology following, continue O2 support h/o HLD History of prostate cancer DVT PPX on Lovenox AMS with acute metabolic encephalopathy, improved, Saturday's ABG showed pO2 of 61 on 60% fiO2, probably will need bipap again, BiPAP at night really helps, may need restraints, d/c [place], get UA, on Levaquin GI mentioned PPN but not started, patient remains NPO, spoke with GI,Dr. Moseley, start PPN Hypernatremia, start d5w only at 75ml/hr, monitor the heart failure Saturday, I called [facility] at [phone] Cowan, ok to keep here Saturday, I called [employer] [facility] at [phone] Norris, she is considering transfer to [employer] [place], she will call me back. She called me back and said Dr. Barreto has accepted to [facility] ICU full code Disposition: [id number] ANOTHER TYPE HLTHCARE Time spent for discharge: 35 minutes Core Measure Documentation - Palliative Care Palliative Care/ Comfort Measures: Not Applicable - Core Measures Any of the following diagnoses?: none - VTE Discharge Requirements Deep Vein Thrombosis/Pulmonary Embolism Present on Admission: No Has pt received <5 days of overlap therapy or INR<2.0: No Anticoagulant overlap therapy prescribed at discharge: No Contraindication No Overlap Therapy order at DC: Not Indicated Exam - Physical Exam Narrative exam: Gen: ill appearing, WDWN, NAD, Awake, Alert, Orientated HEENT: NCAT, EOMI, PERRL, OP Clear Neck: supple, no adenopathy, no thyromegaly, no JVD CVS/Heart: RRR, normal S1S2, pulses present bilaterally Chest/Lungs: diminished bs bilateral with bibasilar crackles and rhonchi, Symmetrical chest expansion, good air entry bilaterally GI/Abdomen: soft, NTND, good bowel sounds, no guarding or rebound /Bladder: no suprapubic tenderness, no CVA or paraspinal tenderness Extermity/Skin: no c/c/e, no obvious rash MSK: FROM x 4 Neuro: CN 2-12 grossly intact, no new focal deficits Psych: calm - Constitutional Vitals: Temp Pulse Resp BP Pulse Ox 97.8 F 82 18 143/70 95 02/22/19 10:58 02/22/19 08:08 02/22/19 08:08 02/22/19 07:57 02/22/19 08:09 Plan Activity: other (no strenous activity) Diet: other (NPO) Follow up with: [facility] [Provider Group] - 7 Days
[2019-02-22 12:33] VITALS: BP 141/78
[2019-02-22 14:35] LABS: BUN/Creatinine Ratio 28; Blood Urea Nitrogen 31 mg/dL (9-20); Calcium 9.3 mg/dL (8.4-10.2); Hemolysis Index 3
[2019-02-22 14:39] LABS: Hematocrit 31.9 % (35.5-45.6); Hemoglobin 10.5 gm/dl (11.8-15.2); Mean Corpuscular HGB Conc 33 % (32-34); Mean Corpuscular Volume 91 fl (84-94); Red Blood Count 3.52 M/mm3 (3.65-5.03)
[2019-02-22 14:48] LABS: Platelet Count 79 K/mm3 (140-440); Red Cell Distribution Width 21.7 % (13.2-15.2)
--- NOTE | 2019-02-22 17:46 | Progress Note ---
Assessment and Plan Acute on chronic hypoxemic respiratory failure, increased oxygen requirements at presentation. Acute exacerbation of his interstitial lung disease. Possible occult pneumonia. Acute pulmonary edema. Diabetes type 2, poorly controlled. Obstructive sleep apnea, noncompliant with therapy. Hypertension. Severe pulmonary hypertension. Lactic acidosis. Mild metabolic acidosis at presentation. Hyperbilirubinemia. coronary artery disease. Obesity. - adviced continued NPO status while ST evaluation goes on (family & patient wanting to eat) - oral swabs to combat dryness - continue supplemental oxygen and wean to keep O2 sats >/= 90% - continue bronchodilators (GUILLERMINA & LABA) with pulmonary hygiene per RT - continue systemic steroids with slow taper - complete empiric Levaquin monotherapy - CRP level equivocal; will de-escalate AB's quickly based on clinical and microbiologic data - continue bilevel positive airway pressure ventilation therapy scheduled at bedtime with p.r.n. daytime use. I - continue GI & DVT prophylaxis - continue Glycemic with SSI targeted to blood sugars less than 180 mg/dL - continue other care per attending ... re-evaluate in am & prn Subjective Date of service: 02/22/19 Principal diagnosis: Ac on ch hypoxemic resp failure; Acute exacerbation of ILDx; Possible PNA Interval history: Patient seen today for: Acute on chronic hypoxemic respiratory failure; Acute exacerbation of his interstitial lung disease; Possible occult pneumonia; Possible pulmonary edema; Diabetes type 2, poorly controlled; Obesity; HTN Seen and examined at bedside; 24 hour events reviewed; nursing and respiratory care staff consulted; no adverse overnight events reported to me; resting peacefully in bed; Objective Vital Signs - 12hr 02/22/19 02/22/19 02/22/19 06:00 07:00 07:57 Temperature Pulse Rate 75 77 84 Pulse Rate [ 81 Anterior Bilateral Throughout] Pulse Rate [ From Monitor] Respiratory 18 20 21 Rate Respiratory 20 Rate [Anterior Bilateral Throughout] Blood Pressure 134/70 151/75 143/70 O2 Sat by Pulse 99 97 97 Oximetry 02/22/19 02/22/19 02/22/19 08:00 08:03 08:08 Temperature 97.7 F Pulse Rate 83 Pulse Rate [ 82 Anterior Bilateral Throughout] Pulse Rate [ 88 From Monitor] Respiratory 22 Rate Respiratory 18 Rate [Anterior Bilateral Throughout] Blood Pressure 145/70 O2 Sat by Pulse 97 Oximetry 02/22/19 02/22/19 02/22/19 08:09 09:00 10:00 Temperature Pulse Rate 83 73 Pulse Rate [ Anterior Bilateral Throughout] Pulse Rate [ From Monitor] Respiratory 19 16 Rate Respiratory Rate [Anterior Bilateral Throughout] Blood Pressure 127/64 136/77 O2 Sat by Pulse 95 97 95 Oximetry 02/22/19 02/22/19 02/22/19 10:58 11:00 12:00 Temperature 97.8 F 97.8 F Pulse Rate 79 81 Pulse Rate [ Anterior Bilateral Throughout] Pulse Rate [ 79 From Monitor] Respiratory 17 21 Rate Respiratory Rate [Anterior Bilateral Throughout] Blood Pressure 142/79 141/78 O2 Sat by Pulse 96 85 Oximetry 02/22/19 02/22/19 02/22/19 12:36 13:56 16:00 Temperature 98.0 F Pulse Rate Pulse Rate [ 98 H Anterior Bilateral Throughout] Pulse Rate [ From Monitor] Respiratory Rate Respiratory 20 Rate [Anterior Bilateral Throughout] Blood Pressure O2 Sat by Pulse 93 Oximetry Constitutional: alert, other (elderly looking AAM, normocephalic with mildly increased resp effort at rest) Eyes: non-icteric ENT: oropharynx dry, other (mallampati 3) Neck: supple, no lymphadenopathy, no JVD, other (large neck circumference) Effort: mildly labored Ascultation: Bilateral: diminished breath sounds, rhonchi Percussion: Bilateral: not dull Cardiovascular: regular rate and rhythm, murmur noted (systolic) Gastrointestinal: normoactive bowel sounds, soft, non-tender, non-distended, other (protuberant) Integumentary: other (poor turgor) Extremities: no cyanosis, no edema, pulses normal, no ischemia or petechiae Neurologic: normal mental status, non-focal exam (grossly), pupils equal and round, other (weak) Psychiatric: mood appropriate, affect normal CBC and BMP: 02/22/19 13:55 02/22/19 13:55 ABG, PT/INR, D-dimer: ABG POC ABG pH 7.441 (7.35-7.45) 02/21/19 12:24 POC ABG pCO2 40.7 (35-45) 02/21/19 12:24 POC ABG pO2 61 (80-105) L 02/21/19 12:24 POC ABG HCO3 27.7 (22-26 mml/L) 02/21/19 12:24 POC ABG Total CO2 29 (23-27mmol/L) 02/21/19 12:24 POC ABG O2 Sat 92 02/21/19 12:24 PT/INR, D-dimer 603.05 ng/mlDDU (0-234) H 02/17/19 22:09 Abnormal lab findings: Abnormal Labs 02/17/19 02/17/19 02/17/19 22:09 22:09 22:09 WBC 18.3 H RBC 3.42 L Hgb 9.9 L Hct 30.6 L RDW 21.4 H Plt Count 102 L Seg Neuts % (Manual) 88.0 H Lymphocytes % (Manual) 9.0 L Seg Neutrophils # Man 16.1 H Lymphocytes # (Manual) D-Dimer 603.05 H POC ABG pH POC ABG pO2 VBG pH Sodium 135 L Chloride Carbon Dioxide 18 L BUN Glucose 446 H POC Glucose Calcium 8.2 L Troponin T 0.061 H C-Reactive Protein NT-Pro-B Natriuret Pep Total Protein 6.0 L Albumin 2.9 L HDL Cholesterol Urine WBC (Auto) Vancomycin Trough 02/17/19 02/17/19 02/17/19 22:09 22:28 23:13 WBC RBC Hgb Hct RDW Plt Count Seg Neuts % (Manual) Lymphocytes % (Manual) Seg Neutrophils # Man Lymphocytes # (Manual) D-Dimer POC ABG pH 7.308 L POC ABG pO2 VBG pH 7.299 L Sodium Chloride Carbon Dioxide BUN Glucose POC Glucose Calcium Troponin T C-Reactive Protein NT-Pro-B Natriuret Pep 3625 H Total Protein Albumin HDL Cholesterol Urine WBC (Auto) Vancomycin Trough 02/18/19 02/18/19 02/18/19 00:01 01:23 05:40 WBC RBC Hgb Hct RDW Plt Count Seg Neuts % (Manual) Lymphocytes % (Manual) Seg Neutrophils # Man Lymphocytes # (Manual) D-Dimer POC ABG pH POC ABG pO2 VBG pH Sodium Chloride Carbon Dioxide BUN Glucose POC Glucose 424 H 281 H 381 H Calcium Troponin T C-Reactive Protein NT-Pro-B Natriuret Pep Total Protein Albumin HDL Cholesterol Urine WBC (Auto) Vancomycin Trough 02/18/19 02/18/19 02/18/19 07:54 11:25 13:36 WBC RBC Hgb Hct RDW Plt Count Seg Neuts % (Manual) Lymphocytes % (Manual) Seg Neutrophils # Man Lymphocytes # (Manual) D-Dimer POC ABG pH POC ABG pO2 VBG pH Sodium Chloride Carbon Dioxide BUN Glucose POC Glucose 388 H 343 H Calcium Troponin T C-Reactive Protein 7.40 H NT-Pro-B Natriuret Pep Total Protein Albumin HDL Cholesterol Urine WBC (Auto) Vancomycin Trough 02/18/19 02/18/19 02/18/19 13:36 15:56 21:31 WBC RBC Hgb Hct RDW Plt Count Seg Neuts % (Manual) Lymphocytes % (Manual) Seg Neutrophils # Man Lymphocytes # (Manual) D-Dimer POC ABG pH POC ABG pO2 VBG pH Sodium Chloride Carbon Dioxide BUN Glucose POC Glucose 377 H 312 H Calcium Troponin T 0.056 H C-Reactive Protein NT-Pro-B Natriuret Pep Total Protein Albumin HDL Cholesterol 30 L Urine WBC (Auto) Vancomycin Trough 02/19/19 02/19/19 02/19/19 04:14 04:14 08:50 WBC 11.3 H RBC 3.30 L Hgb 9.8 L Hct 29.8 L RDW 21.2 H Plt Count 91 L Seg Neuts % (Manual) 96.0 H Lymphocytes % (Manual) 3.0 L Seg Neutrophils # Man 10.8 H Lymphocytes # (Manual) 0.3 L D-Dimer POC ABG pH 7.344 L POC ABG pO2 VBG pH Sodium Chloride 108.9 H Carbon Dioxide 21 L BUN 24 H Glucose 307 H POC Glucose Calcium Troponin T C-Reactive Protein NT-Pro-B Natriuret Pep Total Protein Albumin HDL Cholesterol Urine WBC (Auto) Vancomycin Trough 02/19/19 02/19/19 02/19/19 13:19 18:18 23:34 WBC RBC Hgb Hct RDW Plt Count Seg Neuts % (Manual) Lymphocytes % (Manual) Seg Neutrophils # Man Lymphocytes # (Manual) D-Dimer POC ABG pH POC ABG pO2 VBG pH Sodium Chloride Carbon Dioxide BUN Glucose POC Glucose 414 H 240 H 325 H Calcium Troponin T C-Reactive Protein NT-Pro-B Natriuret Pep Total Protein Albumin HDL Cholesterol Urine WBC (Auto) Vancomycin Trough 02/20/19 02/20/19 02/20/19 05:33 12:12 14:34 WBC RBC Hgb Hct RDW Plt Count Seg Neuts % (Manual) Lymphocytes % (Manual) Seg Neutrophils # Man Lymphocytes # (Manual) D-Dimer POC ABG pH POC ABG pO2 68 L VBG pH Sodium Chloride Carbon Dioxide BUN Glucose POC Glucose 247 H 196 H Calcium Troponin T C-Reactive Protein NT-Pro-B Natriuret Pep Total Protein Albumin HDL Cholesterol Urine WBC (Auto) Vancomycin Trough 02/20/19 02/20/19 02/20/19 18:01 20:24 22:11 WBC RBC Hgb Hct RDW Plt Count Seg Neuts % (Manual) Lymphocytes % (Manual) Seg Neutrophils # Man Lymphocytes # (Manual) D-Dimer POC ABG pH POC ABG pO2 VBG pH Sodium Chloride Carbon Dioxide BUN Glucose POC Glucose 217 H 173 H Calcium Troponin T C-Reactive Protein NT-Pro-B Natriuret Pep Total Protein Albumin HDL Cholesterol Urine WBC (Auto) Vancomycin Trough 23.4 H 02/21/19 02/21/19 02/21/19 04:48 04:48 05:47 WBC 11.3 H RBC 3.48 L Hgb 10.3 L Hct 31.2 L RDW 21.4 H Plt Count 86 L Seg Neuts % (Manual) Lymphocytes % (Manual) Seg Neutrophils # Man Lymphocytes # (Manual) D-Dimer POC ABG pH POC ABG pO2 VBG pH Sodium 154 H D Chloride 115.0 H Carbon Dioxide BUN 30 H Glucose 151 H POC Glucose 159 H Calcium Troponin T C-Reactive Protein NT-Pro-B Natriuret Pep Total Protein Albumin HDL Cholesterol Urine WBC (Auto) Vancomycin Trough 02/21/19 02/21/19 02/21/19 11:49 12:24 14:00 WBC RBC Hgb Hct RDW Plt Count Seg Neuts % (Manual) Lymphocytes % (Manual) Seg Neutrophils # Man Lymphocytes # (Manual) D-Dimer POC ABG pH POC ABG pO2 61 L VBG pH Sodium Chloride Carbon Dioxide BUN Glucose POC Glucose 129 H Calcium Troponin T C-Reactive Protein NT-Pro-B Natriuret Pep Total Protein Albumin HDL Cholesterol Urine WBC (Auto) 28.0 H Vancomycin Trough 02/21/19 02/21/19 02/22/19 18:14 23:15 05:59 WBC RBC Hgb Hct RDW Plt Count Seg Neuts % (Manual) Lymphocytes % (Manual) Seg Neutrophils # Man Lymphocytes # (Manual) D-Dimer POC ABG pH POC ABG pO2 VBG pH Sodium Chloride Carbon Dioxide BUN Glucose POC Glucose 119 H 166 H 246 H Calcium Troponin T C-Reactive Protein NT-Pro-B Natriuret Pep Total Protein Albumin HDL Cholesterol Urine WBC (Auto) Vancomycin Trough 02/22/19 02/22/19 02/22/19 12:19 13:55 13:55 WBC RBC 3.52 L Hgb 10.5 L Hct 31.9 L RDW 21.7 H Plt Count 79 L Seg Neuts % (Manual) Lymphocytes % (Manual) Seg Neutrophils # Man Lymphocytes # (Manual) D-Dimer POC ABG pH POC ABG pO2 VBG pH Sodium 147 H Chloride 107.4 H Carbon Dioxide BUN 31 H Glucose 205 H POC Glucose 176 H Calcium Troponin T C-Reactive Protein NT-Pro-B Natriuret Pep Total Protein Albumin HDL Cholesterol Urine WBC (Auto) Vancomycin Trough Allied health notes reviewed: nursing
== END 2019-02-22 15:00 | disposition short-term general hospital (02) | DRG 871 ==
LOC: ED 21:38 → CC1 02-18 03:51 → IMCU 02-19 18:19
PROVIDERS: ADMIT Internal Medicine; ATTEND Internal Medicine
PROC: 5A09457 Assistance with Respiratory Ventilation, 24-96 Consecutive Hours, Continuous Positive Airway Pressure (ICD-10-PCS; 2019-02-18)
PROC: 06HY33Z Insertion of Infusion Device into Lower Vein, Percutaneous Approach (ICD-10-PCS; 2019-02-18)
PROC: B54BZZA Ultrasonography of Right Lower Extremity Veins, Guidance (ICD-10-PCS; 2019-02-18)
PROC: 4A033R1 Measurement of Arterial Saturation, Peripheral, Percutaneous Approach (ICD-10-PCS; principal; 2019-02-20)
DX: A41.9 Sepsis, unspecified organism (principal); R65.21 Severe sepsis with septic shock; J96.21 Acute and chronic respiratory failure with hypoxia; I50.43 Acute on chronic combined systolic (congestive) and diastolic (congestive) heart failure; J18.1 Lobar pneumonia, unspecified organism; N17.0 Acute kidney failure with tubular necrosis; G93.41 Metabolic encephalopathy; J44.1 Chronic obstructive pulmonary disease with (acute) exacerbation; J44.0 Chronic obstructive pulmonary disease with (acute) lower respiratory infection; E44.0 Moderate protein-calorie malnutrition; E87.0 Hyperosmolality and hypernatremia; I11.0 Hypertensive heart disease with heart failure; I25.10 Atherosclerotic heart disease of native coronary artery without angina pectoris; D64.9 Anemia, unspecified; D69.6 Thrombocytopenia, unspecified; G47.33 Obstructive sleep apnea (adult) (pediatric); E11.65 Type 2 diabetes mellitus with hyperglycemia; I27.20 Pulmonary hypertension, unspecified; J84.10 Pulmonary fibrosis, unspecified; E78.2 Mixed hyperlipidemia; R13.12 Dysphagia, oropharyngeal phase; Z79.4 Long term (current) use of insulin; Z85.46 Personal history of malignant neoplasm of prostate; Z79.899 Other long term (current) drug therapy; Z95.5 Presence of coronary angioplasty implant and graft; Z99.81 Dependence on supplemental oxygen; Z86.73 Personal history of transient ischemic attack (TIA), and cerebral infarction without residual deficits
CPT/HCPCS: 36415; 36600; 71045; 80048; 80053; 80061; 80202; 81001; 82010; 82140; 82803; 82805; 82962; 83735; 83880; 84484; 85007; 85025; 85027; 85379; 86140; 87040; 87086; 87116; 93005; 93010; 93306; 93970; 94640; 94660; 94760; G0378; A9270-GY; J0692; J1650; J1815; J1940; J1956; J2060; J2920; J2930; J3370; J7040; J7070